=== PATIENT | female | born 1945 | race Caucasian/White ===

== ENCOUNTER 2024-10-29 04:23 | Outpatient (REF) | payer MEDICARE, MEDICAID, SELFPAY ==
--- OUTSIDE RECORDS SUMMARY | 2024-10-29 04:31 | XMS_ITS | CCD ---
Author Organization [facility] Care Team Providers Care Fine Hairer Name Role Phone SELF, REFERRED Unavailable Unavailable ILO, MAXIMINO Unavailable Unavailable NELLIE, SUMMON Unavailable Unavailable NELLIE, SUMMON Unavailable Unavailable AL Unavailable Unavailable NELLIE, SUMMON Unavailable Unavailable AL Unavailable Unavailable YERMAL, SOORAJ G Unavailable Unavailable NELLIE, SUMMON Unavailable Unavailable NELLIE, SUMMON Unavailable Unavailable NELLIE, SUMMON Unavailable Unavailable ILO, MAXIMINO Unavailable Unavailable AL Unavailable Unavailable NELLIE, SUMMON Unavailable Unavailable NELLIE, SUMMON Unavailable Unavailable NELLIE, SUMMON Unavailable Unavailable ILO, MAXIMINO Unavailable Unavailable ILO, MAXIMINO Unavailable Unavailable ILO, MAXIMINO Unavailable Unavailable VICK, JESSY AM Unavailable Unavailable VICK, JESSY AM Unavailable Unavailable NELLIE, SUMMON Unavailable Unavailable VICK, JESSY AM Unavailable Unavailable VICK, JESSY AM Unavailable Unavailable ILO, MAXIMINO Unavailable Unavailable ILO, MAXIMINO Unavailable Unavailable SELF, REFERRED Unavailable Unavailable VICK, JESSY AM Unavailable Unavailable VICK, JESSY AM Unavailable Unavailable ILO, MAXIMINO Unavailable Unavailable SELF, REFERRED Unavailable Unavailable ILO, MAXIMINO Unavailable Unavailable NELLIE, SUMMON Unavailable Unavailable NELLIE, SUMMON Unavailable Unavailable DR VON ESQUEDA Attending Unavailable DHEERAJ, DR VON Crum Admitting Unavailable DR FILI MARTINEZ Consulting Unavailable DR VON ESQUEDA Consulting Unavailable SHAIKH HA Consulting Unavailable Ilo, Maximino Primary Care Unavailable Nathalia Avalos Attending Unavailable Nathalia Avalos Admitting Unavailable Taylor Pedraza MD Primary Care Provider PARKER OLGUIN Referring UnavailTAYLOR Mas Primary Care Unavailable PARKER OLGUIN Attending UnavailTAYLOR Mas Referring Unavailable TAYLOR PEDRAZA Primary Care Unavailable Rajani Choudhury MD Unavailable RAJANI CHOUDHURY Attending Unavailable BENEDICT, RAJANI Attending Unavailable DEFRANCE, TAYLOR T Attending Unavailable DEFRANCE, TAYLOR T Referring Unavailable DEFRANCE, TAYLOR T Primary Care Unavailable DEFRANCE, TAYLOR T Attending Unavailable DEFRANCE, TAYLOR T Referring Unavailable DEFRANCE, TAYLOR T Primary Care Unavailable NADEEM PHAN Attending Unavailable DEFRANCE, TAYLOR T Referring Unavailable DEFRANCE, TAYLOR T Primary Care Unavailable MIRA STEVENS JR Attending Unavailable DEFRANCE, TAYLOR T Referring Unavailable DEFRANCE, TAYLOR T Primary Care Unavailable MIRA STEVENS JR Attending Unavailable MIRA STEVENS JR Referring Unavailable DEFRANCE, TAYLOR T Primary Care Unavailable DEFRANCE, TAYLOR T Referring Unavailable DEFRANCE, TAYLOR T Primary Care Unavailable NADEEM PHAN Referring Unavailable DEFRANCE, TAYLOR T Primary Care Unavailable BENEDICT, RAJANI Attending Unavailable BENEDICT, RAJANI Referring Unavailable DEFRANCE, TAYLOR T Primary Care Unavailable EASTON SCHUMACHER Attending Unavailable SUMMER JAMES Admitting Unavailable EASTON SCHUMACHER Attending Unavailable EASTON SCHUMACHER Referring Unavailable DEFRANCE, TAYLOR T Primary Care Unavailable DEFRANCE, TAYLOR T Referring Unavailable DEFRANCE, TAYLOR T Primary Care Unavailable DEFRANCE, TAYLOR T Primary Care Unavailable MIRA STEVENS JR Attending Unavailable MIRA STEVENS JR Referring Unavailable DEFRANCE, TAYLOR T Primary Care Unavailable Allergies Allergy Classification Reported Allergen(s) Allergy Type Date of Onset Reaction(s) Facility (8 sources) Adhesive agent; Translations: [ADHESIVE] Propensity to adverse reactions to drug (disorder) 4 [facility] (2 sources) Wound Dressing Adhesive Propensity to adverse reactions 4 [facility] Medications Current Medications Medication Drug Class(es) Dates Sig (Normalized) Sig (Original) 24 hr alfuzosin hydrochloride 10 mg extended release oral tablet (18 sources) alpha-Adrenergic Garcia Start: 04-12-2023 take 1 tablet by mouth every twenty-four hours in the morning alfuzosin (UROXATRAL) 10 mg 24 hr tablet Take 1 tablet (10 mg total) by mouth in the morning. 90 tablet 3 04/12/2023 Active take 1 tablet by madina th once daily, then take 1 tablet by mouth every twenty-four hours alfuzosin ER (Uroxatral) 10 MG 24 hr tablet Take 10 mg by mouth Daily Do not crush, chew, or split. Active amLODIPine 5 mg oral tablet (18 sources) Dihydropyridine Calcium Channel Garcia Start: 07-11-2023 amLODIPine (NORVASC) 5 mg tablet TAKE 1 TABLET IN THE MORNING FOR HIGH BLOOD PRESSURE 90 tablet 3 12/23/2023 Active apixaban 2.5 mg oral tablet (18 sources) Factor Xa Inhibitor Start: 04-15-2024 take 1 tablet by mouth in the morning, then take 1 tablet by mouth at bedtime apixaban (ELIQUIS) 2.5 mg tablet Take 1 tablet (2.5 mg total) by mouth in the morning and 1 tablet (2.5 mg total) before bedtime. 180 tablet 3 04/15/2024 Active Start: 07-11-2023 take 1 tablet by madina th in the morning, then take 1 tablet by mouth at bedtime apixaban (ELIQUIS) 5 mg tablet Take 1 tablet (5 mg total) by mouth in the morning and 1 tablet (5 mg total) before bedtime. 180 tablet 3 07/11/2023 Active cefadroxil 500 mg oral capsule (4 sources) Cephalosporin Antibacterial Start: 10-09-2024 End: 10-16-2024 take 1 capsule by mouth in the morning, then take 1 capsule by mouth at bedtime cefaDROXil (DURICEF) 500 mg capsule Take 1 capsule (500 mg total) by mouth in the morning and 1 capsule (500 mg total) before bedtime. Do all this for 7 days. 14 capsule 10/09/2024 10/16/2024 Active cranberry preparation 500 mg oral capsule (16 sources) Non-Standardized Food Allergenic Extract, Non-Standardized Plant Allergenic Extract take 1 capsule by mouth once daily cranberry 500 mg capsule Take 1 capsule by mouth daily. Active take 1 capsule by mouth once atif ly cranberry 500 mg capsule Take 1 capsule by mouth daily. 0 Active 12 hr dalfampridine 10 mg extended release oral tablet (4 sources) Potassium Channel Garcia take 1 tablet by mouth every hour dalfampridine (AMPYRA) 10 mg tablet extended release 12 hr Take 1 tablet (10 mg total) by mouth every 12 (twelve) hours. Active donepezil hydrochloride 5 mg oral tablet (11 sources) Start: 04-13-20 take 1 tablet by mouth once daily donepeziL (ARICEPT) 5 mg tablet Take 1 tablet (5 mg total) by mouth nightly. 0 04/13/2023 Active ergocalciferol 1.25 mg oral capsule (13 sources) Provitamin D2 Compound Start: 11-22-19 take 1 capsule by mouth every week ergocalciferol (VITAMIN D2) 1,250 mcg (50,000 unit) capsule Take 1 capsule (50,000 Units total) by mouth once a week. 12 capsule 3 11/22/2023 Active take 1 capsule by mouth every we ek ergocalciferol (Vitamin D-2) 1.25 MG (77505 UT) capsule Take 1.25 mg by mouth 1 (one) time per week Active hydroCHLOROthiazide 12.5 mg / lisinopril 20 mg oral tablet (19 sources) Thiazide Diuretic, Angiotensin Converting Enzyme Inhibitor Start: 07-11-2023 End: 11-16-2023 lisinopril-hydroCHLOROthiazi de (PRINZIDE,ZESTORETIC) 20-12.5 mg per tablet TAKE 1 TABLET IN THE MORNING FOR HIGH BLOOD PRESSURE 90 tablet 3 11/16/2023 Active take 1 tablet by madina th once daily lisinopril-hydroCHLOROthiazide 10-12.5 M G tablet Take 1 tablet by mouth Daily Active ibandronic acid 150 mg oral tablet (18 sources) Bisphosphonate Start: 09-19-2023 ibandronate (BONIVA) 150 mg tablet TAKE 1 TABLET EVERY 30 DAYS, TAKE IN THE MORNING WITH GLASS OF WATER PRIOR TO FOOD, DO NOT LIE DOWN FOR 60 MINUTES 3 tablet 1 09/19/2023 Active interferon beta-1b 0.3 mg injection (11 sources) Recombinant Human Interferon beta Start: 07-11-2023 inject 250 ug by subcutaneous injection every other day interferon beta-1b (BETASERON) 0.3 mg injection Inject 250 mcg under the skin every other day. 1 each 0 07/11/2023 Active 24 hr metoprolol succinate 50 mg extended release oral tablet (19 sources) beta-Adrenergic Garcia Start: 09-02-2023 End: 11-20-2023 take 1 tablet by mouth every twenty-four hours in the morning metoprolol succinate XL (TOPROL XL) 50 mg 24 hr tablet Indications: Essential hypertension, benign Take 1 tablet (50 mg total) by mouth in the morning. 90 tablet 3 11/20/2023 Active take 1 tablet by mouth once penny y metoprolol succinate XL (Toprol-XL) 50 MG 24 hr tablet Take 50 mg by mouth Daily Do not crush or chew. Active polysaccharide iron complex 150 mg oral capsule (19 sources) Start: 09-30-2023 End: 12-30-2023 POLY-IRON 150 mg iron capsule TAKE 1 CAPSULE IN THE MORNING 90 capsule 3 12/30/2023 Active microencapsulated potassium chloride 10 meq extended release oral tablet (19 sources) Start: 07-11-2023 End: 11-29-2023 potassium chloride (KLOR-CON M 10) 10 MEQ CR tablet Indications: Essential hypertension TAKE 1 TABLET IN THE MORNING 90 tablet 3 11/29/2023 Active sennosides, long-term 8.6 mg oral tablet (5 sources) take 2 tablets by mouth once daily SENNA 8.6 mg tablet Take 2 tablets every day by oral route. Active sertraline 50 mg oral tablet (20 sources) Serotonin Reuptake Inhibitor Start: 04-15-2024 take 1 tablet by mouth in the morning sertraline (ZOLOFT) 50 mg tablet Take 1 tablet (50 mg total) by mouth in the morning. 30 tablet 5 04/15/2024 Active Start: 07-11-2023 End: 11-29-2023 sertraline (ZOLOFT) 100 mg t ablet Indications: Major depressive disorder with single episode, in full remission (CMS-HCC) TAKE 1 TABLET IN THE MORNING 90 tablet 3 11/29/2023 Active simvastatin 20 mg oral tablet (18 sources) HMG-CoA Reductase Inhibitor Start: 07-12-2023 simvastatin (ZOCOR) 20 mg tablet TAKE 1 TABLET NIGHTLY 90 tablet 3 12/23/2023 Active tamsulosin hydrochloride 0.4 mg oral capsule (4 sources) alpha-Adrenergic Garcia Start: 09-11-2024 take 2 capsules by mouth once daily tamsulosin (FLOMAX) 0.4 mg capsule Take 2 capsules (0.8 mg total) by mouth nightly. 09/11/2024 Active traZODone hydrochloride 100 mg oral tablet (18 sources) Serotonin Reuptake Inhibitor Start: 11-13-2023 traZODone (DESYREL) 100 mg tablet TAKE 1 TABLET NIGHTLY 90 tablet 3 11/13/2023 Active Problems Active Problems Problem Classification Problem Date Documented Date Episodic/Chronic Bacterial infection; unspecified site (1 source) Unspecified Escherichia coli [E. coli] as the cause of diseases classified elsewhere; Translations: [UNS E COLI CAUSE DX CLASS ELSEWHERE] Onset: 04-18-2021 Episodic Cardiac dysrhythmias (16 sources) Paroxysmal atrial fibrillation; Translations: [Paroxysmal atrial fibrillation] Onset: 04-10-2023 04-10-2023 Chronic Coagulation and hemorrhagic disorders (18 sources) Hereditary deficiency of other clotting factors; Translations: [Factor V Leiden mutation] Onset: 11-28-2017 11-28-2017 Chronic Deficiency and other anemia (1 source) Anemia, unspecified; Translations: [Anemia, unspecified] Onset: 07-27-2022 Episodic Diseases of white blood cells (5 sources) Leukocytosis; Translations: [Elevated white blood cell count, unspecified] Onset: 07-13-2024 07-13-2024 Chronic Disorders of lipid metabolism (20 sources) Hyperlipidemia, unspecified; Translations: [Hyperlipidemia] Onset: 12-15-2017 03-26-2022 Chronic E Codes: Fall (1 source) Fall Onset: 07-12-2024 Essential hypertension (20 sources) Essential (primary) hypertension; Translations: [Hypertensive disorder] Onset: 12-15-2017 03-26-2022 Chronic Fluid and electrolyte disorders (1 source) Hypokalemia; Translations: [HYPOKALEMIA] Onset: 04-18-2021 Episodic Genitourinary symptoms and ill-defined conditions (18 sources) Urinary incontinence; Translations: [Unspecified urinary incontinence] Onset: 03-26-2024 08-11-2021 Chronic Genitourinary symptoms and ill-defined conditions (20 sources) Other retention of urine; Translations: [Retention of urine] Onset: 12-23-2017 11-23-2022 Episodic Heart valve disorders (5 sources) Aortic stenosis, non-rheumatic ; Translations: [Nonrheumatic aortic (valve) stenosis] Onset: 07-13-2024 07-13-2024 Chronic Hypertension with complications and secondary hypertension (20 sources) Hypertensive heart failure; Translations: [Hypertensive heart disease with heart failure] Onset: 09-21-2022 09-21-2022 Chronic Mood disorders (20 sources) Major depressive disorder, single episode, unspecified; Translations: [Single episode of major depression in full remission] Onset: 05-13-2008 Resolved: 12-25-2019 09-21-2022 Chronic Multiple sclerosis (20 sources) Multiple sclerosis; Translations: [Multiple sclerosis] Onset: 07-02-2017 07-02-2017 Chronic Nutritional deficiencies (20 sources) Vitamin D deficiency; Translations: [Vitamin D deficiency, unspecified] Onset: 08-17-2014 08-16-2020 Chronic Osteoarthritis (20 sources) Arthritis; Translations: [Unspecified osteoarthritis, unspecified site] Onset: 12-09-2017 10-04-2017 Chronic Other aftercare (4 sources) Aftercare following joint replacement surgery; Translations: [AFTERCARE FOLLOWING JOINT REPLACEMENT SURGERY] Onset: 02-11-2018 Chronic Other aftercare (5 sources) Encounter for therapeutic drug level monitoring; Translations: [assisted (current) use of anticoagulants] Onset: 12-15-2017 Episodic Other aftercare (1 source) Other long term care social worker (current) drug therapy; Translations: [OTH PRODUCTION MACHINE TENDER CURRENT DRUG THERAPY] Onset: 04-18-2021 Episodic Other and ill-defined heart disease (5 sources) Left ventricular hypertrophy; Translations: [Cardiomegaly] Onset: 07-13-2024 07-13-2024 Chronic Other connective tissue disease (2 sources) Presence of unspecified artificial knee joint; Translations: [Presence of right artificial knee joint] Onset: 01-06-2018 Chronic Other connective tissue disease (16 sources) History of revision of right total knee arthroplasty; Translations: [Presence of right artificial knee joint] Onset: 05-22-2020 08-23-2022 Chronic Other connective tissue disease (16 sources) History of left total knee replacement; Translations: [Presence of left artificial knee joint] Onset: 04-11-2023 04-11-2023 Chronic Other connective tissue disease (1 source) Presence of right artificial knee joint; Translations: [Presence of right artificial knee joint] Onset: 08-23-2022 Chronic Other connective tissue disease (1 source) Presence of left artificial knee joint; Translations: [Presence of left artificial knee joint] Onset: 04-11-2023 Chronic Other diseases of bladder and urethra (17 sources) Neurogenic bladder; Translations: [Neuromuscular dysfunction of bladder, unspecified] Onset: 08-11-2021 08-11-2021 Chronic Other diseases of bladder and urethra (2 sources) Neuromuscular dysfunction of bladder, unspecified; Translations: [Neuromuscular dysfunction of bladder, unspecified] Onset: 07-13-2024 Chronic Other hereditary and degenerative nervous system conditions (16 sources) Disorder of nervous system; Translations: [Degenerative disease of nervous system, unspecified] Onset: 04-10-2023 04-10-2023 Chronic Other nervous system disorders (2 sources) Other symptoms and signs involving cognitive functions and awareness; Translations: [Other signs and symptoms involving cognition] 09-15-2024 Episodic Other non-traumatic joint disorders (16 sources) Rotator cuff arthropathy of left shoulder; Translations: [Other specific arthropathies, not elsewhere classified, left shoulder] Onset: 08-23-2021 08-23-2021 Chronic Other nutritional; endocrine; and metabolic disorders (16 sources) Body mass index 30+ - obesity; Translations: [Obesity, unspecified] Onset: 06-29-2021 03-26-2022 Chronic Other nutritional; endocrine; and metabolic disorders (5 sources) Hypomagnesemia; Translations: [Hypomagnesemia] Onset: 07-13-2024 07-13-2024 Chronic Other screening for suspected conditions (not mental disorders or infectious disease) (1 source) Other specified abnormal findings of blood chemistry; Translations: [OTH SPEC ABNORMAL FINDINGS BLD CHEM] Onset: 04-18-2021 Episodic Pneumonia (except that caused by tuberculosis or sexually transmitted disease) (1 source) Pneumonia (except that caused by tuberculosis or sexually transmitted disease); Translations: [PNEUMONIA D/T CORONAVIRUS DIS 2019] Onset: 04-18-2021 Screening or history of mental health and substance abuse (17 sources) Personal history of nicotine dependence; Translations: [Ex-tobacco user] Onset: 12-23-2017 03-26-2022 Episodic Spondylosis; intervertebral disc disorders; other back problems (3 sources) Cervical spondylosis; Translations: [Spondylosis without myelopathy or radiculopathy, cervical region] Onset: 01-07-2024 01-09-2024 Chronic Substance-related disorders (16 sources) Other psychoactive substance dependence, uncomplicated; Translations: [Other specified drug dependence, unspecified] 06-07-2021 Chronic Unclassified (2 sources) Unknown / UNK(Unknown) Onset: 12-15-2017 Unclassified (1 source) Establish Care Onset: 04-14-2024 Unclassified (1 source) Annual Exam Onset: 04-15-2024 Unclassified (1 source) Consult Onset: 01-07-2024 Unclassified (1 source) Routine Check up Onset: 11-12-2023 Unclassified (1 source) EMS Onset: 07-12-2024 Urinary tract infections (19 sources) Urinary tract infection, site not specified; Translations: [Acute cystitis] Onset: 04-18-2021 07-28-2022 Episodic Viral infection (3 sources) COVID-19; Translations: [COVID-19] Onset: 04-07-2021 Past or Other Problems Problem Classification Problem Date Documented Da te Episodic/Chronic Acute and unspecified renal failure (5 sources) Acute renal failure syndrome; Translations: [Acute kidney failure, unspecified] Onset: 07-13-2024 07-13-2024 Episodic Cardiac and circulatory congenital anomalies (16 sources) Aortic valve stenosis; Translations: [Congenital stenosis of aortic valve] Resolved: 03-26-2022 03-26-2022 Chronic Complication of device; implant or graft (20 sources) Instability of internal right knee prosthesis, initial encounter; Translations: [Loosening of knee joint prosthesis] Onset: 12-15-2017 Resolved: 09-21-2022 09-21-2022 Episodic Deficiency and other anemia (16 sources) Anemia; Translations: [Anemia, unspecified] Onset: 08-30-2021 08-30-2021 Episodic Fracture of lower limb (1 source) Displaced oblique fracture of shaft of right fibula, subsequent encounter for closed fracture with routine healing; Translations: [DISPL OBLIQUE FX SHAFT OF R FIBULA, 7THD] Onset: 01-06-2018 Episodic Malaise and fatigue (11 sources) Weakness; Translations: [Asthenia] Onset: 10-25-2017 07-13-2024 Episodic Mood disorders (17 sources) Major depressive disorder, single episode, unspecified; Translations: [Mood disorders] Onset: 11-12-2023 Resolved: 04-15-2024 11-12-2023 Mycoses (16 sources) Onychomycosis of toenails; Translations: [Tinea unguium] Onset: 03-08-2022 03-08-2022 Episodic Nutritional deficiencies (16 sources) Iron deficiency; Translations: [Iron deficiency] Onset: 02-18-2018 02-18-2018 Episodic Other acquired deformities (16 sources) Acquired unequal limb length; Translations: [Unequal limb length (acquired), unspecified site] Onset: 04-15-2023 04-15-2023 Episodic Other aftercare (16 sources) Patient encounter status; Translations: [Encounter for other orthopedic aftercare] Onset: 03-01-2019 04-15-2023 Episodic Other aftercare (5 sources) Long-term current use of anticoagulant; Translations: [intermediate designer (current) use of anticoagulants] Onset: 11-18-2022 07-13-2024 Episodic Other fractures (16 sources) Closed fracture of fifth cervical vertebra; Translations: [Unspecified nondisplaced fracture of fifth cervical vertebra, initial encounter for closed fracture] Onset: 05-31-2021 06-07-2021 Episodic Other injuries and conditions due to external causes (5 sources) History of fall; Translations: [History of falling] Onset: 07-13-2024 07-13-2024 Episodic Other lower respiratory disease (16 sources) Hypoxia; Translations: [Hypoxemia] Onset: 12-31-2021 12-31-2021 Episodic Other nervous system disorders (1 source) Other acute postprocedural pain; Translations: [OTHER ACUTE POSTPROCEDURAL PAIN] Onset: 12-23-2017 Episodic Other nervous system disorders (2 sources) Abnormal gait; Translations: [Unspecified abnormalities of gait and mobility] Onset: 06-05-2010 03-26-2024 Episodic Other non-traumatic joint disorders (4 sources) Pain in right knee; Translations: [PAIN IN RIGHT KNEE] Onset: 01-06-2018 Episodic Other non-traumatic joint disorders (16 sources) Chronic pain following right total knee arthroplasty; Translations: [Pain in right knee] Onset: 06-15-2020 06-15-2020 Episodic Phlebitis; thrombophlebitis and thromboembolism (16 sources) H/O: Deep vein thrombosis; Translations: [Personal history of other venous thrombosis and embolism] Onset: 08-30-2021 03-26-2022 Episodic Pulmonary heart disease (20 sources) H/O: pulmonary embolus; Translations: [Personal history of pulmonary embolism] Onset: 08-30-2021 03-26-2022 Episodic Residual codes; unclassified (16 sources) Memory impairment; Translations: [Other amnesia] Onset: 11-05-2018 11-05-2018 Episodic Residual codes; unclassified (18 sources) Insomnia; Translations: [Insomnia, unspecified] Onset: 05-13-2008 12-25-2019 Episodic Residual codes; unclassified (16 sources) Poor oral hygiene; Translations: [Other specified personal risk factors, not elsewhere classified] Onset: 03-08-2022 03-08-2022 Episodic Respiratory failure; insufficiency; arrest (adult) (17 sources) Acute respiratory failure with hypoxia; Translations: [Acute respiratory failure] Onset: 04-18-2021 Resolved: 03-26-2022 03-26-2022 Episodic Spondylosis; intervertebral disc disorders; other back problems (4 sources) Spinal stenosis in cervical region; Translations: [Spinal stenosis, cervical region] Onset: 01-07-2024 12-23-2023 Episodic Unclassified (16 sources) Onset: 06-15-2020 06-15-2020 Results Test Name Value Interpretation Reference Range Facility US RETROPERITONEAL COMPLETEo n 10-20-2024 US RETROPERITONEAL COMPLETE US RETROPERITONEAL COMPLETE History: Urinary frequency. Urinary retention. Neurogenic bladder. Exam/Technique: Ultrasound of the kidneys and urinary bladder Comparison: Ultrasound of the kidneys and urinary bladder from 11/13/2023 Findings: There is no collecting system dilatation in either kidney. A small amount of right perinephric fluid paralleling the kidney with no mass exerting fluid collections. No focal renal lesions are displayed on either side. The right kidney measures 9.8 centimeters in length , and the left kidney 10.9 centimeters . The urinary bladder measures only 26 ml, but displays no gross focal abnormalities. The ureteral jets are not demonstrated. IMPRESSION: Small amount of right perinephric fluid with no other renal abnormalities displayed. Bilateral almost empty at the time of scanning. Finalized by Brian Isaacs MD on 10/20/2024 2:38 PM Normal [facility] CBC AND AUTO DIFFon 10-14-20 ABSOLUTE BASOPHIL 0.3 X10E9/L High 0.0-0.2 [facility] Comment on above: Performed By: #### C BCA, CMP, 62414-5, THYR, 12835-3 #### [facility] ([id number]) [address] [place] [address] Basophils/100 WBC (Bld) 2.0 % Normal [facility] Comment on above: Performed By: #### C BCA, CMP, 19506-7, THYR, 32025-2 #### [facility] ([id number]) [address] [place] [address] Eosinophils (Bld) [#/Vol] 0.3 10*3/uL Normal 0.0-0.4 [facility] Comment on above: Performed By: #### C BCA, CMP, 45691-9, THYR, 35502-7 #### [facility] ([id number]) [address] [place] [address] Eosinophils/100 WBC (Bld) 2.0 % Normal [facility] Comment on above: Performed By: #### C BCA, CMP, 84135-4, THYR, 68482-8 #### [facility] ([id number]) [address] [place] [address] Erythrocyte distribution width (RBC) [Ratio] 13.4 % Normal 11.5-15.0 [facility] Comment on above: Performed By: #### C BCA, CMP, 39662-2, THYR, 89246-4 #### [facility] ([id number]) [address] [place] [address] Hematocrit (Bld) [Volume fraction] 37.1 % Normal 35-47 [facility] Comment on above: Performed By: #### C BCA, CMP, 63827-9, THYR, 55638-0 #### [facility] ([id number]) [address] [place] [address] Hemoglobin (Bld) [Mass/Vol] 12.3 g/dL Normal 11.7-15.5 [facility] Comment on above: Performed By: #### C BCA, CMP, 20817-7, THYR, 31464-3 #### [facility] ([id number]) [address], [address] [place] [address] Lymphocytes (Bld) [#/Vol] 1.1 10*3/uL Normal 1.0-3.5 [facility] Comment on above: Performed By: #### C BCA, CMP, 41743-5, THYR, 61652-3 #### [facility] ([id number]) [address], [address] [place] [address] Lymphocytes/100 WBC (Bld) 9.0 % Normal [facility] Comment on above: Performed By: #### C BCA, CMP, 35759-2, THYR, 73155-5 #### [facility] ([id number]) [address], [address] [place] [address] MCH (RBC) [Entitic mass] 28.3 pg Normal 27-34 [facility] Comment on above: Performed By: #### C BCA, CMP, 14218-9, THYR, 02887-5 #### [facility] ([id number]) [address], [address] [place] [address] MCHC (RBC) [Mass/Vol] 33.1 g/dL Normal 32-36 [facility] Comment on above: Performed By: #### C BCA, CMP, 81962-0, THYR, 15293-5 #### [facility] ([id number]) [address] [place] [address] MCV (RBC) [Entitic vol] 86 fL Normal 80-100 [facility] Comment on above: Performed By: #### C BCA, CMP, 69923-9, THYR, 49317-4 #### [facility] ([id number]) [address] [place] [address] Monocytes (Bld) [#/Vol] 0.8 10*3/uL Normal 0-0.9 [facility] Comment on above: Performed By: #### C BCA, CMP, 40050-6, THYR, 12472-0 #### [facility] ([id number]) [address] [address] [place] [address] Monocytes/100 WBC (Bld) 6.0 % Normal [facility] Comment on above: Performed By: #### C BCA, CMP, 04102-1, THYR, 39213-3 #### [facility] ([id number]) [address], [facility] [[email or web address]] [address] [place] [address] Neutrophils (Bld) [#/Vol] 10.1 10*3/uL High 1.5-6.6 [facility] Comment on above: Performed By: #### C BCA, CMP, 41901-4, THYR, 24061-8 #### [facility] ([id number]) [address], [facility] [[email or web address]] [address] [place] [address] Platelet mean volume (Bld) [Entitic vol] 7.3 fL Normal 7-12 [facility] Comment on above: Performed By: #### C BCA, CMP, 17335-5, THYR, 79974-9 #### [facility] ([id number]) [address] [address] [place] [address] Platelets (Bld) [#/Vol] 321 10*3/uL Normal 150-450 [facility] Comment on above: Performed By: #### C BCA, CMP, 69990-7, THYR, 22240-7 #### [facility] ([id number]) [address] [address] [place] [address] POLYCHROMASIA 1+ Abnormal NONE [facility] Comment on above: Performed By: #### C BCA, CMP, 58479-1, THYR, 18713-9 #### [facility] ([id number]) [address], [address] [place] [address] RBC COUNT 4.34 X10E12/L Normal 3.80-5.20 [facility] Comment on above: Performed By: #### C BCA, CMP, 59752-2, THYR, 63616-4 #### [facility] ([id number]) [address], [address] [place] [address] SEG NEUTROPHIL 81.0 % Normal [facility] Comment on above: Performed By: #### C BCA, CMP, 97414-9, THYR, 08970-8 #### [facility] ([id number]) [address], [address] [place] [address] WBC (Bld) [#/Vol] 12.6 10*3/uL High 4.0-11.0 [facility] Comment on above: Performed By: #### C BCA, CMP, 23321-8, THYR, 34561-4 #### [facility] ([id number]) [address], [address] [place] [address] COMPREHENSIVE METABOLIC PANE Antonio 10-14-2024 Albumin [Mass/Vol] 3.3 g/dL Normal 3.2-5.3 [facility] Comment on above: Performed By: #### C BCA, CMP, 20122-7, THYR, 90849-7 #### [facility] ([id number]) [address], [address] [place] [address] ALP [Catalytic activity/Vol] 57 U/L Normal 39-130 [facility] Comment on above: Performed By: #### C BCA, CMP, 63826-8, THYR, 24587-7 #### [facility] ([id number]) [address], [address] [place] [address] ALT [Catalytic activity/Vol] 28 U/L Normal 0-31 [facility] Comment on above: Performed By: #### C BCA, CMP, 07425-9, THYR, 45576-2 #### [facility] ([id number]) [address], [address] [place] [address] Anion gap [Moles/Vol] 11 mmol/L Normal 5-15 [facility] Comment on above: Performed By: #### C BCA, CMP, 33498-5, THYR, 01490-4 #### [facility] ([id number]) [address], [address] [place] [address] AST [Catalytic activity/Vol] 20 U/L Normal 0-41 [facility] Comment on above: Performed By: #### C BCA, CMP, 35440-3, THYR, 75099-1 #### [facility] ([id number]) [address], [address] [place] [address] Bilirubin [Mass/Vol] 0.4 mg/dL Normal 0.3-1.2 [facility] Comment on above: Performed By: #### C BCA, CMP, 76235-4, THYR, 29190-1 #### [facility] ([id number]) [address], [address] [place] [address] Calcium [Mass/Vol] 9.2 mg/dL Normal 8.5-10.5 [facility] Comment on above: Performed By: #### C BCA, CMP, 27055-7, THYR, 04804-8 #### [facility] ([id number]) [address], [address] [place] [address] Chloride [Moles/Vol] 108 mmol/L Normal 98-109 [facility] Comment on above: Performed By: #### C BCA, CMP, 61332-6, THYR, 74831-4 #### [facility] ([id number]) [address], [address] [place] [address] CO2 [Moles/Vol] 20 mmol/L Low 22-32 [facility] Comment on above: Performed By: #### C BCA, CMP, 28020-5, THYR, 29131-2 #### [facility] ([id number]) [address], [address] [place] [address] Creatinine [Mass/Vol] 1.17 mg/dL High 0.40-1.00 [facility] Comment on above: Result Comment: METH OD TRACEABLE TO IDMS STANDARD Performed By: #### C BCA, CMP, 49151-3, THYR, 70967-6 #### [facility] ([id number]) [address], [address] [place] [address] GFR/1.73 sq M.predicted among non-blacks MDRD (S/P/Bld) [Vol rate/Area] 47 mL/min/{1.73_m2} Low >59 [facility] Comment on above: Result Comment: Reported eGFR is based on the CKD-EPI 2020 equation that does not use a race coefficient. Performed By: #### C BCA, CMP, 97528-2, THYR, 75621-6 #### [facility] ([id number]) [address], [address] [place] [address] Glucose [Mass/Vol] 115 mg/dL High 65-99 [facility] Comment on above: Performed By: #### C BCA, CMP, 27515-9, THYR, 79283-8 #### [facility] ([id number]) [address], [address] [place] [address] Potassium [Moles/Vol] 4.4 mmol/L Normal 3.5-5.0 [facility] Comment on above: Performed By: #### C BCA, CMP, 73861-6, THYR, 41950-8 #### [facility] ([id number]) [address], [address] [place] [address] Protein [Mass/Vol] 6.6 g/dL Normal 6.0-8.0 [facility] Comment on above: Performed By: #### C BCA, CMP, 27474-8, THYR, 89218-3 #### [facility] ([id number]) [address], [address] [place] [address] Sodium [Moles/Vol] 139 mmol/L Normal 134-146 [facility] Comment on above: Performed By: #### C BCA, CMP, 07473-3, THYR, 68813-6 #### [facility] ([id number]) [address], [address] [place] [address] Urea nitrogen [Mass/Vol] 38 mg/dL High - [facility] Comment on above: Performed By: #### C BCA, CMP, 60838-8, THYR, 56585-1 #### [facility] ([id number]) [address] [place] [address] URINE CULTUREon 10-14-2024 Bacteria identified Cx Nom (U) CULTURE RESULTS >100,000 ORGANISMS/mL PSEUDOMONAS AERUGINOSA <10,000 ORGANISMS/mL NORMAL URO GENITAL JOSE [ S = SUSCEPTIBLE R = RESISTANT I = INTERMEDIATE S-DO = Susceptible-dose dependent NS = Non-suscceptible NO = No Interpretation ] Organism: PSEUDOMONAS AERUGINOSA Antibiotic Interpretation RADHA Status AMIKACIN S <=2 F CEFEPIME S 2 F CIPROFLOXACIN S 0.5 F LEVOFLOXACIN S 0.5 F MEROPENEM S <=0.25 F TOBRAMYCIN S <=1 F PIPERACIL/TAZOBACTAM S 8 F Susceptible [facility] Comment on above: Performed By: #### C BCA, CMP, 88503-0, THYR, 44459-4 #### [facility] ([id number]) [address] [place] [address] URN MACROSCOPIC NURon 2023 BILIRUBIN CORINNE Negative Normal NEG [facility] Comment on above: Performed By: #### C BCA, CMP, 01058-5, THYR, 83393-5 #### [facility] ([id number]) [address], [address] [place] [address] BLOOD/HGB CORINNE MODERATE Abnormal NEG [facility] Comment on above: Performed By: #### C BCA, CMP, 07039-5, THYR, 03317-1 #### [facility] ([id number]) [address], [address] [place] [address] GLUCOSE CORINNE Negative Normal NEG [facility] Comment on above: Performed By: #### C BCA, CMP, 68647-3, THYR, 13711-9 #### [facility] ([id number]) [address], [address] [place] [address] KETONES CORINNE Negative Normal NEG [facility] Comment on above: Performed By: #### C BCA, CMP, 30580-2, THYR, 98134-5 #### [facility] ([id number]) [address], [address] [place] [address] LEUKOCYTE ESTERASE CORINNE Large Abnormal NEG [facility] Comment on above: Performed By: #### C BCA, CMP, 58972-3, THYR, 47111-3 #### [facility] ([id number]) [address], [address] [place] [address] NITRITE CORINNE Positive Abnormal NEG [facility] Comment on above: Performed By: #### C BCA, CMP, 91877-3, THYR, 73857-4 #### [facility] ([id number]) [address], [address] [place] [address] PH CORINNE 5.5 Normal 5.0-8.5 [facility] Comment on above: Performed By: #### C BCA, CMP, 43557-2, THYR, 63388-8 #### [facility] ([id number]) [address], [address] [place] [address] PROTEIN CORINNE 100 mg/dL Abnormal NEG [facility] Comment on above: Performed By: #### C BCA, CMP, 63851-0, THYR, 80430-8 #### [facility] ([id number]) [address], [address] [place] [address] SPECIFIC GRAVITY CORINNE 1.025 Normal 1.003-1.035 [facility] Comment on above: Performed By: #### C BCA, CMP, 01469-2, THYR, 85027-7 #### [facility] ([id number]) [address], [address] [place] [address] UROBILINOGEN CORINNE 0.2 eu/dL Normal <1.1 [facility] Comment on above: Performed By: #### C BCA, CMP, 09694-1, THYR, 88037-9 #### [facility] ([id number]) [address], [address] [place] [address] CBC AND AUTO DIFFon 07-15-20 ABSOLUTE BASOPHIL 0.1 X10E9/L Normal 0.0-0.2 [facility] Comment on above: Performed By: #### C BCA, CMP, 07055-9, THYR, 65260-9 #### [facility] ([id number]) [address], [facility] [[email or web address]] [address] [place] [address] ABSOLUTE NEUTROPHIL 6.6 X10E9/L Normal 1.5-6.6 [facility] Comment on above: Performed By: #### C BCA, CMP, 51297-2, THYR, 10122-8 #### [facility] ([id number]) [address] [address] [place] [address] Basophils/100 WBC (Bld) 1.1 % Normal [facility] Comment on above: Performed By: #### C BCA, CMP, 08791-1, THYR, 64680-2 #### [facility] ([id number]) [address] [place] [address] Eosinophils (Bld) [#/Vol] 0.3 10*3/uL Normal 0.0-0.4 [facility] Comment on above: Performed By: #### C BCA, CMP, 04916-1, THYR, 73664-4 #### [facility] ([id number]) [address] [address] [place] [address] Eosinophils/100 WBC (Bld) 3.1 % Normal [facility] Comment on above: Performed By: #### C BCA, CMP, 61310-5, THYR, 69759-8 #### [facility] ([id number]) [address], [facility] [[email or web address]] [address] [place] [address] Erythrocyte distribution width (RBC) [Ratio] 14.1 % Normal 11.5-15.0 [facility] Comment on above: Performed By: #### C BCA, CMP, 41775-8, THYR, 09506-9 #### [facility] ([id number]) [address] [address] [place] [address] Hematocrit (Bld) [Volume fraction] 37.2 % Normal 35-47 [facility] Comment on above: Performed By: #### C BCA, CMP, 60952-9, THYR, 93584-0 #### [facility] ([id number]) [address] [address] [place] [address] Hemoglobin (Bld) [Mass/Vol] 12.6 g/dL Normal 11.7-15.5 [facility] Comment on above: Performed By: #### C BCA, CMP, 94798-3, THYR, 00455-4 #### [facility] ([id number]) [address] [address] [place] [address] Lymphocytes (Bld) [#/Vol] 1.0 10*3/uL Normal 1.0-3.5 [facility] Comment on above: Performed By: #### C BCA, CMP, 29384-6, THYR, 06149-3 #### [facility] ([id number]) [address] [place] [address] Lymphocytes/100 WBC (Bld) 11.9 % Normal [facility] Comment on above: Performed By: #### C BCA, CMP, 62195-1, THYR, 78587-2 #### [facility] ([id number]) [address] [address] [place] [address] MCH (RBC) [Entitic mass] 29.2 pg Normal 27-34 [facility] Comment on above: Performed By: #### C BCA, CMP, 89159-6, THYR, 13346-5 #### [facility] ([id number]) [address] [place] [address] MCHC (RBC) [Mass/Vol] 34.0 g/dL Normal 32-36 [facility] Comment on above: Performed By: #### Taim BCA, CMP, 01977-5, THYR, 63995-4 #### [facility] ([id number]) [address] [address] [place] [address] MCV (RBC) [Entitic vol] 86 fL Normal 80-100 [facility] Comment on above: Performed By: #### Tami BCA, CMP, 11290-6, THYR, 92108-7 #### [facility] ([id number]) [address] [place] [address] Monocytes (Bld) [#/Vol] 0.7 10*3/uL Normal 0-0.9 [facility] Comment on above: Performed By: #### C BCA, CMP, 21795-2, THYR, 02003-7 #### [facility] ([id number]) [address] [place] [address] Monocytes/100 WBC (Bld) 7.8 % Normal [facility] Comment on above: Performed By: #### Tami BCA, CMP, 22127-4, THYR, 48771-2 #### [facility] ([id number]) [address] [place] [address] Neutrophils/100 WBC (Bld) 76.1 % Normal [facility] Comment on above: Performed By: #### C BCA, CMP, 55010-0, THYR, 62038-4 #### [facility] ([id number]) [address] [place] [address] Platelet mean volume (Bld) [Entitic vol] 8.2 fL Normal 7-12 [facility] Comment on above: Performed By: #### C BCA, CMP, 46972-8, THYR, 02816-9 #### [facility] ([id number]) [address] [place] [address] Platelets (Bld) [#/Vol] 189 10*3/uL Normal 150-450 [facility] Comment on above: Result Comment: PLAT ELETS REVIEWED Performed By: #### C BCA, CMP, 64120-1, THYR, 20504-2 #### [facility] ([id number]) [address] [place] [address] RBC COUNT 4.33 X10E12/L Normal 3.80-5.20 [facility] Comment on above: Performed By: #### C BCA, CMP, 98091-8, THYR, 61746-3 #### [facility] ([id number]) [address] [place] [address] WBC (Bld) [#/Vol] 8.7 10*3/uL Normal 4.0-11.0 [facility] Comment on above: Performed By: #### C BCA, CMP, 72356-5, THYR, 25517-8 #### [facility] ([id number]) [address] [place] [address] COMPREHENSIVE METABOLIC PANE Antonio 07-15-2024 Albumin [Mass/Vol] 3.1 g/dL Low 3.2-5.3 [facility] Comment on above: Performed By: #### C BCA, CMP, 28959-9, THYR, 75375-1 #### [facility] ([id number]) [address] [place] [address] ALP [Catalytic activity/Vol] 49 U/L Normal 39-130 [facility] Comment on above: Performed By: #### C BCA, CMP, 08408-6, THYR, 35299-1 #### [facility] ([id number]) [address] [place] [address] ALT [Catalytic activity/Vol] 18 U/L Normal 0-31 [facility] Comment on above: Performed By: #### C BCA, CMP, 71245-4, THYR, 84538-5 #### [facility] ([id number]) [address] [place] [address] Anion gap [Moles/Vol] 6 mmol/L Normal 5-15 [facility] Comment on above: Performed By: #### C BCA, CMP, 90616-3, THYR, 38804-0 #### [facility] ([id number]) [address] [place] [address] AST [Catalytic activity/Vol] 17 U/L Normal 0-41 [facility] Comment on above: Performed By: #### C BCA, CMP, 97910-0, THYR, 97093-6 #### [facility] ([id number]) [address] [place] [address] Bilirubin [Mass/Vol] 0.5 mg/dL Normal 0.3-1.2 [facility] Comment on above: Performed By: #### C BCA, CMP, 59691-1, THYR, 23400-8 #### [facility] ([id number]) [address] [place] [address] Calcium [Mass/Vol] 8.6 mg/dL Normal 8.5-10.5 [facility] Comment on above: Performed By: #### C BCA, CMP, 72317-7, THYR, 26202-2 #### [facility] ([id number]) [address] [address] [place] [address] Chloride [Moles/Vol] 107 mmol/L Normal 98-109 [facility] Comment on above: Performed By: #### C BCA, CMP, 70713-5, THYR, 93990-3 #### [facility] ([id number]) [address] [address] [place] [address] CO2 [Moles/Vol] 26 mmol/L Normal 22-32 [facility] Comment on above: Performed By: #### C BCA, CMP, 83291-7, THYR, 40331-0 #### [facility] ([id number]) [address] [address] [place] [address] Creatinine [Mass/Vol] 0.88 mg/dL Normal 0.40-1.00 [facility] Comment on above: Result Comment: METH OD TRACEABLE TO IDMS STANDARD Performed By: #### C BCA, CMP, 20417-8, THYR, 55100-0 #### [facility] ([id number]) [address] [address] [place] [address] GFR/1.73 sq M.predicted among non-blacks MDRD (S/P/Bld) [Vol rate/Area] 67 mL/min/{1.73_m2} Normal >59 [facility] Comment on above: Result Comment: Reported eGFR is based on the CKD-EPI 2020 equation that does not use a race coefficient. Performed By: #### C BCA, CMP, 99629-4, THYR, 27447-7 #### [facility] ([id number]) [address] [address] [place] [address] Glucose [Mass/Vol] 94 mg/dL Normal 65-99 [facility] Comment on above: Performed By: #### C BCA, CMP, 54187-0, THYR, 99153-4 #### [facility] ([id number]) [address] [place] [address] Potassium [Moles/Vol] 4.2 mmol/L Normal 3.5-5.0 [facility] Comment on above: Performed By: #### C BCA, CMP, 99903-4, THYR, 49214-1 #### [facility] ([id number]) [address] [place] [address] Protein [Mass/Vol] 5.6 g/dL Low 6.0-8.0 [facility] Comment on above: Performed By: #### C BCA, CMP, 84198-0, THYR, 37017-1 #### [facility] ([id number]) [address] [place] [address] Sodium [Moles/Vol] 139 mmol/L Normal 134-146 [facility] Comment on above: Performed By: #### C BCA, CMP, 67900-4, THYR, 73812-7 #### [facility] ([id number]) [address] [place] [address] Urea nitrogen [Mass/Vol] 24 mg/dL Normal 5-27 [facility] Comment on above: Performed By: #### C BCA, CMP, 11821-4, THYR, 72413-0 #### [facility] ([id number]) [address] [place] [address] MAGNESIUMon 07-15-2024 Magnesium [Mass/Vol] 2.1 mg/dL Normal 1.8-2.6 [facility] Comment on above: Performed By: #### C BCA, CMP, 19488-6, THYR, 88774-4 #### [facility] ([id number]) [address] [place] [address] Magnesium Ionized ISE (Bld) [Moles/Vol]on 07-15-2024 Magnesium [Moles/Vol] 0.63 mmol/L Normal 0.45-0.74 [facility] Comment on above: Result Comment: NEW REFERENCE RANGE Performed By: #### C BCA, CMP, 06153-4, THYR, 70505-5 #### [facility] ([id number]) [address] [place] [address] CBC AND AUTO DIFFon 07-14-20 ABSOLUTE BASOPHIL 0.1 X10E9/L Normal 0.0-0.2 [facility] Comment on above: Performed By: #### C BCA, CMP, 48001-3, THYR, 52720-8 #### [facility] ([id number]) [address] [place] [address] ABSOLUTE NEUTROPHIL 8.8 X10E9/L High 1.5-6.6 [facility] Comment on above: Performed By: #### C BCA, CMP, 20794-6, THYR, 40696-8 #### [facility] ([id number]) [address] [place] [address] Basophils/100 WBC (Bld) 0.8 % Normal [facility] Comment on above: Performed By: #### C BCA, CMP, 48837-1, THYR, 69384-0 #### [facility] ([id number]) [address] [place] [address] Eosinophils (Bld) [#/Vol] 0.2 10*3/uL Normal 0.0-0.4 [facility] Comment on above: Performed By: #### C BCA, CMP, 75934-0, THYR, 38522-6 #### [facility] ([id number]) [address] [place] [address] Eosinophils/100 WBC (Bld) 1.6 % Normal [facility] Comment on above: Performed By: #### C BCA CMP, 81578-5, THYR, 57408-9 #### [facility] ([id number]) [address], [address] [place] [address] Erythrocyte distribution width (RBC) [Ratio] 14.0 % Normal 11.5-15.0 [facility] Comment on above: Performed By: #### C BCA, CMP, 79820-5, THYR, 08373-2 #### [facility] ([id number]) [address], [address] [place] [address] Hematocrit (Bld) [Volume fraction] 38.0 % Normal 35-47 [facility] Comment on above: Performed By: #### Tami BCA, CMP, 52240-9, THYR, 75206-0 #### [facility] ([id number]) [address], [address] [place] [address] Hemoglobin (Bld) [Mass/Vol] 13.0 g/dL Normal 11.7-15.5 [facility] Comment on above: Performed By: #### C BCA, CMP, 64582-9, THYR, 79841-8 #### [facility] ([id number]) [address], [address] [place] [address] Lymphocytes (Bld) [#/Vol] 0.8 10*3/uL Low 1.0-3.5 [facility] Comment on above: Performed By: #### C BCA, CMP, 62816-7, THYR, 03954-1 #### [facility] ([id number]) [address] [place] [address] Lymphocytes/100 WBC (Bld) 7.8 % Normal [facility] Comment on above: Performed By: #### C BCA, CMP, 88164-6, THYR, 66070-3 #### [facility] ([id number]) [address], [address] [place] [address] MCH (RBC) [Entitic mass] 29.1 pg Normal 27-34 [facility] Comment on above: Performed By: #### C BCA, CMP, 21411-2, THYR, 74419-2 #### [facility] ([id number]) [address], [address] [place] [address] MCHC (RBC) [Mass/Vol] 34.2 g/dL Normal 32-36 [facility] Comment on above: Performed By: #### C BCA, CMP, 66610-4, THYR, 13896-3 #### [facility] ([id number]) [address], [address] [place] [address] MCV (RBC) [Entitic vol] 85 fL Normal 80-100 [facility] Comment on above: Performed By: #### C BCA, CMP, 90399-6, THYR, 66585-3 #### [facility] ([id number]) [address], [address] [place] [address] Monocytes (Bld) [#/Vol] 0.6 10*3/uL Normal 0-0.9 [facility] Comment on above: Performed By: #### C BCA, CMP, 36308-2, THYR, 30938-2 #### [facility] ([id number]) [address], [address] [place] [address] Monocytes/100 WBC (Bld) 6.0 % Normal [facility] Comment on above: Performed By: #### C BCA, CMP, 29332-0, THYR, 18076-9 #### [facility] ([id number]) [address], [address] [place] [address] Neutrophils/100 WBC (Bld) 83.8 % Normal [facility] Comment on above: Performed By: #### C BCA, CMP, 59451-4, THYR, 72793-0 #### [facility] ([id number]) [address] [place] [address] Platelet mean volume (Bld) [Entitic vol] 7.9 fL Normal 7-12 [facility] Comment on above: Performed By: #### C BCA, CMP, 97423-0, THYR, 97497-9 #### [facility] ([id number]) [address] [place] [address] Platelets (Bld) [#/Vol] 210 10*3/uL Normal 150-450 [place] [facility] Comment on above: Performed By: #### C BCA, CMP, 17160-2, THYR, 37558-6 #### [facility] ([id number]) [address] [address] [place] [address] RBC COUNT 4.46 X10E12/L Normal 3.80-5.20 [facility] Comment on above: Performed By: #### C BCA, CMP, 49781-5, THYR, 61380-9 #### [facility] ([id number]) [address] [address] [place] [address] WBC (Bld) [#/Vol] 10.5 10*3/uL Normal 4.0-11.0 [facility] Comment on above: Performed By: #### C BCA, CMP, 03872-4, THYR, 80969-2 #### [facility] ([id number]) [address] [place] [address] COMPREHENSIVE METABOLIC PANE Antonio 07-14-2024 Albumin [Mass/Vol] 3.2 g/dL Normal 3.2-5.3 [facility] Comment on above: Performed By: #### C BCA, CMP, 40029-1, THYR, 16628-0 #### [facility] ([id number]) [address] [place] [address] ALP [Catalytic activity/Vol] 51 U/L Normal 39-130 [facility] Comment on above: Performed By: #### C BCA, CMP, 42014-5, THYR, 04735-5 #### [facility] ([id number]) [address] [place] [address] ALT [Catalytic activity/Vol] 20 U/L Normal 0-31 [facility] Comment on above: Performed By: #### C BCA, CMP, 29503-5, THYR, 70587-7 #### [facility] ([id number]) [address], [address] [place] [address] Anion gap [Moles/Vol] 8 mmol/L Normal 5-15 [facility] Comment on above: Performed By: #### C BCA, CMP, 48483-2, THYR, 82085-8 #### [facility] ([id number]) [address], [address] [place] [address] AST [Catalytic activity/Vol] 18 U/L Normal 0-41 [facility] Comment on above: Performed By: #### C BCA, CMP, 05505-7, THYR, 62198-9 #### [facility] ([id number]) [address], [address] [place] [address] Bilirubin [Mass/Vol] 0.6 mg/dL Normal 0.3-1.2 [facility] Comment on above: Performed By: #### C BCA, CMP, 59854-2, THYR, 17016-6 #### [facility] ([id number]) [address], [address] [place] [address] Calcium [Mass/Vol] 8.7 mg/dL Normal 8.5-10.5 [facility] Comment on above: Performed By: #### C BCA, CMP, 90130-3, THYR, 27135-8 #### [facility] ([id number]) [address] [place] [address] Chloride [Moles/Vol] 104 mmol/L Normal 98-109 [facility] Comment on above: Performed By: #### C BCA, CMP, 62388-4, THYR, 98435-4 #### [facility] ([id number]) [address], [address] [place] [address] CO2 [Moles/Vol] 25 mmol/L Normal 22-32 [facility] Comment on above: Performed By: #### C BCA, CMP, 29195-1, THYR, 85420-5 #### [facility] ([id number]) [address], [address] [place] [address] Creatinine [Mass/Vol] 0.96 mg/dL Normal 0.40-1.00 [facility] Comment on above: Result Comment: METH OD TRACEABLE TO IDMS STANDARD Performed By: #### C BCA, CMP, 41191-0, THYR, 07652-6 #### [facility] ([id number]) [address], [address] [place] [address] GFR/1.73 sq M.predicted among non-blacks MDRD (S/P/Bld) [Vol rate/Area] 61 mL/min/{1.73_m2} Normal >59 [facility] Comment on above: Result Comment: Reported eGFR is based on the CKD-EPI 2020 equation that does not use a race coefficient. Performed By: #### C BCA, CMP, 23693-0, THYR, 00770-8 #### [facility] ([id number]) [address], [address] [place] [address] Glucose [Mass/Vol] 105 mg/dL High 65-99 [facility] Comment on above: Performed By: #### C BCA, CMP, 07108-7, THYR, 01757-4 #### [facility] ([id number]) [address], [address] [place] [address] Potassium [Moles/Vol] 3.6 mmol/L Normal 3.5-5.0 [facility] Comment on above: Performed By: #### C BCA, CMP, 56840-4, THYR, 26949-4 #### [facility] ([id number]) [address], [address] [place] [address] Protein [Mass/Vol] 5.7 g/dL Low 6.0-8.0 [facility] Comment on above: Performed By: #### C BCA, CMP, 58531-1, THYR, 02214-5 #### [facility] ([id number]) [address], [address] [place] [address] Sodium [Moles/Vol] 137 mmol/L Normal 134-146 [facility] Comment on above: Performed By: #### C BCA, CMP, 09184-8, THYR, 90529-5 #### [facility] ([id number]) [address], [address] [place] [address] Urea nitrogen [Mass/Vol] 14 mg/dL Normal 5-27 [facility] Comment on above: Performed By: #### C BCA, CMP, 61317-4, THYR, 68205-0 #### [facility] ([id number]) [address], [address] [place] [address] MAGNESIUMon 07-14-2024 Magnesium [Mass/Vol] 1.7 mg/dL Low 1.8-2.6 [facility] Comment on above: Performed By: #### C BCA, CMP, 02904-8, THYR, 39016-3 #### [facility] ([id number]) [address] [place] [address] CBC AND AUTO DIFFon 07-13-20 ABSOLUTE BASOPHIL 0.1 X10E9/L Normal 0.0-0.2 [facility] Comment on above: Performed By: #### C BCA, CMP, 32800-2, THYR, 30584-7 #### [facility] ([id number]) [address] [place] [address] ABSOLUTE NEUTROPHIL 8.4 X10E9/L High 1.5-6.6 [facility] Comment on above: Performed By: #### C BCA, CMP, 50273-6, THYR, 60624-9 #### [facility] ([id number]) [address], [address] [place] [address] Basophils/100 WBC (Bld) 0.8 % Normal [facility] Comment on above: Performed By: #### C BCA, CMP, 93197-6, THYR, 82537-2 #### [facility] ([id number]) [address] [place] [address] Eosinophils (Bld) [#/Vol] 0.2 10*3/uL Normal 0.0-0.4 [facility] Comment on above: Performed By: #### C BCA, CMP, 29598-8, THYR, 84064-4 #### [facility] ([id number]) [address] [place] [address] Eosinophils/100 WBC (Bld) 1.9 % Normal [facility] Comment on above: Performed By: #### C BCA, CMP, 65750-5, THYR, 42107-9 #### [facility] ([id number]) [address], [address] [place] [address] Erythrocyte distribution width (RBC) [Ratio] 14.2 % Normal 11.5-15.0 [facility] Comment on above: Performed By: #### C BCA, CMP, 24297-4, THYR, 22376-0 #### [facility] ([id number]) [address] [place] [address] Hematocrit (Bld) [Volume fraction] 41.4 % Normal 35-47 [facility] Comment on above: Performed By: #### C BCA, CMP, 93307-8, THYR, 35789-5 #### [facility] ([id number]) [address] [place] [address] Hemoglobin (Bld) [Mass/Vol] 13.8 g/dL Normal 11.7-15.5 [facility] Comment on above: Performed By: #### C BCA, CMP, 45913-6, THYR, 57539-4 #### [facility] ([id number]) [address] [place] [address] Lymphocytes (Bld) [#/Vol] 1.1 10*3/uL Normal 1.0-3.5 [facility] Comment on above: Performed By: #### C BCA, CMP, 81686-0, THYR, 87908-5 #### [facility] ([id number]) [address] [place] [address] Lymphocytes/100 WBC (Bld) 10.4 % Normal [facility] Comment on above: Performed By: #### C BCA, CMP, 95267-5, THYR, 52211-9 #### [facility] ([id number]) [address] [place] [address] MCH (RBC) [Entitic mass] 28.8 pg Normal 27-34 [facility] Comment on above: Performed By: #### C BCA, CMP, 15687-0, THYR, 73714-8 #### [facility] ([id number]) [address] [place] [address] MCHC (RBC) [Mass/Vol] 33.4 g/dL Normal 32-36 [facility] Comment on above: Performed By: #### C BCA, CMP, 18501-7, THYR, 26064-2 #### [facility] ([id number]) [address] [place] [address] MCV (RBC) [Entitic vol] 86 fL Normal 80-100 [facility] Comment on above: Performed By: #### C BCA, CMP, 23835-1, THYR, 61689-5 #### [facility] ([id number]) [address] [place] [address] Monocytes (Bld) [#/Vol] 0.7 10*3/uL Normal 0-0.9 [facility] Comment on above: Performed By: #### C BCA, CMP, 16257-5, THYR, 84811-8 #### [facility] ([id number]) [address] [place] [address] Monocytes/100 WBC (Bld) 7.0 % Normal [facility] Comment on above: Performed By: #### C BCA, CMP, 60362-3, THYR, 42808-1 #### [facility] ([id number]) [address] [place] [address] Neutrophils/100 WBC (Bld) 79.9 % Normal [facility] Comment on above: Performed By: #### C BCA, CMP, 77748-9, THYR, 68330-1 #### [facility] ([id number]) [address] [place] [address] Platelet mean volume (Bld) [Entitic vol] 7.8 fL Normal 7-12 [facility] Comment on above: Performed By: #### C BCA, CMP, 34032-4, THYR, 16925-8 #### [facility] ([id number]) [address] [place] [address] Platelets (Bld) [#/Vol] 226 10*3/uL Normal 150-450 [facility] Comment on above: Performed By: #### C BCA, CMP, 22431-4, THYR, 99999-7 #### [facility] ([id number]) [address] [place] [address] RBC COUNT 4.80 X10E12/L Normal 3.80-5.20 [facility] Comment on above: Performed By: #### C BCA, CMP, 92047-7, THYR, 25815-0 #### [facility] ([id number]) [address] [place] [address] WBC (Bld) [#/Vol] 10.5 10*3/uL Normal 4.0-11.0 [facility] Comment on above: Performed By: #### C BCA, CMP, 81310-5, THYR, 38027-2 #### [facility] ([id number]) [address] [place] [address] COMPREHENSIVE METABOLIC PANE Antonio 07-13-2024 Albumin [Mass/Vol] 3.6 g/dL Normal 3.2-5.3 [facility] Comment on above: Performed By: #### C BCA, CMP, 06070-3, THYR, 05836-7 #### [facility] ([id number]) [address] [place] [address] ALP [Catalytic activity/Vol] 53 U/L Normal 39-130 [facility] Comment on above: Performed By: #### C BCA, CMP, 43869-9, THYR, 40829-7 #### [facility] ([id number]) [address] [place] [address] ALT [Catalytic activity/Vol] 22 U/L Normal 0-31 [facility] Comment on above: Performed By: #### C BCA, CMP, 66419-1, THYR, 78559-1 #### [facility] ([id number]) [address] [place] [address] Anion gap [Moles/Vol] 8 mmol/L Normal 5-15 [facility] Comment on above: Performed By: #### C BCA, CMP, 54423-8, THYR, 63174-8 #### [facility] ([id number]) [address] [place] [address] AST [Catalytic activity/Vol] 20 U/L Normal 0-41 [facility] Comment on above: Performed By: #### C BCA, CMP, 96340-6, THYR, 63559-7 #### [facility] ([id number]) [address] [place] [address] Bilirubin [Mass/Vol] 0.7 mg/dL Normal 0.3-1.2 [facility] Comment on above: Performed By: #### C BCA, CMP, 77511-9, THYR, 16884-3 #### [facility] ([id number]) [address] [place] [address] Calcium [Mass/Vol] 8.9 mg/dL Normal 8.5-10.5 [facility] Comment on above: Performed By: #### C BCA, CMP, 43347-5, THYR, 17465-1 #### [facility] ([id number]) [address] [place] [address] Chloride [Moles/Vol] 104 mmol/L Normal 98-109 [facility] Comment on above: Performed By: #### C BCA, CMP, 72831-7, THYR, 01824-6 #### [facility] ([id number]) [address] [place] [address] CO2 [Moles/Vol] 27 mmol/L Normal 22-32 [facility] Comment on above: Performed By: #### C BCA, CMP, 00114-5, THYR, 16973-7 #### [facility] ([id number]) [address] [place] [address] Creatinine [Mass/Vol] 0.96 mg/dL Normal 0.40-1.00 [facility] Comment on above: Result Comment: METH OD TRACEABLE TO IDMS STANDARD Performed By: #### C BCA, CMP, 83031-6, THYR, 78563-3 #### [facility] ([id number]) [address] [address] [place] [address] GFR/1.73 sq M.predicted among non-blacks MDRD (S/P/Bld) [Vol rate/Area] 61 mL/min/{1.73_m2} Normal >59 [facility] Comment on above: Result Comment: Reported eGFR is based on the CKD-EPI 2020 equation that does not use a race coefficient. Performed By: #### C BCA, CMP, 38033-1, THYR, 50198-9 #### [facility] ([id number]) [address] [address] [place] [address] Glucose [Mass/Vol] 95 mg/dL Normal 65-99 [facility] Comment on above: Performed By: #### C BCA, CMP, 06966-0, THYR, 31730-1 #### [facility] ([id number]) [address] [address] [place] [address] Potassium [Moles/Vol] 3.8 mmol/L Normal 3.5-5.0 [facility] Comment on above: Performed By: #### C BCA, CMP, 23538-5, THYR, 12519-8 #### [facility] ([id number]) [address] [address] [place] [address] Protein [Mass/Vol] 6.2 g/dL Normal 6.0-8.0 [facility] Comment on above: Performed By: #### C BCA, CMP, 65780-4, THYR, 01892-0 #### [facility] ([id number]) [address] [place] [address] Sodium [Moles/Vol] 139 mmol/L Normal 134-146 [facility] Comment on above: Performed By: #### C BCA, CMP, 78832-6, THYR, 80459-5 #### [facility] ([id number]) [address] [place] [address] Urea nitrogen [Mass/Vol] 19 mg/dL Normal 5-27 [facility] Comment on above: Performed By: #### C BCA, CMP, 24960-0, THYR, 75828-7 #### [facility] ([id number]) [address] [place] [address] MAGNESIUMon 07-13-2024 Magnesium [Mass/Vol] 1.9 mg/dL Normal 1.8-2.6 [facility] Comment on above: Performed By: #### C LIZZY, ALBERTO, 78178-4, THYR, 47558-3 #### [facility] ([id number]) [address] [place] [address] Vitamin D+Metabolites [Mass/ Vol]on 07-13-2024 VITAMIN D 25 HYD TOT 47.9 ng/mL Normal 30-100 [facility] Comment on above: Result Comment: Vitamin D status 25 [place] Vitamin D Deficiency <20 ng/mL Insufficiency 20-29 ng/mL Sufficiency 30-100 ng/mL Toxicity >100 ng/mL NOTE: A pediatric reference range has not been established by the welding machine operator submerged arc of this kit. The [place] [employer] recommends a Vitamin D level of = or >20ng/mL in infants and children. Performed By: #### C BCA, CMP, 97164-7, THYR, 59414-0 #### [facility] ([id number]) [address] [address] [place] [address] CBC AND AUTO DIFFon 07-12-20 ABSOLUTE BASOPHIL 0.1 X10E9/L Normal 0.0-0.2 [facility] Comment on above: Performed By: #### C BCA, CMP, 24508-9, THYR, 08204-1 #### [facility] ([id number]) [address] [place] [address] ABSOLUTE NEUTROPHIL 9.7 X10E9/L High 1.5-6.6 [facility] Comment on above: Performed By: #### C BCA, CMP, 47196-0, THYR, 96963-3 #### [facility] ([id number]) [address] [address] [place] [address] Basophils/100 WBC (Bld) 0.7 % Normal [facility] Comment on above: Performed By: #### C BCA, CMP, 48906-4, THYR, 51327-4 #### [facility] ([id number]) [address] [facility] [[email or web address] [address] [place] [address] Eosinophils (Bld) [#/Vol] 0.1 10*3/uL Normal 0.0-0.4 [facility] Comment on above: Performed By: #### C BCA, CMP, 09820-9, THYR, 64842-2 #### [facility] ([id number]) [address] [address] [place] [address] Eosinophils/100 WBC (Bld) 0.5 % Normal [facility] Comment on above: Performed By: #### C BCA, CMP, 58162-3, THYR, 13639-8 #### [facility] ([id number]) [address] [address] [place] [address] Erythrocyte distribution width (RBC) [Ratio] 14.2 % Normal 11.5-15.0 [facility] Comment on above: Performed By: #### C BCA, CMP, 93143-8, THYR, 42878-3 #### [facility] ([id number]) [address] [place] [address] Hematocrit (Bld) [Volume fraction] 42.5 % Normal 35-47 [facility] Comment on above: Performed By: #### C BCA, CMP, 97733-2, THYR, 25935-1 #### [facility] ([id number]) [address] [place] [address] Hemoglobin (Bld) [Mass/Vol] 14.2 g/dL Normal 11.7-15.5 [facility] Comment on above: Performed By: #### Tami BCA, CMP, 29068-3, THYR, 99939-4 #### [facility] ([id number]) [address] [address] [place] [address] Lymphocytes (Bld) [#/Vol] 0.9 10*3/uL Low 1.0-3.5 [facility] Comment on above: Performed By: #### C BCA, CMP, 15018-7, THYR, 39231-8 #### [facility] ([id number]) [address] [address] [place] [address] Lymphocytes/100 WBC (Bld) 8.1 % Normal [facility] Comment on above: Performed By: #### Tami BCA, CMP, 12673-2, THYR, 34682-1 #### [facility] ([id number]) [address] [place] [address] MCH (RBC) [Entitic mass] 28.6 pg Normal 27-34 [facility] Comment on above: Performed By: #### C BCA, CMP, 49274-0, THYR, 23736-1 #### [facility] ([id number]) [address] [place] [address] MCHC (RBC) [Mass/Vol] 33.3 g/dL Normal 32-36 [facility] Comment on above: Performed By: #### C BCA, CMP, 83380-5, THYR, 03162-9 #### [facility] ([id number]) [address] [place] [address] MCV (RBC) [Entitic vol] 86 fL Normal 80-100 [facility] Comment on above: Performed By: #### C BCA, CMP, 15656-3, THYR, 56671-3 #### [facility] ([id number]) [address] [place] [address] Monocytes (Bld) [#/Vol] 0.8 10*3/uL Normal 0-0.9 [facility] Comment on above: Performed By: #### C BCA, CMP, 34069-9, THYR, 95480-7 #### [facility] ([id number]) [address] [place] [address] Monocytes/100 WBC (Bld) 7.1 % Normal [facility] Comment on above: Performed By: #### Tami BCA, CMP, 52995-5, THYR, 92671-5 #### [facility] ([id number]) [address] [place] [address] Neutrophils/100 WBC (Bld) 83.6 % Normal [facility] Comment on above: Performed By: #### C BCA, CMP, 26066-3, THYR, 58643-0 #### [facility] ([id number]) [address] [place] [address] Platelet mean volume (Bld) [Entitic vol] 7.8 fL Normal 7-12 [facility] Comment on above: Performed By: #### C BCA, CMP, 98056-7, THYR, 72924-1 #### [facility] ([id number]) [address] [place] [address] Platelets (Bld) [#/Vol] 290 10*3/uL Normal 150-450 [facility] Comment on above: Performed By: #### C BCA, CMP, 65487-1, THYR, 02227-9 #### [facility] ([id number]) [address] [place] [address] RBC COUNT 4.95 X10E12/L Normal 3.80-5.20 [facility] Comment on above: Performed By: #### C BCA, CMP, 11608-7, THYR, 49114-6 #### [facility] ([id number]) [address] [place] [address] WBC (Bld) [#/Vol] 11.6 10*3/uL High 4.0-11.0 [facility] Comment on above: Performed By: #### C BCA, CMP, 10856-9, THYR, 51372-8 #### [facility] ([id number]) [address] [place] [address] COMPREHENSIVE METABOLIC PANE Antonio 07-12-2024 Albumin [Mass/Vol] 4.0 g/dL Normal 3.2-5.3 [facility] Comment on above: Performed By: #### C BCA, CMP, 39259-9, THYR, 83559-2 #### [facility] ([id number]) [address] [place] [address] ALP [Catalytic activity/Vol] 55 U/L Normal 39-130 [facility] Comment on above: Performed By: #### C BCA, CMP, 88745-4, THYR, 87647-4 #### [facility] ([id number]) [address] [place] [address] ALT [Catalytic activity/Vol] 25 U/L Normal 0-31 [facility] Comment on above: Performed By: #### C BCA, CMP, 49628-9, THYR, 45585-9 #### [facility] ([id number]) [address] [place] [address] Anion gap [Moles/Vol] 10 mmol/L Normal 5-15 [facility] Comment on above: Performed By: #### C BCA, CMP, 77025-3, THYR, 26603-0 #### [facility] ([id number]) [address], [address] [place] [address] AST [Catalytic activity/Vol] 23 U/L Normal 0-41 [facility] Comment on above: Performed By: #### C BCA, CMP, 18609-9, THYR, 81802-7 #### [facility] ([id number]) [address], [address] [place] [address] Bilirubin [Mass/Vol] 0.4 mg/dL Normal 0.3-1.2 [facility] Comment on above: Performed By: #### C BCA, CMP, 71891-8, THYR, 23699-8 #### [facility] ([id number]) [address], [address] [place] [address] Calcium [Mass/Vol] 9.1 mg/dL Normal 8.5-10.5 [facility] Comment on above: Performed By: #### C BCA, CMP, 47145-1, THYR, 17844-3 #### [facility] ([id number]) [address], [address] [place] [address] Chloride [Moles/Vol] 107 mmol/L Normal 98-109 [facility] Comment on above: Performed By: #### C BCA, CMP, 78120-5, THYR, 01820-4 #### [facility] ([id number]) [address], [address] [place] [address] CO2 [Moles/Vol] 21 mmol/L Low 22-32 [facility] Comment on above: Performed By: #### C BCA, CMP, 29395-9, THYR, 44588-1 #### [facility] ([id number]) [address], [address] [place] [address] Creatinine [Mass/Vol] 1.17 mg/dL High 0.40-1.00 [facility] Comment on above: Result Comment: METH OD TRACEABLE TO IDMS STANDARD Performed By: #### C BCA, CMP, 17663-5, THYR, 63264-9 #### [facility] ([id number]) [address], [address] [place] [address] GFR/1.73 sq M.predicted among non-blacks MDRD (S/P/Bld) [Vol rate/Area] 48 mL/min/{1.73_m2} Low >59 [facility] Comment on above: Result Comment: Reported eGFR is based on the CKD-EPI 2020 equation that does not use a race coefficient. Performed By: #### C BCA, CMP, 83134-6, THYR, 73821-3 #### [facility] ([id number]) [address], [address] [place] [address] Glucose [Mass/Vol] 118 mg/dL High 65-99 [facility] Comment on above: Performed By: #### C BCA CMP, 93330-4, THYR, 41182-0 #### [facility] ([id number]) [address], [address] [place] [address] Potassium [Moles/Vol] 3.8 mmol/L Normal 3.5-5.0 [facility] Comment on above: Performed By: #### C BCA, CMP, 35965-0, THYR, 69639-8 #### [facility] ([id number]) [address], [address] [place] [address] Protein [Mass/Vol] 6.4 g/dL Normal 6.0-8.0 [facility] Comment on above: Performed By: #### C BCA, CMP, 34456-7, THYR, 08844-2 #### [facility] ([id number]) [address], [address] [place] [address] Sodium [Moles/Vol] 138 mmol/L Normal 134-146 [facility] Comment on above: Performed By: #### C BCA, CMP, 50108-5, THYR, 80464-3 #### [facility] ([id number]) [address], [address] [place] [address] Urea nitrogen [Mass/Vol] 23 mg/dL Normal 5-27 [facility] Comment on above: Performed By: #### C BCA, CMP, 82036-4, THYR, 35757-1 #### [facility] ([id number]) [address], [address] [place] [address] CT BRAIN WO CONTon CT BRAIN WO CONT CT BRAIN WO CONT CT BRAIN WO CONT CLINICAL HISTORY: Head trauma, minor (Age >= 65y) COMPARISON: None. TECHNIQUE: CT head was performed without contrast using the standard protocol. Automated exposure control was utilized. FINDINGS: No acute, territorial region of diminished mccurdy-white differentiation. No acute intracranial hemorrhage. No sign of ventricular outflow obstruction. Moderate global parenchymal volume loss. Moderate to severe heterogeneity through the deep, periventricular white matter, most often seen in the setting of chronic microvascular ischemia. Intracranial vascular calcifications. Unremarkable temporal bone structures, visualized suprahyoid neck, orbits, scalp soft tissues. IMPRESSION: 1. No acute intracranial abnormality, by CT. All CT scans at this facility use dose modulation, iterative reconstruction, and/or weight based dosing when appropriate to reduce radiation dose to as low as reasonably achievable. Finalized by Hay Manuel MD on 07/12/2024 8:01 PM Normal [facility] CT CERVICAL SPINE WO CONTon 07-12-2024 CT CERVICAL SPINE WO CONT CT CERVICAL SPINE WO CONT STUDY: CT CERVICAL SPINE WO CONT INDICATION: Neck trauma (Age >= 65y). TECHNIQUE: * CT of the cervical spine, was performed without intravenous contrast. Coronal & sagittal MPR images were generated and reviewed. * All CT scans at this facility use dose modulation, iterative reconstruction, and/or weight based dosing when appropriate to reduce radiation dose to as low as reasonably achievable. FINDINGS: Anterior cervical discectomy and fusion changes at C4-C5. No acute fracture or traumatic malalignment. Moderate degenerative changes, notably below the fusion construct which may reflect junctional arthropathy. At this level there is intervertebral disc space narrowing, bony neuroforaminal narrowing and mild bony spinal canal narrowing. Prevertebral, epidural and paraspinal soft tissues are broadly unremarkable by technique. IMPRESSION: * No evidence of acute fracture or traumatic malalignment. MRI is more sensitive to assess ligamentous injury if clinically warranted. Finalized by Duncan Alfred on 07/12/2024 8:00 PM Normal [facility] Lactate (P allan) [Moles/Vol]o n 07-12-2024 LACTATE W/REFLEX 1.7 mmol/L Normal 0.4-2.0 [facility] Comment on above: Result Comment: Result did not trigger repeat Lactate, re-order if needed. Performed By: #### C LIZZY CMP, 17286-0, THYR, 17170-0 #### [facility] ([id number]) [address], [address] [place] [address] MAGNESIUMon 07-12-2024 Magnesium [Mass/Vol] 1.7 mg/dL Low 1.8-2.6 [facility] Comment on above: Performed By: #### C LIZZY CMP, 78720-6, THYR, 61488-8 #### [facility] ([id number]) [address], [address] [place] [address] Natriuretic peptide B [Mass/ Vol]on 07-12-2024 Natriuretic peptide B (Bld) [Mass/Vol] 215 pg/mL High <100.0 [facility] Comment on above: Performed By: #### C BCA, CMP, 88760-9, THYR, 67146-9 #### [facility] ([id number]) [address], [address] [place] [address] THYROID PROFILEon 07-12-2024 Free T4 [Mass/Vol] 1.29 ng/dL Normal 0.61-1.60 [facility] Comment on above: Performed By: #### C BCA, CMP, 56294-8, THYR, 74433-0 #### [facility] ([id number]) [address] [address] TSH 2.78 uIU/mL Normal 0.49-4.67 [facility] Comment on above: Performed By: #### C BCA, CMP, 18698-0, THYR, 66864-8 #### [facility] ([id number]) [address] [address] Troponin I.cardiac High sens itivity method [Mass/Vol]on 07-12-2024 1 HOUR TROP I, HIGH SENSITIVITY 13 ng/L Normal <16 [facility] Comment on above: Performed By: #### C BCA, CMP, 78966-1, THYR, 30976-4 #### [facility] ([id number]) [address] [address] TROPONIN I, HIGH SENSITIVITY 13 ng/L Normal <16 [facility] Comment on above: Performed By: #### C BCA, CMP, 63202-8, THYR, 12969-4 #### [facility] ([id number]) [address] [address] URINE CULTUREon 07-12-2024 Bacteria identified Cx Nom (U) CULTURE RESULTS >100,000 ORGANISMS/mL ESCHERICHIA COLI [ S = SUSCEPTIBLE R = RESISTANT I = INTERMEDIATE S-DO = Susceptible-dose dependent NS = Non-suscceptible NO = No Interpretation ] Organism: ESCHERICHIA COLI Antibiotic Interpretation RADHA Status AMPICILLIN S 4 F AMP/SULBACTAM S <=2/1 F CEFAZOLIN S <=4 F CEFTRIAXONE S <=0.25 F CIPROFLOXACIN S <=0.25 F GENTAMICIN S <=1 F LEVOFLOXACIN S <=0.12 F NITROFURANTOIN S <=16 F PIPERACIL/TAZOBACTAM S <=4 F TOBRAMYCIN S <=1 F TRIMETH/SULFAMETHOXAZOLE S <=/ F Susceptible [facility] Comment on above: Performed By: #### C BCA, CMP, 84907-6, THYR, 22769-4 #### [facility] ([id number]) [address], [address] [place] [address] URN MACROSCOPIC NURon 2023 BILIRUBIN CORINNE Negative Normal NEG [facility] Comment on above: Performed By: #### C BCA, CMP, 95424-8, THYR, 27073-4 #### [facility] ([id number]) [address], [address] [place] [address] BLOOD/HGB CORINNE Small Abnormal NEG [facility] Comment on above: Performed By: #### C BCA, CMP, 84526-6, THYR, 15416-3 #### [facility] ([id number]) [address], [address] [place] [address] GLUCOSE CORINNE Negative Normal NEG [facility] Comment on above: Performed By: #### C BCA, CMP, 99139-1, THYR, 43682-4 #### [facility] ([id number]) [address], [address] [place] [address] KETONES CORINNE Negative Normal NEG [facility] Comment on above: Performed By: #### C BCA, CMP, 60164-4, THYR, 12890-6 #### [facility] ([id number]) [address], [address] [place] [address] LEUKOCYTE ESTERASE CORINNE Large Abnormal NEG [facility] Comment on above: Performed By: #### C BCA, CMP, 36850-7, THYR, 71123-2 #### [facility] ([id number]) [address], [address] [place] [address] NITRITE CORINNE Negative Normal NEG [facility] Comment on above: Performed By: #### C BCA, CMP, 21456-2, THYR, 41762-2 #### [facility] ([id number]) [address], [address] [place] [address] PH CORINNE 6.0 Normal 5.0-8.5 [facility] Comment on above: Performed By: #### C BCA, CMP, 45591-4, THYR, 17449-1 #### [facility] ([id number]) [address], [address] [place] [address] PROTEIN CORINNE 30 mg/dL Abnormal NEG [facility] Comment on above: Performed By: #### C BCA, CMP, 61610-8, THYR, 91452-7 #### [facility] ([id number]) [address], [address] [place] [address] SPECIFIC GRAVITY CORINNE 1.020 Normal 1.003-1.035 [facility] Comment on above: Performed By: #### C BCA, CMP, 19245-1, THYR, 72601-3 #### [facility] ([id number]) [address], [address] [place] [address] UROBILINOGEN CORINNE 0.2 eu/dL Normal <1.1 [facility] Comment on above: Performed By: #### C BCA, CMP, 64384-3, THYR, 50818-9 #### [facility] ([id number]) [address], [address] [place] [address] XR KNEE LT 3 VWSon 4 XR KNEE LT 3 VWS XR KNEE LT 3 VWS 3 views of the left knee dated 04/14/2024 at 9:48 AM INDICATION: Total left knee arthroplasty FINDINGS: Comparison is 04/11/2023. Total left knee arthroplasty in good alignment. No acute osseous or hardware abnormality seen in the left knee. IMPRESSION: 1. Total left knee arthroplasty in good alignment. Finalized by Sheryl Andrade MD on 04/15/2024 6:56 PM Normal [facility] XR KNEE RT 3 VWSon 4 XR KNEE RT 3 VWS XR KNEE RT 3 VWS XR KNEE RT 3 VWS Clinical history:History of revision of total replacement of right knee joint; History of total left knee replacement Comparison: 04/11/2023 Impression: Stable appearance of alignment of the arthroplasty device with long stem components. No acute processes identified. 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 Finalized by Artur De MD on 04/14/2024 1:52 PM Normal [facility] MR LUMBAR SPINE WO CONTon MR LUMBAR SPINE WO CONT MR LUMBAR SPINE WO CONT History: [Follow-up MS. Cervical stenosis of spinal canal.] [Procedure: Standard MR of the lumbar spine was obtained without contrast. FINDINGS: Comparison is made to 01/02/2022.] MR of lumbar spine without contrast demonstrates that the tip of the conus medullaris is unremarkable and terminates appropriately at the L1-2 level. The endplate defects at T11, T12, L1, and L2 are stable. Large CSF signal expands the lower sacral spinal canal and is probably a perineural cyst. Due to its size and expansile nature, it may result in localized symptoms There is no obvious signal abnormality within the visualized areas of the cord. Apparent increased signal on the STIR images is not confirmed on other images and is probably artifactual. The L1-2 level is grossly unremarkable for age and unchanged. At L2-3 there is no significant spinal or foraminal stenosis. At L3-4 degenerative changes of the facets result in mild impingement upon the thecal sac without significant spinal or foraminal stenosis. At L4-5 the degenerative changes of the disc are stable and unchanged since 2021. There is no high-grade spinal or foraminal stenosis at this level. The L4-5-S1 level is likewise unchanged. The degenerative changes of the facets do not result in significant spinal or foraminal stenosis. There is no obvious prevertebral or paravertebral abnormality. Impression: [There is no obvious signal abnormality of the tip of the conus medullaris to suggest demyelinating disease. Overall, MR of the lumbar spine is stable since 01/02/2022. There is no vertebral fracture, high-grade spinal stenosis, or high-grade foraminal stenosis.] Finalized by Korey Martin MD on 02/17/2024 3:48 PM Normal [facility] MR THORACIC SPINE W WO CONTo n 02-17-2024 MR THORACIC SPINE W WO CONT MR THORACIC SPINE W WO CONT History: [Multiple sclerosis.] [Procedure: Standard MR of the thoracic spine was obtained before and after intravenous administration 18 mL ProHance gadolinium contrast without reported complication.] Findings: Comparison is made to 01/02/2022. MR of the thoracic spine before and after contrast demonstrates that the thoracic vertebra have unchanged signal and height. Endplate defects are noted at T12, T11, and T10.++ The tip of the conus medullaris is unremarkable and terminates appropriately at the L1 level. There is no obvious cord signal abnormality. There is no definite evidence of pathologic contrast enhancement within the thoracic spine or cord. Impression: [MR of the thoracic spine is stable since 01/02/2022. There is no new signal abnormality or area of pathologic contrast enhancement to suggest active or progressive healing disease. The degenerative changes of the lumbar spine are seen also stable.] Finalized by Korey Martin MD on 02/17/2024 2:38 PM Normal [facility] MR BRAIN W WO CONTon 024 MR BRAIN W WO CONT MR BRAIN W WO CONT MR BRAIN W WO CONT 12/13/2023 12:08 PM INDICATION: MS (multiple sclerosis) ([facility]); Hypertensive heart disease with heart failure ([facility]); Mixed hyperlipidemia. Increasing leg weakness. COMPARISON: MR brain 01/04/2023 TECHNIQUE: Multiplanar multisequence MR images of the brain were obtained with and without intravenous contrast. FINDINGS: Examination is limited due to patient motion. BRAIN: Severe burden of pericallosal, periventricular, subcortical, juxtacortical and deep white matter FLAIR hyperintensities, similar to prior with no definite new lesion. There are also suggestion of some callosal septal FLAIR bright lesions, similar compared to prior. No definite enhancing lesions or diffusion restricting. Mild to moderate global parenchymal volume loss. Moderate corpus callosum volume loss. Involvement of the left lateral jo and left middle cerebellar peduncle is similar from previous imaging. There is associated low T1 signal with majority of these lesions. VENTRICLES: Slightly prominent ventricular system likely secondary to parenchymal volume loss. VASCULATURE: Major arterial and venous intracranial flow voids are present. ORBITS: Unremarkable. PARANASAL SINUSES: Mild paranasal sinus mucosal thickening. TEMPORAL BONE: Well-aerated middle ears and visualized mastoid air cells. SOFT TISSUES: The visualized head and neck soft tissues are unremarkable. OSSEOUS STRUCTURES: Normal bone marrow signal. IMPRESSION: Motion limited exam with similar appearing severe burden of white matter disease. No definite new or enhancing lesion. IAustin DO have personally reviewed the image(s) and agree with and/or edited the report Finalized by Austin Rosa DO on 12/13/2023 3:37 PM Normal [facility] MR CERVICAL SPINE W WO CONTo n 12-13-2023 MR CERVICAL SPINE W WO CONT MR CERVICAL SPINE W WO CONT MR CERVICAL SPINE W WO CONT 12/13/2023 12:10 PM INDICATION: MS (multiple sclerosis) ([facility]); Hypertensive heart disease with heart failure ([facility]); Mixed hyperlipidemia COMPARISON: MR cervical spine 01/04/2023 and priors dating back to CT cervical spine 05/30/2021. TECHNIQUE: Multiplanar multisequence MR images of the cervical spine with and without contrast were obtained. FINDINGS: Examination is limited due to patient motion. NUMBERING/ALIGNMENT: There are 7 cervical type vertebrae. Vertebral body alignment is appropriate. Facet alignment is appropriate. Vertebral body heights are well-maintained. BONE MARROW: T1/T2 bright lesion of the T2 vertebral body, likely hemangioma. Bone marrow signal heterogeneous. SPINAL CORD: Motion and artifact limits evaluation of the cord, suggestion of at least one focal central cord lesion at C3, likely present on prior. No definite associated enhancement, although evaluation limited HEAD: Please see dedicated MRI brain report. SOFT TISSUES: Unremarkable paraspinal soft tissues. DEGENERATIVE/POSTSURGICAL FINDINGS: Mild to moderate multilevel degenerative disc disease throughout. Anterior approach fusion hardware at C4-C5, similar compared to prior, likely partial fusion changes of the facets at this level. Craniocervical junction: Normal alignment at the craniocervical junction without narrowing at the foramen magnum and at C1-C2. Moderate degenerative changes of the dens. C2-C3: Mild disc osteophyte complex, moderate facet degeneration, moderate ligamentum flavum hypertrophy. There is mild effacement of thecal sac, most prominent posteriorly. There is mild bilateral neural foraminal stenosis. These findings are similar compared to prior. C3-C4: Mild disc osteophyte complex, facet degeneration, and with flavum hypertrophy. There is no significant spinal canal or neural foraminal stenosis. These findings are similar compared to prior. C4-C5: Mild disc osteophyte complex, moderate facet degeneration, and moderate ligamentum flavum hypertrophy. Evaluation limited although there is likely mild to moderate spinal canal stenosis and mild bilateral neural foraminal stenosis, similar to slightly progressed compared to prior. C5-C6: Moderate disc osteophyte complex, moderate facet degeneration, moderate ligamentum flavum hypertrophy. There is moderate spinal canal stenosis. There is moderate right and [id number] left neural foraminal narrowing. These findings are similar to slightly progressed compared to prior. C6-C7: Mild disc osteophyte complex, mild to moderate facet degeneration, and moderate ligamentum flavum hypertrophy. There is mild to moderate spinal canal stenosis. These findings are similar compared to prior. C7-T1: Mild disc osteophyte complex and mild effacement of thecal sac anteriorly. IMPRESSION: 1. Motion and artifact limited exam with question of similar-appearing cord lesion at C3. 2. Multilevel degenerative and postsurgical changes of the cervical spine as described, similar to prior, most prominent at C5-C6 where there is moderate spinal canal stenosis. IAustin DO have personally reviewed the image(s) and agree with and/or edited the report Finalized by Austin Rosa DO on 12/13/2023 3:58 PM Normal [facility] CBC AND AUTO DIFFon 11-13-20 23 ABSOLUTE BASOPHIL 0.1 X10E9/L Normal 0.0-0.2 [facility] Comment on above: Performed By: #### C ALBERTO BALL, 37874-2, THYR, 57399-9 #### [facility] ([id number]) [address], [address] [place] [address] ABSOLUTE NEUTROPHIL 5.7 X10E9/L Normal 1.5-6.6 [facility] Comment on above: Performed By: #### C ALBERTO BALL, 35494-4, THYR, 98619-1 #### [facility] ([id number]) [address] [place] [address] Basophils/100 WBC (Bld) 0.8 % Normal [facility] Comment on above: Performed By: #### C BCA, CMP, 08244-2, THYR, 57637-2 #### [facility] ([id number]) [address], [address] [place] [address] Eosinophils (Bld) [#/Vol] 0.2 10*3/uL Normal 0.0-0.4 [facility] Comment on above: Performed By: #### C BCA, CMP, 92645-2, THYR, 39976-1 #### [facility] ([id number]) [address] [address] [place] [address] Eosinophils/100 WBC (Bld) 2.3 % Normal [facility] Comment on above: Performed By: #### C BCA, CMP, 01251-8, THYR, 68889-0 #### [facility] ([id number]) [address] [address] [place] [address] Erythrocyte distribution width (RBC) [Ratio] 14.2 % Normal 11.5-15.0 [facility] Comment on above: Performed By: #### C BCA, CMP, 01032-4, THYR, 46357-0 #### [facility] ([id number]) [address] [place] [address] Hematocrit (Bld) [Volume fraction] 42.7 % Normal 35-47 [facility] Comment on above: Performed By: #### C BCA, CMP, 21853-6, THYR, 97470-8 #### [facility] ([id number]) [address] [address] [place] [address] Hemoglobin (Bld) [Mass/Vol] 14.1 g/dL Normal 11.7-15.5 [facility] Comment on above: Performed By: #### C BCA, CMP, 77021-5, THYR, 84387-7 #### [facility] ([id number]) [address] [address] [place] [address] Lymphocytes (Bld) [#/Vol] 1.0 10*3/uL Normal 1.0-3.5 [facility] Comment on above: Performed By: #### C BCA, CMP, 77701-9, THYR, 99691-7 #### [facility] ([id number]) [address] [address] [place] [address] Lymphocytes/100 WBC (Bld) 12.9 % Normal [facility] Comment on above: Performed By: #### C BCA, CMP, 57440-3, THYR, 07567-8 #### [facility] ([id number]) [address] [place] [address] MCH (RBC) [Entitic mass] 28.7 pg Normal 27-34 [facility] Comment on above: Performed By: #### C BCA, CMP, 78236-1, THYR, 31986-6 #### [facility] ([id number]) [address] [address] [place] [address] MCHC (RBC) [Mass/Vol] 33.1 g/dL Normal 32-36 [facility] Comment on above: Performed By: #### C BCA, CMP, 06005-1, THYR, 38193-8 #### [facility] ([id number]) [address] [address] [place] [address] MCV (RBC) [Entitic vol] 87 fL Normal 80-100 [facility] Comment on above: Performed By: #### C BCA, CMP, 35951-6, THYR, 04069-4 #### [facility] ([id number]) [address] [address] [place] [address] Monocytes (Bld) [#/Vol] 0.5 10*3/uL Normal 0-0.9 [facility] Comment on above: Performed By: #### C BCA, CMP, 46181-5, THYR, 58017-4 #### [facility] ([id number]) [address], [facility] [[email or web address] [address] [place] [address] Monocytes/100 WBC (Bld) 6.8 % Normal [facility] Comment on above: Performed By: #### C BCA, CMP, 15655-2, THYR, 68031-1 #### [facility] ([id number]) [address] [place] [address] Neutrophils/100 WBC (Bld) 77.2 % Normal [facility] Comment on above: Performed By: #### C BCA, CMP, 90241-3, THYR, 11234-6 #### [facility] ([id number]) [address] [place] [address] Platelet mean volume (Bld) [Entitic vol] 7.9 fL Normal 7-12 [facility] Comment on above: Performed By: #### C BCA, CMP, 43897-2, THYR, 22737-3 #### [facility] ([id number]) [address], [facility] [[email or web address]] [address] [place] [address] Platelets (Bld) [#/Vol] 219 10*3/uL Normal 150-450 [facility] Comment on above: Performed By: #### C BCA, CMP, 99743-9, THYR, 01373-2 #### [facility] ([id number]) [address], [facility] [[email or web address]] [address] [place] [address] RBC COUNT 4.92 X10E12/L Normal 3.80-5.20 [facility] Comment on above: Performed By: #### C BCA, CMP, 78103-3, THYR, 97885-3 #### [facility] ([id number]) [address], [address] [place] [address] WBC (Bld) [#/Vol] 7.4 10*3/uL Normal 4.0-11.0 [facility] Comment on above: Performed By: #### C BCA, CMP, 18991-1, THYR, 65114-2 #### [facility] ([id number]) [address], [address] [place] [address] COMPREHENSIVE METABOLIC PANE Antonio 11-13-2023 Albumin [Mass/Vol] 4.0 g/dL Normal 3.2-5.3 [facility] Comment on above: Performed By: #### C BCA, CMP, 02427-4, THYR, 91872-8 #### [facility] ([id number]) [address], [address] [place] [address] ALP [Catalytic activity/Vol] 76 U/L Normal 39-130 [facility] Comment on above: Performed By: #### C BCA, CMP, 66674-9, THYR, 56361-1 #### [facility] ([id number]) [address], [address] [place] [address] ALT [Catalytic activity/Vol] 14 U/L Normal 0-31 [facility] Comment on above: Performed By: #### C BCA, CMP, 20321-2, THYR, 76891-6 #### [facility] ([id number]) [address], [address] [place] [address] Anion gap [Moles/Vol] 7 mmol/L Normal 5-15 [facility] Comment on above: Performed By: #### C BCA, CMP, 52560-3, THYR, 30706-8 #### [facility] ([id number]) [address] [place] [address] AST [Catalytic activity/Vol] 16 U/L Normal 0-41 [facility] Comment on above: Performed By: #### C BCA, CMP, 83088-6, THYR, 91866-0 #### [facility] ([id number]) [address], [address] [place] [address] Bilirubin [Mass/Vol] 0.4 mg/dL Normal 0.3-1.2 [facility] Comment on above: Performed By: #### C BCA, CMP, 64817-7, THYR, 15254-1 #### [facility] ([id number]) [address], [address] [place] [address] Calcium [Mass/Vol] 9.4 mg/dL Normal 8.5-10.5 [facility] Comment on above: Performed By: #### C BCA, CMP, 40286-7, THYR, 91595-6 #### [facility] ([id number]) [address], [address] [place] [address] Chloride [Moles/Vol] 106 mmol/L Normal 98-109 [facility] Comment on above: Performed By: #### C BCA, CMP, 90653-2, THYR, 16207-7 #### [facility] ([id number]) [address], [address] [place] [address] CO2 [Moles/Vol] 28 mmol/L Normal 22-32 [facility] Comment on above: Performed By: #### C BCA, CMP, 13983-8, THYR, 44260-4 #### [facility] ([id number]) [address], [address] [place] [address] Creatinine [Mass/Vol] 0.90 mg/dL Normal 0.40-1.00 [facility] Comment on above: Result Comment: METH OD TRACEABLE TO IDMS STANDARD Performed By: #### C BCA, CMP, 81305-8, THYR, 20974-4 #### [facility] ([id number]) [address] [place] [address] GFR/1.73 sq M.predicted among non-blacks MDRD (S/P/Bld) [Vol rate/Area] 65 mL/min/{1.73_m2} Normal >59 [facility] Comment on above: Result Comment: Reported eGFR is based on the CKD-EPI 2020 equation that does not use a race coefficient. Performed By: #### C BCA, CMP, 29570-2, THYR, 55578-2 #### [facility] ([id number]) [address] [place] [address] Glucose [Mass/Vol] 87 mg/dL Normal 65-99 [facility] Comment on above: Performed By: #### C BCA, CMP, 70942-3, THYR, 41151-9 #### [facility] ([id number]) [address] [place] [address] Potassium [Moles/Vol] 3.9 mmol/L Normal 3.5-5.0 [facility] Comment on above: Performed By: #### C BCA, CMP, 92902-8, THYR, 98395-9 #### [facility] ([id number]) [address] [place] [address] Protein [Mass/Vol] 6.3 g/dL Normal 6.0-8.0 [facility] Comment on above: Performed By: #### C BCA, CMP, 64724-0, THYR, 80819-9 #### [facility] ([id number]) [address] [place] [address] Sodium [Moles/Vol] 141 mmol/L Normal 134-146 [facility] Comment on above: Performed By: #### C BCA, CMP, 86488-4, THYR, 58451-4 #### [facility] ([id number]) [address] [place] [address] Urea nitrogen [Mass/Vol] 26 mg/dL Normal 5-27 [facility] Comment on above: Performed By: #### C BCA, CMP, 31386-5, THYR, 62364-3 #### [facility] ([id number]) [address], [address] [place] [address] Lipid 1996 panelon 3 Cholesterol [Mass/Vol] 175 mg/dL Normal 150-200 [facility] Comment on above: Performed By: #### C BCA, CMP, 95808-9, THYR, 45364-4 #### [facility] ([id number]) [address], [address] [place] [address] Cholesterol in HDL [Mass/Vol] 62 mg/dL Normal >39 [facility] Comment on above: Result Comment: HDL <40 mg/dL - High Risk HDL > or = 40mg/dL- Desirable HDL >60 mg/dL - Negative Risk Performed By: #### C BCA, CMP, 69809-8, THYR, 42265-3 #### [facility] ([id number]) [address], [address] [place] [address] Cholesterol in LDL [Mass/Vol] 90 mg/dL Normal <130 [facility] Comment on above: Result Comment: LDL <100 mg/dL - Desirable LDL >160 mg/dL - High Risk Performed By: #### C BCA, CMP, 58170-4, THYR, 79237-1 #### [facility] ([id number]) [address], [address] [place] [address] Cholesterol in VLDL [Mass/Vol] 23 mg/dL Normal 0-30 [facility] Comment on above: Performed By: #### C BCA, CMP, 45349-4, THYR, 86677-0 #### [facility] ([id number]) [address], [address] [place] [address] CHOLESTEROL:HDL 2.8 Normal 1.0-5.0 [facility] Comment on above: Performed By: #### C BCA, CMP, 70327-1, THYR, 74924-4 #### [facility] ([id number]) [address], [address] [place] [address] Triglyceride [Mass/Vol] 115 mg/dL Normal 27-150 [facility] Comment on above: Performed By: #### C BCA, CMP, 68836-3, THYR, 74349-5 #### [facility] ([id number]) [address], [address] [place] [address] THYROID PROFILEon 11-13-2023 Free T4 [Mass/Vol] 0.98 ng/dL Normal 0.61-1.60 [facility] Comment on above: Performed By: #### C BCA, CMP, 37356-8, THYR, 68909-4 #### [facility] ([id number]) [address], [address] [place] [address] TSH 2.21 uIU/mL Normal 0.49-4.67 [facility] Comment on above: Performed By: #### C BCA, CMP, 89324-3, THYR, 09583-0 #### [facility] ([id number]) [address] [place] [address] US RETROPERITONEAL COMPLETEo n 11-13-2023 US RETROPERITONEAL COMPLETE US RETROPERITONEAL COMPLETE US RETROPERITONEAL COMPLETE HISTORY: Urinary retention COMPARISON: Ultrasound 09/28/2022 TECHNIQUE: Grayscale and color Doppler sonographic images of the urinary bladder and both kidneys. FINDINGS: Right kidney: * 10.1 x 5.7 x 5.1 cm * Cortex: Normal echogenicity. * No hydronephrosis, mass, or calculi demonstrated. Left kidney: * 10.8 x 5.6 x 3.9 cm * Cortex: Normal echogenicity. * No hydronephrosis, mass, or calculi demonstrated. Prevoid bladder volume of 207.5 mL. Post void bladder volume of 151.5 mL. Bilateral ureteral jets visualized. IMPRESSION: * Mildly elevated postvoid residual volume consistent with history of urinary retention. * Unremarkable ultrasound of the kidneys. Approved by Resident Dolores Patel DO on 11/13/2023 2:04 PM Rohan Perez MD have personally reviewed the image(s) and agree with and/or edited the report Finalized by Rohan Gallegos MD on 11/13/2023 3:47 PM Normal [facility] Vitamin D+Metabolites [Mass/ Vol]on 11-13-2023 VITAMIN D 25 HYD TOT 18.1 ng/mL Low 30-100 [facility] Comment on above: Result Comment: Vitamin D status 25 [place] Vitamin D Deficiency <20 ng/mL Insufficiency 20-29 ng/mL Sufficiency 30-100 ng/mL Toxicity >100 ng/mL NOTE: A pediatric reference range has not been established by the welding machine operator submerged arc of this kit. The [place] [employer] recommends a Vitamin D level of = or >20ng/mL in infants and children. Performed By: #### C BCA, CMP, 79158-2, THYR, 13729-7 #### [facility] ([id number]) [address] [place] [address] Complete Blood Count Auto Di ffon 07-27-2022 Basophils (Bld) [#/Vol] 0.1 10*3/uL Normal 0.0-0.2 [facility] Comment on above: Result Comment: PERF ORMED BY: [facility] [address] [place] [address] PATHOLOGIST GUN PERFORATOR LOADER MATEUS COSME M.D. Performed By: #### C BC #### [address] Basophils/100 WBC (Bld) 1.0 % Normal . [facility] Comment on above: Performed By: #### C BC #### [address] Eosinophils (Bld) [#/Vol] 0.1 10*3/uL Normal 0.0-0.45 [facility] Comment on above: Performed By: #### C BC #### [address] Eosinophils/100 WBC (Bld) 0.9 % Normal . [facility] Comment on above: Performed By: #### C BC #### [address] Erythrocyte distribution width (RBC) [Ratio] 17.2 % High 11.9-15.3 [facility] Comment on above: Performed By: #### C BC #### [address] Hematocrit (Bld) [Volume fraction] 30.0 % Low 34.0-46.4 [facility] Comment on above: Performed By: #### C BC #### [address] Hemoglobin (Bld) [Mass/Vol] 9.3 g/dL Low 11.8-15.4 [facility] Comment on above: Performed By: #### C BC #### [address] Lymphocytes (Bld) [#/Vol] 0.6 10*3/uL Low 1.00-4.8 [facility] Comment on above: Performed By: #### C BC #### [address] Lymphocytes/100 WBC (Bld) 5.8 % Normal . [facility] Comment on above: Performed By: #### C BC #### [address] MCH (RBC) [Entitic mass] 25.1 pg Normal 24.7-34.3 [facility] Comment on above: Performed By: #### C BC #### [facility] [address] MCV (RBC) [Entitic vol] 80.5 fL Normal 80-100 [facility] Comment on above: Performed By: #### C BC #### [facility] [address] Mean Corpuscular HGB Conc 31.1 g/dL Low 32.0-35.0 [facility] Comment on above: Performed By: #### C BC #### [facility] [address] Monocytes (Bld) [#/Vol] 0.4 10*3/uL Normal 0.0-0.8 [facility] Comment on above: Performed By: #### C BC #### [address] Monocytes/100 WBC (Bld) 4.2 % Normal . [facility] Comment on above: Performed By: #### C BC #### [address] Neutrophils (Bld) [#/Vol] 9.2 10*3/uL High 1.8-7.7 [facility] Comment on above: Performed By: #### C BC #### [address] Neutrophils/100 WBC (Bld) 88.1 % Normal . [facility] Comment on above: Performed By: #### C BC #### [facility] [address] [place] [address] [place] Nucleated RBC/100 WBC (Bld) [Ratio] 0.0 % Normal 0-0.5 [facility] Comment on above: Performed By: #### C BC #### [address] Platelet mean volume (Bld) [Entitic vol] 7.0 fL Normal 6.3-10.7 [facility] Comment on above: Performed By: #### C BC #### [facility] [address] [place] [address] [place] Platelets (Bld) [#/Vol] 487 10*3/uL High 150-450 [facility] Comment on above: Performed By: #### C BC #### [facility] [address] RBC (Bld) [#/Vol] 3.73 10*6/uL Normal 3.60-5.00 [facility] Comment on above: Performed By: #### C BC #### [facility] [address] WBC (Bld) [#/Vol] 10.4 10*3/uL Normal 4.5-11.0 [facility] Comment on above: Performed By: #### C BC #### [facility] [address] CBC AUTO DIFFon 04-10-2021 BASO # 0.0 103/ul Normal 0.0-0.1 [facility] Comment on above: Performed By: #### C BC #### [facility] [address] [address] Gokul Jennifer Basophils/100 WBC (Bld) 0.2 % Normal 0.2-2.0 [facility] Comment on above: Performed By: #### C BC #### [facility] [address] [address] Gokul Jennifer EO # 0.0 103/ul Normal 0.0-0.7 [facility] Comment on above: Performed By: #### C BC #### [facility] [address] [address] Gokul Jennifer Eosinophils/100 WBC (Bld) 0.2 % Critically low 0.9-7.0 [facility] Comment on above: Performed By: #### C BC #### [facility] [address] [address] Gokul Jennifer Erythrocyte distribution width (RBC) [Ratio] 14.4 % Normal 11.0-15.0 [facility] Comment on above: Performed By: #### C BC #### [facility] [address] [id number] Gokul Rodriguez Hematocrit (Bld) [Volume fraction] 36.0 % Normal 36.0-48.0 [facility] Comment on above: Performed By: #### C BC #### [facility] [address] [id number] Gokul Rodriguez Hemoglobin (Bld) [Mass/Vol] 11.9 g/dL Critically low 12.0-16.0 [facility] Comment on above: Performed By: #### C BC #### [facility] [address] [address] Gokul Rodriguez IG # 0.13 10e3/ul Critically high 0.00-0.03 [facility] Comment on above: Performed By: #### C BC #### [facility] [address] [address] Gokul Rodriguez IG % 2.6 % Critically high 0.0-0.5 [facility] Comment on above: Performed By: #### C BC #### [facility] [address] [id number] Gokul Rodriguez LYMPH # 0.6 103/ul Critically low 1.2-3.[address] [facility] Comment on above: Performed By: #### C BC #### [facility] [address] [place], [place] [id number] Gokul Rodriguez Lymphocytes/100 WBC (Bld) 12.5 % Critically low 20.5-60.0 [facility] Comment on above: Performed By: #### C BC #### [facility] [address] [id number] Gokul Rodriguez MANUAL DIFF REQ NO Normal [facility] Comment on above: Performed By: #### C BC #### [facility] [address] [id number] Gokul Rodriguez MCH (RBC) [Entitic mass] 27.6 pg Normal 26.7-34.0 [facility] Comment on above: Performed By: #### C BC #### [facility] [address] [place], [place] [address] Gokulcarl Rodriguez MCHC (RBC) [Mass/Vol] 33.1 g/dL Normal 29.9-35.2 [facility] Comment on above: Performed By: #### C BC #### [facility] [address] [place], [place] [address] Gokul Jennifer MCV (RBC) [Entitic vol] 83.5 fL Normal 81.0-99.0 [facility] Comment on above: Performed By: #### C BC #### [facility] [address] [id number] Gokul Jennifer MONO # 0.4 103/ul Normal 0.3-0.8 [facility] Comment on above: Performed By: #### C BC #### [facility] [address] [place], [place] [id number] Gokul Jennifer Monocytes/100 WBC (Bld) 7.4 % Normal 1.7-12.0 [facility] Comment on above: Performed By: #### C BC #### [facility] [address] [place], [place] [id number] Gokul Jennifer NEUT # 3.9 103/ul Normal 1.4-6.5 [facility] Comment on above: Performed By: #### C BC #### [facility] [address] [place], [place] [id number] Gokul Jennifer Neutrophils/100 WBC (Bld) 77.1 % Critically high 43.0-75.0 [facility] Comment on above: Performed By: #### C BC #### [facility] [address] [place], [place] [id number] Gokul Jennifer Platelet mean volume (Bld) [Entitic vol] 9.6 fL Normal 9.5-13.5 [facility] Comment on above: Performed By: #### C BC #### [facility] [address] [place], [place] [address] Gokul Jennifer PLT 203 103/ul Normal 150-450 [facility] Comment on above: Performed By: #### C BC #### [facility] [address] [place] [address] Gokulcarl Mccarthyen RBC 4.31 106/ul Normal 4.20-5.40 [facility] Comment on above: Performed By: #### C BC #### [facility] [address] [place], [place] [id number] Gokulcarl Mccarthyen WBC 5.0 103/ul Normal 4.0-11.0 [facility] Comment on above: Performed By: #### C BC #### [facility] [address] [place], [place] [phone] Gokul Jennifer PROF 14(COMP METB)on 021 Albumin [Mass/Vol] 2.5 g/dL Critically low 3.5-5.0 [facility] Comment on above: Performed By: #### C MP #### [facility] [address] [place], [place] [id number] Gokul Jennifer Albumin/Globulin [Mass ratio] 0.7 {ratio} Normal [facility] Comment on above: Performed By: #### C MP #### [facility] [address] [place], [place] [id number] Gokul Jennifer ALP [Catalytic activity/Vol] 49 U/L Normal 38-126 [facility] Comment on above: Performed By: #### C MP #### [facility] [address] [place], [place] [phone] Gokul Jennifer ALT [Catalytic activity/Vol] 49 U/L Normal 9-52 [facility] Comment on above: Performed By: #### C MP #### [facility] [address] [place], [place] [id number] Gokul Jennifer Anion gap [Moles/Vol] 12.2 mmol/L Normal [facility] Comment on above: Performed By: #### C MP #### [facility] [address] [place], [place] [id number] Gokul Jennifer AST [Catalytic activity/Vol] 34 U/L Normal 14-36 [facility] Comment on above: Performed By: #### C MP #### [facility] [address] [place], [place] [phone] Gokul Jennifer Bilirubin [Mass/Vol] 0.3 mg/dL Normal 0.2-1.3 [facility] Comment on above: Performed By: #### C MP #### [facility] [address] [address] Gokul Jennifer Calcium [Mass/Vol] 8.5 mg/dL Normal 8.4-10.2 [facility] Comment on above: Performed By: #### C MP #### [facility] [address] [address] Gokul Jennifer Chloride [Moles/Vol] 108 mmol/L Critically high 98-107 [facility] Comment on above: Performed By: #### C MP #### [facility] [address] [place] [address] Gokul Jennifer CO2 [Moles/Vol] 26.8 mmol/L Normal 22.0-30.0 [facility] Comment on above: Performed By: #### C MP #### [facility] [address] [place] [address] Gokul Jennifer Creatinine [Mass/Vol] 0.89 mg/dL Normal 0.52-1.04 [facility] Comment on above: Performed By: #### C MP #### [facility] [address] [place] [address] Gokul Jennifer EGFR-AF BHUTANESE >60 Normal >=60 [facility] Comment on above: Performed By: #### C MP #### [facility] [address] [place] [address] Gokul Jennifer EGFR-NON AF BHUTANESE >60 Normal >=60 [facility] Comment on above: Performed By: #### C MP #### [facility] [address] [place] [address] Gokul Jennifer Globulin (S) [Mass/Vol] 3.4 g/dL Normal [facility] Comment on above: Performed By: #### C MP #### [facility] [address] [place] [address] Gokul Jennifer Glucose [Mass/Vol] 111 mg/dL Critically high 74-[address] [facility] Comment on above: Performed By: #### C MP #### [facility] [address] [id number] Gokul Jennifer Potassium [Moles/Vol] 4.0 mmol/L Normal 3.4-5.0 [facility] Comment on above: Performed By: #### C MP #### [facility] [address] [id number] Gokul Jennifer Protein [Mass/Vol] 5.9 g/dL Critically low 6.1-8.2 [facility] Comment on above: Performed By: #### C MP #### [facility] [address] [id number] Gokul Jennifer Sodium [Moles/Vol] 143 mmol/L Normal 137-145 [facility] Comment on above: Performed By: #### C MP #### [facility] [address] [place], [place] [address] Gokul Jennifer Urea nitrogen [Mass/Vol] 32.0 mg/dL Critically high 7.0-17.0 [facility] Comment on above: Performed By: #### C MP #### [facility] [address] [place], [place] [address] Gokul Jennifer Urea nitrogen/Creatinine [Mass ratio] 36.0 mg/mg Normal [facility] Comment on above: Performed By: #### C MP #### [facility] [address] [place], [place] [address] Gokul Jennifer CBC AUTO DIFFon 04-09-2021 BASO # 0.0 103/ul Normal 0.0-0.1 [facility] Comment on above: Performed By: #### C BC #### [facility] [address] [place], [place] [address] Gokul Jennifer Basophils/100 WBC (Bld) 0.2 % Normal 0.2-2.0 [facility] Comment on above: Performed By: #### C BC #### [facility] [address] [place], [place] [address] Gokul Jennifer EO # 0.0 103/ul Normal 0.0-0.7 [facility] Comment on above: Performed By: #### C BC #### [facility] [address] [address] Gokul Jennifer Eosinophils/100 WBC (Bld) 0.0 % Critically low 0.9-7.0 [facility] Comment on above: Performed By: #### C BC #### [facility] [address] [place], [place] [address] Gokulcarl Rodriguez Erythrocyte distribution width (RBC) [Ratio] 14.4 % Normal 11.0-15.0 [facility] Comment on above: Performed By: #### C BC #### [facility] [address] [place] [address] Gokul Jennifer Hematocrit (Bld) [Volume fraction] 35.2 % Critically low 36.0-48.0 [facility] Comment on above: Performed By: #### C BC #### [facility] [address] [place] [address] Gokul Jennifer Hemoglobin (Bld) [Mass/Vol] 11.2 g/dL Critically low 12.0-16.0 [facility] Comment on above: Performed By: #### C BC #### [facility] [address] [place] [address] Gokul Jennifer IG # 0.07 10e3/ul Critically high 0.00-0.03 [facility] Comment on above: Performed By: #### C BC #### [facility] [address] [place] [address] Gokul Jennifer IG % 1.7 % Critically high 0.0-0.[address] [facility] Comment on above: Performed By: #### C BC #### [facility] [address] [place] [address] Gokul Jennifer LYMPH # 0.5 103/ul Critically low 1.2-3.8 [facility] Comment on above: Performed By: #### C BC #### [facility] [address] [place], [place] [phone] Gokul Jennifer Lymphocytes/100 WBC (Bld) 12.1 % Critically low 20.5-60.0 [facility] Comment on above: Performed By: #### C BC #### [facility] [address] [place] [address] Gokul Rodriguez MANUAL DIFF REQ NO Normal [facility] Comment on above: Performed By: #### C BC #### [facility] [address] [place] [address] Gokul Rodriguez MCH (RBC) [Entitic mass] 27.0 pg Normal 26.7-34.0 [facility] Comment on above: Performed By: #### C BC #### [facility] [address] [place] [address] Gokul Rodriguez MCHC (RBC) [Mass/Vol] 31.8 g/dL Normal 29.9-35.2 [facility] Comment on above: Performed By: #### C BC #### [facility] [address] [place] [address] Gokul Rodriguez MCV (RBC) [Entitic vol] 84.8 fL Normal 81.0-99.0 [facility] Comment on above: Performed By: #### C BC #### [facility] [address] [place] [address] Gokul Rodriguez MONO # 0.4 103/ul Normal 0.3-0.8 [facility] Comment on above: Performed By: #### C BC #### [facility] [address] [place] [address] Gokul Rodriguez Monocytes/100 WBC (Bld) 8.6 % Normal 1.7-12.0 [facility] Comment on above: Performed By: #### C BC #### [facility] [address] [place] [address] Gokul Rodriguez NEUT # 3.1 103/ul Normal 1.4-6.5 [facility] Comment on above: Performed By: #### C BC #### [facility] [address] [place] [address] Gokul Rodriguez Neutrophils/100 WBC (Bld) 77.4 % Critically high 43.0-75.0 [facility] Comment on above: Performed By: #### C BC #### [facility] [address] [place] [address] Gokulcarl Rodriguez Platelet mean volume (Bld) [Entitic vol] 9.5 fL Normal 9.5-13.5 [facility] Comment on above: Performed By: #### C BC #### [facility] [address] [id number] Gokul Rodriguez PLT 184 103/ul Normal 150-450 [facility] Comment on above: Performed By: #### C BC #### [facility] [address] [id number] Gokul Mccarthyen RBC 4.15 106/ul Critically low 4.20-5.40 [facility] Comment on above: Performed By: #### C BC #### [facility] [address] [id number] Gokul Rodriguez WBC 4.1 103/ul Normal 4.0-11.0 [facility] Comment on above: Performed By: #### C BC #### [facility] [address] [place] [address] Gokul Rodriguez POINT OF CARE GLUCOSEon 03-19 Glucose [Mass/Vol] 156 mg/dL Critically high 74-[address] [facility] Comment on above: Performed By: #### C BC #### [facility] [address] [place], [place] [address] Gokul Jennifer Glucose [Mass/Vol] 134 mg/dL Critically high 74-[address] [facility] Comment on above: Performed By: #### C MP #### [facility] [address] [place] [address] Gokul Jennifer Glucose [Mass/Vol] 106 mg/dL Normal 74-106 [facility] Comment on above: Performed By: #### P OCGLUC #### [facility] [address] [place] [address] Gokul Rodriguez PROF 14(COMP METB)on 021 Albumin [Mass/Vol] 2.5 g/dL Critically low 3.5-5.0 [facility] Comment on above: Performed By: #### C MP #### [facility] [address] [place], [place] [address] Gokul Rodriguez Albumin/Globulin [Mass ratio] 0.8 {ratio} Normal [facility] Comment on above: Performed By: #### C MP #### [facility] [address] [id number] Gokul Jennifer ALP [Catalytic activity/Vol] 51 U/L Normal 38-126 [facility] Comment on above: Performed By: #### C MP #### [facility] [address] [id number] Gokul Jennifer ALT [Catalytic activity/Vol] 52 U/L Normal 9-52 [facility] Comment on above: Performed By: #### C MP #### [facility] [address] [id number] Gokul Jennifer Anion gap [Moles/Vol] 11.0 mmol/L Normal [facility] Comment on above: Performed By: #### C MP #### [facility] [address] [address] Gokul Jennifer AST [Catalytic activity/Vol] 43 U/L Critically high 14-36 [facility] Comment on above: Performed By: #### C MP #### [facility] [address] [address] Gokul Jennifer Bilirubin [Mass/Vol] 0.3 mg/dL Normal 0.2-1.3 [facility] Comment on above: Performed By: #### C MP #### [facility] [address] [id number] Gokul Jennifer Calcium [Mass/Vol] 8.5 mg/dL Normal 8.4-10.2 [facility] Comment on above: Performed By: #### C MP #### [facility] [address] [id number] Gokul Jennifer Chloride [Moles/Vol] 109 mmol/L Critically high 98-107 [facility] [facility] Comment on above: Performed By: #### C MP #### [facility] [address] [id number] Gokul Jennifer CO2 [Moles/Vol] 28.0 mmol/L Normal 22.0-30.0 [facility] Comment on above: Performed By: #### C MP #### [facility] [address] [place], [place] [address] Gokul Jennifer Creatinine [Mass/Vol] 0.92 mg/dL Normal 0.52-1.04 [facility] Comment on above: Performed By: #### C MP #### [facility] [address] [place], [place] [address] Gokul Jennifer EGFR-AF BHUTANESE >60 Normal >=60 [facility] Comment on above: Performed By: #### C MP #### [facility] [address] [id number] Gokul Jennifer EGFR-NON AF BHUTANESE =60 Normal >=60 [facility] Comment on above: Performed By: #### C MP #### [facility] [address] [id number] Gokul Jennifer Globulin (S) [Mass/Vol] 3.3 g/dL Normal [facility] Comment on above: Performed By: #### C MP #### [facility] [address] [id number] Gokul Jennifer Glucose [Mass/Vol] 119 mg/dL Critically high 74-[address] [facility] Comment on above: Performed By: #### C MP #### [facility] [address] [id number] Gokul Jennifer Potassium [Moles/Vol] 4.0 mmol/L Normal 3.4-5.0 [facility] Comment on above: Performed By: #### C MP #### [facility] [address] [address] Gokul Jennifer Protein [Mass/Vol] 5.8 g/dL Critically low 6.1-8.2 [facility] Comment on above: Performed By: #### C MP #### [facility] [address] [place], [place] [id number] Gokul Jennifer Sodium [Moles/Vol] 144 mmol/L Normal 137-145 [facility] Comment on above: Performed By: #### C MP #### [facility] [address] [id number] Gokul Jennifer Urea nitrogen [Mass/Vol] 31.0 mg/dL Critically high 7.0-17.0 [facility] Comment on above: Performed By: #### C MP #### [facility] [address] [place], [place] [id number] Gokul Rodriguez Urea nitrogen/Creatinine [Mass ratio] 33.7 mg/mg Normal [facility] Comment on above: Performed By: #### C MP #### [facility] [address] [place], [place] [id number] Gokul Jennifer CBC AUTO DIFFon 04-08-2021 BASO # 0.0 103/ul Normal 0.0-0.1 [facility] Comment on above: Performed By: #### C MP #### [facility] [address] [place] [address] Gokul Jennifer Basophils/100 WBC (Bld) 0.3 % Normal 0.2-2.0 [facility] Comment on above: Performed By: #### C MP #### [facility] [address] [place] [address] Gokul Jennifer EO # 0.0 103/ul Normal 0.0-0.7 [facility] Comment on above: Performed By: #### C MP #### [facility] [address] [place] [address] Gokul Jennifer Eosinophils/100 WBC (Bld) 0.0 % Critically low 0.9-7.0 [facility] Comment on above: Performed By: #### C MP #### [facility] [address] [place] [address] Gokul Jennifer Erythrocyte distribution width (RBC) [Ratio] 14.6 % Normal 11.0-15.0 [facility] Comment on above: Performed By: #### C MP #### [facility] [address] [place], [place] [id number] Gokul Jennifer Hematocrit (Bld) [Volume fraction] 37.0 % Normal 36.0-48.0 [facility] Comment on above: Performed By: #### C MP #### [facility] [address] [place], [place] [phone] Gokul Jennifer Hemoglobin (Bld) [Mass/Vol] 11.9 g/dL Critically low 12.0-16.0 [facility] Comment on above: Performed By: #### C MP #### [facility] [address] [place] [address] Gokul Jennifer IG # 0.04 10e3/ul Critically high 0.00-0.03 [facility] Comment on above: Performed By: #### C MP #### [facility] [address] [address] Gokul Jennifer IG % 1.4 % Critically high 0.0-0.5 [facility] Comment on above: Performed By: #### C MP #### [facility] [address] [place] [address] Gokul Jennifer LYMPH # 0.3 103/ul Critically low 1.2-3.[address] [facility] Comment on above: Performed By: #### C MP #### [facility] [address] [place] [address] Gokul Rodriguez Lymphocytes/100 WBC (Bld) 11.8 % Critically low 20.5-60.0 [facility] Comment on above: Performed By: #### C MP #### [facility] [address] [place] [address] Gokul Rodriguez MANUAL DIFF REQ NO Normal [facility] Comment on above: Performed By: #### C MP #### [facility] [address] [place] [address] Gokul Rodriguez MCH (RBC) [Entitic mass] 27.7 pg Normal 26.7-34.0 [facility] Comment on above: Performed By: #### C MP #### [facility] [address] [place] [address] Gokulcarl Rodriguez MCHC (RBC) [Mass/Vol] 32.2 g/dL Normal 29.9-35.2 [facility] Comment on above: Performed By: #### C MP #### [facility] [address] [place] [address] Gokulcarl Rodriguez MCV (RBC) [Entitic vol] 86.0 fL Normal 81.0-99.0 [facility] Comment on above: Performed By: #### C MP #### [facility] [address] [id number] Gokul Jennifer MONO # 0.3 103/ul Normal 0.3-0.8 [facility] Comment on above: Performed By: #### C MP #### [facility] [address] [id number] Gokul Jennifer Monocytes/100 WBC (Bld) 11.1 % Normal 1.7-12.0 [facility] Comment on above: Performed By: #### C MP #### [facility] [address] [place] [address] Gokul Jennifer NEUT # 2.2 103/ul Normal 1.4-6.5 [facility] Comment on above: Performed By: #### C MP #### [facility] [address] [place] [address] Gokul Jennifer Neutrophils/100 WBC (Bld) 75.4 % Critically high 43.0-75.0 [facility] Comment on above: Performed By: #### C MP #### [facility] [address] [place], [place] [phone] Gokul Jennifer Platelet mean volume (Bld) [Entitic vol] 9.8 fL Normal 9.5-13.5 [facility] Comment on above: Performed By: #### C MP #### [facility] [address] [place] [address] Gokul Jennifer PLT 170 103/ul Normal 150-450 [facility] Comment on above: Performed By: #### C MP #### [facility] [address] [place] [address] Gokul Jennifer RBC 4.30 106/ul Normal 4.20-5.40 [facility] Comment on above: Performed By: #### C MP #### [facility] [address] [place] [address] Gokul Jennifer WBC 2.9 103/ul Critically low 4.0-11.0 [facility] Comment on above: Performed By: #### C MP #### [facility] [address] [place] [address] Gokul Rodriguez CULTURE URINEon 04-08-2021 CULTURE URINE Isolate 1 Escherichia coli 10,000 CFU/mL OF ORGANISM 1 Escherichia coli ANTIBIOTIC M.I.C RX STATUS Ampicillin 4 S F Ampicillin/Sulbactam <=2 S F Piperacillin/Tazobactam <=4 S F Cefazolin <=4 S F Ceftazidime <=1 S F Ceftriaxone <=1 S F Ertapenem <=0.5 S F Imipenem <=0.25 S F Amikacin <=2 S F Gentamicin <=1 S F Tobramycin <=1 S F Ciprofloxacin <=0.25 S F Levofloxacin <=0.12 S F Nitrofurantoin <=16 S F Trimethoprim/Sulfamethoxa zole <=20 S F Normal [facility] Comment on above: Performed By: #### C MP #### [facility] [address] [place] [address] Gokul Rodriguez POINT OF CARE GLUCOSEon 03-19 Glucose [Mass/Vol] 156 mg/dL Critically high 74-[address] [facility] Comment on above: Performed By: #### P OCGLUC #### [facility] [address] [place] [address] Gokul Jennifer Glucose [Mass/Vol] 188 mg/dL Critically high -[address] [facility] Comment on above: Performed By: #### C BC #### [facility] [address] [place] [address] Gokul Jennifer Glucose [Mass/Vol] 118 mg/dL Critically high 74-[address] [facility] Comment on above: Performed By: #### C BC #### [facility] [address] [address] Gokul Jennifer PROF 14(COMP METB)on 021 Albumin [Mass/Vol] 2.5 g/dL Critically low 3.5-5.0 [facility] Comment on above: Performed By: #### C MP #### [facility] [address] [place] [address] Gokul Jennifer Albumin/Globulin [Mass ratio] 0.8 {ratio} Normal [facility] Comment on above: Performed By: #### C MP #### [facility] [address] [place], [place] [address] Gokul Jennifer ALP [Catalytic activity/Vol] 42 U/L Normal 38-126 [facility] Comment on above: Performed By: #### C MP #### [facility] [address] [place], [place] [address] Gokul Jennifer ALT [Catalytic activity/Vol] 58 U/L Critically high 9-52 [facility] Comment on above: Performed By: #### C MP #### [facility] [address] [place], [place] [address] Gokul Jennifer Anion gap [Moles/Vol] 11.7 mmol/L Normal [facility] Comment on above: Performed By: #### C MP #### [facility] [address] [id number] Ogkul Jennifer AST [Catalytic activity/Vol] 72 U/L Critically high 14-36 [facility] Comment on above: Performed By: #### C MP #### [facility] [address] [place], [place] [address] Gokul Jennifer Bilirubin [Mass/Vol] 0.3 mg/dL Normal 0.2-1.3 [facility] Comment on above: Performed By: #### C MP #### [facility] [address] [place], [place] [address] Gokul Jennifer Calcium [Mass/Vol] 8.3 mg/dL Critically low 8.4-10.2 [facility] Comment on above: Performed By: #### C MP #### [facility] [address] [place], [place] [address] Gokul Jennifer Chloride [Moles/Vol] 108 mmol/L Critically high 98-107 [facility] Comment on above: Performed By: #### C MP #### [facility] [address] [place], [place] [address] Gokul Jennifer CO2 [Moles/Vol] 27.4 mmol/L Normal 22.0-30.0 [facility] Comment on above: Performed By: #### C MP #### [facility] [address] [id number] Gokul Jennifer Creatinine [Mass/Vol] 0.82 mg/dL Normal 0.52-1.04 [facility] Comment on above: Performed By: #### C MP #### [facility] [address] [id number] Gokul Jennifer EGFR-AF BHUTANESE >60 Normal >=60 [facility] Comment on above: Performed By: #### C MP #### [facility] [address] [id number] Gokul Jennifer EGFR-NON AF BHUTANESE >60 Normal >=60 [facility] Comment on above: Performed By: #### C MP #### [facility] [address] [place], [place] [phone] Gokul Jennifer Globulin (S) [Mass/Vol] 3.3 g/dL Normal [facility] Comment on above: Performed By: #### C MP #### [facility] [address] [place] [address] Gokul Jennifer Glucose [Mass/Vol] 128 mg/dL Critically high 74-[address] [facility] Comment on above: Performed By: #### C MP #### [facility] [address] [place], [place] [address] Gokul Jennifer Potassium [Moles/Vol] 4.1 mmol/L Normal 3.4-5.0 [facility] Comment on above: Performed By: #### C MP #### [facility] [address] [place], [place] [address] Gokul Jennifer Protein [Mass/Vol] 5.8 g/dL Critically low 6.1-8.2 [facility] Comment on above: Performed By: #### C MP #### [facility] [address] [place], [place] [address] Gokul Jennifer Sodium [Moles/Vol] 143 mmol/L Normal 137-145 [facility] Comment on above: Performed By: #### C MP #### [facility] [address] [place], [place] [address] Gokul Jennifer Urea nitrogen [Mass/Vol] 27.0 mg/dL Critically high 7.0-17.0 [facility] Comment on above: Performed By: #### C MP #### [facility] [address] [place], [place] [address] Gokulcarl Rodriguez Urea nitrogen/Creatinine [Mass ratio] 32.9 mg/mg Normal [facility] Comment on above: Performed By: #### C MP #### [facility] [address] [place], [place] [address] Gokul Jennifer CBC AUTO DIFFon 04-07-2021 BASO # 0.0 103/ul Normal 0.0-0.1 [facility] Comment on above: Performed By: #### C BC #### [facility] [address] [place], [place] [address] Gokul Jennifer Basophils/100 WBC (Bld) 0.0 % Critically low 0.2-2.0 [facility] Comment on above: Performed By: #### C BC #### [facility] [address] [place], [place] [address] Gokul Jennifer EO # 0.0 103/ul Normal 0.0-0.7 [facility] Comment on above: Performed By: #### C BC #### [facility] [address] [place], [place] [address] Gokul Jennifer Eosinophils/100 WBC (Bld) 0.0 % Critically low 0.9-7.0 [facility] Comment on above: Performed By: #### C BC #### [facility] [address] [place], [place] [address] Gokulcarl Mccarthyen Erythrocyte distribution width (RBC) [Ratio] 14.2 % Normal 11.0-15.0 [facility] Comment on above: Performed By: #### C BC #### [facility] [address] [place], [place] [address] Gokul Jennifer Hematocrit (Bld) [Volume fraction] 36.6 % Normal 36.0-48.0 [facility] Comment on above: Performed By: #### C BC #### [facility] [address] [place], [place] [address] Gokul Jennifer Hemoglobin (Bld) [Mass/Vol] 12.0 g/dL Normal 12.0-16.0 [facility] Comment on above: Performed By: #### C BC #### [facility] [address] [id number] Gokul Jennifer IG # 0.02 10e3/ul Normal 0.00-0.03 [facility] Comment on above: Performed By: #### C BC #### [facility] [address] [id number] Gokul Jennifer IG % 0.5 % Normal 0.0-0.5 [facility] Comment on above: Performed By: #### C BC #### [facility] [address] [address] Gokul Jennifer LYMPH # 0.5 103/ul Critically low 1.2-3.[address] [facility] Comment on above: Performed By: #### C BC #### [facility] [address] [place] [address] Gokul Jennifer Lymphocytes/100 WBC (Bld) 12.4 % Critically low 20.5-60.0 [facility] Comment on above: Performed By: #### C BC #### [facility] [address] [place], [place] [address] Gokulcarl Rodriguez MANUAL DIFF REQ NO Normal [facility] Comment on above: Performed By: #### C BC #### [facility] [address] [place], [place] [address] Gokul Jennifer MCH (RBC) [Entitic mass] 27.5 pg Normal 26.7-34.0 [facility] Comment on above: Performed By: #### C BC #### [facility] [address] [place], [place] [address] Gokul Jennifer MCHC (RBC) [Mass/Vol] 32.8 g/dL Normal 29.9-35.2 [facility] Comment on above: Performed By: #### C BC #### [facility] [address] [id number] Gokul Jennifer MCV (RBC) [Entitic vol] 83.9 fL Normal 81.0-99.0 [facility] Comment on above: Performed By: #### C BC #### [facility] [address] [place], [place] [address] Gokul Ejnnifer MONO # 0.4 103/ul Normal 0.3-0.8 [facility] Comment on above: Performed By: #### C BC #### [facility] [address] [id number] Gokul Jennifer Monocytes/100 WBC (Bld) 8.7 % Normal 1.7-12.0 [facility] Comment on above: Performed By: #### C BC #### [facility] [address] [place] [address] Gokul Jennifer NEUT # 3.4 103/ul Normal 1.4-6.5 [facility] Comment on above: Performed By: #### C BC #### [facility] [address] [place], [place] [address] Gokul Jennifer Neutrophils/100 WBC (Bld) 78.4 % Critically high 43.0-75.0 [facility] Comment on above: Performed By: #### C BC #### [facility] [address] [place], [place] [address] Gokul Jennifer Platelet mean volume (Bld) [Entitic vol] 9.7 fL Normal 9.5-13.5 [facility] Comment on above: Performed By: #### C BC #### [facility] [address] [place], [place] [address] Gokul Jennifer PLT 147 103/ul Critically low 150-450 [facility] Comment on above: Performed By: #### C BC #### [facility] [address] [place], [place] [address] Gokul Jennifer RBC 4.36 106/ul Normal 4.20-5.40 [facility] Comment on above: Performed By: #### C BC #### [facility] [address] [place], [place] [address] Gokul Jennifer WBC 4.4 103/ul Normal 4.0-11.0 [facility] Comment on above: Performed By: #### C BC #### [facility] [address] [place], [place] [address] Gokul Jennifer POINT OF CARE GLUCOSEon 03-19 Glucose [Mass/Vol] 137 mg/dL Critically high 74-[address] [facility] Comment on above: Performed By: #### C BC #### [facility] [address] [place], [place] [address] Gokul Jennifer Glucose [Mass/Vol] 129 mg/dL Critically high 74-[address] [facility] Comment on above: Performed By: #### C MP #### [facility] [address] [place], [place] [address] Gokul Jennifer Glucose [Mass/Vol] 108 mg/dL Critically high 74-[address] [facility] Comment on above: Performed By: #### C MP #### [facility] [address] [place], [place] [address] Gokul Rodriguez PROF 14(COMP METB)on 021 Albumin [Mass/Vol] 2.7 g/dL Critically low 3.5-5.0 [facility] Comment on above: Performed By: #### C MP #### [facility] [address] [place], [place] [address] Gokul Jennifer Albumin/Globulin [Mass ratio] 0.8 {ratio} Normal [facility] Comment on above: Performed By: #### C MP #### [facility] [address] [place], [place] [address] Gokul Jennifer ALP [Catalytic activity/Vol] 47 U/L Normal 38-126 [facility] Comment on above: Performed By: #### C MP #### [facility] [address] [place], [place] [address] Gokul Jennifer ALT [Catalytic activity/Vol] 61 U/L Critically high 9-52 [facility] Comment on above: Performed By: #### C MP #### [facility] [address] [place], [place] [address] Gokul Jennifer Anion gap [Moles/Vol] 11.7 mmol/L Normal [facility] Comment on above: Performed By: #### C MP #### [facility] [address] [place], [place] [address] Gokul Jennifer AST [Catalytic activity/Vol] 96 U/L Critically high 14-36 [facility] Comment on above: Performed By: #### C MP #### [facility] [address] [id number] Gokul Jennifer Bilirubin [Mass/Vol] 0.4 mg/dL Normal 0.2-1.3 [facility] Comment on above: Performed By: #### C MP #### [facility] [address] [id number] Gokul Jennifer Calcium [Mass/Vol] 8.3 mg/dL Critically low 8.4-10.2 [facility] Comment on above: Performed By: #### C MP #### [facility] [address] [address] Gokul Jennifer Chloride [Moles/Vol] 104 mmol/L Normal 98-107 [facility] Comment on above: Performed By: #### C MP #### [facility] [address] [address] Gokul Jennifer CO2 [Moles/Vol] 27.7 mmol/L Normal 22.0-30.0 [facility] Comment on above: Performed By: #### C MP #### [facility] [address] [id number] Gokul Jennifer Creatinine [Mass/Vol] 0.94 mg/dL Normal 0.52-1.04 [facility] Comment on above: Performed By: #### C MP #### [facility] [address] [address] Gokul Jennifer EGFR-AF BHUTANESE >60 Normal >=60 [facility] Comment on above: Performed By: #### C MP #### [facility] [address] [id number] Gokul Jennifer EGFR-NON AF BHUTANESE 58 mL/min/1.73m2 Critically low >=60 [facility] Comment on above: Performed By: #### C MP #### [facility] [address] [address] Gokul Jennifer Globulin (S) [Mass/Vol] 3.4 g/dL Normal [facility] Comment on above: Performed By: #### C MP #### [facility] [address] [id number] Gokul Jennifer Glucose [Mass/Vol] 99 mg/dL Normal 74-106 [facility] Comment on above: Performed By: #### C MP #### [facility] [address] [address] Gokul Jennifer Potassium [Moles/Vol] 3.4 mmol/L Normal 3.4-5.0 [facility] Comment on above: Performed By: #### C MP #### [facility] [address] [place] [address] Gokul Jennifer Protein [Mass/Vol] 6.1 g/dL Normal 6.1-8.2 [facility] Comment on above: Performed By: #### C MP #### [facility] [address] [place] [address] Gokul Jennifer Sodium [Moles/Vol] 140 mmol/L Normal 137-145 [facility] Comment on above: Performed By: #### C MP #### [facility] [address] [place] [address] Gokul Jennifer Urea nitrogen [Mass/Vol] 28.0 mg/dL Critically high 7.0-17.0 [facility] Comment on above: Performed By: #### C MP #### [facility] [address] [place], [place] [address] Gokul Jennifer Urea nitrogen/Creatinine [Mass ratio] 29.8 mg/mg Normal [facility] Comment on above: Performed By: #### C MP #### [facility] [address] [place], [place] [address] Gokul Jennifer CBC W MANUAL DIFFon 05-20-20 21 ATYPICAL LYMPH # Normal [facility] Comment on above: Performed By: #### C MP #### [facility] [address] [place], [place] [address] Gokul Jennifer ATYPICAL LYMPH % Normal [facility] Comment on above: Performed By: #### C MP #### [facility] [address] [place] [address] Gokul Jennifer BAND # 0.2 103/ul Normal 0.0-0.3 [facility] Comment on above: Performed By: #### C MP #### [facility] [address] [place] [address] Gokul Jennifer BAND % 5 % Normal 0-5 [facility] Comment on above: Performed By: #### C MP #### [facility] [address] [place] [address] Gokul Jennifer BASOM # 0.00 103/ul Normal 0.00-0.10 [facility] Comment on above: Performed By: #### C MP #### [facility] [address] [place] [address] Gokul Jennifer BASOM % 0.0 % Critically low 0.2-2.[address] [facility] Comment on above: Performed By: #### C MP #### [facility] [address] [place] [address] Gokul Jennifer BLAST # Normal [facility] Comment on above: Performed By: #### C MP #### [facility] [address] [place] [address] Gokul Jennifer BLAST % Normal [facility] Comment on above: Performed By: #### C MP #### [facility] [address] [place] [address] Gokul Jennifer CORRECTED WBC Normal 4.0-11.0 [facility] Comment on above: Performed By: #### C MP #### [facility] [address] [place] [address] Gokul Jennifer EOS # 0.00 103/ul Normal 0.00-0.70 [facility] Comment on above: Performed By: #### C MP #### [facility] [address] [place] [address] Gokul Jennifer EOS% 0.0 % Critically low 0.9-7.0 [facility] Comment on above: Performed By: #### C MP #### [facility] [address] [place] [address] Gokul Jennifer HCT 38.9 % Normal 36.0-48.0 [facility] Comment on above: Performed By: #### C MP #### [facility] [address] [id number] Gokul Jennifer HGB 12.8 g/dl Normal 12.0-16.0 [facility] Comment on above: Performed By: #### C MP #### [facility] [address] [address] Gokul Jennifer LYMPHM # 0.51 103/ul Critically low 1.20-3.[address] [facility] Comment on above: Performed By: #### C MP #### [facility] [address] [address] Gokul Jennifer LYMPHM% 15.0 % Critically low 20.5-60.[address] [facility] Comment on above: Performed By: #### C MP #### [facility] [address] [place] [address] Gokul Jennifer MCH 27.9 pg Normal 26.7-34.0 [facility] Comment on above: Performed By: #### C MP #### [facility] [address] [place] [address] Gokul Jennifer MCHC 32.9 g/dl Normal 29.9-35.2 [facility] Comment on above: Performed By: #### C MP #### [facility] [address] [place] [address] Gokul Jennifer MCV 84.7 fL Normal 81.0-99.0 [facility] Comment on above: Performed By: #### C MP #### [facility] [address] [place] [address] Gokul Jennifer METAMYELOCYTE # Normal [facility] Comment on above: Performed By: #### C MP #### [facility] [address] [place] [address] Gokul Jennifer METAMYELOCYTE % Normal [facility] Comment on above: Performed By: #### C MP #### [facility] [address] [place] [address] Gokul Jennifer MONOM# 0.24 103/ul Critically low 0.30-0.80 [facility] Comment on above: Performed By: #### C MP #### [facility] [address] [address] Gokulcarl Rodriguez MONOM% 7.0 % Normal 1.7-12.0 [facility] Comment on above: Performed By: #### C MP #### [facility] [address] [address] Gokul Jennifer MPV 9.8 fL Normal 9.5-13.5 [facility] Comment on above: Performed By: #### C MP #### [facility] [address] [place] [address] Gokul Jennifer MYELOCYTE # Normal [facility] Comment on above: Performed By: #### C MP #### [facility] [address] [place] [address] Gokul Jennifer MYELOCYTE % Normal [facility] Comment on above: Performed By: #### C MP #### [facility] [address] [place] [address] Gokul Jennifer NRBC Normal [facility] Comment on above: Performed By: #### C MP #### [facility] [address] [place] [address] Gokul Jennifer PLT 166 103/ul Normal 150-450 [facility] Comment on above: Performed By: #### C MP #### [facility] [address] [place] [address] Gokul Jennifer RBC 4.59 106/ul Normal 4.20-5.40 [facility] Comment on above: Performed By: #### C MP #### [facility] [address] [place] [address] Gokul Jennifer RDW 14.5 % Normal 11.0-15.0 [facility] Comment on above: Performed By: #### C MP #### [facility] [address] [place] [address] Gokul Jennifer SEG # 2.48 103/ul Normal 1.40-6.50 [facility] Comment on above: Performed By: #### C MP #### [facility] [address] [place] [address] Gokul Rodriguez SEG % 73.0 % Normal 43.0-75.0 [facility] Comment on above: Performed By: #### C MP #### [facility] [address] [address] Gokul Rodriguez WBC 3.4 103/ul Critically low 4.0-11.[address] [facility] Comment on above: Performed By: #### C MP #### [facility] [address] [address] Gokul Rodriguez CRPon 04-06-2021 CRP 5.4 mg/dL Critically high <=1.0 [facility] Comment on above: Performed By: #### C RP, CMP #### [facility] [address] [address] Gokul Rodriguez POINT OF CARE GLUCOSEon 03-19-2020 Glucose [Mass/Vol] 131 mg/dL Critically high 74-[address] [facility] Comment on above: Performed By: #### C MP #### [facility] [address] [address] Gokul Rodriguez Glucose [Mass/Vol] 133 mg/dL Critically high 74-[address] [facility] Comment on above: Performed By: #### P OCGLUC #### [facility] [address] [place] [address] Gokul Rodriguez Glucose [Mass/Vol] 105 mg/dL Normal 74-106 [facility] Comment on above: Performed By: #### C MP #### [facility] [address] [address] Gokul Rodriguez PROF 14(COMP METB)on 021 Albumin [Mass/Vol] 3.3 g/dL Critically low 3.5-5.0 [facility] Comment on above: Performed By: #### C RP, CMP #### [facility] [address] [id number] Gokul Rodriguez Albumin/Globulin [Mass ratio] 0.9 {ratio} Normal [facility] Comment on above: Performed By: #### C RP, CMP #### [facility] [address] [address] Gokul Jennifer ALP [Catalytic activity/Vol] 59 U/L Normal 38-126 [facility] Comment on above: Performed By: #### C RP, CMP #### [facility] [address] [place] [address] Gokul Jennifer ALT [Catalytic activity/Vol] 51 U/L Normal 9-52 [facility] Comment on above: Performed By: #### C RP, CMP #### [facility] [address] [address] Gokul Jennifer Anion gap [Moles/Vol] 15.0 mmol/L Normal [facility] Comment on above: Performed By: #### C RP, CMP #### [facility] [address] [place] [address] Gokul Jennifer AST [Catalytic activity/Vol] 101 U/L Critically high 14-36 [facility] Comment on above: Performed By: #### C RP, CMP #### [facility] [address] [place] [address] Gokul Jennifer Bilirubin [Mass/Vol] 0.4 mg/dL Normal 0.2-1.3 [facility] Comment on above: Performed By: #### C RP, CMP #### [facility] [address] [place] [address] Gokul Jennifer Calcium [Mass/Vol] 8.7 mg/dL Normal 8.4-10.2 [facility] Comment on above: Performed By: #### C RP, CMP #### [facility] [address] [place] [address] Gokul Jennifer Chloride [Moles/Vol] 98 mmol/L Normal 98-107 [facility] Comment on above: Performed By: #### C RP, CMP #### [facility] [address] [place], [place] [id number] Gokul Jennifer CO2 [Moles/Vol] 25.3 mmol/L Normal 22.0-30.0 [facility] Comment on above: Performed By: #### C RP, CMP #### [facility] [address] [place], [place] [id number] Gokul Jennifer Creatinine [Mass/Vol] 1.11 mg/dL Critically high 0.52-1.04 [facility] Comment on above: Performed By: #### C RP, CMP #### [facility] [address] [id number] Gokul Jennifer EGFR-AF BHUTANESE 58 mL/min/1.73m2 Critically low >=60 [facility] Comment on above: Performed By: #### C RP, CMP #### [facility] [address] [address] Gokul Jennifer EGFR-NON AF BHUTANESE 48 mL/min/1.73m2 Critically low >=60 [facility] Comment on above: Performed By: #### C RP, CMP #### [facility] [address] [place] [address] Gokul Jennifer Globulin (S) [Mass/Vol] 3.7 g/dL Normal [facility] Comment on above: Performed By: #### C RP, CMP #### [facility] [address] [address] Gokul Jennifer Glucose [Mass/Vol] 88 mg/dL Normal 74-106 [facility] Comment on above: Performed By: #### C RP, CMP #### [facility] [address] [address] Gokul Jennifer Potassium [Moles/Vol] 3.3 mmol/L Critically low 3.4-5.0 [facility] Comment on above: Performed By: #### C RP, CMP #### [facility] [address] [address] Gokul Jennifer Protein [Mass/Vol] 7.0 g/dL Normal 6.1-8.2 [facility] Comment on above: Performed By: #### C RP, CMP #### [facility] [address] [address] Gokul Jennifer Sodium [Moles/Vol] 135 mmol/L Critically low 137-145 [facility] Comment on above: Performed By: #### C RP, CMP #### [facility] [address] [id number] Gokul Jennifer Urea nitrogen [Mass/Vol] 27.0 mg/dL Critically high 7.0-17.0 [facility] Comment on above: Performed By: #### C RP, CMP #### [facility] [address] [place] [address] Gokul Jennifer Urea nitrogen/Creatinine [Mass ratio] 24.3 mg/mg Normal [facility] Comment on above: Performed By: #### C RP, CMP #### [facility] [address] [place] [address] Gokul Jennifer UA (CLEAN/CATCH) MEDICAL ASSISTANT INTERNAL MEDICINE/MICRO I F IND.on 04-06-2021 Bilirubin Ql (U) Negative Normal NEGATIVE [facility] Comment on above: Performed By: #### U ACSBECKIE ALBERTSICRO #### [facility] [address] [place] [address] Gokul Jennifer Clarity (U) CLEAR Normal CLEAR [facility] Comment on above: Performed By: #### U ACSBECKIE ALBERTSICRO #### [facility] [address] [place] [address] Gokul Jennifer Color (U) LT. YELLOW Normal YELLOW [facility] Comment on above: Performed By: #### U ACSBECKIE ALBERTSICRO #### [facility] [address] [place] [address] Gokul Jennifer Glucose Ql (U) Negative Normal NEGATIVE [facility] Comment on above: Performed By: #### U ACSLEXUS UMICRO #### [facility] [address] [place] [address] Gokul Jennifer Hemoglobin Ql (U) MODERATE Abnormal NEGATIVE [facility] Comment on above: Performed By: #### U ACSLEXUS UMICRO #### [facility] [address] [place] [address] Gokul Jennifer Ketones Ql (U) TRACE Abnormal NEGATIVE [facility] Comment on above: Performed By: #### U ACSLEXUS UMICRO #### [facility] [address] [place] [address] Gokul Jennifer LEUKOCYTES SMALL Abnormal NEGATIVE [facility] Comment on above: Performed By: #### U MARY JOSEPHRO #### [facility] [address] [address] Gokul Jennifer Nitrite Ql (U) Negative Normal NEGATIVE [facility] Comment on above: Performed By: #### U MARY JOSEPHRO #### [facility] [address] [address] Gokul Jennifer pH (U) 5.5 [pH] Normal 5-9 [facility] Comment on above: Performed By: #### U MARY JOSEPHRO #### [facility] [address] [place] [address] Gokul Jennifer SPEC GRAVITY 1.020 Normal 1.005-<=1.02 5 [facility] Comment on above: Performed By: #### U MARY JOSEPHRO #### [facility] [address] [place] [address] Gokul Jennifer UA PROTEIN 30 mg/dl Abnormal NEGATIVE/ TRACE [facility] Comment on above: Performed By: #### U TATYANA JOSEPH #### [facility] [address] [place] [address] Gokul Jennifer UR MICRO IND INDICATED Normal [facility] Comment on above: Performed By: #### U TATYANA JOSEPH #### [facility] [address] [place] [address] Gokul Jennifer Urobilinogen Qn (U) 0.2 {Eloy'U}/dL Normal 0.2 - 1. 0 [facility] Comment on above: Performed By: #### U MARY JOSEPHRO #### [facility] [address] [place] [address] Gokul Jennifer URINE MICROSCOPIC ONLYon BACTERIA SMALL Abnormal NONE SEEN [facility] Comment on above: Performed By: #### U TATYANA JOSEPH #### [facility] [address] [place] [address] Gokul Jennifer Bacteria identified Cx Nom (U) INDICATED Normal [facility] Comment on above: Performed By: #### U TATYANA JOSEPH #### [facility] [address] [place] [address] Gokul Jennifer CAST NONE SEEN Normal NONE SEEN [facility] Comment on above: Performed By: #### U MARY JOSEPHRO #### [facility] [address] [place] [address] Gokul Jennifer Crystals LM Nom (Urine sed) NONE SEEN Normal NONE SEEN [facility] Comment on above: Performed By: #### U OPAL UMICRO #### [facility] [address] [place] [address] Gokul Jennifer Epithelial cells LM Ql (Urine sed) FEW Abnormal NONE SEEN /RARE [facility] Comment on above: Performed By: #### U OPAL UMZOERO #### [facility] [address] [place] [address] Gokul Jennifer MUCOUS NONE SEEN Normal NONE SEEN [facility] Comment on above: Performed By: #### U MARY JOSEPHRO #### [facility] [address] [place] [address] Gokul Jennifer RBC 0-2 Normal 0-2 [facility] Comment on above: Performed By: #### U OPAL UMICRO #### [facility] [address] [place] [address] Gokul Jennifer WBC 20-50 Abnormal NONE SEEN [facility] Comment on above: Performed By: #### U MARY JOSEPHRO #### [facility] [address] [place] [address] Gokul Jennifer *URINE CULTUREon 02-11-2018 *URINE CULTURE Clinical Report: (D) Specimen: URINE Collected: 02/11/2018 10:29 Status: Final Last Updated: 02/13/2018 11:28 ISO (Final) Methicillin Resistant Staphylococcus aureus (MRSA) 10,000 - 50,000 Cfu/Ml Results called. Read back by Dr. Tonny Murphy at 1128 on 02/13/2018 ISO (Final) Diamond albicans 10,000 - 50,000 Cfu/Ml ISOLATE: Methicillin Resistant Staphylococcus aureus (MRSA) RADHA (mcg/ml) DAPTOMYCIN (DAP) <=1 Susceptible OXACILLIN (OX) >2 Resistant PENICILLIN (P) >1 Resistant TETRACYCLINE (TE) <=0.5 Susceptible TRIMETH/SULFA (SXT) <=0.5/9.5 Susceptible VANCOMYCIN (VA) 1 Susceptible Normal [facility] Comment on above: Performed By: #### 8 [id number] ####[facility].[address] URINALYSIS REFLEXon 02-12-20 18 Bilirubin (total) Negative Normal NEGATIVE [facility] Comment on above: Performed By: #### 8 [id number] ####[facility].[address] BLOOD MODERATE Abnormal NEGATIVE [facility] Comment on above: Performed By: #### 8 [id number] ####[facility].[address] BUDDING YEAST MANY Abnormal NONE SEEN [facility] Comment on above: Performed By: #### 8 [id number] ####[facility] [facility].[address] Erythrocytes (RBC) 5-10 Abnormal 0-0 [facility] Comment on above: Performed By: #### 8 [id number] ####[address] [id number] [facility] [address], [facility] Glucose mass conc Negative Normal NEGATIVE [facility] Comment on above: Performed By: #### 8 [id number] ####[facility] [place] [address], [facility] KETONE Negative Normal NEGATIVE [facility] Comment on above: Performed By: #### 8 [id number] ####[facility] [place] [address], [facility] LEUK TALYOR LARGE Abnormal NEGATIVE [facility] Comment on above: Performed By: #### 8 [id number] ####[facility] [facility].[address] MUCUS THREADS FEW Abnormal NONE SEEN [facility] Comment on above: Performed By: #### 8 [id number] ####[facility].[address] pH of blood 5.0 [pH] Normal 5.0-8.0 [facility] Comment on above: Performed By: #### 8 [id number] ####[facility] [facility].[address] Protein 30 mg/dL Abnormal NEGATIVE [facility] Comment on above: Performed By: #### 8 [id number] ####[facility] [facility].[address] SPEC GRAV 1.019 Normal 1.015-1.020 [facility] Comment on above: Performed By: #### 8 [id number] ####[facility] [facility] [facility].[address] Urine, appearance CLOUDY Abnormal CLEAR [facility] Comment on above: Performed By: #### 8 [id number] ####[facility] [facility].[address] Urine, color YELLOW Normal YELLOW [facility] Comment on above: Performed By: #### 8 [id number] ####[facility] [facility].[address] Urine, nitrite presence Negative Normal NEGATIVE [facility] Comment on above: Performed By: #### 8 [id number] ####[facility] [facility].[address] WBC UA >100 WITH CLUMPS Abnormal 0-0 [facility] Comment on above: Performed By: #### 8 [id number] ####[facility] [facility].[address] KNEE RIGHT 1 OR 2 VWSon 12-19 KNEE RIGHT 1 OR 2 VWS [facility] [address] [place] [address] P atient Name: JENNIFER AVENDANO : 1945Sex: FAge: Race: WhiteMRN: [id number]. Location: 84Patient Status: Date: 01/06/2018 8:25:00 AMCompleted Date: 01/06/2018 08:42 AMRequesting Provider: MALGORZATA OLSEN Attending Provider: Report Copy To: Signs & Symptoms: M25.561 Pain in right knee [id number]: AthenaComments: , , Views (X-RAY, KNEE): AP, Lateral, , Weight Bearing?: Y, With Magnification Marker?: N , , , Ordering Provider - MALGORZATA OLSEN MD , Exam: KNEE RIGHT 1 OR 2 VWSAccession #: [id number] ======KNEE RIGHT 1 OR 2 S 01/06/2018 8:45 AM EST SIGNS AND SYMPTOMS: M25.561 Pain in right knee I10 TECHNOLOGIST COMMENTS: ortho f/u right knee. pt states unable to stand for x-rays QUESTION FOR THE RADIOLOGIST: , , Views (X-RAY, KNEE): AP, Lateral, , Weight Bearing?: Y, With Magnification Marker?: N , , , Ordering Provider - MALGORZATA OLSEN MD , PROTOCOL: AP(PA) and Lateral views were obtained. COMPARISON: None FINDINGS: Soft tissues:Normal but soft tissues are obscured by brace Bones:No acute fracture Joints:Status post revision of right total knee arthroplasty with antibiotic impregnated cement spacers. Alignment unchanged. Oblique fracture through the proximal fibular metaphysis. Alignment unchanged. Persistent fracture lucency indicates incomplete healing IMPRESSION: 1. Stable revision of right total knee arthroplasty with cement spacer. No change2. Proximal fibular fracture alignment unchanged incomplete healing Electronically signed by:Jose Davis. Transcribed by: [id number], User Resident: Electronically Signed by: JOSE DAVIS @ 01/06/2018 10:26 AM Normal [facility] Comment on above: Order Comment: , , V iews (X-RAY, KNEE): AP, Lateral, , Weight Bearing?: Y, With Magnification Marker?: N , , , Ordering Provider - MALGORZATA OLSEN MD , Discharge Summaryon 01-03-20 Discharge Summary [id number] Admitted: 12/23/2017 Discharged: 12/31/2017 Date of : 1945 Physician: Malgorzata Olsen MD DISCHARGE SUMMARYADMITTING DIAGNOSIS: Grossly unstable right total knee arthroplasty withacute reoperation.PROCEDURE PERFORMED: Right total knee arthroplasty explant and placementof antibiotic spacer.HOSPITAL COURSE: Operative course was unremarkable. Patient was taken tothe recovery room and then the floor. Perioperative antibiotics wereadministered. Deep venous thrombosis prophylaxis was instituted. Thepatient remained neurovascularly intact distally throughout their hospitalcourse. Dressing was changed and incision was clean, dry, and intact.Patient was discharged in stable condition after being cleared byphysical/occupational therapy and was afebrile at the time.DISCHARGE INSTRUCTIONS: Per Dr. Olsen's attached protocol. Call 's office with any questions.Electronically Signed by:Malgorzata Olsen MD 01/13/2018 11:08 A Malgorzata Olsen MD I have reviewed this discharge summary and confirmed the resident'sdocumentation. Please note that there may be additional documentation fromme. Date Dict: 01/03/2018/08:56 Radames/Pamela Espinoza Trans: 01/03/2018 10:14 Radames/Kandice_JN:[id number] cc: Maximino Spann M.D. [facility] [facility] [address] Malgorzata Olsen MD [address] [facility] [address] Normal [facility] PROTHROMBIN TIMEon 8 INR Coag RelTime (PPP) 1.80 {INR} High 0.91-1.16 [facility] Comment on above: Order Comment: Victor Manuel denis Result Comment: ACCC P RECOMMENDED INR FOR WARFARIN THERAPY CONDITION INRPROPHYLAXIS OF VENOUS THROMBOSIS 2-3(HIGH-RISK SURGERY)TREATMENT OF VENOUS THROMBOSIS 2-3TREATMENT OF PULMONARY EMBOLISM 2-3PREVENTION OF SYSTEMIC EMBOLISM: 2-3 ACUTE MYOCARDIAL INFARCTION TISSUE HEART VALVES VALVULAR HEART DISEASE ATRIAL FIBRILLATION RECURRENT SYSTEMIC EMBOLISMMECHANICAL HEART VALVE 2.5-3.5 FROM: ORAL ANTICOAGULANTS. MECHANISM OF ACTION, CLINICALEFFECTIVENESS, AND OPTIMAL THERAPEUTIC RANGE. [id number]. Performed By: #### 6 [id number] ####[facility] Prothrombin time (PT) Coag time (PPP) 21.2 s High 12.3-14.8 [facility] Comment on above: Order Comment: Victor Manuel denis Result Comment: ALL RESULTS MUST BE INTERPRETED WITH RESPECT TO BLOOD DRAWING ARTIFACTOR DILUTION ERROR OF ANTICOAGULANT AT THE TIME OF SAMPLING. Performed By: #### 6 [id number] ####[facility] Operative Reporton 8 Operative Report MR#: [id number] Room #: 6AB [id number] Discharge Date: Birthdate: 1945 OPERATIVE REPORTDATE OF SURGERY: 12/24/2017SURGEON: Malgorzata Olsen, MDPREOPERATIVE DIAGNOSIS: Grossly unstable right total knee arthroplastywith acute reoperation.POSTOPERATIVE DIAGNOSIS: Grossly unstable right total knee arthroplastywith acute reoperation.PROCEDURE: Right total knee arthroplasty explant and placement ofantibiotic spacer with incisional wound VAC placement.METAL MILLING MACHINE OPERATOR: Dr. Nish Sena.COMPLICATIONS: None.SPECIMENS: Tissue for culture and pathology.DRAINS: One Hemovac drain with 2 limbs.OPERATIVE INDICATIONS: This is a 72-year-old woman status post right totalknee arthroplasty and acute reoperation with recurrent right total kneearthroplasty dislocations and elevated CRP. After being explained therisks, benefits, and alternatives, the patient elected to proceed withright total knee arthroplasty explant and placement of antibiotic spacer.The risks as explained to and accepted by the patient include, but are notlimited to, bleeding, infection, injury to nerves, vessels, or bone aroundthe knee, stiffness, and further surgery.OPERATIVE PROCEDURE: Prior to the patient being brought to the operatingroom, the operative site was marked. The patient was then brought to theoperating room. General endotracheal anesthesia was instituted.Preoperative antibiotics were held in order to facilitate operating roomcultures. The patient was then positioned on the operating table.Tourniquet was applied to the right lower extremity. Right lower extremitywas prepped and draped in the usual sterile fashion. Time-out wasperformed. The knee was flexed. Tourniquet was elevated to 100-150 mmHggreater than systolic blood pressure. Skin incision was made down throughthe skin using a skin knife, utilizing the old incision. Deep knife wasused to dissect down to the level of the retinaculum. Medial and lateralflaps were elevated. Medial parapatellar arthrotomy was made with a Bovieelectrocautery. Extensor mechanism was elevated off the lateral tibialplateau. Lateral patellofemoral reflections were released. Some of thefat pad was excised. The synovium of the quadriceps tendon was excised.The anterior femoral synovium was excised, and the medial synovium wasexcised to complete a total synovectomy of the knee. Multiple tissuespecimens were sent for pathology and culture. Antibiotics wereadministered. Medial release was performed along the medial tibialplateau. Patella was subluxed. The knee was flexed. Curved osteotome andmallet were used to remove the polyethylene component. Curved quarter-inchosteotome and mallet were used to disrupt the implant-cement interface ofthe femur and the femoral component was removed without issue. A rongeurwas used to debride the distal femur. A narrow saw, single-sidedreciprocating saw, and curved quarter-inch osteotome and mallet were usedto disrupt the implant-cement interface of the tibia. Leslie tibialextractor and osteotome with mallet were used to remove the tibialcomponent without issue. Curved inch osteotome, mallet, and cementremoval instruments were used to remove the cement from the proximal tibia.Femoral and tibial canals were suctioned and irrigated. Ball-tip guidewireand flexible reamer were used to gently debride the femoral and tibialcanals. Wide saw was used to remove the patellar component. Drill and burwere used to remove the polyethylene pegs and residual cement from thepatella. All necrotic, purulent, or devitalized tissues were debrided.Irrigation was performed with an excess of 12 L of saline. Tourniquet waslet down, and excellent hemostasis was achieved. With collateral ligamentsunder tension, a static antibiotic spacer was placed with 3 g of vancomycinand 3.6 g tobramycin per bag of cement. One Hemovac drain with 2 limbs wasthen placed. #1 PDS in interrupted fashion was used to close thearthrotomy. Irrigation was performed between layers. #1 PDS in runningfashion was used to close the adipose layer, 2-0 PDS in interrupted fashionwas used to close the subdermal layer, and 2-0 nylon in an interruptedhorizontal mattress fashion was used to close the skin. An incisionalwound VAC was then placed to facilitate wound healing given the multiply,acutely operated knee. A hinged knee brace locked in extension wasapplied. The patient was extubated without issue in the operating room,and taken to the recovery room in stable condition. Deep venous thrombosisprophylaxis will be instituted postoperatively.I, as the responsible surgeon, attest that I was present during allcritical portions of the above procedure.Electronically Signed by:Malgorzata Olsen MD 01/25/2018 06:03 P Malgorzata Olsen MDDate Dict: 12/30/2017/08:56 A/KANDI Boate Trans: 12/30/2017 10:24 A/Kandice_JN:[id number] cc: Maximino Spann M.D. [facility] [address] Malgorzata Olsen MD [address] [place] [id number] Normal [facility] PROTHROMBIN TIMEon 8 INR Coag RelTime (PPP) 1.63 {INR} High 0.91-1.16 [facility] Comment on above: Order Comment: Unkno wn Result Comment: [facility] P RECOMMENDED INR FOR WARFARIN THERAPY CONDITION INRPROPHYLAXIS OF VENOUS THROMBOSIS 2-3(HIGH-RISK SURGERY)TREATMENT OF VENOUS THROMBOSIS 2-3TREATMENT OF PULMONARY EMBOLISM 2-3PREVENTION OF SYSTEMIC EMBOLISM: 2-3 ACUTE MYOCARDIAL INFARCTION TISSUE HEART VALVES VALVULAR HEART DISEASE ATRIAL FIBRILLATION RECURRENT SYSTEMIC EMBOLISMMECHANICAL HEART VALVE 2.5-3.5 FROM: ORAL ANTICOAGULANTS. MECHANISM OF ACTION, CLINICALEFFECTIVENESS, AND OPTIMAL THERAPEUTIC RANGE. [id number];108:231S-246S. Performed By: #### 1 0008 ####[facility] [place] [address], [facility] Prothrombin time (PT) Coag time (PPP) 19.6 s High 12.3-14.8 [facility] Comment on above: Order Comment: Unkno wn Result Comment: ALL RESULTS MUST BE INTERPRETED WITH RESPECT TO BLOOD DRAWING ARTIFACTOR DILUTION ERROR OF ANTICOAGULANT AT THE TIME OF SAMPLING. Performed By: #### 1 0008 ####[facility] [facility] [place] [address], [facility] URINALYSIS REFLEXon 12-30-19 18 Bilirubin (total) Negative Normal NEGATIVE [facility] Comment on above: Order Comment: No: D o not add to previous draw Performed By: #### 6 2586 ####[facility] [place] [address], [place] BLOOD SMALL Abnormal NEGATIVE [facility] Comment on above: Order Comment: No: D o not add to previous draw Performed By: #### 6 2586 ####[facility] [facility] [place] [address], [facility] EPIS FEW Normal FEW [facility] Comment on above: Order Comment: No: D o not add to previous draw Performed By: #### 6 2586 ####[facility] [place] [address], [place] Erythrocytes (RBC) 11-20 Abnormal 0-0 [facility] Comment on above: Order Comment: No: D o not add to previous draw Performed By: #### 6 2586 ####[facility] [place] [address], [place] Glucose mass conc Negative Normal NEGATIVE [facility] Comment on above: Order Comment: No: D o not add to previous draw Performed By: #### 6 2586 ####[facility] [place] [address], [facility] KETONE Negative Normal NEGATIVE [facility] Comment on above: Order Comment: No: D o not add to previous draw Performed By: #### 6 2586 ####[facility] [place] [address], [facility] LEUK TAYLOR Negative Normal NEGATIVE [facility] Comment on above: Order Comment: No: D o not add to previous draw Performed By: #### 6 2586 ####[facility] [place] [address], [facility] MUCUS THREADS FEW Abnormal NONE SEEN [facility] Comment on above: Order Comment: No: D o not add to previous draw Performed By: #### 6 2586 ####[facility] [place] [address], [facility] pH of blood 5.0 [pH] Normal 5.0-8.0 [facility] Comment on above: Order Comment: No: D o not add to previous draw Performed By: #### 6 2586 ####[facility] [place] [address], [facility] Protein Negative Normal NEGATIVE [facility] Comment on above: Order Comment: No: D o not add to previous draw Performed By: #### 6 2586 ####[facility] [place] [address], [facility] SPEC GRAV 1.019 Normal 1.015-1.020 [facility] Comment on above: Order Comment: No: D o not add to previous draw Performed By: #### 6 2586 ####[facility] [place] [address], [facility] Urine, appearance SL CLOUDY Abnormal CLEAR [facility] Comment on above: Order Comment: No: D o not add to previous draw Performed By: #### 6 2586 ####[facility] [facility].[address] Urine, color YELLOW Normal YELLOW [facility] Comment on above: Order Comment: No: D o not add to previous draw Performed By: #### 6 2586 ####[facility] [facility].[address] Urine, nitrite presence Negative Normal NEGATIVE [facility] Comment on above: Order Comment: No: D o not add to previous draw Performed By: #### 6 2586 ####[facility] [place] [address], [facility] WBC UA 0-2 Abnormal 0-0 [facility] Comment on above: Order Comment: No: D o not add to previous draw Performed By: #### 6 2586 ####[facility] [facility].[address] Consultationon 12-29-2017 Consultation MR[id number] Date of Service: 12/29/2017 Room #: 6AB [id number] Birthdate: 1945 Referring Physician: NISHA FOR CONSULTATION: Postoperative urinary retention.HISTORY OF PRESENT ILLNESS: Ms. Avendano is a 72-year-old female, who isnow postoperative day 5, status post right total knee arthroplasty stage Irevision. The patient has had persistent urinary retention postoperativelysince Estrella catheter removal. She denies any baseline urologic history orany past issues with urinary retention. Denies any issues with urinaryincontinence. She does not have any known history of diabetes mellitus.She is now preparing for discharge and is passing flatus, but has not had abowel movement since surgery. She is only able to void on bedpan due tolimited mobility because of her surgery and has not yet been up to thecommode. Nursing reports, they have been cathing for volume of 600-800 mLor as high as 1000 mL intermittently. The patient continues to be onnarcotic pain regimen including oxycodone 10 mg q.4 hours, which she istaking regularly per the medical record. She denies any current fevers,chills, chest pain, shortness of breath, nausea, or vomiting. She deniesany history of UTIs or gross hematuria.PAST MEDICAL HISTORY: Hypertension, hyperlipidemia, reported by EMS andhistory of right knee arthroplasty with multiple dislocations.PAST SURGICAL HISTORY: Right total knee arthroplasty, closed reduction,right total knee arthroplasty stage I revision.CURRENT HOSPITAL MEDICATIONS: Include Tylenol, Norvasc, Colace, Lovenox,gabapentin, hydrochlorothiazide, Dilaudid p.r.n., oxybutynin, oxycodone,potassium chloride, trazodone, simvastatin, warfarin.ALLERGIES: No known drug allergies.SOCIAL HISTORY: The patient denies any current tobacco, alcohol, orillicit drug use.FAMILY HISTORY: No relevant family history.REVIEW OF SYSTEMS: A 12-point review of systems was performed and negativeexcept as per HPI.PHYSICAL EXAMINATION: GENERAL: The patient is resting comfortably in bed.No acute distress.VITAL SIGNS: Temperature 98.3 degrees Fahrenheit, pulse 58, varzztfgosff65 per minute, blood pressure 136/76, oxygen saturation 94% on room air.HEENT: Normocephalic, atraumatic. Nasal septum midline. Oral mucosamoist.NECK: Supple.LUNGS: Nonlabored breathing. Symmetric chest wall rise.CARDIOVASCULAR: Regular rate and rhythm.ABDOMEN: Soft, nontender, nondistended.GENITOURINAR Y: Normal female external genitalia.RECTAL: Exam deferred.EXTREMITIES: Warm. Right knee in immobilizer brace.SKIN: No overt rashes or lesions.PSYCHIATRIC: Normal mood, normal affect.NEUROLOGIC: No overt focal cranial nerve deficits.LABORATORY STUDIES: Urinalysis on admission demonstrated no evidence ofinfection with negative nitrite, negative leukocyte esterase, and noblood.IMAGING: No relevant imaging.IMPRESSION: A 72-year-old female, postop day 5 status post right TKA stageI revision with postoperative urinary retention.PLAN:1. Continue clean intermittent catheterization every 4-6 hours. Please titrate to cath volume less than 400 mL.2. Avoid anticholinergic medications. We will discontinue Ditropan.3. Continue bowel regimen. Avoid constipation.4. Mobilize as permissible per Orthopedics.5. Narcotic pain medications as tolerated.6. Will insert Estrella catheter at the time of discharge if rehab or detention facility unable to perform clean intermittent catheterization regularly. We will arrange outpatient followup with Urology in 1-2 weeks.Thank you very much for the consultation for allowing us to participate inthe care of this patient.Electronically Signed by:Reinier Gomez MD 01/16/2018 02:38 P ___Reinier Gomez MD I personally saw this patient on the day of the encounter, performed thekey portion(s) of the service and participated in the management andconfirm the resident's documentation. Please note there may be anadditional personal documentation from me. Date Dict: 12/29/2017/08:39 A/Pamela Little Trans: 12/29/2017 07:32 P/mmoDN_JN:[id number] cc: Maximino Spann M.D. [facility] [address] [facility] [address] Malgorzata Olsen MD [address] [facility] [address] Normal [facility] PROTHROMBIN TIMEon 8 INR Coag RelTime (PPP) 1.51 {INR} High 0.91-1.16 [facility] Comment on above: Order Comment: Unkno wn Result Comment: [facility] P RECOMMENDED INR FOR WARFARIN THERAPY CONDITION INRPROPHYLAXIS OF VENOUS THROMBOSIS 2-3(HIGH-RISK SURGERY)TREATMENT OF VENOUS THROMBOSIS 2-3TREATMENT OF PULMONARY EMBOLISM 2-3PREVENTION OF SYSTEMIC EMBOLISM: 2-3 ACUTE MYOCARDIAL INFARCTION TISSUE HEART VALVES VALVULAR HEART DISEASE ATRIAL FIBRILLATION RECURRENT SYSTEMIC EMBOLISMMECHANICAL HEART VALVE 2.5-3.5 FROM: ORAL ANTICOAGULANTS. MECHANISM OF ACTION, CLINICALEFFECTIVENESS, AND OPTIMAL THERAPEUTIC RANGE. [id number];108:231S-246S. Performed By: #### 1 0008 ####[facility] Prothrombin time (PT) Coag time (PPP) 18.4 s High 12.3-14.8 [facility] Comment on above: Order Comment: Unkno wn Result Comment: ALL RESULTS MUST BE INTERPRETED WITH RESPECT TO BLOOD DRAWING ARTIFACTOR DILUTION ERROR OF ANTICOAGULANT AT THE TIME OF SAMPLING. Performed By: #### 1 0008 ####[facility] PROTHROMBIN TIMEon 8 INR Coag RelTime (PPP) 1.33 {INR} High 0.91-1.16 [facility] Comment on above: Order Comment: Rubyo wn Result Comment: [facility] P RECOMMENDED INR FOR WARFARIN THERAPY CONDITION INRPROPHYLAXIS OF VENOUS THROMBOSIS 2-3(HIGH-RISK SURGERY)TREATMENT OF VENOUS THROMBOSIS 2-3TREATMENT OF PULMONARY EMBOLISM 2-3PREVENTION OF SYSTEMIC EMBOLISM: 2-3 ACUTE MYOCARDIAL INFARCTION TISSUE HEART VALVES VALVULAR HEART DISEASE ATRIAL FIBRILLATION RECURRENT SYSTEMIC EMBOLISMMECHANICAL HEART VALVE 2.5-3.5 FROM: ORAL ANTICOAGULANTS. MECHANISM OF ACTION, CLINICALEFFECTIVENESS, AND OPTIMAL THERAPEUTIC RANGE. [id number];108:231S-246S. Performed By: #### 1 0008 ####[facility] Prothrombin time (PT) Coag time (PPP) 16.6 s High 12.3-14.8 [facility] Comment on above: Order Comment: Unkno wn Result Comment: ALL RESULTS MUST BE INTERPRETED WITH RESPECT TO BLOOD DRAWING ARTIFACTOR DILUTION ERROR OF ANTICOAGULANT AT THE TIME OF SAMPLING. Performed By: #### 1 0008 ####[facility] [facility].[address] BASIC METABOLIC PANELon 02-0 Calcium 8.5 mg/dL Low 8.6-10.3 [facility] Comment on above: Order Comment: Yes: Add to Previous draw if able Performed By: #### 1 0008 ####[place] [address] [facility].[address] Chloride 108 mmol/L High 98-107 [facility] Comment on above: Order Comment: Yes: Add to Previous draw if able Performed By: #### 1 0008 ####[facility] [facility].[address] CO2 25 mmol/L Normal 21-31 [facility] Comment on above: Order Comment: Yes: Add to Previous draw if able Performed By: #### 1 0008 ####[facility] [facility].[address] Creatinine 0.63 mg/dL Normal 0.60-1.20 [facility] Comment on above: Order Comment: Yes: Add to Previous draw if able Performed By: #### 1 0008 ####[facility] [facility].[address] eGFR (black) mL/min/{1.73_m2} Normal >60 [facility] Comment on above: Order Comment: Yes: Add to Previous draw if able Result Comment: Calc ulation may not be valid for patients over 70 years Performed By: #### 1 0008 ####[facility] [place] [address], [facility] eGFR (non-black) mL/min/{1.73_m2} Normal >60 Th e [facility] Comment on above: Order Comment: Yes: Add to Previous draw if able Result Comment: Calc ulation may not be valid for patients over 70 years Performed By: #### 1 0008 ####[facility] [place] [address], [facility] Glucose mass conc 93 mg/dL Normal 70-100 [facility] Comment on above: Order Comment: Yes: Add to Previous draw if able Performed By: #### 1 0008 ####[facility] [facility] [place] [address], [facility] Potassium molar conc 4.1 mmol/L Normal 3.5-5.1 [facility] Comment on above: Order Comment: Yes: Add to Previous draw if able Performed By: #### 1 0008 ####[facility] [place] [address], [facility] Sodium 136 mmol/L Normal 136-145 [facility] Comment on above: Order Comment: Yes: Add to Previous draw if able Performed By: #### 1 0008 ####[facility] [facility] [place] [address], [facility] Urea nitrogen 10 mg/dL Normal 7-25 [facility] Comment on above: Order Comment: Yes: Add to Previous draw if able Performed By: #### 1 0008 ####[facility] [facility] [place] [address], [facility] PROTHROMBIN TIMEon 8 INR Coag RelTime (PPP) 1.27 {INR} High 0.91-1.16 [facility] Comment on above: Order Comment: Unkno wnDO AM INR PER RN Result Comment: [facility] P RECOMMENDED INR FOR WARFARIN THERAPY CONDITION INRPROPHYLAXIS OF VENOUS THROMBOSIS 2-3(HIGH-RISK SURGERY)TREATMENT OF VENOUS THROMBOSIS 2-3TREATMENT OF PULMONARY EMBOLISM 2-3PREVENTION OF SYSTEMIC EMBOLISM: 2-3 ACUTE MYOCARDIAL INFARCTION TISSUE HEART VALVES VALVULAR HEART DISEASE ATRIAL FIBRILLATION RECURRENT SYSTEMIC EMBOLISMMECHANICAL HEART VALVE 2.5-3.5 FROM: ORAL ANTICOAGULANTS. MECHANISM OF ACTION, CLINICALEFFECTIVENESS, AND OPTIMAL THERAPEUTIC RANGE. [id number];108:231S-246S. Performed By: #### 1 0008 ####[place] [address] [facility].[address] Prothrombin time (PT) Coag time (PPP) 16.0 s High 12.3-14.8 [facility] Comment on above: Order Comment: Unkno wnDO AM INR PER RN Result Comment: ALL RESULTS MUST BE INTERPRETED WITH RESPECT TO BLOOD DRAWING ARTIFACTOR DILUTION ERROR OF ANTICOAGULANT AT THE TIME OF SAMPLING. Performed By: #### 1 0008 ####[facility] [facility].[address] VANCOMYCIN TROUGHon 12-27-19 18 VANCOMYCIN TROU 8.2 mcg/mL Normal 5.0-20.0 [facility] Comment on above: Performed By: #### 1 0008 ####[facility] [facility].[address] VANCOMYCIN TROU 14.1 mcg/mL Normal 5.0-20.0 [facility] Comment on above: Order Comment: This order is a replacement of the rejected order with accession [id number]. Performed By: #### 1 0008 ####[facility] PROTHROMBIN TIMEon 8 INR Coag RelTime (PPP) 1.24 {INR} High 0.91-1.16 [facility] Comment on above: Order Comment: Rubyo wn Result Comment: [facility] P RECOMMENDED INR FOR WARFARIN THERAPY CONDITION INRPROPHYLAXIS OF VENOUS THROMBOSIS 2-3(HIGH-RISK SURGERY)TREATMENT OF VENOUS THROMBOSIS 2-3TREATMENT OF PULMONARY EMBOLISM 2-3PREVENTION OF SYSTEMIC EMBOLISM: 2-3 ACUTE MYOCARDIAL INFARCTION TISSUE HEART VALVES VALVULAR HEART DISEASE ATRIAL FIBRILLATION RECURRENT SYSTEMIC EMBOLISMMECHANICAL HEART VALVE 2.5-3.5 FROM: ORAL ANTICOAGULANTS. MECHANISM OF ACTION, CLINICALEFFECTIVENESS, AND OPTIMAL THERAPEUTIC RANGE. [id number];108:231S-246S. Performed By: #### 1 0008 ####[place] [address] [address] Prothrombin time (PT) Coag time (PPP) 15.7 s High 12.3-14.8 [facility] Comment on above: Order Comment: Unkno wn Result Comment: ALL RESULTS MUST BE INTERPRETED WITH RESPECT TO BLOOD DRAWING ARTIFACTOR DILUTION ERROR OF ANTICOAGULANT AT THE TIME OF SAMPLING. Performed By: #### 1 0008 ####[place] [address] [address] BASIC METABOLIC PANELon 02-0 Calcium 8.0 mg/dL Low 8.6-10.3 [facility] Comment on above: Order Comment: No: D o not add to previous draw Performed By: #### 5 7307, [address] ####[facility] [place] [address], [facility] Chloride 110 mmol/L High 98-107 [facility] Comment on above: Order Comment: No: D o not add to previous draw Performed By: #### 5 7307, [address] ####[facility] [place] [address], [facility] CO2 22 mmol/L Normal 21-31 [facility] Comment on above: Order Comment: No: D o not add to previous draw Performed By: #### 5 7307, 110[address] ####[facility] [place] [address], [facility] Creatinine 0.61 mg/dL Normal 0.60-1.20 [facility] Comment on above: Order Comment: No: D o not add to previous draw Performed By: #### 5 7307, [address] ####[facility] [address], [facility] eGFR (black) mL/min/{1.73_m2} Normal >60 [facility] Comment on above: Order Comment: No: D o not add to previous draw Result Comment: Calc ulation may not be valid for patients over 70 years Performed By: #### 5 [id number], 31727 ####[facility] [facility] [place] [place] [address], [facility] eGFR (non-black) mL/min/{1.73_m2} Normal >60 Th e [facility] Comment on above: Order Comment: No: D o not add to previous draw Result Comment: Calc ulation may not be valid for patients over 70 years Performed By: #### 5 7307, 13044 ####[facility] [place] [address], [facility] Glucose mass conc 144 mg/dL High 70-100 [facility] Comment on above: Order Comment: No: D o not add to previous draw Performed By: #### 5 [id number], 89205 ####[facility]3000 [facility].[address] Potassium molar conc 4.4 mmol/L Normal 3.5-5.1 [facility] Comment on above: Order Comment: No: D o not add to previous draw Performed By: #### 5 73, 70406 ####[facility]3000 [facility].[address] Sodium 137 mmol/L Normal 136-145 [facility] Comment on above: Order Comment: No: D o not add to previous draw Performed By: #### 5 7306, 89375 ####[place] [id number] [facility].[address] Urea nitrogen 14 mg/dL Normal 7-25 [facility] Comment on above: Order Comment: No: D o not add to previous draw Performed By: #### 5 73, 37788 ####[facility] [place] [address].[address] CBC W/DIFFon 12-25-2017 ABS BASOPHILS 0.0 10*3/uL Normal 0.0-0.2 [facility] Comment on above: Order Comment: No: D o not add to previous draw Performed By: #### 5 73, 38431 ####[facility]3000 [facility].[address] ABS IMM GRANS 0.1 10*3/uL Normal 0.0-0.2 [facility] Comment on above: Order Comment: No: D o not add to previous draw Performed By: #### 5 7307, 41766 ####[facility]3000 [facility].[address] Basophils Auto #/vol (Bld) 0.1 % Normal 0.0-1.0 [facility] Comment on above: Order Comment: No: D o not add to previous draw Performed By: #### 5 7306, 26718 ####[facility]3000 [place] [address], [facility] Eosinophils 0.0 10*3/uL Normal 0.0-0.5 [facility] Comment on above: Order Comment: No: D o not add to previous draw Performed By: #### 5 7306, 24293 ####[facility]3000 [place] [address], [facility] Eosinophils/100 leukocytes 0.0 % Normal 0.0-6.0 [facility] Comment on above: Order Comment: No: D o not add to previous draw Performed By: #### 5 7306, 04488 ####[facility] Erythrocyte distribution width Auto Ratio (RBC) 15.8 % High 11.5-15.0 [facility] Comment on above: Order Comment: No: D o not add to previous draw Performed By: #### 5 7306, 45443 ####[facility] Erythrocytes (RBC) 3.09 10*6/uL Low 3.80-5.00 [facility] Comment on above: Order Comment: No: D o not add to previous draw Performed By: #### 5 7306, 44722 ####[facility]3000 [facility].[address] Erythrocytes (RBC) 0 % Normal 0-0 [facility] Comment on above: Order Comment: No: D o not add to previous draw Performed By: #### 5 7307, 52324 ####[facility]3000 [facility].[address] Hematocrit (HCT) 26.5 % Low 36.0-45.0 [facility] Comment on above: Order Comment: No: D o not add to previous draw Performed By: #### 5 7306, 20725 ####[facility] Hemoglobin mass conc (Bld) 8.4 g/dL Low 12.0-15.0 [facility] Comment on above: Order Comment: No: D o not add to previous draw Performed By: #### 5 7307, 67189 ####[facility] [facility] [place] [address], [facility] IMMATURE GRANS 1.0 % Normal 0.0-1.0 [facility] Comment on above: Order Comment: No: D o not add to previous draw Performed By: #### 5 73, 23982 ####[facility]3000 [facility].[address] Lymphocytes 0.5 10*3/uL Low 1.2-4.0 [facility] Comment on above: Order Comment: No: D o not add to previous draw Performed By: #### 5 73, 20193 ####[facility]3000 [facility].[address] Lymphocytes/100 leukocytes 6.9 % Low 20.0-45.0 [facility] Comment on above: Order Comment: No: D o not add to previous draw Performed By: #### 5 7307, 63515 ####[facility]3000 [facility].[address] MCH 27.2 pg Normal 27.0-33.0 [facility] Comment on above: Order Comment: No: D o not add to previous draw Performed By: #### 5 7307, 82061 ####[facility]3000 [facility].[address] MCHC mass conc (RBC) 31.7 g/dL Low 32.0-35.0 [facility] Comment on above: Order Comment: No: D o not add to previous draw Performed By: #### 5 7307, 62008 ####[facility] [place] [address].[place] [address], [facility] MCV 85.8 fL Normal 82.0-98.0 [facility] Comment on above: Order Comment: No: D o not add to previous draw Performed By: #### 5 7307, 86008 ####[facility] [facility] [place] [address], [facility] Monocytes 0.3 10*3/uL Normal 0.1-1.0 [facility] Comment on above: Order Comment: No: D o not add to previous draw Performed By: #### 5 7307, 59327 ####[facility]3000 [facility].[address] MONOS 4.7 % Low 5.0-12.0 [facility] Comment on above: Order Comment: No: D o not add to previous draw Performed By: #### 5 7307, 75688 ####[facility]3000 [facility].[address] Neutrophils 6.1 10*3/uL Normal 1.6-7.6 [facility] Comment on above: Order Comment: No: D o not add to previous draw Performed By: #### 5 7307, 29558 ####[facility]3000 [place] [address], [facility] Neutrophils/100 leukocytes 87.3 % High 40.0-72.0 [facility] Comment on above: Order Comment: No: D o not add to previous draw Performed By: #### 5 7307, 45503 ####[facility]3000 [place] [address], [facility] PLAT CNT 329 10*3/uL Normal 150-400 [facility] Comment on above: Order Comment: No: D o not add to previous draw Performed By: #### 5 7307, 66367 ####[facility] [place] [address], [facility] WBC (Leukocytes) 7.0 10*3/uL Normal 4.0-10.6 [facility] Comment on above: Order Comment: No: D o not add to previous draw Performed By: #### 5 7307, 46307 ####[facility]3000 [facility].[address] PROTHROMBIN TIMEon 8 INR Coag RelTime (PPP) 1.26 {INR} High 0.91-1.16 [facility] Comment on above: Order Comment: No: D o not add to previous draw Result Comment: ACCC P RECOMMENDED INR FOR WARFARIN THERAPY CONDITION INRPROPHYLAXIS OF VENOUS THROMBOSIS 2-3(HIGH-RISK SURGERY)TREATMENT OF VENOUS THROMBOSIS 2-3TREATMENT OF PULMONARY EMBOLISM 2-3PREVENTION OF SYSTEMIC EMBOLISM: 2-3 ACUTE MYOCARDIAL INFARCTION TISSUE HEART VALVES VALVULAR HEART DISEASE ATRIAL FIBRILLATION RECURRENT SYSTEMIC EMBOLISMMECHANICAL HEART VALVE 2.5-3.5 FROM: ORAL ANTICOAGULANTS. MECHANISM OF ACTION, CLINICALEFFECTIVENESS, AND OPTIMAL THERAPEUTIC RANGE. [id number]-246S. Performed By: #### 5 7307, 13371 ####[facility]3000 [facility].[address] Prothrombin time (PT) Coag time (PPP) 15.9 s High 12.3-14.8 [facility] Comment on above: Order Comment: No: D o not add to previous draw Result Comment: ALL RESULTS MUST BE INTERPRETED WITH RESPECT TO BLOOD DRAWING ARTIFACTOR DILUTION ERROR OF ANTICOAGULANT AT THE TIME OF SAMPLING. Performed By: #### 5 7307, 45435 ####[facility] *ANAEROBIC CULTUREon 018 *ANAEROBIC CULTURE Clinical Report: (D) Specimen/Source: TISSUE/INTRAOP SPEC Collected: 12/24/2017 15:48 Status: Final Last Updated: 12/29/2017 09:13 (1) 4. Right knee anterior femoral synovium, tissue. CULT RES (Final) No Anaerobes Isolated 5 Days Normal [facility] Comment on above: Order Comment: 4. Ri ght knee anterior femoral synovium, tissue. Performed By: #### 5 7307, 74789 ####[facility] *ANAEROBIC CULTURE Clinical Report: (D) Specimen/Source: TISSUE/INTRAOP SPEC Collected: 12/24/2017 15:48 Status: Final Last Updated: 12/29/2017 09:13 (1) 6. Right knee medial synovium, tissue. CULT RES (Final) No Anaerobes Isolated 5 Days Normal [facility] Comment on above: Order Comment: 6. Ri ght knee medial synovium, tissue. Performed By: #### 1 0008 ####[facility] *ANAEROBIC CULTURE Clinical Report: (D) Specimen/Source: TISSUE/INTRAOP SPEC Collected: 12/24/2017 15:48 Status: Final Last Updated: 12/29/2017 09:13 (1) 3. Right knee quad synovium, tissue. CULT RES (Final) No Anaerobes Isolated 5 Days Normal [facility] Comment on above: Order Comment: 3. Ri ght knee quad synovium, tissue. Performed By: #### 5 7307, 31948 ####[facility] *ANAEROBIC CULTURE Clinical Report: (D) Specimen/Source: TISSUE/INTRAOP SPEC Collected: 12/24/2017 15:47 Status: Final Last Updated: 12/29/2017 09:13 (1) 1. Right deep tissue. 1. Right knee deep tissue. CULT RES (Final) No Anaerobes Isolated 5 Days Normal [facility] Comment on above: Order Comment: 1. Ri ght deep tissue.1. Right knee deep tissue. Performed By: #### 1 0008 ####[facility] *ANAEROBIC CULTURE Clinical Report: (D) Specimen/Source: TISSUE/INTRAOP SPEC Collected: 12/24/2017 15:47 Status: Final Last Updated: 12/29/2017 09:13 (1) 2. Right knee fat pad, tissue. CULT RES (Final) No Anaerobes Isolated 5 Days Normal [facility] Comment on above: Order Comment: 2. Ri ght knee fat pad, tissue. Performed By: #### 5 [id number], 66272 ####[facility] *TISSUE CULTUREon 12-24-2017 *TISSUE CULTURE Clinical Report: (D) Specimen/Source: TISSUE/INTRAOP SPEC Collected: 12/24/2017 15:48 Status: Final Last Updated: 12/29/2017 06:54 (1) 3. Right knee quad synovium, tissue. GRAM (Final) No Polys Seen No Bacteria Seen CULT RES (Final) No Growth Day 5 Normal [facility] Comment on above: Order Comment: 3. Ri ght knee quad synovium, tissue. Performed By: #### 5 7307, 81319 ####[facility] *TISSUE CULTURE Clinical Report: (D) Specimen/Source: TISSUE/INTRAOP SPEC Collected: 12/24/2017 15:48 Status: Final Last Updated: 12/29/2017 06:53 (1) 4. Right knee anterior femoral synovium, tissue. GRAM (Final) No Polys Seen No Bacteria Seen CULT RES (Final) No Growth Day 5 Normal [facility] Comment on above: Order Comment: 4. Ri ght knee anterior femoral synovium, tissue. Performed By: #### 5 7307, 53955 ####[facility] [place] [address], [place] *TISSUE CULTURE Clinical Report: (D) Specimen/Source: TISSUE/INTRAOP SPEC Collected: 12/24/2017 15:48 Status: Final Last Updated: 12/29/2017 06:53 (1) 6. Right knee medial synovium, tissue. GRAM (Final) No Polys Seen No Bacteria Seen CULT RES (Final) No Growth Day 5 Normal [facility] Comment on above: Order Comment: 6. Ri ght knee medial synovium, tissue. Performed By: #### 5 7307, 98332 ####[facility] *TISSUE CULTURE Clinical Report: (D) Specimen/Source: TISSUE/INTRAOP SPEC Collected: 12/24/2017 15:47 Status: Final Last Updated: 12/29/2017 06:52 (1) 1. Right deep tissue. 1. Right knee deep tissue. GRAM (Final) No Polys Seen No Bacteria Seen CULT RES (Final) No Growth Day 5 Normal [facility] Comment on above: Order Comment: 1. Ri ght deep tissue.1. Right knee deep tissue. Performed By: #### 5 7307, 14893 ####[facility] *TISSUE CULTURE Clinical Report: (D) Specimen/Source: TISSUE/INTRAOP SPEC Collected: 12/24/2017 15:47 Status: Final Last Updated: 12/29/2017 06:52 (1) 2. Right knee fat pad, tissue. GRAM (Final) No Polys Seen No Bacteria Seen CULT RES (Final) No Growth Day 5 Normal [facility] Comment on above: Order Comment: 2. Ri ght knee fat pad, tissue. Performed By: #### 5 7307, 04737 ####[facility] CBC W/DIFFon 12-24-2017 ABS BASOPHILS 0.0 10*3/uL Normal 0.0-0.2 [facility] Comment on above: Order Comment: No: D o not add to previous draw Performed By: #### 5 7345, 69981 ####[facility]3000 [place] [address], [facility] ABS IMM GRANS 0.1 10*3/uL Normal 0.0-0.2 [facility] Comment on above: Order Comment: No: D o not add to previous draw Performed By: #### 5 7306, 09950 ####[facility]3000 [place] [address], [facility] Basophils Auto #/vol (Bld) 0.6 % Normal 0.0-1.0 [facility] Comment on above: Order Comment: No: D o not add to previous draw Performed By: #### 5 7306, 44631 ####[facility] [place] [address], [facility] Eosinophils 0.2 10*3/uL Normal 0.0-0.5 [facility] Comment on above: Order Comment: No: D o not add to previous draw Performed By: #### 5 7306, 63615 ####[facility]3000 [facility].[address] Eosinophils/100 leukocytes 4.2 % Normal 0.0-6.0 [facility] Comment on above: Order Comment: No: D o not add to previous draw Performed By: #### 5 7307, 02530 ####[facility]3000 [facility].[address] Erythrocyte distribution width Auto Ratio (RBC) 15.9 % High 11.5-15.0 [facility] Comment on above: Order Comment: No: D o not add to previous draw Performed By: #### 5 7307, 26872 ####[facility] Erythrocytes (RBC) 3.62 10*6/uL Low 3.80-5.00 [facility] Comment on above: Order Comment: No: D o not add to previous draw Performed By: #### 5 73, 50525 ####[facility]3000 [facility].[address] Erythrocytes (RBC) 0 % Normal 0-0 [facility] Comment on above: Order Comment: No: D o not add to previous draw Performed By: #### 5 7306, 55534 ####[facility]3000 [facility].[address] Hematocrit (HCT) 30.6 % Low 36.0-45.0 [facility] Comment on above: Order Comment: No: D o not add to previous draw Performed By: #### 5 7306, 64395 ####[facility]3000 [facility].[address] Hemoglobin mass conc (Bld) 9.7 g/dL Low 12.0-15.0 [facility] Comment on above: Order Comment: No: D o not add to previous draw Performed By: #### 5 7306, 25251 ####[facility]3000 [facility].[address] IMMATURE GRANS 1.4 % High 0.0-1.0 [facility] Comment on above: Order Comment: No: D o not add to previous draw Performed By: #### 5 7306, 60465 ####[facility]3000 [facility].[address] Lymphocytes 1.1 10*3/uL Low 1.2-4.0 [facility] Comment on above: Order Comment: No: D o not add to previous draw Performed By: #### 5 7307, 81754 ####[facility]3000 [place] [address], [facility] Lymphocytes/100 leukocytes 21.7 % Normal 20.0-45.0 [facility] Comment on above: Order Comment: No: D o not add to previous draw Performed By: #### 5 7306, 49490 ####[facility] MCH 26.8 pg Low 27.0-33.0 [facility] Comment on above: Order Comment: No: D o not add to previous draw Performed By: #### 5 7307, 36306 ####[facility] MCHC mass conc (RBC) 31.7 g/dL Low 32.0-35.0 [facility] Comment on above: Order Comment: No: D o not add to previous draw Performed By: #### 5 7307, 06058 ####[facility] MCV 84.5 fL Normal 82.0-98.0 [facility] Comment on above: Order Comment: No: D o not add to previous draw Performed By: #### 5 73, 58665 ####[facility] Monocytes 0.4 10*3/uL Normal 0.1-1.0 [facility] Comment on above: Order Comment: No: D o not add to previous draw Performed By: #### 5 7307, 10433 ####[facility] MONOS 8.0 % Normal 5.0-12.0 [facility] Comment on above: Order Comment: No: D o not add to previous draw Performed By: #### 5 7307, 66009 ####[facility] Neutrophils 3.2 10*3/uL Normal 1.6-7.6 [facility] Comment on above: Order Comment: No: D o not add to previous draw Performed By: #### 5 7307, 56935 ####[facility] Neutrophils/100 leukocytes 64.1 % Normal 40.0-72.0 [facility] Comment on above: Order Comment: No: D o not add to previous draw Performed By: #### 5 7307, 40354 ####[facility] [place] [address], [facility] PLAT CNT 362 10*3/uL Normal 150-400 [facility] Comment on above: Order Comment: No: D o not add to previous draw Performed By: #### 5 7307, 15005 ####[facility]3000 [facility].[address] WBC (Leukocytes) 5.0 10*3/uL Normal 4.0-10.6 [facility] Comment on above: Order Comment: No: D o not add to previous draw Performed By: #### 5 7307, 41263 ####[facility]3000 [facility].[address] Consultationon 12-24-2017 Cholesterol MR[id number] Avendano Date of Service: 12/23/2017 Room #: 6AB [id number] Birthdate: 1945 Referring Physician: CONSULTATIONADDENDUM: Addendum to consult note dictated on Jennifer Avendano by me. Theconsult note dictated was on 12/23/2017. Add at the end of the note, thepatient's medical problems at this time are stable. She does have anemia,but hemoglobin is stable at this time. We cleared her for surgery. Nofurther recommendations at this time. Please call us with any questions.Electronically Signed by:Rosenda Chavarria MD 01/29/2018 10:09 A ___KANDI Jamesate Dict: 12/24/2017/07:31 A/KANDI Jamesate Trans: 12/24/2017 04:27 [id number] cc: Maximino Spann M.D. [facility] [address] [facility] [address] Malgorzata Olsen MD [address] [facility] [address] Normal [facility] Consultation MR#: [id number] Name: Jennifer Avendano Date of Service: 12/23/2017 Room #: 6AB [id number] Birthdate: 1945 Referring Physician: CONSULTATIONCONSULTING SERVICE DOCTOR: Orthopedics, Dr. Olsen.ATTENDING: Dr. Cole COMPLAINT: Right knee pain.HISTORY OF PRESENT ILLNESS: Ms. Avendano is a 72-year-old female with pastmedical history significant for multiple sclerosis, hypertension,hyperlipidem ia, and depression, presenting with dislocation of right totalknee joint, with prosthetic joint placed 2 weeks ago. The patient haddislocation of her joint approximately 1 week ago with close reduction. Thepatient has had recurrent dislocations with attempted closed reductiontoday, but the joint was unstable and did not remain in place. The patientstates that she has had increasing right knee pain today at a level of10/10. She states that pain medications improve the pain to an 8/10. Shestates the pain is sharp and non-radiating. The patient previously was ontramadol and Tylenol with codeine #3 at the end of 2017. No other narcoticsare listed on her OARRs report.PAST MEDICAL HISTORY: Hypertension, hyperlipidemia, remote history ofsmoking, depression, and multiple sclerosis.PAST SURGICAL HISTORY: Previous right total knee and previous closereduction of right knee joint.PAST FAMILY HISTORY: Noncontributory.ALLERGIES : No known drug allergies.MEDICATIONS: Acetaminophen, amlodipine, bisacodyl, diphenhydramine,Docusate, enoxaparin, ferrous sulfate, gabapentin, hydrochlorothiazide,hydro morphone, lisinopril, milk of magnesia, ondansetron, oxybutynin,Coreg, oxycodone, polycarbophil calcium, potassium chloride, Sertraline,simvastatin, trazodone.REVIEW OF SYSTEMS:Negative 10 point ROS aside from positive tenderness to the right kneejoint with decreased range of motion secondary to pain limitations.PHYSICAL EXAMINATION: VITAL SIGNS: Blood pressure 140/78, heart rate is65, respirations 16, 100% SpO2, 97.9 Fahrenheit.GENERAL APPEARANCE: The patient appears uncomfortable lying in bed withminimal movement to the right leg.HEENT: Head is normocephalic, atraumatic. YIFAN. Extraocular movementintact.NECK: Supple is supple with palpable masses.RESPIRATORY: No wheezes, rales, or rhonchi. The patient is on nasalcannula.CARDIOVASCUL AR: S1 and S2 present. No murmurs, rubs or gallops. Regularrate and rhythm.GI: Nondistended, nontender with soft abdomen. Bowel sounds present.MUSCULOSKELETAL: Extremities are warm and dry to the touch. Skin intact. Norashes. Decreased range of motion and strength to the right knee.SKIN: Intact. No rashes or lesions.NEUROLOGIC: No focal deficits. Cranial nerves II through XII are grosslyintact.PSYCHIATRIC : Alert and oriented x3. The patient appears to be a poorhistorian.LABORATORY DATA: INR 1.78, sodium 135, potassium 3.8, chloride 103,carbon-dioxide 25, BUN 17, creatinine 0.80, glucose 98. Hemoglobin 11.2,hematocrit 34, WBC 7.5, platelet count 747.ASSESSMENT: Acute right knee pain secondary to dislocation of right totalknee joint.PLAN:1. Oxycodone 5 mg q.4 hours p.r.n. for moderate pain or oxycodone 10 mg q.4 p.r.n. for sever pain.2. Dilaudid 0.5 mg q.6 hours p.r.n. for breakthrough pain.3. We will continue to monitor patient and increase pain medications as needed postoperatively.4. Discussed and staffed with Dr. Gallegos pain fellow.Thank you for the consult.Reviewed By:Monisha Ross MD 01/02/2018 01:10 PElectronically Signed by:Ventura Bonilla M.D. 01/20/2018 04:55 P ___Ventura Bonilla M.D. I was not present but assume all responsibility for the exam. NOTBILLABLEDate Dict: 12/23/2017/03:50 P/Monisha Ross, Pamela Trans: 12/24/2017 01:32 A/mmoDN_JN:[id number] cc: Maximino Spann M.D. [facility] [address] [facility] [address] Malgorzata Olsen MD 3000 [facility] [address] Normal [facility] POC GLUCOSE LABon 12-24-2017 Glucose mass conc 86 mg/dL Normal 70-100 [facility] Comment on above: Performed By: #### 5 7307, [address]5578 ####[address] [address] PORTABLE KNEE RIGHT 2 VWSon 12-24-2017 PORTABLE KNEE RIGHT 2 S [facility] Jqdkdqgic[address] [place] [address] P atient Name: JENNIFER AVENDANO : 1945Sex: FAge: Race: WhiteMRN: [id number]. Location: [id number] Status: IVisit #: [id number] Date: 12/24/2017 7:20:00 PMCompleted Date: 12/24/2017 08:38 PMRequesting Provider: NISH SENA Attending Provider: MALGORZATA OLSEN Report Copy To: Signs & Symptoms: Post OPHistory: Patient history not availableComments: R/O Dislocation, postop from stage I TKA revisionExam: PORTABLE KNEE RIGHT 2 VWSAccession #: [id number] ======PORTABLE KNEE RIGHT 2 VWS 12/24/2017 8:38 PM EST SIGNS AND SYMPTOMS: Post OP TECHNOLOGIST COMMENTS: postop from stage I TKA revision QUESTION FOR THE RADIOLOGIST: R/O Dislocation, postop from stage I TKA revision PROTOCOL: AP(PA) and Lateral views were obtained. 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 Transcribed by: [email or web address], User Resident: Electronically Signed by: MARIAN MIR @ 12/25/2017 07:29 AM Normal [facility] Comment on above: Order Comment: R/O D islocation, postop from stage I TKA revision PROTHROMBIN TIMEon 8 INR Coag RelTime (PPP) 1.55 {INR} High 0.91-1.16 [facility] Comment on above: Order Comment: No: D o not add to previous draw Result Comment: ACCC P RECOMMENDED INR FOR WARFARIN THERAPY CONDITION INRPROPHYLAXIS OF VENOUS THROMBOSIS 2-3(HIGH-RISK SURGERY)TREATMENT OF VENOUS THROMBOSIS 2-3TREATMENT OF PULMONARY EMBOLISM 2-3PREVENTION OF SYSTEMIC EMBOLISM: 2-3 ACUTE MYOCARDIAL INFARCTION TISSUE HEART VALVES VALVULAR HEART DISEASE ATRIAL FIBRILLATION RECURRENT SYSTEMIC EMBOLISMMECHANICAL HEART VALVE 2.5-3.5 FROM: ORAL ANTICOAGULANTS. MECHANISM OF ACTION, CLINICALEFFECTIVENESS, AND OPTIMAL THERAPEUTIC RANGE. [id number];108:231S-246S. Performed By: #### 5 7307, [id number] ####[facility] Prothrombin time (PT) Coag time (PPP) 18.8 s High 12.3-14.8 [facility] Comment on above: Order Comment: No: D o not add to previous draw Result Comment: ALL RESULTS MUST BE INTERPRETED WITH RESPECT TO BLOOD DRAWING ARTIFACTOR DILUTION ERROR OF ANTICOAGULANT AT THE TIME OF SAMPLING. Performed By: #### 5 7307, 41753 ####[facility]3000 [facility] URINALYSIS REFLEXon 12-24-19 18 Bilirubin (total) Negative Normal NEGATIVE [facility] Comment on above: Order Comment: No: D o not add to previous drawNo collection time noted on specimen or requisition. The collection timerecorded is the time of receipt in the lab. Performed By: #### 5 73, 32343 ####[facility]3000 [facility], [place] [address] [place] [address] BLOOD Negative Normal NEGATIVE [facility] Comment on above: Order Comment: No: D o not add to previous drawNo collection time noted on specimen or requisition. The collection timerecorded is the time of receipt in the lab. Performed By: #### 5 7307, 17688 ####[facility]3000 [facility] [address], [facility] Glucose mass conc Negative Normal NEGATIVE [facility] Comment on above: Order Comment: No: D o not add to previous drawNo collection time noted on specimen or requisition. The collection timerecorded is the time of receipt in the lab. Performed By: #### 5 7307, 13969 ####[facility] [place] [address], [facility] KETONE Negative Normal NEGATIVE [facility] Comment on above: Order Comment: No: D o not add to previous drawNo collection time noted on specimen or requisition. The collection timerecorded is the time of receipt in the lab. Performed By: #### 5 7307, 50249 ####[facility]3000 [facility] [address], [facility] LEUK TAYLOR Negative Normal NEGATIVE [facility] Comment on above: Order Comment: No: D o not add to previous drawNo collection time noted on specimen or requisition. The collection timerecorded is the time of receipt in the lab. Performed By: #### 5 73, 15887 ####[facility]3000 [facility].[address] MICRO NOT DONE negative chemical reactions unless requested in original order Normal [facility] Comment on above: Order Comment: No: D o not add to previous drawNo collection time noted on specimen or requisition. The collection timerecorded is the time of receipt in the lab. Performed By: #### 5 7307, [address] ####[place] [address] [facility].[address] pH of blood 6.0 [pH] Normal 5.0-8.0 [facility] Comment on above: Order Comment: No: D o not add to previous drawNo collection time noted on specimen or requisition. The collection timerecorded is the time of receipt in the lab. Performed By: #### 5 7307, 80902 ####[place] [address] [facility].[address] Protein Negative Normal NEGATIVE [facility] Comment on above: Order Comment: No: D o not add to previous drawNo collection time noted on specimen or requisition. The collection timerecorded is the time of receipt in the lab. Performed By: #### 5 7307, 58485 ####[place] [address] [facility].[address] SPEC GRAV 1.012 Low 1.015-1.020 [facility] Comment on above: Order Comment: No: D o not add to previous drawNo collection time noted on specimen or requisition. The collection timerecorded is the time of receipt in the lab. Performed By: #### 5 7307, 53561 ####[facility]3000 [place] [address], [facility] Urine, appearance CLEAR Normal CLEAR [facility] Comment on above: Order Comment: No: D o not add to previous drawNo collection time noted on specimen or requisition. The collection timerecorded is the time of receipt in the lab. Performed By: #### 5 7307, 12906 ####[facility] [place] [address], [facility] Urine, color YELLOW Normal YELLOW [facility] Comment on above: Order Comment: No: D o not add to previous drawNo collection time noted on specimen or requisition. The collection timerecorded is the time of receipt in the lab. Performed By: #### 5 7307, 42730 ####[place] [address] Urine, nitrite presence Negative Normal NEGATIVE [facility] Comment on above: Order Comment: No: D o not add to previous drawNo collection time noted on specimen or requisition. The collection timerecorded is the time of receipt in the lab. Performed By: #### 5 7307, 41352 ####[facility] *ANAEROBIC CULTUREon 018 *ANAEROBIC CULTURE Clinical Report: (D) Specimen: SWAB Collected: 12/23/2017 13:42 Status: Final Last Updated: 12/28/2017 08:32 CULT RES (Final) No Anaerobes Isolated 5 Days Normal [facility] Comment on above: Performed By: #### 5 7307, 09949 ####[facility]3000 [facility].[address] *BODY FLUID CULTUREon 2017 *BODY FLUID CULTURE Clinical Report: (D) Specimen: FLUID Collected: 12/23/2017 13:42 Status: Final Last Updated: 12/28/2017 06:57 GRAM (Final) Polys Present No Bacteria Seen CYTOSPUN (Final) This Gram Stain was done on a cytocentrifuged specimen CULT RES (Final) No Growth Day 5 Normal [facility] Comment on above: Performed By: #### 0 0071 ####[facility] [place] [address], [facility] APTTon 12-23-2017 aPTT 41.1 s High 25.0-35.0 [facility] Comment on above: Order Comment: No: D o not add to previous draw Result Comment: ALL RESULTS MUST BE INTERPRETED WITH RESPECT TO BLOOD DRAWING ARTIFACTOR DILUTION ERROR OF ANTICOAGULANT AT THE TIME OF SAMPLING.THE APTT SHOULD NOT BE USED TO MONITOR UNFRACTIONATED HEPARIN THERAPY, THIS LABORATORY NO LONGER HAS AN ESTABLISHED THERAPEUTIC RANGE BASEDON THE APTT. IT IS RECOMMENDED THAT THE [facility] - HEPARIN ASSAY (ANTI-XAACTIVITY) BE USED FOR THIS PURPOSE. Performed By: #### 0 0071 ####[facility]3000 [facility].[address] BASIC METABOLIC PANELon Calcium 8.8 mg/dL Normal 8.6-10.3 [facility] Comment on above: Order Comment: No: D o not add to previous draw Performed By: #### 0 0071 ####[facility] [place] [address], [facility] Chloride 103 mmol/L Normal 98-107 [facility] Comment on above: Order Comment: No: D o not add to previous draw Performed By: #### 0 0071 ####[facility] [place] [address], [facility] CO2 25 mmol/L Normal 21-31 [facility] Comment on above: Order Comment: No: D o not add to previous draw Performed By: #### 0 0071 ####[facility]3000 [place] [address], [facility] Creatinine 0.80 mg/dL Normal 0.60-1.20 [facility] Comment on above: Order Comment: No: D o not add to previous draw Performed By: #### 0 0071 ####[facility] [place] [address], [facility] eGFR (black) mL/min/{1.73_m2} Normal >60 [facility] Comment on above: Order Comment: No: D o not add to previous draw Result Comment: Calc ulation may not be valid for patients over 70 years Performed By: #### 0 0071 ####[facility] [place] [address], [facility] eGFR (non-black) mL/min/{1.73_m2} Normal >60 Th e [facility] Comment on above: Order Comment: No: D o not add to previous draw Result Comment: Calc ulation may not be valid for patients over 70 years Performed By: #### 0 0071 ####[facility] [place] [address], [facility] Glucose mass conc 98 mg/dL Normal 70-100 [facility] Comment on above: Order Comment: No: D o not add to previous draw Performed By: #### 0 0071 ####[facility] [place] [address], [facility] Potassium molar conc 3.8 mmol/L Normal 3.5-5.1 [facility] Comment on above: Order Comment: No: D o not add to previous draw Performed By: #### 0 0071 ####[facility] [place] [address], [place] Sodium 135 mmol/L Low 136-145 [facility] Comment on above: Order Comment: No: D o not add to previous draw Performed By: #### 0 0071 ####[facility] [place] [address], [place] Urea nitrogen 17 mg/dL Normal 7-25 [facility] Comment on above: Order Comment: No: D o not add to previous draw Performed By: #### 0 0071 ####[facility] C REACTIVE PROTEINon 018 C reactive protein (CRP) 70.9 mg/L High 0.0-7.0 [facility] Comment on above: Order Comment: No: D o not add to previous draw Performed By: #### 5 7307, 07858 ####[facility] CBC COMPLETE BLOOD COUNTon 0 12-23-2017 Erythrocyte distribution width Auto Ratio (RBC) 16.2 % High 11.5-15.0 [facility] Comment on above: Order Comment: No: D o not add to previous draw Performed By: #### 5 73, 96222 ####[facility]3000 [facility].[address] Erythrocytes (RBC) 4.03 10*6/uL Normal 3.80-5.00 [facility] Comment on above: Order Comment: No: D o not add to previous draw Performed By: #### 5 7307, 21893 ####[facility]3000 [facility].[address] Erythrocytes (RBC) 0 % Normal 0-0 [facility] Comment on above: Order Comment: No: D o not add to previous draw Performed By: #### 5 7307, 18919 ####[facility] Hematocrit (HCT) 34.9 % Low 36.0-45.0 [facility] Comment on above: Order Comment: No: D o not add to previous draw Performed By: #### 5 7307, 85736 ####[facility] Hemoglobin mass conc (Bld) 10.8 g/dL Low 12.0-15.0 [facility] Comment on above: Order Comment: No: D o not add to previous draw Performed By: #### 5 7307, 51277 ####[facility] MCH 26.8 pg Low 27.0-33.0 [facility] Comment on above: Order Comment: No: D o not add to previous draw Performed By: #### 5 7307, 75962 ####[facility] MCHC mass conc (RBC) 30.9 g/dL Low 32.0-35.0 [facility] Comment on above: Order Comment: No: D o not add to previous draw Performed By: #### 5 7307, 71851 ####[facility]3000 [facility].[address] MCV 86.6 fL Normal 82.0-98.0 [facility] Comment on above: Order Comment: No: D o not add to previous draw Performed By: #### 5 7307, 07630 ####[facility]3000 [facility].[address] PLAT CNT 461 10*3/uL High 150-400 [facility] Comment on above: Order Comment: No: D o not add to previous draw Performed By: #### 5 7307, 27838 ####[facility] WBC (Leukocytes) 7.7 10*3/uL Normal 4.0-10.6 [facility] Comment on above: Order Comment: No: D o not add to previous draw Performed By: #### 5 7307, 29422 ####[facility]3000 [facility].[address] Consultationon 12-23-2017 Consultation [id number] Date of Service: 12/23/2017 Room #: 6AB [id number] Birthdate: 1945 Referring Physician: NISHA FOR CONSULT: Preop evaluation.HISTORY OF PRESENT ILLNESS: The patient is a 72-year-old female with ahistory of depression, hypertension, hyperlipidemia, reported multiplesclerosis also. She is not on medications for that. The patient wasadmitted today to the Orthopedic Service for revision of right total kneearthroplasty. The patient has recent total knee arthroplasty and had 3dislocations that required reduction. Last reduction was on the in the OR. The patient reported she was seen by her orthopedic doctortoday in the clinic and the decision was made to admit her for explantationof the artificial knee and revision. The patient was not in any pain whenI saw her. She was seen by the Pain Management consult today. She doesnot offer any complaints. When I saw her, she has no fevers, no chills,no nausea, no vomiting, no chest pain, no shortness of breath, no abdominalpain, no diarrhea. The patient denies any history of NC or any heartdisease. Denies any history of COPD, asthma, or any other lung disease.She said that when she is able to walk, usually she can go up 1-2 flightsof stairs without having to stop. The patient denies any chest pain withactivities and denies any dyspnea also with activities. She is afebrileand hemodynamically stable on the floor after admission. She had BMP todaythat was unremarkable except for sodium 138. She had an INR 1.78 today.She is on Xarelto 10 mg daily as prophylaxis after her knee surgery.PAST MEDICAL HISTORY:1. Hypertension.2. Hyperlipidemia.3. History of reported MS.4. History of right knee arthroplasty and multiple dislocations filling that.SOCIAL HISTORY: She does not smoke, drink, or use any alcohol.FAMILY HISTORY: She did not report any significant family history.REVIEW OF SYSTEMS: A 10-point review of system were done and pertinentpositives and negatives mentioned in the HPI.PHYSICAL EXAMINATION: VITAL SIGNS: Temperature, the patient is afebrile,pulse 65, respirations 16, blood pressure 140/70, saturating upper 90s onroom air.GENERAL: Pleasant, no acute distress.LUNGS: Clear to auscultation bilaterally.CV: Regular rate and rhythm with no murmurs, clicks, or gallops.ABDOMEN: Soft, nontender, nondistended. Normal bowel sounds. No reboundor guarding.EXTREMITIES: No edema.NEURO: She is alert and oriented x3. Face is symmetric. Speech isfluent. No cerebellar signs.LABORATORY DATA: Labs mentioned in HPI.PROBLEMS: Multiple right knee dislocations after knee arthroplasty.PLAN:1. Plan to go to the OR tomorrow for? revision. The patient has a low risk profile for perioperative cardiopulmonary complications. I will get a CBC to get a baseline hemoglobin for the surgery. She can proceed to surgery with no further cardiopulmonary testing at this time except for an EKG.2. Hypertension. The patient can be resumed on her lisinopril and hydrochlorothiazide as well as amlodipine.3. Hyperlipidemia. Resume simvastatin after surgery.4. Depression. Continue on her sertraline and trazodone after surgery tomorrow.5. DVT prophylaxis per primary team. She is on Xarelto.6. Full code.Electronically Signed by:Rosenda Chavarria MD 01/29/2018 10:09 A ___Rosenda Chavarria MDDate Dict: 12/23/2017/07:41 P/Rosenda Chavarria MDDate Trans: 12/23/2017 09:12 P/mmoDN_JN:[id number] cc: Maximino Spann M.D. [facility] [address] [facility] [address] Malgorzata Olsen MD [address] [facility] [address] Normal [facility] FLUID CELL COUNTon 8 Eosinophils/100 leukocytes 1 % Normal [facility] Comment on above: Performed By: #### 0 0071 ####[facility]3000 [facility].[address] Erythrocytes (RBC) 971929 mm3 High 0-0 [facility] Comment on above: Performed By: #### 0 0071 ####[facility] [place] [address], [facility] Lymphocytes/100 leukocytes 8 % Normal [facility] Comment on above: Performed By: #### 0 0071 ####[facility] [place] [address], [place] MACROPHAGE 31 % Normal [facility] Comment on above: Performed By: #### 0 0071 ####[facility] [place] [address], [facility] OTHER F1 COUNT NOT ACCURATE, SPECIMEN CONTAINS CLUMPS OF CELLS Normal [facility] Comment on above: Performed By: #### 0 0071 ####[facility] [place] [address], [facility] OTHER F2 DIFF DONE BY CYTOSPIN Normal [facility] Comment on above: Performed By: #### 0 0071 ####[facility] [place] [address], [facility] OTHER F3 CHECKED BY ALLEY PATRICK M.D. Normal [facility] Comment on above: Result Comment: Resu lt changed by CHRISTIAN on 12/24/2017 11:17. The previous value wasPRELIMINARY REPORT; VERIFIED REPORT TO FOLLOW. Performed By: #### 0 0071 ####[facility] [place] [address], [facility] SEGS 60 % Normal [facility] Comment on above: Performed By: #### 0 0071 ####[facility] [place] [address], [facility] SOURCE SYNOVIAL FLUID Normal [facility] Comment on above: Performed By: #### 0 0071 ####[facility] [place] [address], [facility] TOTAL VOLUME 20mL Normal [facility] Comment on above: Performed By: #### 0 0071 ####[facility] [place] [address], [facility] WBC (Leukocytes) 2838 mm3 High 0-0 [facility] Comment on above: Performed By: #### 0 0071 ####[facility] [place] [address], [facility] FLUID CRYSTALSon 12-23-2017 Urine, crystals in sediment NO CRYSTALS SEEN Normal NO CRYSTALS SEEN [facility] Comment on above: Order Comment: RT KN EE Performed By: #### 0 0071 ####[facility] [place] [address], [facility] KNEE RIGHT 1 OR 2 VWSon KNEE RIGHT 1 OR 2 VWS [facility] Bevdkivlg[address] [place] [id number] P atient Name: JENNIFER AVENDANO : 1945Sex: FAge: Race: WhiteMRN: [id number]. Location: [id number] Status: IVisit #: [id number] Date: 12/23/2017 2:30:00 PMCompleted Date: 12/23/2017 02:49 PMRequesting Provider: NISH SENA Attending Provider: MALGORZATA OLSEN Report Copy To: Signs & Symptoms: Post ReductionHistory: Patient history not availableComments: Hardware EvaluationExam: KNEE RIGHT 1 OR 2 VWSAccession #: [id number] ======KNEE RIGHT 1 OR 2 VWS 12/23/2017 2:49 PM EST SIGNS AND SYMPTOMS: Post Reduction TECHNOLOGIST COMMENTS: Post reduction of prosthetic right knee QUESTION FOR THE RADIOLOGIST: Hardware Evaluation PROTOCOL: AP(PA) and Lateral views were obtained. COMPARISON: None FINDINGS: Soft tissues:Suprapatellar and infrapatellar soft tissue swelling Bones:No fracture Joints:Right total knee arthroplasty. There is still severe anterior displacement of the femoral prosthesis component relative to the tibia. IMPRESSION: 1. Minimal partial reduction of complete right knee tibial femoral dislocation. There is still very severe anterior displacement of the femoral prosthesis component relative to the tibial prosthesis component. 2. No fracture 3. Soft tissue swelling unchanged Electronically signed by:Jose Davis. Transcribed by: [email or web address], User Resident: Electronically Signed by: JOSE DAVIS @ 12/23/2017 03:21 PM Normal [facility] Comment on above: Order Comment: Hardw are Evaluation KNEE RIGHT 1 OR 2 [facility] Nwmarfiq[address] [place] [address] P atient Name: JENNIFER AVENDANO : 1945Sex: FAge: Race: WhiteMRN: [id number]. Location: 84Patient Status: IVisit #: [id number] Date: 12/23/2017 10:35:00 AMCompleted Date: 12/23/2017 10:46 AMRequesting Provider: MALGORZATA OLSEN Attending Provider: Report Copy To: Signs & Symptoms: M25.561 Pain in right knee [id number]: AthenaComments: , , Views (X-RAY, KNEE): AP, Lateral , With or Without Brace/Cast/Collar: With , , , Ordering Provider - MALGORZATA OLSEN MD , Exam: KNEE RIGHT 1 OR 2 VWSAccession #: [id number] ======KNEE RIGHT 1 OR 2 VWS 12/23/2017 10:46 AM EST SIGNS AND SYMPTOMS: M25.561 Pain in right knee I10 TECHNOLOGIST COMMENTS: rt knee pain patient done in brace QUESTION FOR THE RADIOLOGIST: , , Views (X-RAY, KNEE): AP, Lateral , With or Without Brace/Cast/Collar: With , , , Ordering Provider - MALGORZATA OLSEN MD , PROTOCOL: AP(PA) and Lateral views were obtained. COMPARISON: December 16, 2017 FINDINGS: Soft tissues:Severe suprapatellar and infrapatellar soft tissue swelling with moderate-sized suprapatellar effusion Bones:No definite fracture is seen. Joints:Complete anterior dislocation of the femoral component right total knee prosthesis relative to the tibial component. IMPRESSION: 1. Complete anterior dislocation of the femoral component right total knee prosthesis relative to the tibial component.2. Severe suprapatellar and infrapatellar soft tissue swelling with moderate-sized suprapatellar effusion Electronically signed by:Jose Davis. Transcribed by: [email or web address], User Resident: Electronically Signed by: JOSE DAVIS @ 12/23/2017 02:41 PM Normal [facility] Comment on above: Order Comment: , , V iews (X-RAY, KNEE): AP, Lateral , With or Without Brace/Cast/Collar: With , , , Ordering Provider - MALGORZATA OLSEN MD , PORTABLE CHEST 1 VIEWon PORTABLE CHEST 1 VIEW [facility]Department [facility] Ngusddlum[address] [place] [address] P atient Name: JENNIFER AVENDANO : 1945Sex: FAge: Race: WhiteMRN: [id number]. Location: [id number] Status: IVisit #: [id number] Date: 12/23/2017 2:15:00 PMCompleted Date: 12/23/2017 02:49 PMRequesting Provider: NISH SENA Attending Provider: MALGORZATA OLSEN Report Copy To: Signs & Symptoms: OtherHistory: Patient history not availableComments: R/O InfiltratesExam: PORTABLE CHEST 1 VIEWAccession #: [id number] ======PORTABLE CHEST 1 VIEW 12/23/2017 2:49 PM EST SIGNS AND SYMPTOMS: Other TECHNOLOGIST COMMENTS: dyspnea check progress QUESTION FOR THE RADIOLOGIST: R/O Infiltrates PROTOCOL: AP(PA) view was obtained. COMPARISON: None FINDINGS: The heart is not enlarged. Mediastinum shows mild prominence of ascending aorta which can be seen with hypertension. No infiltrate or effusion is seen. There is right diaphragmatic elevation. No thoracic deformity. IMPRESSION: No evidence of infiltrate or pneumonia. No acute abnormality. Electronically signed by:Darinel Hartman. Transcribed by: [email or web address], User Resident: Electronically Signed by: DARINEL HARTMAN @ 12/23/2017 02:53 PM Normal [facility] Comment on above: Order Comment: R/O I nfiltrates PROTHROMBIN TIMEon 8 INR Coag RelTime (PPP) 1.78 {INR} High 0.91-1.16 [facility] Comment on above: Order Comment: No: D o not add to previous draw Result Comment: ACCC P RECOMMENDED INR FOR WARFARIN THERAPY CONDITION INRPROPHYLAXIS OF VENOUS THROMBOSIS 2-3(HIGH-RISK SURGERY)TREATMENT OF VENOUS THROMBOSIS 2-3TREATMENT OF PULMONARY EMBOLISM 2-3PREVENTION OF SYSTEMIC EMBOLISM: 2-3 ACUTE MYOCARDIAL INFARCTION TISSUE HEART VALVES VALVULAR HEART DISEASE ATRIAL FIBRILLATION RECURRENT SYSTEMIC EMBOLISMMECHANICAL HEART VALVE 2.5-3.5 FROM: ORAL ANTICOAGULANTS. MECHANISM OF ACTION, CLINICALEFFECTIVENESS, AND OPTIMAL THERAPEUTIC RANGE. [id number];108:231S-246S. Performed By: #### 0 0071 ####[facility].[address] Prothrombin time (PT) Coag time (PPP) 21.0 s High 12.3-14.8 [facility] Comment on above: Order Comment: No: D o not add to previous draw Result Comment: ALL RESULTS MUST BE INTERPRETED WITH RESPECT TO BLOOD DRAWING ARTIFACTOR DILUTION ERROR OF ANTICOAGULANT AT THE TIME OF SAMPLING. Performed By: #### 0 0071 ####[facility].[address] RBC'S 4 UNITSon 12-23-2017 CROSSMATCH INTERP 1 COMP Normal [facility] Comment on above: Performed By: #### 0 0071 ####[facility] [facility].[address] CROSSMATCH INTERP 2 COMP Normal [facility] Comment on above: Performed By: #### 0 0071 ####[facility] [facility].[place] [id number], [facility] CROSSMATCH INTERP 3 COMP Normal [facility] Comment on above: Performed By: #### 0 0071 ####[facility] [place] [address], [facility] CROSSMATCH INTERP 4 COMP Normal [facility] Comment on above: Performed By: #### 0 0071 ####[facility] [place] [address], [facility] PRODUCT CODE 1 E0336 Normal [facility] Comment on above: Performed By: #### 0 0071 ####[facility] [place] [address], [facility] PRODUCT CODE 2 E0336 Normal [facility] Comment on above: Performed By: #### 0 0071 ####[facility] [place] [address], [facility] PRODUCT CODE 3 E0336 Normal [facility] Comment on above: Performed By: #### 0 0071 ####[facility] [place] [address], [facility] PRODUCT CODE 4 E0336 Normal [facility] Comment on above: Performed By: #### 0 0071 ####[facility] [place] [address], [facility] PRODUCT STATUS 1 RE Normal [facility] Comment on above: Result Comment: Resu lt changed by IF on 12/24/2017 09:12. The previous value was XM.Result changed by IF on 12/24/2017 10:12. The previous value was XX. Performed By: #### 0 0071 ####[facility] [place] [address], [facility] PRODUCT STATUS 2 RE Normal [facility] Comment on above: Result Comment: Resu lt changed by IF on 12/27/2017 06:58. The previous value was XM. Performed By: #### 0 0071 ####[facility] [place] [address], [place] PRODUCT STATUS 3 RE Normal [facility] Comment on above: Result Comment: Resu lt changed by IF on 12/27/2017 06:58. The previous value was XM. Performed By: #### 0 0071 ####[facility] [place] [address], [place] PRODUCT STATUS 4 RE Normal [facility] Comment on above: Result Comment: Resu lt changed by IF on 12/24/2017 07:32. The previous value was XM.Result changed by IF on 12/24/2017 08:15. The previous value was XX. Performed By: #### 0 0071 ####[facility] [place] [address], [place] UNIT ABO 1 A Normal [facility] Comment on above: Performed By: #### 0 0071 ####[facility] [place] [address], [place] UNIT ABO 2 AB Normal [facility] Comment on above: Performed By: #### 0 0071 ####[facility] [place] [address], [place] UNIT ABO 3 A Normal [facility] Comment on above: Performed By: #### 0 0071 ####[facility] [place] [address], [place] UNIT ABO 4 A Normal [facility] Comment on above: Performed By: #### 0 0071 ####[facility] [place] [address], [place] UNIT ID 1 [id number] Normal [facility] Comment on above: Performed By: #### 0 0071 ####[facility] [place] [address], [place] UNIT ID 2 [id number] Normal [facility] Comment on above: Performed By: #### 0 0071 ####[facility] UNIT ID 3 [id number] Normal [facility] Comment on above: Performed By: #### 0 0071 ####[facility] UNIT ID 4 [id number] Normal [facility] Comment on above: Performed By: #### 0 0071 ####[facility] UNIT RH 1 Positive Normal [facility] Comment on above: Performed By: #### 0 0071 ####[facility] UNIT RH 2 Positive Normal [facility] Comment on above: Performed By: #### 0 0071 ####[facility] UNIT RH 3 Positive Normal [facility] Comment on above: Performed By: #### 0 0071 ####[facility] UNIT RH 4 Positive Normal [facility] Comment on above: Performed By: #### 0 0071 ####[facility] SEDIMENTATION RATEon 018 SED RATE 86 mm/hr High 0-20 [facility] Comment on above: Order Comment: No: D o not add to previous draw Performed By: #### 5 7307, [id number] ####[facility] TYPE AND SCREENon 12-23-2017 ABO INTERPRETATION AB Normal [facility] Comment on above: Performed By: #### 0 0071 ####[facility]3000 [facility].[address] ANTIBODY SCREEN Negative Normal [facility] Comment on above: Performed By: #### 0 0071 ####[facility] [facility].[address] RH INTERPRETATION Positive Normal [facility] Comment on above: Performed By: #### 0 0071 ####[facility]3000 [facility].[address] Operative Reporton 8 Operative Report MR#: [id number] [facility] Room #: [id number] Discharge 12/16/2017 Date: Birthdate: 1945 OPERATIVE REPORTDATE OF SURGERY: 12/16/2017SURGEON: MAGALIE BoREOPERATIVE DIAGNOSIS: Right total knee arthroplasty dislocation.POSTOPERATIVE DIAGNOSIS: Right total knee arthroplasty dislocation.PROCEDURE: Closed reduction of right total knee arthroplasty withincisional wound VAC application.PRIMARY SURGEON: Malgorzata Olsen M.D.METAL MILLING MACHINE OPERATOR: Daisha Fields M.D.COMPLICATIONS: None.SPECIMENS: None.DRAINS: None.OPERATIVE INDICATION: This is a 72-year-old woman who sustained a righttotal knee arthroplasty dislocation. After being explained the risks,benefits, and alternatives, the patient elected to proceed with closedversus possible open reduction of right total knee arthroplasty. The risksas explained to and accepted by the patient include, but are not limitedto, bleeding, infection, injury to the nerves, vessels, or bone around theknee, stiffness, or further surgery.OPERATIVE PROCEDURE: Prior to the patient being brought to the operatingroom, the operative site was marked. The patient was then brought to theoperating room. General anesthesia was instituted. The patient's righthip was flexed to 90 degrees, and knee flexed beyond 90 degrees. Withsuperior traction on the femur, as well as inferior traction and anteriortranslation of the tibia, a palpable clunk was appreciated. Both AP andlateral fluoroscopic views confirmed reduction of the knee. A hinged kneebrace locked in extension was applied. An incisional wound VAC was appliedto the inferior aspect of the incision where wound drainage was visualized,present for the past 24 hours per patient report. The patient emerged fromanesthesia without issue and was taken to the recovery room in stablecondition. Deep venous thrombosis prophylaxis will be instituted.I, as the responsible surgeon, attest that I was present during allcritical portions of the above procedure.Electronically Signed by:Malgorzata Olsen MD 01/20/2018 01:52 P KANDI Boate Dict: 12/20/2017/10:39 P/Malgorzata Olsen MDDate Trans: 12/21/2017 07:15 A/[id number]_[id number] cc: Maximino Spann M.D. [facility] [address] [place] [address] Normal [facility] APTTon 12-16-2017 aPTT 27.4 s Normal 25.0-35.0 [facility] Comment on above: Result Comment: ALL RESULTS MUST BE INTERPRETED WITH RESPECT TO BLOOD DRAWING ARTIFACTOR DILUTION ERROR OF ANTICOAGULANT AT THE TIME OF SAMPLING.THE APTT SHOULD NOT BE USED TO MONITOR UNFRACTIONATED HEPARIN THERAPY, THIS LABORATORY NO LONGER HAS AN ESTABLISHED THERAPEUTIC RANGE BASEDON THE APTT. IT IS RECOMMENDED THAT THE UFH - HEPARIN ASSAY (ANTI-XAACTIVITY) BE USED FOR THIS PURPOSE. Performed By: #### 5 7307, 30551 ####[facility]3000 [facility].[address] BASIC METABOLIC PANELon 11-19 Calcium 8.6 mg/dL Normal 8.6-10.3 [facility] Comment on above: Performed By: #### 0 0071 ####[facility] [place] [address], [facility] Chloride 102 mmol/L Normal 98-107 [facility] Comment on above: Performed By: #### 0 0071 ####[facility] [place] [address], [facility] CO2 23 mmol/L Normal 21-31 [facility] Comment on above: Performed By: #### 0 0071 ####[facility] [place] [address], [facility] Creatinine 0.80 mg/dL Normal 0.60-1.20 [facility] Comment on above: Performed By: #### 0 0071 ####[facility] [place] [address], [facility] eGFR (black) mL/min/{1.73_m2} Normal >60 [facility] Comment on above: Result Comment: Calc ulation may not be valid for patients over 70 years Performed By: #### 0 0071 ####[facility] [facility] [place] [address], [facility] eGFR (non-black) mL/min/{1.73_m2} Normal >60 Th e [facility] Comment on above: Result Comment: Calc ulation may not be valid for patients over 70 years Performed By: #### 0 0071 ####[facility] [facility] [place] [address], [facility] Glucose mass conc 96 mg/dL Normal 70-100 [facility] Comment on above: Performed By: #### 0 0071 ####[facility] [place] [address], [facility] Potassium molar conc 3.6 mmol/L Normal 3.5-5.1 [facility] Comment on above: Performed By: #### 0 0071 ####[facility] [place] [address], [facility] Sodium 133 mmol/L Low 136-145 [facility] Comment on above: Performed By: #### 0 0071 ####[facility] Urea nitrogen 16 mg/dL Normal 7-25 [facility] Comment on above: Performed By: #### 0 1 ####[facility] [facility].[address] CBC COMPLETE BLOOD COUNTon 0 12-16-2017 Erythrocyte distribution width Auto Ratio (RBC) 17.1 % High 11.5-16.9 [facility] Comment on above: Performed By: #### 5 08 ####[address] Erythrocytes (RBC) 4.21 mill/mm3 Normal 3.50-5.50 [facility] Comment on above: Performed By: #### 5 08 ####[address] Hematocrit (HCT) 34.0 % Low 36.0-48.0 [facility] Comment on above: Performed By: #### 5 0608 ####[address] Hemoglobin mass conc (Bld) 11.2 g/dL Low 12.0-15.0 [facility] Comment on above: Performed By: #### 5 0608 ####[address] MCH 26.6 pg Normal 24.0-32.0 [facility] Comment on above: Performed By: #### 5 0608 ####[address] MCHC mass conc (RBC) 32.9 g/dL Normal 32.0-36.0 [facility] Comment on above: Performed By: #### 5 0608 ####[address] [address], [place] MCV 80.9 fL Normal 80.0-100.0 [facility] Comment on above: Performed By: #### 5 0608 ####[address] PLAT CNT 477 Thou/mm3 High 100-400 [facility] Comment on above: Performed By: #### 5 0608 ####[place] [id number] [address] WBC (Leukocytes) 7.5 Thou/mm3 Normal 4.0-10.0 [facility] Comment on above: Performed By: #### 5 0608 ####[address] KNEE RIGHT 1 OR 2 VWSon 11-19 KNEE RIGHT 1 OR 2 VWS [facility] Bvtdoogca[address] [place], [place] [address] P atient Name: JENNIFER AVENDANO : 1945Sex: FAge: Race: WhiteMRN: [id number]. Location: EMERPatient Status: OVisit #: [id number] Date: 12/15/2017 11:45:00 PMCompleted Date: 12/16/2017 01:05 AMRequesting Provider: MALGORZATA OLSEN Attending Provider: MALGORZATA OLSEN Report Copy To: Signs & Symptoms: Right knee dislocationHistory: Comments: Right knee dislocationExam: KNEE RIGHT 1 OR 2 VWSAccession #: [id number] ======KNEE RIGHT 1 OR 2 VWS 12/16/2017 1:05 AM EST SIGNS AND SYMPTOMS: Right knee dislocation TECHNOLOGIST COMMENTS: Intra op. Closed reduction right knee. Dr Olsen used 5 seconds of fluoro. QUESTION FOR THE RADIOLOGIST: Right knee dislocation PROTOCOL: AP(PA) and Lateral views were obtained. COMPARISON: December 15 FINDINGS: 5 images were obtained during reduction. Alignment appears satisfactory. IMPRESSION:For documentation purposes only. Electronically signed by:Darinel Hartman. Transcribed by: [email or web address], User Resident: Electronically Signed by: DARINEL HARTMAN @ 12/16/2017 07:16 AM Normal [facility] Comment on above: Order Comment: Right knee dislocation POC GLUCOSE LABon 12-16-2017 Glucose mass conc 102 mg/dL High 70-100 [facility] Comment on above: Performed By: #### 8 5499 ####[address] PORTABLE KNEE RIGHT 2 VWSon 12-16-2017 PORTABLE KNEE RIGHT 2 VWS [facility] Irlxqhwx[address] [place], [place] [address] P atient Name: JENNIFER AVENDANO : 1945Sex: FAge: Race: WhiteMRN: [id number]. Location: EMERPatient Status: OVisit #: [id number] Date: 12/15/2017 10:55:00 PMCompleted Date: 12/15/2017 11:22 PMRequesting Provider: TAYLOR IRELAND Attending Provider: TAYLOR IRELAND Report Copy To: Signs & Symptoms: Pain ( specify Location)History: Patient history not availableComments: R/O DislocationExam: PORTABLE KNEE RIGHT 2 VWSAccession #: [id number] ======PORTABLE KNEE RIGHT 2 VWS 12/15/2017 11:22 PM EST SIGNS AND SYMPTOMS: Pain ( specify Location) TECHNOLOGIST COMMENTS: Post reduction image obtained ;patient has a dislocated right knee; lateral 1 view obtained per ortho Dr. Fields, QUESTION FOR THE RADIOLOGIST: R/O Dislocation PROTOCOL: AP(PA) and Lateral views were obtained. COMPARISON: None FINDINGS: Soft tissues:Overlying braceSwelling and presumed air from recent surgery or manipulation Bones:Mild osteoporosis Joints:Right total knee arthroplasty with the tibia dislocated posterior to the femur IMPRESSION: Posterior dislocation of tibia on femur at the right total hip replacement Electronically signed by:Marian Mir. Transcribed by: [email or web address], User Resident: Electronically Signed by: MARIAN MIR @ 12/16/2017 08:27 AM Normal [facility] Comment on above: Order Comment: R/O D islocation PROTHROMBIN TIMEon 8 INR Coag RelTime (PPP) 1.12 {INR} Normal 0.91-1.16 [facility] Comment on above: Result Comment: ACCC P RECOMMENDED INR FOR WARFARIN THERAPY CONDITION INRPROPHYLAXIS OF VENOUS THROMBOSIS 2-3(HIGH-RISK SURGERY)TREATMENT OF VENOUS THROMBOSIS 2-3TREATMENT OF PULMONARY EMBOLISM 2-3PREVENTION OF SYSTEMIC EMBOLISM: 2-3 ACUTE MYOCARDIAL INFARCTION TISSUE HEART VALVES VALVULAR HEART DISEASE ATRIAL FIBRILLATION RECURRENT SYSTEMIC EMBOLISMMECHANICAL HEART VALVE 2.5-3.5 FROM: ORAL ANTICOAGULANTS. MECHANISM OF ACTION, CLINICALEFFECTIVENESS, AND OPTIMAL THERAPEUTIC RANGE. [id number];108:231S-246S. Performed By: #### 5 7307, 58528 ####[facility] [place] [address], [facility] Prothrombin time (PT) Coag time (PPP) 14.5 s Normal 12.3-14.8 [facility] Comment on above: Result Comment: ALL RESULTS MUST BE INTERPRETED WITH RESPECT TO BLOOD DRAWING ARTIFACTOR DILUTION ERROR OF ANTICOAGULANT AT THE TIME OF SAMPLING. Performed By: #### 5 7307, 58286 ####[facility] [place] [address], [facility] TYPE AND SCREENon 12-16-2017 ABO INTERPRETATION AB Normal [facility] Comment on above: Performed By: #### 6 2586 ####[facility] [place] [address], [place] ANTIBODY SCREEN Negative Normal [facility] Comment on above: Performed By: #### 6 2586 ####[facility] [place] [address], [place] RH INTERPRETATION Positive Normal [facility] Comment on above: Performed By: #### 6 2586 ####[facility] [place] [address], [place] URINALYSISon 12-16-2017 Bilirubin (total) Negative Normal NEGATIVE [facility] Comment on above: Performed By: #### 1 0008 ####[facility] [place] [address], [place] BLOOD Negative Normal NEGATIVE [facility] Comment on above: Performed By: #### 1 0008 ####[facility] [place] [address], [place] Glucose mass conc Negative Normal NEGATIVE [facility] Comment on above: Performed By: #### 1 0008 ####[facility] [place] [address], [facility] KETONE Negative Normal NEGATIVE [facility] Comment on above: Performed By: #### 1 0008 ####[facility] [place] [address], [facility] LEUK TAYLOR Negative Normal NEGATIVE [facility] Comment on above: Performed By: #### 1 0008 ####[facility] [place] [address], [facility] MICRO NOT DONE negative chemical reactions unless requested in original order Normal [facility] Comment on above: Performed By: #### 1 0008 ####[facility] [facility] [place] [address], [facility] pH of blood 5.0 [pH] Normal 5.0-8.0 [facility] Comment on above: Performed By: #### 1 0008 ####[facility] [place] [address], [facility] Protein Negative Normal NEGATIVE [facility] Comment on above: Performed By: #### 1 0008 ####[facility] [place] [address], [facility] SPEC GRAV 1.014 Low 1.015-1.020 [facility] Comment on above: Performed By: #### 1 0008 ####[facility] [place] [address], [facility] Urine, appearance SL CLOUDY Abnormal CLEAR [facility] Comment on above: Performed By: #### 1 0008 ####[facility] [place] [address], [facility] Urine, color YELLOW Normal YELLOW [facility] Comment on above: Performed By: #### 1 0008 ####[facility] [place] [address], [facility] Urine, nitrite presence Negative Normal NEGATIVE [facility] Comment on above: Performed By: #### 1 0008 ####[facility] Vital Signs Date Time Vital Sign Value Performing Clinician Faci lity 10-09-2024 09:35-0500 Body height 172.7 cm Mira Stevens Jr., MD Work Phone: [facility] 10-09-2024 09:35-0500 Body mass index (BMI) [Ratio] 35.73 kg/m2 Mira Stevens Jr., MD Work Phone: [facility] 10-09-2024 09:35-0500 Body weight 106.59 kg Mira Stevens Jr., MD Work Phone: [facility] 10-09-2024 09:35-0500 Diastolic blood pressure 66 mm[Hg] Mira Stevens Jr., MD Work Phone: [facility] 10-09-2024 09:35-0500 Heart rate 60 /min Mira Stevens Jr., MD Work Phone: [facility] 10-09-2024 09:35-0500 Systolic blood pressure 109 mm[Hg] Mira Stevens Jr., MD Work Phone: [facility] 09-15-2024 12:49-0400 Body height 172.7 cm Rajani Choudhury MD Work Phone: [facility] 09-15-2024 12:49-0400 Body mass index (BMI) [Ratio] 35.73 kg/m2 Rajani Choudhury MD Work Phone: [facility] 09-15-2024 12:49-0400 Body weight 106.59 kg Rajani Choudhury MD Work Phone: [facility] 09-15-2024 12:49-0400 Diastolic blood pressure 70 mm[Hg] Rajani Choudhury MD Work Phone: [facility] 09-15-2024 12:49-0400 Systolic blood pressure 110 mm[Hg] Rajani Choudhury MD Work Phone: [facility] 01-07-2024 09:46-0500 Body height 172.7 cm Nadeem Phan MD Work Phone: [facility] 01-07-2024 09:46-0500 Body mass index (BMI) [Ratio] 30.41 kg/m2 Nadeem Phan MD Work Phone: [facility] 01-07-2024 09:46-0500 Body weight 90.72 kg Nadeem Phan MD Work Phone: [facility] 01-07-2024 09:46-0500 Diastolic blood pressure 70 mm[Hg] Nadeem Phan MD Work Phone: [facility] 01-07-2024 09:46-0500 Heart rate 53 /min Nadeem Phan MD Work Phone: [facility] 01-07-2024 09:46-0500 Systolic blood pressure 140 mm[Hg] Nadeem Phan MD Work Phone: [facility] Encounters Encounter Date Encounter Type Care Provider Facility Start: 10-20-2024 End: 10-20-2024 ambulatory MIRA STEVENS JR [facility] Start: 10-14-2024 End: 10-14-2024 Emergency department patient visit TAYLOR PEDRAZA [facility] Start: 10-13-2024 End: 10-13-2024 Telephone encounter Gertrudis Vang LPN [facility] Start: 10-09-2024 End: 10-09-2024 Office outpatient visit 25 minutes Mira Stevens MD Work Phone: [facility] Comment on above: Urologic disorders ( Primary Dx); Urinary retention; Neurogenic bladder Start: 10-09-2024 End: 10-09-2024 ambulatory MIRA STEVENS JR [facility] Start: 09-15-2024 End: 09-15-2024 ambulatory RAJANI CHOUDHURY Not Available Start: 09-15-2024 End: 09-15-2024 Office outpatient visit 25 minutes Rajani Choudhury MD Work Phone: [facility] Comment on above: Multiple sclerosis ( CMS/HCC); Weakness; Cognitive changes Start: 09-01-2024 End: 09-01-2024 Telephone encounter Tali Tomas RN Work Phone: [facility] Comment on above: Transition Of Care Start: 07-12-2024 End: 07-16-2024 Emergency department patient visit EASTON SCHUMACHER [facility] Start: 07-12-2024 End: 07-15-2024 ambulatory [facility] Start: 04-15-2024 End: 04-15-2024 ambulatory [facility] Start: 04-15-2024 Encounter for dl l adult medical examination without abnormal findings [facility] Start: 04-14-2024 End: 04-15-2024 [facility] Start: 03-26-2024 End: 03-26-2024 ambulatory RAJANI CHOUDHURY Not Available Start: 02-17-2024 End: 02-17-2024 ambulatory [facility] Start: 01-07-2024 End: 01-07-2024 Office outpatient new 45 minutes Nadeem Phan MD Work Phone: [facility] Comment on above: Cervical stenosis of spinal canal (Primary Dx); Cervical spondylosis Start: 01-07-2024 End: 01-07-2024 ambulatory [facility] Start: 12-31-2023 Telephone encounter Jeannie Lorenzana Neurology Comment on above: NEW PATIENT REFERRAL Start: 12-30-2023 Refill Taylor cifuentes MD [facility] Phone[facility] Start: 12-23-2023 Orders Only Taylor cifuentes MD Work Phone: [facility] Comment on above: Cervical stenosis of spinal canal (Primary Dx); MS (multiple sclerosis) ([facility]) Start: 12-20-2023 Telephone encounter Alina Crum [facility] Start: 12-13-2023 End: 12-13-2023 ambulatory [facility] Start: 11-29-2023 Refill Taylor cifuentes MD Work Phone: [facility] Comment on above: Essential hypertensi on; Major depressive disorder with single episode, in full remission ([facility]) Start: 11-21-2023 Telephone encounter Tali renee RN Work Phone: [facility] Comment on above: Care Navigation Start: 11-20-2023 Refill Rand [facility] Comment on above: Essential hypertensi on, benign Start: 11-16-2023 Refill Taylor cifuentes MD Work Phone: [facility] Start: 11-14-2023 Orders Only Taylor cifuentes MD Work Phone: [facility] Start: 11-13-2023 Telephone encounter Tali renee RN Work Phone: [facility] Start: 11-13-2023 End: 11-13-2023 ambulatory [facility] Start: 11-12-2023 End: 11-12-2023 ambulatory [facility] Start: 07-27-2022 End: 07-27-2022 ambulatory Maximino Ilo Facility:[facility] Start: 04-07-2021 End: 04-10-2021 Evaluation and management of inpatient DR VON ESQUEDA Facility: Start: 09-23-2020 End: 06-29-2021 Patient encounter status Taylor Pedraza MD Work Phone: [facility] Work Phone: Start: 06-15-2020 Preoperative state Taylor mulligan MD Work Phone: [facility] Work Phone: Start: 09-24-2018 End: 12-25-2019 Patient encounter status Taylor Pedraza MD Work Phone: [facility] Start: 03-18-2018 End: 03-19-2018 Ambulatory REFERRED SELF Facility:[facility] Start: 03-03-2018 End: 03-04-2018 Ambulatory REFERRED SELF Facility:[facility] Start: 02-25-2018 End: 02-26-2018 Ambulatory JESSY VICK Facility:[facility] Start: 02-11-2018 End: 02-12-2018 Ambulatory MAXIMINO ILO Facility:[facility] Start: 01-06-2018 End: 01-07-2018 Ambulatory SUMMON NELLIE Facility:[facility] Start: 12-23-2017 End: 01-01-2018 Evaluation and management of inpatient SUMMON NELLIE Facility:[facility] Start: 12-15-2017 End: 12-17-2017 Ambulatory REFERRED SELF Facility:[facility] Procedures Date Procedure Procedure Detail Performing Clinician Start: 10-09-2024 Follow-up visit Follow-up MIRA STEVENS JR Start: 04-15-2024 Adult depression scr eening assessment Tali Tomas RN Work Phone: Start: 04-14-2024 Follow-up visit Follow-up PARKER OLGUIN Start: 11-12-2023 Adult depression scr eening assessment Taylor Pedraza MD Work Phone: Start: 12-24-2017 INSERTION OF SPACER INTO RIGHT KNEE JOINT, OPEN APPROACH SUMON NELLIE Start: 12-24-2017 REMOVAL OF SYNTH SUB FROM R KNEE JT, OPEN APPROACH [facility] NE[facility] Start: 12-16-2017 ANESTH KNEE JOINT PROCEDURE SOORAJhon G YERMAL Start: 12-16-2017 TREAT KNEE DISLOCATION SUMON NELLIE Start: 03-14-2017 Colonoscopy Taylor hernandez MD Work Phone: Plan of Treatment Date Care Activity Detail Author Start: 10-09-2025 Tobacco Screening Tobacco Screening [facility] Start: 07-13-2025 Tobacco Screening Tobacco Screening [facility] Start: 07-12-2025 Adult BMI Screening Adult BMI Screening [facility] Start: 04-15-2025 Depression Screening Depression Screening [facility] Start: 04-15-2025 Fall Risk Screening Fall Risk Screening [facility] Start: 04-15-2025 Medicare Annual Wellness Visit Medicare Annual Wellness Visit [facility] Start: 01-09-2025 Tobacco Screening Tobacco Screening [facility] Start: 01-07-2025 Adult BMI Screening Adult BMI Screening [facility] Start: 12-11-2024 Adult BMI Screening Adult BMI Screening [facility] Start: 11-13-2024 End: 11-13-2024 Patient encounter procedure 11/13/2024 2:30 PM EST Office Visit [facility] [address] [place] [address] Taylor Pedraza MD [address] [place], [place] [id number] [facility] Start: 11-12-2024 Depression Screening Depression Screening [facility] Start: 11-12-2024 Fall Risk Screening Fall Risk Screening [facility] Start: 11-12-2024 Tobacco Screening Tobacco Screening [facility] Start: 11-03-2024 End: 11-03-2024 Patient encounter procedure 11/03/2024 7:45 AM EST Appointment [facility] [address] [place] [phone] Rajani Choudhury MD [address] [place] [address] [place] [address] [facility] Start: 10-30-2024 End: 10-30-2024 Patient encounter procedure 10/30/2024 12:00 PM EST Office [facility] [address] [email or web address] [place] [address] Mira Stevens Jr., MD [address] [place] [address] [facility] Start: 10-27-2024 End: 10-09-2025 US Retroperitoneum Ultrasound retroperitoneal complete Imaging Routine Urinary retention Neurogenic bladder Expected: 10/27/2024, Expires: 10/09/2025 [facility] Comment on above: Expected: 10/27/2024, Expires: Start: 10-26-2024 End: 10-09-2025 Creatinine includes GFR, serum Creatinine includes GFR, serum Lab Routine Urinary retention Neurogenic bladder Expected: 10/26/2024, Expires: 10/09/2025 [facility] Work Phone: Comment on above: Expected: 10/26/2024, Expires: Start: 10-20-2024 End: 10-20-2024 Patient encounter procedure 10/20/2024 8:30 AM EST Appointment [facility] [address] [place] [phone] Mira Stevens Jr., MD [address] [place] [address] [facility] Start: 10-13-2024 End: 10-13-2024 ambulatory 10/13/2024 1:30 PM EST Support Visit [facility] [address] [place] [phone] [facility] Start: 10-09-2024 End: 10-09-2024 Patient encounter procedure 10/09/2024 10:45 AM EST Office Visit [facility] [address] [place] [address] [email or web address] [address] Mira Stevens Jr., MD [address] [place] [address] [facility] Start: 09-15-2024 End: 09-15-2025 MR Brain WO and W contrast IV MR brain w and wo contrast routine Imaging Routine Multiple sclerosis (CMS/HCC) Expected: 09/15/2024 (Approximate), Expires: 09/15/2025 [facility] Work Phone: Comment on above: Expected: 09/15/2024 (Approximate), Expi res: 09/15/2025 Start: 07-19-2024 Influenza vaccination Influenza Vaccine [facility] Start: 04-15-2024 End: 04-15-2024 Patient encounter procedure 04/15/2024 2:15 PM EDT Office Visit [facility] [address] [place] [address] Taylor Pedraza MD [address] [place] [address] [facility] Start: 04-14-2024 End: 04-14-2024 Patient encounter procedure 04/14/2024 10:00 AM EDT Office Visit [facility] [address] [place] [address] [address] [place] [address] Parker Olguin MD [address] [facility] [place] [address] [facility] Start: 04-11-2024 Adult BMI Screening Adult BMI Screening [facility] Start: 04-10-2024 Medicare Annual Wellness Visit Medicare Annual Wellness Visit [facility] Start: 01-08-2024 End: 01-07-2025 RF Guidance for injection of Lumbar Spine Facet Joint IR injection lumbar/sacral for diagnosis/cisternogram Imaging Routine Cervical stenosis of spinal canal Cervical spondylosis Expected: 01/08/2024, Expires: 01/07/2025 [facility] Comment on above: Expected: 01/08/2024, Expires: Start: 01-07-2024 End: 01-07-2025 CT Cervical spine WO contrast CT cervical spine without contrast Imaging Routine Cervical stenosis of spinal canal Cervical spondylosis Expected: 01/07/2024, Expires: 01/07/2025 [facility] Work Phone: Comment on above: Expected: 01/07/2024, Expires: Start: 01-07-2024 End: 01-07-2025 MR Lumbar spine WO contrast MR lumbar spine without contrast Imaging Routine Cervical stenosis of spinal canal Cervical spondylosis Expected: 01/07/2024, Expires: 01/07/2025 [facility] Comment on above: Expected: 01/07/2024, Expires: Start: 01-07-2024 End: 01-07-2025 MR Thoracic spine WO contrast MR thoracic spine without contrast Imaging Routine Cervical stenosis of spinal canal Cervical spondylosis Expected: 01/07/2024, Expires: 01/07/2025 [facility] Comment on above: Expected: 01/07/2024, Expires: Start: 01-07-2024 End: 01-07-2024 Patient encounter procedure 01/07/2024 10:15 AM EST Office Visit [facility] [address] [place], [place] [id number] Nadeem Phan MD [address] [place] [address] [address] [place] [phone] [facility] Start: 12-13-2023 End: 12-13-2023 Patient encounter procedure [facility] Start: 07-19-2023 Influenza vaccination Influenza Vaccine [facility] Start: 03-14-2022 Screening for malignant neoplasm of colon Colonoscopy [facility] Start: 1963 Adult BMI Follow Up Plan Adult BMI Follow Up Plan [facility] Immunizations Immunization Date Immunization Notes Care Provider Fa cility 09-25-2022 influenza, injectabl e, quadrivalent, preservative free Taylor Pedraza MD Work Phone: [facility] 09-25-2022 influenza virus vacc ine, unspecified formulation Taylor Pedraza MD Work Phone: [facility] 09-28-2020 influenza, high dose seasonal, preservative-free Taylor Pedraza MD Work Phone: [facility] 09-16-2020 pneumococcal conjuga te vaccine, 13 kevin Tomas RN Work Phone: [facility] 09-29-2018 influenza, injectabl e, quadrivalent, preservative free Taylor Pedraza MD Work Phone: [facility] 2017 influenza, injectabl e, quadrivalent, preservative free Taylor Pedraza MD Work Phone: [facility] 07-02-2017 pneumococcal conjuga te vaccine, 13 valfrancis Pedraza MD Work Phone: [facility] 07-02-2015 pneumococcal polysaccharide vaccine, 23 valfrancis Pedraza MD Work Phone: [facility] 09-20-2014 pneumococcal polysaccharide vaccine, 23 valfrancis Pedraza MD Work Phone: [facility] 03-13-2011 pneumococcal polysaccharide vaccine, 23 valent Taylor Pedraza MD Work Phone: [facility] Payers Date Payer Category Payer Medicaid [id number] 2023 Medicaid [employer] MEDICARE A DVANTAGE [id number] 2022 Self-pay 2015 Medicare [employer] MEDICARE A ETNA MEDICARE PLAN (PPO) [id number] 2015-Present [phone] [address] [place] [address] [id number] 2015 Medicare HMO [employer] MEDICARE [id number] 2015 Private Health Insurance [id number] 1959 Private Health Insurance [facility] [id number] 1945 Unknown [id number] 2.16.840.1.323021.3.579.2. 593 1945 Unknown [id number] 2.16.840.1.061951.3.579.2. 1286 1945 Unknown [id number] 2.16.840.1.565168.3.579.2. 128 1945 Unknown [id number] 2.16.840.1.986277.3.579.2. 1259 1945 Unknown [id number] 2.16.840.1.167142.3.579.2. 1259 1945 Unknown [id number] 2.16.840.1.435372.3.579.2. 1286 1945 Unknown [id number] 2.16.840.1.013924.3.579.2. 128 1945 Unknown [id number] 2.16.840.1.764389.3.579.2. 1286 1945 Unknown [id number] 2.16.840.1.566398.3.579.2. 128 1945 Unknown [id number] 2.16.840.1.853182.3.579.2. 1285 1945 Unknown [id number] 2.16.840.1.832883.3.579.2. 6 1945 Unknown [id number] 2.16.840.1.283251.3.579.2. 1285 1945 Unknown [id number] 2.16.840.1.687535.3.579.2. 128 1945 Unknown [id number] 2.16.840.1.736898.3.579.2. 128 1945 Unknown [id number] 2.16.840.1.205178.3.579.2. 1286 1945 Unknown [id number] 2.16.840.1.455764.3.579.2. 1285 1945 Unknown [id number] 2.16.840.1.864971.3.579.2. 128 1945 Unknown [id number] 2.16.840.1.205394.3.579.2. 1285 1945 Unknown [id number] 2.16.840.1.248954.3.579.2. 1286 Unknown [id number] 2.16.840.1.911037.3.579.2. 531 Social History Date Type Detail Facility Start: 03-26-2022 End: 04-15-2024 Tobacco smoking status NHIS Ex-smoker [facility] Start: 11-18-1968 End: 11-18-1978 History of tobacco use Current smoker [facility] Start: 11-18-1968 End: 11-18-1978 History of tobacco use Cigarette Smoker [facility] Start: 03-26-2022 End: 04-15-2024 Tobacco use and exposure Smokeless tobacco non-user [facility] Start: 11-12-2023 End: 10-09-2024 Alcohol intake Ex-drinker (finding) [facility] Start: 07-28-2022 End: 10-09-2024 History of Social function [facility] Work Phone: Start: 07-28-2022 End: 10-09-2024 Social connection and isolation panel [facility] Work Phone: Do you belong to any clubs or organizations such as jain groups, unions, fraternal or athletic groups, or school groups? No [facility] Are you now , , , , never or living with a partner? [facility] How often to you hav e a drink containing alcohol? Never [facility] How many standard dr inks containing alcohol do you have on a typical day? Patient does not drink [facility] Do you feel stress - tense, restless, nervous, or anxious, or unable to sleep at night because your mind is troubled all the time - these days [OSQ] Only a little [facility] Start: 06-16-2019 Education 12 [facility] Start: 1945 Sex Assigned At Not on file P [facility] Start: 03-26-2024 Alcoholic beverage intake Life time non-drinker (finding) [facility] Start: 06-23-2015 Sex Female (finding) [facility] Medical Equipment Procedure Code Equipment Code Equipment Origin al Text Equipment Identifier Dates Bearing Hum 36mm Cmprh +3mm Shldr Prlng Rvrs Rtn - [id number] Start: 09-18-2021 Bearing Tib 14mm Std Kn Oss Uhmwpe Strl - [id number] Start: 06-13-2022 Cement Bn Palaco s Radpq 40g Rpl [id number] - [id number] - [id number] Start: 12-09-2017 Plug Bn Cmnt 18-21mm Xl Im Cnl Strl - [id number] Start: 06-13-2022 Mesh [id number] Macroporous Parietene Srg Rpl [id number] 7+Cmt - [id number] Start: 06-13-2022 Xtn Stm 100mm 14 5mm 13mm Kn Rpl [id number] - [id number] - [id number] Start: 12-09-2017 Comment on above: Description: 13 mm d ia, x 100 length cpmbined length 145 mm stem extension Ins Artc 3-4 C-D 20mm Kn Fx - [id number] - [id number] Start: 12-10-2017 Comment on above: Description: removed implant articulating surface from 12-09-2017 IMPLANTED C,D 20 MM HEIGHT, USE WITH PLATE 3,4 lps ARTICULATING SURFACE POLY [place] Spnl 11mm Coalition Mis - [id number] Start: 06-05-2021 Tray Hum Cmprh S td Shldr Rvrs - [id number] Start: 09-18-2021 Axle Fem Kn Rdc - [id number] Start: 06-13-2022 Plt Tib [id number] m Nxgn Kn Cmnt Rpl [id number] + [id number] - [id number] - [id number] Start: 12-09-[address] g 63mm Kn Nmod Oss Strl - [id number] Start: 06-13-2022 Screw Bn 15mm 4.75mm Lck Fx Ang Hx Hd Ti Cmprh 3.5mm Strl - [id number] Start: 09-18-2021 Coalition Mis Titanium Spacer [id number] Start: 06-05-2021 Bowed M Stem Wit h Screw [id number] Start: 06-13-2022 Cement Bn Bio 40 gm Rpl [id number] 9 - [id number] Start: 06-13-2022 Cement Bn Bio 40 gm Rpl [id number] 9 - [id number] Start: 06-13-2022 Plug Bn Cmnt 14-17mm Lg Im Cnl Strl - [id number] Start: 06-13-2022 Cmpt Ptlr Std 9m m 35mm Nxgn Rpl [id number] - [id number] - [id number] Start: 12-09-2017 Cmpt Fem D Kn Rt Lpsflx Gndr Rpl [id number] - [id number] - [id number] Start: 12-09-2017 Blck Aug Nxgn 4 Hlf 10mm Kn Rpl [id number] - [id number] - [id number] Start: 12-09-2017 Ins Artc 3-4 C-D 10mm Kn Fx - [id number] - [id number] Start: 12-09-2017 Stem Hum 83mm 11 mm Cmprh Por Mn Shldr Rvrs Sys - [id number] Start: 09-18-2021 Baseplate Inocencio Cmprh 25mm Mn Shldr Tpr Adpr Rvrs Sys - [id number] Start: 09-18-2021 Component Inocencio 3 6mm Std Glenosphere Clr Cd Cmprh Versa-Dial - [id number] Start: 09-18-2021 Yoke Tib Oss Kn Reinf - [id number] Start: 06-13-2022 Pin Fx Oss Pe Kn Lck Cmpr Mld Strl - [id number] Start: 06-13-2022 Bushing Tib Oss Kn Pe Lfric Intfc - [id number] Start: 06-13-2022 Bushing Fem Hip Pe Rdc - [id number] Start: 06-13-2022 Screw Bn 30mm 6. 5mm Cntr Hx Hd Ti Cmprh 3.5mm Strl Rvrs - [id number] Start: 09-18-2021 Screw Bn 25mm 4.75mm Va Hx Hd Ti Cmprh 3.5mm Strl Rvrs Shldr - [id number] Start: 09-18-2021 Elliptical Segmental Femoral [id number] Start: 06-13-2022 Goals Date Patient Goal Desired Activity /State Personal health goal Comment on above: Formatting of this n ote might be different from the original. Evaluation of progress towards goal: Safe dc return to SNF for rehab. Personal health goal Comment on above: Formatting of this n ote might be different from the original. Evaluation of progress towards goal: needs SNF, nell require insurance appoval Clinical Notes 11-13-2023 to 10-13-2024 Telephone Encounter - Gertrudis Vang LPN - 10/13/2024 4:46 PM ESTTelephone Encounter - Gertrudis Vang LPN - 10/13/2024 4:46 PM Maddie Stevens Jr., MD - 10/09/2024 9:30 AM EST Note Date & Type Note Facility 10-13-2024 Miscellaneous Notes New order faxed to Samara dick at [facility] at [phone] regarding replacing Estrella if PVR this evening is greater than [address] Stevens's protocol. See all notes over the past couple days for clarification if questions. Yodit Schmid is aware and you can check with her for any further instructions or questions. documented in this encounter [facility] 10-13-2024 Telephone encounter Note New order faxed to Samara dick at [facility] at [phone] regarding replacing Estrella if PVR this evening is greater than [address] Stevens's protocol. See all notes over the past couple days for clarification if questions. Yodit Schmid is aware and you can check with her for any further instructions or questions. [facility] 10-13-2024 Miscellaneous Notes [facility] at 3:30 pm. She states that patient's catheter was removed at 3:00 pm and they will monitor and check Post Void Residual per order in 4-5 hours or if patient becomes uncomfortable. Nurse will call our office iWed am with results. Please check with Yodit Schmid for any further orders or instructions. Phone # for [facility] [phone]. Fax is [phone]. documented in this encounter [facility] 10-13-2024 Telephone encounter Note Spoke with Samara-nurse at [facility] in [place] 10/13/24 at 3:30 pm. She states that patient's catheter was removed at 3:00 pm and they will monitor and check Post Void Residual per order in 4-5 hours or if patient becomes uncomfortable. Nurse will call our office iWed am with results. Please check with Yodit Schmid for any further orders or instructions. Phone # for [facility] [phone]. Fax is [phone]. [facility] 10-13-2024 Miscellaneous Notes Patient was scheduled for Fill and pull voiding trial in [place] office on 10/13/[address] Stevens's order. Review of chart and complete review of Dr. Stevens's decision to have this done in [place] was noted. Patient was scheduled at a time and room that would not be feasible for this patient due to staffing and room availability. Dr. Stevens out of office. Spoke with RAI Becerra and decision was made to have this done at patient facility [facility] in [place] [phone] with strict orders and follow up of procedure being completed and PVR results called to our office in timely manner or we would contact them. I spoke with nurse Bjorn on 10/12/24 at 5 pm that this is something they can do. He assured me that it was and order was faxed to nursing and also to Jana (coordinator) with detailed instructions.fax number [phone] 2nd floor and to [phone]. I also spoke with son and explained. He did voice his concerns but I assured him that I would take responsibility that this is done correctly and as ordered. If there is an issue or continued question of patient status we can always bring her in next week at a time when the Urodynamics bed would be available to try to perform testing. Patient apparently is incontinent to [facility] and is not transferred to [facility] on regular basis for voiding so it should provide comparable information here or at [place]. Transportation to bring patient to [place] today was cancelled and confirmed with Jana this am. Kristi Vang LPN documented in this encounter [facility] 10-13-2024 Telephone encounter Note Patient was scheduled for Fill and pull voiding trial in [place] office on 10/13/[address] Stevens's order. Review of chart and complete review of Dr. Stevens's decision to have this done in [place] was noted. Patient was scheduled at a time and room that would not be feasible for this patient due to staffing and room availability. Dr. Stevens out of office. Spoke with RAI Becerra and decision was made to have this done at patient facility [facility] [phone] with strict orders and follow up of procedure being completed and PVR results called to our office in timely manner or we would contact them. I spoke with nurse Bjorn on 10/12/24 at 5 pm that this is something they can do. He assured me that it was and order was faxed to nursing and also to Jana (coordinator) with detailed instructions.fax number [phone] 2nd floor and to [phone]. I also spoke with son and explained. He did voice his concerns but I assured him that I would take responsibility that this is done correctly and as ordered. If there is an issue or continued question of patient status we can always bring her in next week at a time when the Urodynamics bed would be available to try to perform testing. Patient apparently is incontinent to [facility] and is not transferred to [facility] on regular basis for voiding so it should provide comparable information here or at [place]. Transportation to bring patient to [place] today was cancelled and confirmed with Jana this am. Kristi Vang LPN [facility] 10-09-2024 History of Presen t illness Narrative Images from the original note were not included. [phone] [place] [address] [address] [facility] [id number] Patient: Jennifer Avendano Date of : 1945 Encounter Date: 10/09/2024 History of Present Illness: Chief Complaint: Neurogenic bladder with recurrent urinary retention. See below Urinalysis today: No results for input(s): EXTPOCURCO , EXTPOCURCH , EXTPOCAPP , EXTPOCURBS , EXTPOCURBIL , EXTPOCUKET , EXTPOCUSPG , EXTPOCUHGB , EXTPOCUPRO , EXTPOCUURO , EXTPOCULEU , EXTPOCUNIT , EXTPOCUWBC , EXTPOCUBLD , EXTPOCURBC , EXTPOCUCRY , EXTPOCUBAC , EXTPOCUTREP , EXTPOCUPH , EXTPOCULEE in the last 72 hours. Last BUN and creatinine: Lab Results Component Value Date BUN 24 07/15/2024 Lab Results Component Value Date CREATININE 0.88 07/15/2024 Last PSA: No results found for: PSA No results found for: PROSTATICSP Past Medical, Family, and Social History Update: The following portions of the patient's history were reviewed and updated as appropriate: allergies, current medications, past family history, past medical history, past social history, past surgical history and problem list. 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[facility]) ADHD (attention deficit hyperactivity disorder) Amnesia Anemia Anxiety Aortic stenosis due to bicuspid aortic valve [id number] mild degree Arthritis left shoulder here for workup for pending reverse left shoulder replacement Arthropathy of left shoulder Back pain due to my inactivity Chronic constipation Chronic pain Clotting disorder ([facility]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 Colon polyps Colonoscopy 2014/polyp benign COVID 02/2021 Deep vein thrombosis ([facility]) lower right leg -05/2021 Dental disease partial on upper and lower Depression WOLF (dyspnea on exertion) DVT (deep venous thrombosis) ([facility]) Eczema Factor V Leiden mutation ([facility]) ONE ALLELE POSITIVE/ HETEROZYGOUS Failure to thrive (child) Former tobacco use Stopped 1978 Heart murmur Heart murmur Hyperlipidemia Hypertension Hypoxemia Insomnia Mechanical loosening of other internal prosthetic joint, initial encounter ([facility]) 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 shoulder Osteoporosis T-1.8 to -2.0 dexi scan Pain in right knee Pulmonary embolism ([facility]) 05/2021 left lung- due to inactivity Rash easily bruises Retention of urine Risk for falls Fall risk due to MS/has cane and walker Tinea unguium Urinary tract infection last one 05/2021- I get them often Urine incontinence Episodically has to wear pads Varicella Visual impairment glasses Vitamin D deficiency Wears glasses Wheelchair dependent for about 2 years now Past Surgical History: Procedure Laterality Date ADENOIDECTOMY ANTERIOR FUSION INTERBODY CERVICAL C4-5 N/A 06/05/2021 Performed by Nadeem Phan MD at [facility] APPENDECTOMY APPLICATION WOUND VAC LOWER EXTREMITY Right 06/13/2022 Performed by Parker Olguin MD at [facility] ARM SURGERY left shoulder replacement ARTHROPLASTY STEM AUGMENT TOTAL KNEE Right 12/09/2017 Performed by Tye Schwartz DO at [facility] SECTION x3 COLONOSCOPY 02/2017,08/2010 CYSTOSCOPY N/A 11/23/2022 Performed by Mira Stevens Jr., MD at [facility] CYSTOSCOPY INSERTION CATHETER ESTRELLA N/A 11/23/2022 Performed by Mira Stevens Jr., MD at [facility] JOINT REPLACEMENT bilateral knees KNEE SURGERY Right 12/24/[address] [facility] non union patella Right 06/13/2022 Performed by Parker Olguin MD at [facility] SUR[facility]ERY REVERSE ARTHROPLASTY TOTAL SHOULDER Left 09/18/2021 Performed by Alvaro Orozco MD at [facility] REVISION TOTAL JOINT KNEE Right 06/13/2022 Performed by Parker Olguin MD at [facility] SUR[facility]ERY REVISION TOTAL JOINT KNEE Right 12/10/2017 Performed by Tye Schwartz DO at [facility] SPINE SURGERY fused c4&5 TONSILLECTOMY TOOTH EXTRACTION 10/22/2017 TWO TEETH WERE EXTRACTED TUBAL LIGATION Family History Problem Relation Age of Onset Heart attack Mother Cancer Mother Lung cancer Mother Heart attack Father Cancer Father Lung cancer Father Cancer Sister Lung cancer Sister Anesthesia problems Neg Hx Current Outpatient Medications Medication Sig Dispense Refill amLODIPine (NORVASC) 5 mg tablet TAKE 1 TABLET IN THE MORNING FOR HIGH BLOOD PRESSURE 90 tablet 3 apixaban (ELIQUIS) 2.5 mg tablet Take 1 tablet (2.5 mg total) by mouth in the morning and 1 tablet (2.5 mg total) before bedtime. 180 tablet 3 cranberry 500 mg capsule Take 1 capsule by mouth daily. dalfampridine (AMPYRA) 10 mg tablet extended release 12 hr Take 1 tablet (10 mg total) by mouth every 12 (twelve) hours. ergocalciferol (VITAMIN D2) 1,250 mcg (50,000 unit) capsule Take 1 capsule (50,000 Units total) by mouth once a week. 12 capsule 3 ibandronate (BONIVA) 150 mg tablet TAKE 1 TABLET EVERY 30 DAYS, TAKE IN THE MORNING WITH GLASS OF WATER PRIOR TO FOOD, DO NOT LIE DOWN FOR 60 MINUTES 3 tablet 1 lisinopril-hydroCHLOROthiazide (PRINZIDE,ZESTORETIC) 20-12.5 mg per tablet TAKE 1 TABLET IN THE MORNING FOR HIGH BLOOD PRESSURE 90 tablet 3 metoprolol succinate XL (TOPROL XL) 50 mg 24 hr tablet Take 1 tablet (50 mg total) by mouth in the morning. 90 tablet 3 POLY-IRON 150 mg iron capsule TAKE 1 CAPSULE IN THE MORNING 90 capsule 3 potassium chloride (KLOR-CON M 10) 10 MEQ CR tablet TAKE 1 TABLET IN THE MORNING 90 tablet 3 SENNA 8.6 mg tablet Take 2 tablets every day by oral route. sertraline (ZOLOFT) 100 mg tablet TAKE 1 TABLET IN THE MORNING 90 tablet 3 sertraline (ZOLOFT) 50 mg tablet Take 1 tablet (50 mg total) by mouth in the morning. 30 tablet 5 simvastatin (ZOCOR) 20 mg tablet TAKE 1 TABLET NIGHTLY 90 tablet 3 tamsulosin (FLOMAX) 0.4 mg capsule Take 2 capsules (0.8 mg total) by mouth nightly. traZODone (DESYREL) 100 mg tablet TAKE 1 TABLET NIGHTLY 90 tablet 3 alfuzosin (UROXATRAL) 10 mg 24 hr tablet Take 1 tablet (10 mg total) by mouth in the morning. (Patient not taking: Reported on 10/09/2024) 90 tablet 3 cefaDROXil (DURICEF) 500 mg capsule Take 1 capsule (500 mg total) by mouth in the morning and 1 capsule (500 mg total) before bedtime. Do all this for 7 days. 14 capsule 0 No current facility-administered medications for this visit. (All medications reviewed and updated by provider since last office visit or hospitalization) Allergies: Adhesive Tobacco History: Social History Tobacco Use Smoking Status Former Current packs/day: 0.00 Types: Cigarettes Start date: 11/18/1968 Quit date: 11/18/1978 Years since quittin.9 Smokeless Tobacco Never (If patient a smoker, smoking cessation counseling offered) Social History: Social History Substance and Sexual Activity Alcohol Use Not Currently Review of Systems: General: Negative for chills and fever. Cardiovascular: Negative for chest pain and shortness of breath. Gastrointestinal: Negative for constipation, diarrhea, nausea, and vomitting. -per HPI Physical Exam: BP 109/66 Pulse 60 Ht 172.7 cm (5' 8 ) Wt 106.6 kg (235 lb) BMI 35.73 kg/m Alert, pleasant, without signs of acute illness, and in no distress. Respirations unlabored . Skin dry on examination now. Sitting in a wheelchair Assessment and Plan: Jennifer was seen today for follow-up. Diagnoses and all orders for this visit: Urologic disorders Urinary retention - Creatinine includes GFR, serum; Future - Ultrasound retroperitoneal complete; Future Neurogenic bladder - Creatinine includes GFR, serum; Future - Ultrasound retroperitoneal complete; Future Other orders - cefaDROXil (DURICEF) 500 mg capsule; Take 1 capsule (500 mg total) by mouth in the morning and 1 capsule (500 mg total) before bedtime. Do all this for 7 days. Problem List Unprioritized Urologic disorders - Primary Overview 1. Aortic stenosis and multiple sclerosis with Recurrent postoperative urinary retention most recently May 2021 status post 05/31/2021 fall and cervical diskectomy C 4-5 fusion with nondisplaced C5 fracture [facility] 06/02/2021 350 mL with successful voiding trial at [facility] approximately 2 weeks after 06/07/2021 discharge; baseline creatinine 0.76 on 05/18/2021; prior retention following knee surgery 2018; 07/28/2022 E coli and Providencia polymicrobial UTI with gross hematuria with Eliquis use with greater than 2 L urinary retention following 06/13/2022 right total knee arthroplasty, then PVR 823 mL 09/14/2022 after patient's son removed her Estrella catheter 09/13/2022; son Galileo 2. Longstanding urge urinary incontinence treated by [facility] with oxybutynin XL 10 mg daily, complicated by multiple sclerosis, obesity, , Caesarean section x3, history of colonoscopy, history of appendectomy, wheelchair status secondary MS and to severe arthritis both knees status post multiple surgeries with self transfer to toilet capability 3. neurogenic bladder secondary to multiple sclerosis presently minimally incontinent spotting 1 pad daily 4. Chronic constipation 5. Recurrent UTIs 6. Multiple bladder diverticuli CT 05/31/2021; multiple right-sided bladder diverticuli cystoscopy 11/23/2022 7. The need for bladder diverticulum surveillance described 08/11/2021 8. Urinary urgency with difficulty voiding. 9. Absent from requested 4 months follow-up from 09/08/2021 until 09/14/2022 10. Right total knee arthroplasty 06/13/2022 11. Urodynamics 10/08/2022 low capacity bladder 221 mL without hyperreflexia and with poor detrusor contraction with voiding attempt unable to void; residual 500 mL 11/23/2022 and true postvoid residual on 12/14/2022 was 220 mL. 12. Chronic urinary retention secondary to multiple sclerosis requiring at least weekly catheterizations with 14 Swedish catheter Urinary retention Relevant Orders Creatinine includes GFR, serum Ultrasound retroperitoneal complete Neurogenic bladder Relevant Orders Creatinine includes GFR, serum Ultrasound retroperitoneal complete Follow-up: 1. Fill and pull voiding trial at [facility] in 3 or 4 days 2. Follow-up appointment with me 10/30/2024 The visit included use of Patient's son to provide history. Patient returns, after very extended absence since requested 6 months follow-up from 04/12/2023, again today with her son in follow-up of neurogenic bladder and urinary retention. Notes she has been out of her urologic medications for some time specifically the Uroxatral but was actually started by others on Flomax subsequently. They actually discontinued intermittent self catheterization because a residuals were running 50-150 mL. She fell a couple months later was taken to the ER and diagnosed and hospitalized with severe dehydration and mild UTI and was discharged with an indwelling Estrella catheter, which nursing facility has declined to remove. They note there was discussion with the facilities providers about needing her on a antibiotic that had to be completed for 5 days prior to a voiding trial, and apparently she was on antibiotic at 1 point but they were not sure what antibiotic. She was at [facility] and is now at [facility]. She has had 85 days of physical therapy but is not making much progress and requires a lift. Flomax has been increased to 0.8 mg nightly. There understandably concerned about her catheter would like to try to get it out. I would agree completely. I provided independent interpretation of films and reports of Retroperitoneal ultrasound of October 2023 showing residual 151.5 mL but normal kidneys and otherwise normal bladder. Serum creatinine 0.88 on 07/15/2024. Those are obviously both fairly remote tests.. We discussed management. Facility forms completed. Continue Flomax 0.8 mg nightly and remain off the Uroxatral. That is fine. Return next Saturday or Saturday to our [place] office with appropriate lift equipment for fill and pull voiding trial there. Return to see me 10/30/2024 with follow-up retroperitoneal ultrasound and serum creatinine and contact us in the meantime for fever or obvious difficulty voiding. Thank you very much. I appreciate being asked to help with this patient's care. Urology service is the sole provider for the patient's ongoing management of Neurogenic bladder, which is a chronic condition requiring ongoing follow-up. MIRA STEVENS JR, MD This note was created with the assistance of a speech recognition program. While intending to generate a timely document that accurately reflects the content of the visit, no guarantee can be provided that every grammatical or spelling mistake has been or will be identified or corrected. Thank you for your understanding. documented in this encounter [employer] 09-15-2024 History of Presen t illness Narrative Subjective Jennifer Avendano is a 78 y.o. year old female Chief Complaint Patient presents with Multiple Sclerosis Past Medical History: Diagnosis Date Depression ([facility]) 05/13/2008 Gait abnormality 06/05/2010 Insomnia, unspecified 05/13/2008 Multiple sclerosis ([facility]) 10/25/2017 Vitamin D deficiency 08/17/2014 Weakness 10/25/2017 Past Surgical History: Procedure Laterality Date SECTION, LOW TRANSVERSE x3 CT ANGIOGRAM HEART CORONARY 12/30/2021 CT ANGIOGRAM TAVR 12/30/2021 CT ANGIOGRAM HEART CORONARY 04/06/2021 CT ANGIOGRAM TAVR 04/06/2021 KNEE SURGERY Right 2021 TONSILLECTOMY TOTAL KNEE ARTHROPLASTY Bilateral 11/26/2019 TUBAL LIGATION x2 TYMPANOSTOMY TUBE PLACEMENT Family History Problem Relation Name Age of Onset Hypertension Mother Heart disease Mother Hypertension Father Heart disease Father Social History Tobacco Use Smoking status: Former Types: Cigarettes Smokeless tobacco: Never Substance Use Topics Alcohol use: Never HPI Multiple Sclerosis Associated symptoms include weakness. Pertinent negatives include no chest pain, fatigue, headaches or numbness. MS -she had a fall on 07/12 -Fell transferring off the toilet -Went to the ER and was diagnosed with a UTI and dehydration -has CT scan of the head and cervical spine while in hospital -she is currently in a long term doing PT -not improving -Taking Ampyra and has noticed some benefit but not a big benefit ROS Review of Systems Constitutional: Negative for activity change, fatigue and unexpected weight change. Cardiovascular: Negative for chest pain, palpitations and leg swelling. Musculoskeletal: Positive for back pain and gait problem. Skin: Negative for color change and pallor. Neurological: Positive for weakness. Negative for dizziness, speech difficulty, light-headedness, numbness and headaches. Psychiatric/Behavioral: Positive for confusion. Negative for sleep disturbance. The patient is nervous/anxious. Objective Visit Vitals BP 110/70 (BP Location: Left arm, Patient Position: Sitting) Ht 5' 8 Wt 235 lb BMI 35.73 kg/m Smoking Status Former BSA 2.27 m Neurological Exam Mental Status Awake, alert and oriented to person, place and time. Speech is normal. Language is fluent with no aphasia. Attention and concentration are normal. Cranial Nerves CN II: Visual acuity is normal. Visual baltazar full to confrontation. CN III, IV, : Extraocular movements intact bilaterally. Normal lids and orbits bilaterally. Pupils equal round and reactive to light bilaterally. CN V: Facial sensation is normal. CN VII: Full and symmetric facial movement. CN VIII: Hearing is normal. CN IX, X: Palate elevates symmetrically. Normal gag reflex. CN XI: Shoulder shrug strength is normal. CN XII: Tongue midline without atrophy or fasciculations. Coordination Right: [id number] normal. Rapid alternating movement normal. Gait Wheelchair bound. Motor Examination RUE Strength deltoid, biceps, triceps, wrist extensors, wrist extensors, wrist flexor, varnish supervisor strength 5/5. LUE Strength deltoid, biceps, triceps, wrist extensors, wrist extensors, wrist flexor, varnish supervisor strength 5/5. RLE Strength illopsoas, quadriceps, tibialis anterior, and gastrocnemius strength 5/5. LLE Strength illopsoas, quadriceps, tibialis anterior, and gastrocnemius strength 4/5. Tone Normal tone x4 extremities. Reflexes: RUE biceps reflex 2, brachioradialis reflex 2 LUE biceps reflex 2, brachioradialis reflex 2 RLE knee reflex 2, LLE knee reflex 1, Assessment and Plan Multiple Sclerosis MS with weakness but has had 2 recent knee replacements. She continues to be wheelchair bound. Betaseron discontinued due to stable MRIs and age. Last known possible exacerbation was 2017. MRI brain 11/2019 revealed stable changes as compared to 2018 with no new or active lesions. She has deconditioning which is confounded by her orthopedic issues. Updated brain MRI from [facility] [place] (08/2021) reviewed with patient through patients portal, revealed possible new lesions. There was no note of active lesions. She has been in and out of long term due to falls/surgeries and may have had lapse in medications. Patient was seen at [facility] 01/04/2022 for MS flare and had imaging updated at that time. Brain MRI 12/2021 with and without contrast revealed sever confluent white matter changes consistent with advanced multiple sclerosis. There were no enhancing lesions and slight apparent interval increase, potentially related to technical changes vs disease progression. Cervical spine MRI 12/2021 revealed no cord signal abnormalities or enhancing lesions. Thoracic spine MRI 12/2021 revealed no cord signal abnormality or enhancement. There was note of chronic compression deformities T11 and T12 and L1. She is having some urinary retention and following with urology. Brain MRI and Cervical spine MRI 12/2022 were stable. She was recently in at [facility] [place] 07/12/2024 after a fall while trying to transfer and was diagnosed with a UTI and dehydration. She went into a long term after for rehab which has not improved balance so far. She had a CT scan of the brain and cervical spine while admitted that did not reveal anything acute. She was started on Ampyra with some benefit in ambulation. Most Recent Imaging MRI of the brain 12/13/23: Motion limited exam with similar appearing severe burden of white matter disease. No definite new or enhancing lesion. Cervical spine 12/13/23: Motion and artifact limited exam with question of similar-appearing cord lesion at C3. Multilevel degenerative and postsurgical changes of the cervical spine as described, similar to prior, most prominent at C5-C6 where there is moderate spinal canal stenosis. MRI of the thoracic spine 02/17/24: stable without new lesions. Weakness Chronic weakness and debility related to history of MS. She has been experiencing worsening left leg weakness and difficulty with ambulation over the past two years. Worsening in March 2023. She no showed the EMG of the BLE. She completed PT that was not helpful in improving symptoms. The patient had an MRI of the lumbar spine 02/17/24 that was stable from previous MRI in 2021, no vertebral fracture, high-grade spinal stenosis, or high-grade foraminal stenosis. Cognitive changes Patient has been experiencing cognitive changes for years likely multifactorial related to underlying depression and history of MS. She is on zoloft per another prescriber. PLAN I counseled the patient on fall precautions at length. I discussed the high risk of trauma and debility associated with falls. The patient states understanding. The patient is at high risk for morbidity and mortality due to frequent falls. Continue PT at the long term for balance Continue Ampyra for gait I will update an MRI of the brain due to worsening symptoms Can consider EMG of the BLE pending course of symptoms. documented in this encounter [facility] 09-01-2024 Miscellaneous Notes A user error has taken place: encounter opened in error, closed for administrative reasons. documented in this encounter [facility] 09-01-2024 Telephone encounter Note A user error has taken place: encounter opened in error, closed for administrative reasons. [facility] History of Presen t illness Narrative Images from the original note were not included. [facility] [address] [place] [address], [address] [place] [address] * CHART NOTE ? 01/09/2024 Patient: Jennifer Avendano [id number] Nurse Practitioner: Adelaida Grajeda HATCHERY ATTENDANT Physician: Nadeem Phan MD, FAANS CHIEF COMPLAINT Frequent falls HISTORY OF PRESENT ILLNESS 78 year old female presents to the office as a new patient for a cervical spine and NPH consultation. Patient is accompanied today by her who reports that since April of 2023 she has fallen around 3 times. These occurred during transfers when she would fall off her bed. Her reports that her gait is unsteady when she tries to ambulate with a walker. Patient advised on obtaining further imaging and returning. Denies loss of varnish supervisor strength, saddle anesthesia, urinary or bowel dysfunction, weakness, numbness or tingling, radicular symptoms. Patient presents in a wheelchair. Patient is not diabetic and former smoker. Hx of anterior interbody fusion C4-5 on 06-05-2021. Advises of a hx of MS but is not taking any medication for it. ALLERGIES No Known Allergies MEDICATIONS Current Outpatient Medications: alfuzosin (UROXATRAL) 10 mg 24 hr tablet, Take 1 tablet (10 mg total) by mouth in the morning., Disp: 90 tablet, Rfl: 3 amLODIPine (NORVASC) 5 mg tablet, TAKE 1 TABLET IN THE MORNING FOR HIGH BLOOD PRESSURE, Disp: 90 tablet, Rfl: 3 apixaban (ELIQUIS) 5 mg tablet, Take 1 tablet (5 mg total) by mouth in the morning and 1 tablet (5 mg total) before bedtime., Disp: 180 tablet, Rfl: 3 cranberry 500 mg capsule, Take 1 capsule by mouth daily., Disp: , Rfl: ergocalciferol (VITAMIN D2) 1,250 mcg (50,000 unit) capsule, Take 1 capsule (50,000 Units total) by mouth once a week., Disp: 12 capsule, Rfl: 3 ibandronate (BONIVA) 150 mg tablet, TAKE 1 TABLET EVERY 30 DAYS, TAKE IN THE MORNING WITH GLASS OF WATER PRIOR TO FOOD, DO NOT LIE DOWN FOR 60 MINUTES, Disp: 3 tablet, Rfl: 1 lisinopril-hydroCHLOROthiazide (PRINZIDE,ZESTORETIC) 20-12.5 mg per tablet, TAKE 1 TABLET IN THE MORNING FOR HIGH BLOOD PRESSURE, Disp: 90 tablet, Rfl: 3 metoprolol succinate XL (TOPROL XL) 50 mg 24 hr tablet, Take 1 tablet (50 mg total) by mouth in the morning., Disp: 90 tablet, Rfl: 3 POLY-IRON 150 mg iron capsule, TAKE 1 CAPSULE IN THE MORNING, Disp: 90 capsule, Rfl: 3 potassium chloride (KLOR-CON M 10) 10 MEQ CR tablet, TAKE 1 TABLET IN THE MORNING, Disp: 90 tablet, Rfl: 3 sertraline (ZOLOFT) 100 mg tablet, TAKE 1 TABLET IN THE MORNING, Disp: 90 tablet, Rfl: 3 simvastatin (ZOCOR) 20 mg tablet, TAKE 1 TABLET NIGHTLY, Disp: 90 tablet, Rfl: 3 traZODone (DESYREL) 100 mg tablet, TAKE 1 TABLET NIGHTLY, Disp: 90 tablet, Rfl: 3 donepeziL (ARICEPT) 5 mg tablet, Take 1 tablet (5 mg total) by mouth nightly. (Patient not taking: Reported on 01/07/2024), Disp: , Rfl: interferon beta-1b (BETASERON) 0.3 mg injection, Inject 250 mcg under the skin every other day. (Patient not taking: Reported on 01/07/2024), Disp: 1 each, Rfl: VITAL SIGNS BP 140/70 (BP Site: Left Arm, BP Postition: Sitting, BP CUFF SIZE: M (9-13 inches)) Pulse 53 Ht 172.7 cm (5' 8 ) Wt 90.7 kg (200 lb) BMI 30.41 kg/m PAST MEDICAL HISTORY 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[facility]) ADHD (attention deficit hyperactivity disorder) Amnesia Anemia Anxiety Aortic stenosis due to bicuspid aortic valve [id number] mild degree Arthritis left shoulder here for workup for pending reverse left shoulder replacement Arthropathy of left shoulder Back pain due to my inactivity Chronic constipation Chronic pain Clotting disorder ([facility]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 Colon polyps Colonoscopy 2014/polyp benign COVID 02/2021 Deep vein thrombosis ([facility]) lower right leg -05/2021 Dental disease partial on upper and lower Depression WOLF (dyspnea on exertion) DVT (deep venous thrombosis) ([facility]) Eczema Factor V Leiden mutation ([facility]) ONE ALLELE POSITIVE/ HETEROZYGOUS Failure to thrive (child) Former tobacco use Stopped 1978 Heart murmur Heart murmur Hyperlipidemia Hypertension Hypoxemia Insomnia Mechanical loosening of other internal prosthetic joint, initial encounter ([facility]) 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 shoulder Osteoporosis T-1.8 to -2.0 dexi scan Pain in right knee Pulmonary embolism ([facility]) 05/2021 left lung- due to inactivity Rash easily bruises Retention of urine Risk for falls Fall risk due to MS/has cane and walker Tinea unguium Urinary tract infection last one 05/2021- I get them often Urine incontinence Episodically has to wear pads Varicella Visual impairment glasses Vitamin D deficiency Wears glasses Wheelchair dependent for about 2 years now PAST SURGICAL HISTORY Past Surgical History: Procedure Laterality Date ADENOIDECTOMY ANTERIOR FUSION INTERBODY CERVICAL C4-5 N/A 06/05/2021 Performed by Nadeem Phan MD at [facility] APPENDECTOMY APPLICATION WOUND VAC LOWER EXTREMITY Right 06/13/2022 Performed by Parker Olguin MD at [facility] ARM SURGERY left shoulder replacement ARTHROPLASTY STEM AUGMENT TOTAL KNEE Right 12/09/2017 Performed by Tye Schwartz DO at [facility] SECTION x3 COLONOSCOPY 02/2017,08/2010 CYSTOSCOPY N/A 11/23/2022 Performed by Mira Stevens Jr., MD at [facility] CYSTOSCOPY INSERTION CATHETER ESTRELLA N/A 11/23/2022 Performed by Mira Stevens Jr., MD at [facility] JOINT REPLACEMENT bilateral knees KNEE SURGERY Right 12/24/[address] [facility] non union patella Right 06/13/2022 Performed by Parker Olguin MD at [facility] REVERSE ARTHROPLASTY TOTAL SHOULDER Left 09/18/2021 Performed by Alvaro Orozco MD at [facility] REVISION TOTAL JOINT KNEE Right 06/13/2022 Performed by Parker Olguin MD at [facility] REVISION TOTAL JOINT KNEE Right 12/10/2017 Performed by Tye Schwartz DO at [facility] SPINE SURGERY fused c4&5 TONSILLECTOMY TOOTH EXTRACTION 10/22/2017 TWO TEETH WERE EXTRACTED TUBAL LIGATION FAMILY HISTORY Family History Problem Relation Age of Onset Heart attack Mother Cancer Mother Lung cancer Mother Heart attack Father Cancer Father Lung cancer Father Cancer Sister Lung cancer Sister Anesthesia problems Neg Hx SOCIAL HISTORY Social History Socioeconomic History Marital status: Spouse name: Not on file Number of children: 3 Years of education: 12 Highest education level: 12th grade Occupational History Occupation: Retired from school service Tobacco Use Smoking status: Former Years: 10 Types: Cigarettes Quit date: 11/18/1978 Years since quittin.1 Smokeless tobacco: Never Vaping Use Vaping Use: Never used Substance and Sexual Activity Alcohol use: Not Currently Drug use: Never Sexual activity: Defer Other Topics Concern Caffeine Use Yes Social History Narrative Household: Lives by herself but family near by to assist Social Determinants of Health Financial Resource Strain: Low Risk (07/28/2022) Overall Financial Resource Strain (CARDIA) Difficulty of Paying Living Expenses: Not hard at all Food Insecurity: No Food Insecurity (11/12/2023) Hunger Screening Food Insecurity - Worry: Never True Food Insecurity - Inability: Never True Transportation Needs: No Transportation Needs (07/28/2022) PRAPARE - Transportation Lack of Transportation (Medical): No Lack of Transportation (Non-Medical): No Physical Activity: Insufficiently Active (07/28/2022) Exercise Vital Sign Days of Exercise per Week: 5 days Minutes of Exercise per Session: 10 min Stress: No Stress Concern Present (07/28/2022) [employer] [place] [employer] - Occupational Stress Questionnaire Feeling of Stress : Only a little Social Connections: Moderately Isolated (07/28/2022) Social Connection and Isolation Panel [NHANES] Frequency of Communication with Friends and Family: More than three times a week Frequency of Social Gatherings with Friends and Family: More than three times a week Attends [employer] Services: More than 4 times per year Active Member of Clubs or Organizations: No Attends Club or Organization Meetings: Never Marital Status: Interpersonal Safety: Not At Risk (07/28/2022) Humiliation, Afraid, Rape, and Kick questionnaire Fear of Current or Ex-Partner: No Emotionally Abused: No Physically Abused: No Sexually Abused: No Housing Instability: Not on file REVIEW OF SYSTEMS ROS Positive Findings: Negative otherwise noted in the HPI PHYSICAL EXAMINATION Physical Exam: Mental Status: Orientation: Oriented to person. Level of consciousness: alert. Speech: Patient exhibits paucity of speech. Debilitated, in a wheelchair . Cranial Nerves: Cranial Nerve comments: Intact . Motor: Muscle Tone: Normal. Fasciculations: No Has generalized weakness due to poor effort 4+/5 in all the muscle groups of arms and legs No atrophy or fasciculations . Sensory: Light touch normal in upper and lower extremities. Gait/Coord/DTR: Abnormal gait: Unsteady gait. Reflexes: Right brachioradialis 2+ Left brachioradialis 2+ Right biceps 2+ Left biceps 2+ Right triceps 2+ Left triceps 2+ Right patellar 2+ Left patellar 2+ Right achilles 2+ Left achilles 2+ Right varnish supervisor 2+ Left varnish supervisor 2+ Right Casillas reflex absent and left Casillas reflex absent Right ankle clonus absent and left ankle clonus absent. Cannot test gait No Casillas's or clonus . MRI / IMAGES MR cervical spine w and wo contrast 12-13-2023 IMPRESSION: 1. Motion and artifact limited exam with question of similar-appearing cord lesion at C3. 2. Multilevel degenerative and postsurgical changes of the cervical spine as described, similar to prior, most prominent at C5-C6 where there is moderate spinal canal stenosis. I reviewed the imaging studies independently. There are stable postop changes at C4-5. At C5-6 there is a disc herniation and moderate central canal stenosis without myelomalacia. MRI brain demonstrated significant atrophy and questionable ex vacuo dilatation of the ventricles. DIAGNOSIS / PLAN 78 year old female presents to the office as a new patient for a cervical spine and NPH consultation. Patient is accompanied today by her who reports that since April of 2023 she has fallen around 3 times. These occurred during transfers when she would fall off her bed. Her reports that her gait is unsteady when she tries to ambulate with a walker. Patient advised on obtaining further imaging and returning. PLAN: 1. Cisternogram for NPH. 2. CT cervical spine without contrast. 3. MRI thoracic spine without contrast. 4. MRI lumbar spine without contrast. Follow-up after testing is completed. Electronically Signed By: Nadeem Phan MD This note was created with the assistance of a speech recognition program with the goal of generating a timely record of the patient encounter. Inadvertent computerized back end architect errors related to syntax, spelling, homophones, and/or inaudibility may be present. Scribe Statement: Scribed for and in the presence of Nadeem Phan MD by Ananth Hernandez. Provider Statement: I, Nadeem Phan MD personally performed the services described in the documentation, as scribed by OS in my presence, and it is both accurate and complete. [facility] Instructions [facility] - 01/07/2024 10:15 AM EST Patient was seen by Dr. Phan. Patient was given an order for CT Cervical spine without contrast. MRI Thoracic Spine without contrast MRI Lumbar spine without contrast. Cisternogram for NPH. Patient will follow up when CT and MRIs have been scheduled. JA documented in this [facility] 12-31-2023 Miscellaneous Notes First Attempt Made from [employer]- Left Voicemail New patient referral received. Dx:/MS (multiple sclerosis) ([facility]) [G35]/ Referred by:Taylor Pedraza MD Referred to: Providers patient can see in clinic: Kristina Avalos Please contact patient to schedule from referral, Thanks! PLEASE REVIEW PLAN OVER THE PHONE AND ADVISE PATIENT TO BRING UPDATED INSURANCE INFORMATION TO THEIR NEW PATIENT APPOINTMENT 2nd attempt: Called and left patient a voicemail once more letting them know we have received their referral, are ready to schedule, and to call us back at their earliest convenience to do so. Medical Field Representative provided callback number for scheduling or to address any questions or concerns they may have. documented in this encounter [facility] 12-31-2023 Telephone encounter Note First Attempt Made from [employer]- Left Voicemail New patient referral received. Dx:/MS (multiple sclerosis) ([facility]) [G35]/ Referred by:Taylor Pedraza MD Referred to: Providers patient can see in clinic: Kristina Avalos Please contact patient to schedule from referral, Thanks! PLEASE REVIEW PLAN OVER THE PHONE AND ADVISE PATIENT TO BRING UPDATED INSURANCE INFORMATION TO THEIR NEW PATIENT APPOINTMENT [facility] 12-31-2023 Telephone encounter Note 2nd attempt: Called and left patient a voicemail once more letting them know we have received their referral, are ready to schedule, and to call us back at their earliest convenience to do so. Medical Field Representative provided callback number for scheduling or to address any questions or concerns they may have. [facility] 12-30-2023 Miscellaneous Notes [facility] requesting refill of Poly-Iron documented in this encounter [facility] 12-30-2023 Telephone encounter Note [facility] requesting refill of Poly-Iron [facility] 12-20-2023 Miscellaneous Notes Lm/m for patient to return call in regards to Creatinine, and follow up appt (over due results) documented in this encounter [facility] 12-20-2023 Telephone encounter Note Lm/m for patient to return call in regards to Creatinine, and follow up appt (over due results) [facility] 11-29-2023 Miscellaneous Notes [facility] requesting refill of Potassium and Sertraline documented in this encounter [facility] 11-29-2023 Telephone encounter Note [facility] requesting refill of Potassium and Sertraline [facility] 11-21-2023 Miscellaneous Notes Left message to see if they had heard from [facility] regarding the referral for a kristine lift. Will call DME. Called [employer] has been approved and they have called and left messages for [employer] at [phone] to ask for method of payment as they do have a co-pay of 20%. Once that is obtained, they will deliver. documented in this encounter [facility] 11-21-2023 Telephone encounter Note Left message to see if they had heard from [facility] regarding the referral for a kristine lift. Will call DME. Called [employer] and kristine has been approved and they have called and left messages for [employer] at [phone] to ask for method of payment as they do have a co-pay of 20%. Once that is obtained, they will deliver. [employer] Work Phone: 11-20-2023 Miscellaneous Notes Fax received from [employer] requesting refill of Metoprolol documented in this encounter [employer] 11-20-2023 Telephone encounter Note Fax received from [employer] requesting refill of Metoprolol [employer] 11-13-2023 Miscellaneous Notes Contact Type: Direct contact - Face to face visit Met with patient at yesterday's PCP visit per his request. Patient lives with her son Galileo and he is her primary caregiver. Patient is wheelchair bound due to difficulty standing. Ortho says it is because of her MS but neuro says it is because of her weak right leg. Patient is able to lift right leg out, but with difficulty due to weakness. She is able to lift her left leg easier and higher but not do very many reps. Galileo states they try to do exercises at home but it is with difficulty. PCP did order home PT through [facility] and they are interested in a kristine lift to assist with safety of transferring patient. She has had 2 recent falls while attempting to transfer with a walker to wheelchair. Medical Field Representative to reach out to [employer] companies in search of a kristine lift and doc requirements. Contact Type: General Care Coordination Activity Patient meets qualifying criteria as she requires full assist to transfer from bed to wheelchair and she would be confined to bed without a lift. Patient's caregiver was here expressing the increasing difficulty transferring patient in and out of bed to wheelchair and has had 2 recent falls. Patient would be confined to bed without the use of a lift. Will request a kristine lift to aid in transfer safety. documented in this encounter [employer] 11-13-2023 Telephone encounter Note Contact Type: Direct contact - Face to face visit Met with patient at yesterday's PCP visit per his request. Patient lives with her son Galileo and he is her primary caregiver. Patient is wheelchair bound due to difficulty standing. Ortho says it is because of her MS but neuro says it is because of her weak right leg. Patient is able to lift right leg out, but with difficulty due to weakness. She is able to lift her left leg easier and higher but not do very many reps. Galileo states they try to do exercises at home but it is with difficulty. PCP did order home PT through [facility] and they are interested in a kristine lift to assist with safety of transferring patient. She has had 2 recent falls while attempting to transfer with a walker to wheelchair. Medical Field Representative to reach out to [employer] in search of a kristine lift and doc requirements. [employer] Work Phone: 11-13-2023 Telephone encounter Note Contact Type: General Care Coordination Activity Patient meets qualifying criteria as she requires full assist to transfer from bed to wheelchair and she would be confined to bed without a lift. Patient's caregiver was here expressing the increasing difficulty transferring patient in and out of bed to wheelchair and has had 2 recent falls. Patient would be confined to bed without the use of a lift. Will request a kristine lift to aid in transfer safety. [employer] Evaluation note Diagnosis Essential hypertension, benign documented in this encounter [employer]* Diagnosis Essential hypertension Unspecified essential hypertension Major depressive disorder with single episode, in full remission ([facility]) [facility] Diagnosis Cervical stenosis of spinal canal- Primary Spinal stenosis in cervical region MS (multiple sclerosis) ([facility]) Multiple sclerosis [facility] Diagnosis Cervical stenosis of spinal canal- Primary Spinal stenosis in cervical region Cervical spondylosis Cervical spondylosis without myelopathy [facility] Diagnosis Multiple sclerosis ([facility]) Multiple sclerosis Weakness Other malaise and fatigue Cognitive changes [facility] Diagnosis Urinary urgency- Primary Urgency of urination Urinary retention Unspecified retention of urine Urologic disorders- Primary Unspecified disorder of urethra and urinary tract Urinary retention Unspecified retention of urine Neurogenic bladder Neurogenic bladder, NOS documented [facility] filed[facility]ed in this [facility] filedocumented in this encounter [facility] filedocumented in this encounter [facility] filedocumented in this encounter [facility] filedocumented in this encounter [facility] filedocumented in this encounter [facility] on filedocumented in this encounter [facility] filedocumented in this encounter [facility] on filedocumented in this encounter [facility] on filedocumented in this encounter [facility] (narrative)* Consultation (Routine) - Pending Review Specialty Diagnoses / Procedures Referred By Pako shafer Referred To Contact Neurology Diagnoses MS (multiple sclerosis) ([facility]) Taylor Pedraza MD [address] [place] [address] Sp Nuñez MD [address] [place] [address] Referral ID Status Reason Start Date Expiration Date Visits Requested Visits Authorized [id number] Pending Review Specialty Services Required 12/23/2023 12/22/2024 1 1 * Consultation (Routine) - Pending Review Specialty Diagnoses / Procedures Referred By Pako shafer Referred To Contact Neurosurgery Diagnoses Cervical stenosis of spinal canal Taylor Pedraaz MD [address] [place] [address] [place] [id number] [facility] [address] [place] [address] Referral ID Status Reason Start Date Expiration Date Visits Requested Visits Authorized [id number] Pending Review Specialty Services Required 12/23/2023 12/22/2024 1 1 [facility] Summary Purpose Family History No Family History Records FoundNo Family History Records FoundNo Family History Records FoundNo Family History Records FoundNo Family History Records FoundNo Family History Records FoundNo Family History Records Found Advance Directives No Advanced Directives Records FoundDocuments on File Type Date Recorded Patient Marketing Research Intern Expl anation Durable Power of Legislative Correspondent 11/12/2023 2:37 PM ADDENED DURABLE POA 12/16/2014 Living Will 06/22/2022 4:08 PM Durable Power of Legislative Correspondent 06/22/2022 4:08 PM DNR Physician Order 01/11/2022 6:07 AM Latest Code Status on File Code Status Date Activated Date Inactivated Comments Full Code 07/28/2022 5:02 PM 08/02/2022 10:15 PM Code Status History Code Status Date Activated Date Inactivated Comments Full Code 06/14/2022 7:04 AM 06/19/2022 2:18 PM DNR Comfort Care Arrest (DNR-CCA) [place] 12/31/2021 5:43 AM 01/04/2022 8:42 PM Full Code 12/31/2021 2:06 AM 12/31/2021 5:43 AM Full Code 05/31/2021 1:23 AM 06/08/2021 1:44 AM Healthcare Agents on File Name Relationship Healthcare Agent Relationship Communication [facility] Health Care Agent [id number] (Mobile) Larry Lord First Alternate Health Care Agent Healthcare Agents on File Name Relationship Healthcare Agent Relationship Communication Galileo Lord Health Care Agent [id number] (Mobile) Larry Lord First Alternate Health Care Agent Healthcare Agents on File Name Relationship Healthcare Agent Relationship Communication Galileo Lord Health Care Agent [id number] (Mobile) Larry Lord First Alternate Health Care Agent Healthcare Agents on File Name Relationship Healthcare Agent Relationship Communication Galileo Lord Health Care Agent [id number] (Mobile) Larry Lord First Alternate Health Care Agent Healthcare Agents on File Name Relationship Healthcare Agent Relationship Communication Galileo Lord Health Care Agent [id number] (Mobile) Larry Solis Alternate Health Care Agent Documents on File Type Date Recorded Patient Marketing Research Intern Expl anation Durable Power of Legislative Correspondent 11/12/2023 2:37 PM ADDENED DURABLE POA 12/16/2014 Living Will 06/22/2022 4:08 PM Durable Power of Legislative Correspondent 06/22/2022 4:08 PM DNR Physician Order 01/11/2022 6:07 AM Latest Code Status on File Code Status Date Activated Date Inactivated Comments Full Code 07/28/2022 5:02 PM 08/02/2022 10:15 PM Code Status History Code Status Date Activated Date Inactivated Comments Full Code 06/14/2022 7:04 AM 06/19/2022 2:18 PM DNR Comfort Care Arrest (DNR-CCA) [place] 12/31/2021 5:43 AM 01/04/2022 8:42 PM Full Code 12/31/2021 2:06 AM 12/31/2021 5:43 AM Full Code 05/31/2021 1:23 AM 06/08/2021 1:44 AM Healthcare Agents on File Name Relationship Healthcare Agent Relationship Communication Galileo Lord Health Care Agent [email or web address] Larry Lord First Alternate Health Care Agent Healthcare Agents on File Name Relationship Healthcare Agent Relationship Communication Galileo Lord Health Care Agent Larry Lord First Alternate Health Care Agent Healthcare Agents on File Name Relationship Healthcare Agent Relationship Communication Galileo Lord Health Care Agent Larry Solis Alternate Health Care Agent Date Activated Date Inactivated Comments 07/12/2024 9:39 PM 07/15/2024 1:23 PM Date Activated Date Inactivated Comments 07/28/2022 5:02 PM 08/02/2022 10:15 PM Date Activated Date Inactivated Comments 06/14/2022 7:04 AM 06/19/2022 2:18 PM Date Activated Date Inactivated Comments 12/31/2021 5:43 AM 01/04/2022 8:42 PM Date Activated Date Inactivated Comments 12/31/2021 2:06 AM 12/31/2021 5:43 AM Healthcare Agents on File Name Relationship Healthcare Agent Relationship Communication Galileo Lord Health Care Agent Larry oLrd First Alternate Health Care Agent Documents on File Type Date Recorded Patient Marketing Research Intern Expl anation Advance Directives and Livin g Will 07/07/2019 2019-07-06 dnc Advance Directives and Livin g Will 05/26/2018 2018-05-26 [facility] Healthcare Agents on File Name Relationship Healthcare Agent Relationship Communication Galileo Lord Health Care Agent [email or web address] Larry Solis Alternate Health Care Agent Healthcare Agents on File Name Relationship Healthcare Agent Relationship Communication Galileo Lord Health Care Agent [email or web address] Larry Solis Alternate Health Care Agent Reason for Referral Specialty Diagnoses / Procedures Referred By Contac t Referred To Contact Radiology Diagnoses Cervical stenosis of spinal canal Cervical spondylosis Procedures IR injection lumbar/sacral for diagnosis/cisternogram IR injection lumbar/sacral for diagnosis/cisternogram IR injection lumbar/sacral for diagnosis/cisternogram Nadeem Phan MD [address] [place] [phone] Referral ID Status Reason Start Date Expiration Date V isits Requested Visits Authorized [id number] Pending Review 01/07/2024 01/06/2025 1 1 Specialty Diagnoses / Procedures Referred By Contac t Referred To Contact Radiology Diagnoses Cervical stenosis of spinal canal Cervical spondylosis Procedures MR lumbar spine without contrast Nadeem Phan MD [address] [place] [address] [address] [place] [phone] Referral ID Status Reason Start Date Expiration Date V isits Requested Visits Authorized [id number] Pending Review 01/07/2024 01/06/2025 1 1 Specialty Diagnoses / Procedures Referred By Contac t Referred To Contact Radiology Diagnoses Cervical stenosis of spinal canal Cervical spondylosis Procedures MR thoracic spine without contrast Nadeem Phan MD [address] [place] [address] [address] [place] [phone] Referral ID Status Reason Start Date Expiration Date V isits Requested Visits Authorized [id number] Pending Review 01/07/2024 01/06/2025 1 1 Specialty Diagnoses / Procedures Referred By Contkenn t Referred To Contact Radiology Diagnoses Cervical stenosis of spinal canal Cervical spondylosis Procedures CT cervical spine without contrast Nadeem Phan MD [address] [place] [address] [address] [place] [phone] Referral ID Status Reason Start Date Expiration Date V isits Requested Visits Authorized [id number] Pending Review 01/07/2024 01/06/2025 1 1 Additional Source Comments INFORMATION SOURCE (unrecogn ized section and content) DATE CREATED AUTHOR 05/08/2018 [facility] DATE CREATED AUTHOR AUTHOR'S ORGANIZ ATION 04/20/2021 [facility] DATE CREATED AUTHOR AUTHOR'S ORGANIZ ATION 08/20/2022 [facility] DATE CREATED AUTHOR AUTHOR'S ORGANIZ ATION 04/15/2024 [facility] DATE CREATED AUTHOR AUTHOR'S ORGANIZ ATION 09/16/2024 [facility] Specialists [facility] DATE CREATED AUTHOR AUTHOR'S ORGANIZ ATION 10/12/2024 [facility] DATE CREATED AUTHOR AUTHOR'S ORGANIZ ATION 10/21/[address] [facility] Care Teams (unrecognized sec tion and content) Fine Hairer Relationship Specialty Start Date End Date Taylor Pedraza MD [address] [place] [address] PCP - General Family Medicine 08/11/21 Fine Hairer Relationship Specialty Start Date End Date Taylor Pedraza MD [address] [place] [address] PCP - General Family Medicine 08/11/21 Fine Hairer Relationship Specialty Start Date End Date Taylor Pedraza MD [address] [place] [address] PCP - [facility] 08/11/21 Fine Hairer Relationship Specialty Start Date End Date Taylor Pedraza MD [address] [place] [address] PCP - [facility] 08/11/21 Fine Hairer Relationship Specialty Start Date End Date Taylor Pedraza MD [address] [place] [address] PCP - [facility] 08/11/21 Fine Hairer Relationship Specialty Start Date End Date Taylor Pedraza MD [address] [place] [address] PCP - [facility] 08/11/21 Fine Hairer Relationship Specialty Start Date End Date Taylor Pedraza MD [address] [place] [address] PCP - [facility] 08/11/21 Fine Hairer Relationship Specialty Start Date End Date Taylor Pedraza MD [address] [place] [address] PCP - [facility] 08/11/21 Fine Hairer Relationship Specialty Start Date End Date Taylor Pedraza MD [address] [place] [address] PCP - [facility] 08/11/21 Fine Hairer Relationship Specialty Start Date End Date Rajani Choudhury MD [address] [place] [address] Referring Physician Neurology 3/14/24 Fine Hairer Relationship Specialty Start Date End Date Taylor Pedraza MD [address] [place], [place] [id number] PCP - General [facility] Medicine 08/11/21 Fine Hairer Relationship Specialty Start Date End Date Taylor Pedraza MD [address] [place], [place] [id number] PCP - General [facility] Medicine 08/11/21 Reason for Visit (unrecogniz ed section and content) Reason Comments Med Refill Reason Onset Date Comments Med Refill 11/20/2023 Reason Onset Date Comments Care Navigation 11/21/2023 Reason Onset Date Comments NEW PATIENT REFERRAL 12/31/2023 Reason Comments Consult EP/REPAIRER RESISTANCE WELDING MACHINESCervical Specialty Diagnoses / Procedures Referred By Pako shafer Referred To Contact Neurosurgery Diagnoses Cervical stenosis of spinal canal Taylor Pedraza MD [address] [place] [address] [place] [address] [phone] Referral ID Status Reason Start Date Expiration Date V isits Requested Visits Authorized [id number] Closed Specialty Services Required 12/23/2023 12/22/2024 1 1 Reason Onset Date Comments Transition Of Care 09/01/2024 Reason Comments Multiple Sclerosis Reason Comments Follow-up FOR RECORDS PERTAINING TO PATIENTS WHO ARE OR HAVE BEEN ENROLLED IN A CHEMICAL DEPENDENCY/SUBSTANCEABUSE PROGRAM, SOME INFORMATION MAY BE OMITTED. This clinical summary was aggregated from multiple sources. Caution should be exercised in using it in the provision of clinical care. This summary normalizes information from multiple sources, and as a consequence, information in this document may materially change the coding, format and clinical context of patient data. In addition, data may be omitted in some cases. CLINICAL DECISIONS SHOULD BE BASED ON THE PRIMARY CLINICAL RECORDS. [employer] [facility]. provides no warranty or guarantee of the accuracy or completeness of information in this document.
[2024-10-29 04:37] LABS: Basophils Absolute Auto 0.1 10^3/uL (0.0-0.1); Basophils Percent Auto 0.6 % (0.2-2.0); Bilirubin Urine NEGATIVE (NEGATIVE); Blood Urine SMALL (NEGATIVE); Clarity Urine CLEAR (CLEAR); Color Urine LT. YELLOW (YELLOW); Eosinophils Absolute Auto 0.2 10^3/uL (0.0-0.7); Eosinophils Percent Auto 2.4 % (0.9-7.0); Glucose Urine UA NEGATIVE (NEGATIVE); Hematocrit 34.7 % (36.0-48.0); Immature Granulocytes Abs Auto 0.03 10^3/uL (0.00-0.03); Immature Granulocytes Pct Auto 0.3 % (0.0-0.5); Ketones Urine NEGATIVE (NEGATIVE); Leukocyte Esterase Urine MODERATE (NEGATIVE); Lymphocytes Absolute Auto 1.2 10^3/uL (1.2-3.8); Lymphocytes Percent Auto 12.1 % (20.5-60.0); Mean Corpuscular HGB Conc 31.7 g/dL (29.9-35.2); Mean Corpuscular Hemoglobin 28.6 pg (26.7-34.0); Mean Corpuscular Volume 90.4 fL (81.0-99.0); Mean Platelet Volume 9.5 fL (9.5-13.5); Monocytes Absolute Auto 0.8 10^3/uL (0.3-0.8); Monocytes Percent Auto 8.5 % (1.7-12.0); Neutrophils Absolute Auto 7.5 10^3/uL (1.4-6.5); Neutrophils Percent Auto 76.1 % (43.0-75.0); Nitrite Urine NEGATIVE (NEGATIVE); Platelet Count 217 10^3/uL (150-450); Protein Urine TRACE mg/dL (NEG/TRACE); Red Blood Count 3.84 10^6/uL (4.20-5.40); Red Cell Distribution Width 13.2 % (11.0-15.0); Specific Gravity Urine >=1.030 (1.005-1.025); Urobilinogen Urine 0.2 EU/dL (0.2-1.0); White Blood Count 9.9 10^3/uL (4.0-11.0)
[2024-10-29 04:50] LABS: Urine Microscopic Indicated YES
[2024-10-29 04:53] LABS: Bacteria Urine MODERATE #/HPF (NONE SEEN); Mucus Urine NONE SEEN (NONE SEEN); Squamous Epithelial Cell Urine RARE #/LPF (NONE/RARE); WBC Urine 20-50 #/HPF (NONE SEEN)
[2024-10-29 04:54] LABS: Cast Seen? SEEN #/LPF (NONE SEEN); Crystals Seen? None Seen #/HPF (None Seen); Hyaline Casts Urine FEW; Urine Culture Indicated YES
[2024-10-29 05:02] LABS: Alanine Aminotransferase 18 U/L (14-59); Albumin Globulin Ratio 1.1; Albumin Level 2.7 g/dL (3.4-5.0); Alkaline Phosphatase 57 U/L (46-116); Anion Gap 13.1; Aspartate Amino Transferase 12 U/L (15-37); BUN Creatinine Ratio 28.9; Bilirubin Total 0.3 mg/dL (0.2-1.0); Calcium 8.6 mg/dL (8.5-10.1); Carbon Dioxide 25.4 mmol/L (21.0-32.0); Chloride 108 mmol/L (98-107); Estimated GFR (African America 40 (>=60 mL/min/1.73m^2); Estimated GFR (Non-African Ame 33 (>=60 mL/min/1.73m^2); Globulin 2.4 g/dL; Glucose 105 mg/dL (74-106); Potassium 4.5 mmol/L (3.5-5.1); Sodium 142 mmol/L (136-145); Total Protein 5.1 g/dL (6.4-8.2)
== END 2024-10-29 04:24 | disposition home or self-care (01) ==
LOC: LAB 04:23
PROVIDERS: PCP Family Medicine; Visit Provider Student in an Organized Health Care Education/Training Program
DX: N39.0 Urinary tract infection, site not specified (principal); R41.82 Altered mental status, unspecified
CPT/HCPCS: 36415; 80053; 81001; 85025; 87086; 87186

== ENCOUNTER 2025-01-06 16:50 | Outpatient (REF) | payer MEDICARE, MEDICAID, SELFPAY ==
--- OUTSIDE RECORDS SUMMARY | 2025-01-06 17:02 | XMS_ITS | CCD ---
Author Organization [facility] Care Team Providers Care Manager Food Name Role Phone SELF, REFERRED Unavailable Unavailable ILO, MAXIMINO Unavailable Unavailable PRETTY, SUMMON Unavailable Unavailable PRETTY, SUMMON Unavailable Unavailable VT Unavailable Unavailable PRETTY, SUMMON Unavailable Unavailable VT Unavailable Unavailable YERMAL, SOORAJ G Unavailable Unavailable PRETTY, SUMMON Unavailable Unavailable PRETTY, SUMMON Unavailable Unavailable PRETTY, SUMMON Unavailable Unavailable ILO, MAXIMINO Unavailable Unavailable VT Unavailable Unavailable PRETTY, SUMMON Unavailable Unavailable PRETTY, SUMMON Unavailable Unavailable PRETTY, SUMMON Unavailable Unavailable ILO, MAXIMINO Unavailable Unavailable ILO, MAXIMINO Unavailable Unavailable ILO, MAXIMINO Unavailable Unavailable VICK, JESSY AM Unavailable Unavailable VICK, JESSY AM Unavailable Unavailable PRETTY, SUMMON Unavailable Unavailable VICK, JESSY AM Unavailable Unavailable VICK, JESSY AM Unavailable Unavailable ILO, MAXIMINO Unavailable Unavailable ILO, MAXIMINO Unavailable Unavailable SELF, REFERRED Unavailable Unavailable VICK, JESSY AM Unavailable Unavailable VICK, JESSY AM Unavailable Unavailable ILO, MAXIMINO Unavailable Unavailable SELF, REFERRED Unavailable Unavailable ILO, MAXIMINO Unavailable Unavailable PRETTY, SUMMON Unavailable Unavailable PRETTY, SUMMON Unavailable Unavailable DR VON ESQUEDA Attending Unavailable DHEERAJ, DR VON Crum Admitting Unavailable DR FILI MARTINEZ Consulting Unavailable DR VON ESQUEDA Consulting Unavailable SHAIKH HA Consulting Unavailable Ilo, Maximino Primary Care Unavailable Nathalia Avalos Attending Unavailable Nathalia Avalos Admitting Unavailable Rajani Choudhury MD Unavailable [phone] Taylor Pedraza MD Primary Care Provider PARKER OLGUIN Referring UnavailTAYLOR Mas Primary Care Unavailable PARKER OLGUIN Attending UnavailTAYLOR Mas Referring Unavailable TAYLOR PEDRAZA Primary Care Unavailable NAMRATA PANG Referring Unavailable DEFRANCE, TAYLOR T Primary Care Unavailable EDIS WADSWORTH Referring Unavailable DEFRANCE, TAYLOR T Primary Care Unavailable DEFRANCE, TAYLOR T Referring Unavailable DEFRANCE, TAYLOR T Primary Care Unavailable NADEEM PHAN Referring Unavailable DEFRANCE, TAYLOR T Primary Care Unavailable BENEDICT, RAJANI Attending Unavailable BENEDICT, RAJANI Referring Unavailable DEFRANCE, TAYLOR T Primary Care Unavailable EASTON SCHUMACHER Attending Unavailable SUMMER JAMES Admitting Unavailable SCHUMACHER, EASTON Toure Attending Unavailable SCHUMACHEREASTON Referring Unavailable DEFRANCE, TAYLOR T Primary Care Unavailable DEFRANCE, TAYLOR T Primary Care Unavailable HILDA JRMIRA Attending Unavailable HILDA JRMIRA Referring Unavailable DEFRANCE, TAYLOR T Primary Care Unavailable DEFRANCE, TAYLOR T Referring Unavailable DEFRANCE, TAYLOR T Primary Care Unavailable BENEDICT, RAJANI Attending Unavailable BENEDICT, RAJANI Referring Unavailable DEFRANCE, TAYLOR T Primary Care Unavailable HILDA MIRA MARTIN Referring Unavailable DEFRANCE, TAYLOR T. Primary Care Unavailable HILDA MIRA MARTIN Attending Unavailable HILDA JRMIRA Referring Unavailable DEFRANCE, TAYLOR T. Primary Care Unavailable DEFRANCE, TAYLOR T Attending Unavailable DEFRANCE, TAYLOR T Referring Unavailable DEFRANCE, TAYLOR T Primary Care Unavailable HILDA JRMIRA Attending Unavailable DEFRANCE, TAYLOR T Referring Unavailable DEFRANCE, TAYLOR T Primary Care Unavailable REINNADEEM SILVER Attending Unavailable DEFRANCE, TAYLOR T Referring Unavailable DEFRANCE, TAYLOR T Primary Care Unavailable HILDA JRMIRA Attending Unavailable DEFRANCE, TAYLOR T Referring Unavailable DEFRANCE, TAYLOR T Primary Care Unavailable HILDA JRMIRA Attending Unavailable DEFRANCE, TAYLOR T Referring Unavailable DEFRANCE, TAYLOR T Primary Care Unavailable NADEEM PHAN Attending Unavailable DEFRANCE, TAYLOR T Referring Unavailable DEFRANCE, TAYLOR T Primary Care Unavailable BENEDICT, RAJANI Attending Unavailable BENEDICT, RAJANI Attending Unavailable BENEDICT, RAJANI Attending Unavailable Allergies Allergy Classification Reported Allergen(s) Allergy Type Date of Onset Reaction(s) Facility (3 sources) Wound Dressing Adhesive Propensity to adverse reactions 4 [facility] (19 sources) Adhesive agent; Translations: [ADHESIVE] Propensity to adverse reactions to drug 4 [facility] Medications Current Medications Medication Drug Class(es) Dates Sig (Normalized) Sig (Original) [id number] 200 actuat albuterol 0.09 mg/actuat metered dose inhaler (5 sources) beta2-Adrenergic Agonist take 2 puff(s) by inhalation every six hours as needed for wheezing albuterol (PROVENTIL HFA;VENTOLIN HFA) 90 mcg/actuation inhaler Inhale 2 puffs every 6 (six) hours as needed for wheezing. Active amLODIPine 5 mg oral tablet (19 sources) Dihydropyridine Calcium Channel Garcia Start: 12-23-2023 amLODIPine (NORVASC) 5 mg tablet TAKE 1 TABLET IN THE MORNING FOR HIGH BLOOD PRESSURE 90 tablet 3 12/23/2023 Active apixaban 2.5 mg oral tablet (19 sources) Factor Xa Inhibitor Start: 04-15-2024 take 1 tablet by mouth in the morning, then take 1 tablet by mouth at bedtime apixaban (ELIQUIS) 2.5 mg tablet Take 1 tablet (2.5 mg total) by mouth in the morning and 1 tablet (2.5 mg total) before bedtime. 180 tablet 3 04/15/2024 Active take 1 tablet by mouth in the mo rning apixaban (Eliquis) 5 MG tablet Take 5 mg by mouth in the morning and 5 mg before bedtime. Active cefadroxil 500 mg oral capsule (4 [...] 7 days. 14 capsule 10/09/2024 10/16/2024 Active ciprofloxacin 250 mg oral tablet (5 sources) Quinolone Antimicrobial Start: 11-23-2024 End: 11-26-2024 take 1 tablet by mouth in the morning, then take 1 tablet by mouth at bedtime ciprofloxacin HCl (CIPRO) 250 mg tablet Take 1 tablet (250 mg total) by mouth in the morning and 1 tablet (250 mg total) before bedtime. Do all this for 3 days. 6 tablet 11/23/2024 11/26/2024 Active cranberry preparation 500 mg oral capsule (16 sources) Non-Standardized Food Allergenic Extract, Non-Standardized Plant Allergenic Extract take 1 capsule by mouth once daily cranberry 500 mg capsule Take 1 capsule by mouth daily. Active 12 hr dalfampridine 10 mg extended release oral tablet (17 sources) Potassium Channel Garcia Dalfampridine ER 10 MG tablet sustained-release 12 hour Take by mouth Active take 1 tablet by mouth every silviano r dalfampridine (AMPYRA) 10 mg tablet extended release 12 hr Take 1 tablet (10 mg total) by mouth every 12 (twelve) hours. Active ergocalciferol 1.25 mg oral capsule (19 sources) Provitamin D2 Compound Start: 11-22-2023 take 1 capsule by mouth every week ergocalciferol (VITAMIN D2) 1,250 mcg (50,000 unit) capsule Take 1 capsule (50,000 Units total) by mouth once a week. 12 capsule 3 11/22/2023 Active take 1 capsule by mouth every we ek ergocalciferol (Vitamin D-2) 1.25 MG (50605 UT) capsule Take 1.25 mg by mouth 1 (one) time per week Active hydroCHLOROthiazide 12.5 mg / lisinopril 20 mg oral tablet (19 sources) Thiazide Diuretic, Angiotensin Converting Enzyme Inhibitor Start: 11-16-2023 lisinopril-hydroCHLOROthiazi de (PRINZIDE,ZESTORETIC) 20-12.5 mg per tablet TAKE 1 TABLET IN THE MORNING FOR HIGH BLOOD PRESSURE 90 tablet 3 11/16/2023 Active take 1 tablet by madina th once daily lisinopril-hydroCHLOROthiazide 10-12.5 M G tablet Take 1 tablet by mouth Daily Active ibandronic acid 150 mg oral tablet (19 sources) Bisphosphonate Start: 09-19-2023 ibandronate (BONIVA) 150 mg tablet TAKE 1 TABLET EVERY 30 DAYS, TAKE IN THE MORNING WITH GLASS OF WATER PRIOR TO FOOD, DO NOT LIE DOWN FOR 60 MINUTES 3 tablet 1 09/19/2023 Active 24 hr metoprolol succinate 50 mg extended release oral tablet (19 sources) beta-Adrenergic Garcia Start: 11-20-2023 take 1 tablet by mouth every [...] 150 mg oral capsule (19 sources) Start: 12-30-2023 POLY-IRON 150 mg iron capsule TAKE 1 CAPSULE IN THE MORNING 90 capsule 3 12/30/2023 Active microencapsulated potassium chloride 10 meq extended release oral tablet (19 sources) Start: 11-29-2023 potassium chloride (KLOR-CON M 10) 10 MEQ CR tablet Indications: Essential hypertension TAKE 1 TABLET IN THE MORNING 90 tablet 3 11/29/2023 Active sennosides, longterm 8.6 mg oral tablet (16 sources) take 2 tablets by mouth once daily SENNA 8.6 mg tablet Take 2 tablets every day by oral route. Active sertraline 50 mg oral tablet (20 sources) Serotonin Reuptake Inhibitor Start: 04-15-2024 take 1 tablet by mouth in the morning sertraline (ZOLOFT) 50 mg tablet Take 1 tablet (50 mg total) by mouth in the morning. 30 tablet 5 04/15/2024 Active Start: 11-29-2023 sertraline (ZO LOFT) 100 mg tablet Indications: Major depressive disorder with single episode, in full remission (CMS-HCC) TAKE 1 TABLET IN THE MORNING 90 tablet 3 11/29/2023 Active simvastatin 20 mg oral tablet (19 sources) HMG-CoA Reductase Inhibitor Start: 12-23-2023 simvastatin (ZOCOR) 20 mg tablet TAKE 1 TABLET NIGHTLY 90 tablet 3 12/23/2023 Active traZODone hydrochloride 100 mg oral tablet (19 sources) Serotonin Reuptake Inhibitor Start: 11-13-2023 traZODone (DESYREL) 100 mg tablet TAKE 1 TABLET NIGHTLY 90 tablet 3 11/13/2023 Active Completed/Discontinued Medications Medication Drug Class(es) Dates Sig (Normalized) Sig (Original) 24 hr alfuzosin hydrochloride 10 mg extended release oral tablet (13 sources) alpha-Adrenergic Garcia Start: 04-12-2023 End: 11-27-2024 take 1 tablet by mouth every twenty-four hours in the morning alfuzosin (UROXATRAL) 10 mg 24 hr tablet Take 1 tablet (10 mg total) by mouth in the morning. 90 tablet 3 04/12/2023 11/27/2024 Discontinued (Alternate therapy) take 1 tablet by madina th once daily, then take 1 tablet by mouth every twenty-four hours alfuzosin ER (Uroxatral) 10 MG 24 hr tablet Take 10 mg by mouth Daily Do not crush, chew, or split. Active tamsulosin hydrochloride 0.4 mg oral capsule (10 sources) alpha-Adrenergic Garcia Start: 09-11-2024 End: 11-27-2024 take 2 capsules by mouth once daily tamsulosin (FLOMAX) 0.4 mg capsule Take 2 capsules (0.8 mg total) by mouth nightly. 09/11/2024 11/27/2024 Discontinued (Alternate therapy) Problems Active Problems Problem Classification Problem Date Documented Date Episodic/Chronic Bacterial infection; unspecified site (1 source) Unspecified Escherichia coli [E. coli] as the cause of diseases classified elsewhere; Translations: [UNS E COLI CAUSE DX CLASS ELSEWHERE] Onset: 04-18-2021 Episodic Cardiac dysrhythmias (16 sources) Paroxysmal atrial fibrillation; Translations: [Paroxysmal atrial fibrillation] Onset: 04-10-2023 07-13-2024 Chronic Coagulation and hemorrhagic disorders (18 sources) Hereditary deficiency of other clotting factors; Translations: [Factor V Leiden mutation] Onset: 11-28-2017 07-13-2024 Chronic Deficiency and other anemia (1 source) Anemia, unspecified; Translations: [Anemia, unspecified] Onset: 07-27-2022 Episodic Diseases of white blood cells (16 sources) Leukocytosis; Translations: [Elevated white blood cell count, unspecified] Onset: 07-13-2024 07-13-2024 Chronic Disorders of lipid metabolism (20 sources) Hyperlipidemia, unspecified; Translations: [Hyperlipidemia] Onset: 12-15-2017 03-26-2024 Chronic E Codes: Fall (1 source) Fall Onset: 07-12-2024 Essential hypertension (19 sources) Essential (primary) hypertension; Translations: [Hypertensive disorder] Onset: 12-15-2017 07-13-2024 Chronic Fluid and electrolyte disorders (1 source) Hypokalemia; Translations: [HYPOKALEMIA] Onset: 04-18-2021 Episodic Genitourinary symptoms and ill-defined conditions (20 sources) Urinary incontinence; Translations: [Unspecified urinary incontinence] Onset: 08-11-2021 03-26-2024 Chronic Genitourinary symptoms and ill-defined conditions (20 sources) Other retention of urine; Translations: [Disorder of the urinary system] Onset: 12-23-2017 10-09-2024 Episodic Heart valve disorders (16 sources) Aortic stenosis, non-rheumatic ; Translations: [Nonrheumatic aortic (valve) stenosis] Onset: 07-13-2024 07-13-2024 Chronic Hypertension with complications and secondary hypertension (20 sources) Hypertensive heart failure; Translations: [Hypertensive heart disease with heart failure] Onset: 09-21-2022 03-26-2024 Chronic Mood disorders (20 sources) Major depressive disorder, single episode, unspecified; Translations: [Depressive disorder] Onset: 05-13-2008 Resolved: 12-25-2019 03-26-2024 Chronic Multiple sclerosis (20 sources) Multiple sclerosis; Translations: [Multiple sclerosis] Onset: 07-02-2017 09-15-2024 Chronic Nutritional deficiencies (19 sources) Vitamin D deficiency; Translations: [Vitamin D deficiency, unspecified] Onset: 08-17-2014 03-26-2024 Chronic Osteoarthritis (20 sources) Arthritis; Translations: [Unspecified osteoarthritis, unspecified site] Onset: 12-09-2017 10-04-2017 Chronic Other aftercare (4 sources) Aftercare following joint replacement surgery; Translations: [AFTERCARE FOLLOWING JOINT REPLACEMENT SURGERY] Onset: 02-11-2018 Chronic Other aftercare (5 sources) Encounter for therapeutic drug level monitoring; Translations: [supervisor intermediates (current) use of anticoagulants] Onset: 12-15-2017 Episodic Other aftercare (1 source) Other long term care administrator (current) drug therapy; Translations: [OTH CORRECTION CURRENT DRUG THERAPY] Onset: 04-18-2021 Episodic Other and ill-defined heart disease (16 sources) Left ventricular hypertrophy; Translations: [Cardiomegaly] Onset: [...] Chronic Other diseases of bladder and urethra (18 sources) Neurogenic bladder; Translations: [Neuromuscular dysfunction of bladder, unspecified] Onset: 08-11-2021 10-09-2024 Chronic Other diseases of bladder and urethra (2 sources) Neuromuscular dysfunction of bladder, unspecified; Translations: [Neuromuscular dysfunction of bladder, unspecified] Onset: 07-13-2024 Chronic Other hereditary and degenerative nervous system conditions (16 sources) Disorder of nervous system; Translations: [Degenerative disease of nervous system, unspecified] Onset: 04-10-2023 07-13-2024 Chronic Other nervous system disorders (2 sources) [...] nutritional; endocrine; and metabolic disorders (16 sources) Hypomagnesemia; Translations: [Hypomagnesemia] Onset: 07-13-2024 07-13-2024 [...] disc disorders; other back problems (3 sources) Spondylosis without myelopathy or radiculopathy, cervical region; Translations: [Cervical spondylosis] Onset: 01-07-2024 12-01-2024 Chronic Spondylosis; intervertebral disc disorders; other back problems (3 sources) Spinal stenosis, cervical region; Translations: [Spinal stenosis in cervical region] Onset: 01-07-2024 12-01-2024 Episodic Substance-related disorders (16 sources) Other psychoactive substance dependence, uncomplicated; Translations: [Other specified drug dependence, unspecified] 06-07-2021 Chronic Unclassified (2 sources) Unknown / UNK(Unknown) Onset: 12-15-2017 Unclassified (1 source) Establish Care Onset: 04-14-2024 Unclassified (1 source) EMS Onset: 07-12-2024 Unclassified (1 source) Annual Exam Onset: 04-15-2024 Unclassified (1 source) Consult Onset: 01-07-2024 Viral infection (3 sources) COVID-19; Translations: [COVID-19] Onset: 04-07-2021 Past or Other Problems Problem Classification Problem Date Documented Da te Episodic/Chronic Acute and unspecified renal failure (16 sources) Acute renal failure syndrome; Translations: [Acute [...] 7THD] Onset: 01-06-2018 Episodic Malaise and fatigue (20 sources) Weakness; Translations: [Asthenia] Onset: 10-25-2017 09-15-2024 Episodic Mood disorders (17 sources) Major depressive disorder, single episode, unspecified; Translations: [Mood disorders] Onset: 12-23-2017 04-15-2024 Mycoses (16 sources) Onychomycosis of toenails; Translations: [...] aftercare] Onset: 03-01-2019 04-15-2023 Episodic Other aftercare (16 sources) Long-term current use of anticoagulant; Translations: [nursing home (current) use of anticoagulants] Onset: 11-18-2022 07-13-2024 Episodic Other fractures (16 sources) Closed fracture of fifth cervical vertebra; Translations: [Unspecified nondisplaced fracture of fifth cervical vertebra, initial encounter for closed fracture] Onset: 05-31-2021 06-07-2021 Episodic Other injuries and conditions due to external causes (16 sources) History of fall; Translations: [History of falling] Onset: 07-13-2024 07-13-2024 Episodic Other lower respiratory disease (16 sources) Hypoxia; Translations: [Hypoxemia] Onset: 12-31-2021 12-31-2021 Episodic Other nervous system disorders (1 source) Other acute postprocedural pain; Translations: [OTHER ACUTE POSTPROCEDURAL PAIN] Onset: 12-23-2017 Episodic Other nervous system disorders (3 sources) Abnormal gait; Translations: [Unspecified abnormalities of [...] [Personal history of pulmonary embolism] Onset: 08-30-2021 07-13-2024 Episodic Residual codes; unclassified (19 sources) Insomnia; Translations: [Insomnia, unspecified] Onset: 05-13-2008 03-26-2024 Episodic Residual codes; unclassified (16 sources) Memory impairment; Translations: [Other amnesia] Onset: 11-05-2018 11-05-2018 Episodic Residual codes; unclassified (16 sources) Poor oral hygiene; Translations: [Other specified personal risk factors, not elsewhere classified] Onset: 03-08-2022 03-08-2022 Episodic Respiratory failure; insufficiency; arrest (adult) (17 sources) Acute respiratory failure with hypoxia; Translations: [Acute respiratory failure] Onset: 04-18-2021 Resolved: 03-26-2022 03-26-2022 Episodic Unclassified (16 sources) Onset: 06-15-2020 06-15-2020 Urinary tract infections (19 sources) Urinary tract infection, site not specified; Translations: [Acute cystitis] Onset: 04-18-2021 07-12-2024 Episodic Results Test Name Value Interpretation Reference Range Facility CREATININEon 11-26-2024 Creatinine [Mass/Vol] 1.09 mg/dL High 0.40-1.00 [facility] Comment on above: Result Comment: METH OD TRACEABLE TO IDMS STANDARD Performed By: #### C RT ####[facility] ([id number])[address] [facility], [address] [place] [address] GFR/1.73 sq M.predicted among non-blacks MDRD (S/P/Bld) [Vol rate/Area] 52 mL/min/{1.73_m2} Low >59 [facility] Comment on above: Result Comment: Reported eGFR is based on the CKD-EPI 2020 equation that does not use a race coefficient. Performed By: #### C RT ####[facility] ([id number])[address], [address] [place] [address] US RETROPERITONEAL COMPLETEo n 11-26-2024 US RETROPERITONEAL COMPLETE US RETROPERITONEAL COMPLETE US RETROPERITONEAL COMPLETE Clinical history:Urinary retention Comparison: 10/20/2024 Findings: Real-time sonographic evaluation of the kidneys and bladder performed. Right kidney measures 10.1 x 5.2 x 6.4 cm. Left kidney measures 11.2 x 4.7 x 6.0 cm. No renal collecting system dilatation, abnormal calcification or renal parenchymal distorting mass. A small volume nonspecific right perinephric hepatorenal fossa fluid. The urinary bladder is decompressed and not well-visualized with Estrella catheter in place. Impression: No renal collecting system dilatation. Small volume nonspecific right perinephric hepatorenal fluid. Decompressed urinary bladder compromising assessment. Finalized by Artur De MD on 11/26/2024 9:46 AM Normal [facility] MR BRAIN W WO CONTon 12-18-2 024 MR BRAIN W WO CONT MR BRAIN W WO CONT EXAM:MR BRAIN W WO CONT INDICATION: Multiple sclerosis (CMS-HCC) COMPARISON: 12/13/2023 TECHNIQUE: Multiplanar multisequence pre and post contrast MR sequences through the head/brain. CONTRAST: 20mL ProHance IV. BRAIN FINDINGS: Similar severe and confluent burden of periventricular, subcortical, and juxtacortical T2/flair hyperintensities. Similar burden infratentorial burden most notably along the left lateral margin of the jo closely approximating the root entry zone of the left trigeminal nerve and along the left pontomedullary junction. Curvilinear enhancement within the right brachium pontis, no corresponding FLAIR or diffusion signal is identified. Similar burden along the callosal septal interface. Diffuse thinning of the corpus callosum, unchanged compared to prior. Generalized parenchymal atrophy. No acute hemorrhage, cerebral edema, or acute infarction. No mass, mass effect, or midline shift. Ventricles and Sulci: Mildly prominent ventricles and sulci secondary to parenchymal atrophy. . Extra-Axial Spaces: No extra-axial fluid collection. Intracranial Flow-Voids: Arterial and venous sinus flow voids appear normal. Orbits: Normal Paranasal Sinuses: Normal Mastoid Air Cells: Normal Cranium: Normal Extracranial Soft Tissues: Normal IMPRESSION: Overall similar severe burden of white matter disease. No new or actively demyelinating lesions are identified. Curvilinear enhancement within the right middle cerebellar peduncle has no correlate on additional sequences, this finding is favored to be artifactual (possibly pulsation). Attention on subsequent follow-ups is recommended Finalized by Artur Morrison on 11/04/2024 1:32 PM Normal [facility] US RETROPERITONEAL COMPLETEo n 10-20-2024 US RETROPERITONEAL [...] Isaacs MD on 10/20/2024 2:38 PM Normal [facility] CBC AND AUTO DIFFon 10-14-20 24 ABSOLUTE BASOPHIL 0.3 X10E9/L High 0.0-0.2 [facility] Comment on above: Performed By: #### C JACQUELINE CBCA ####[facility] ([id number])[address] [place] [id number] Basophils/100 WBC (Bld) 2.0 % Normal [facility] Comment on above: Performed By: #### C JACQUELINE, CBCA ####[facility] ([id number])[address] [place] [address] Eosinophils (Bld) [#/Vol] 0.3 10*3/uL Normal 0.0-0.4 [facility] Comment on above: Performed By: #### C MP, CBCA ####[facility] ([id number])[address] [place] [address]10 Eosinophils/100 WBC (Bld) 2.0 % Normal [facility] Comment on above: Performed By: #### C MP, CBCA ####[facility] ([id number])[address] [place] [address] Erythrocyte distribution width (RBC) [Ratio] 13.4 % Normal 11.5-15.0 [facility] Comment on above: Performed By: #### C MP, CBCA ####[facility] ([id number])[address] [place] [address]481 Hematocrit (Bld) [Volume fraction] 37.1 % Normal 35-47 [facility] Comment on above: Performed By: #### C MP, CBCA ####[facility] ([id number])[address] [place] [address]57[address] Hemoglobin (Bld) [Mass/Vol] 12.3 g/dL Normal 11.7-15.5 [facility] Comment on above: Performed By: #### C MP, CBCA ####[facility] ([id number])[address] [place] [address]152 Lymphocytes (Bld) [#/Vol] 1.1 10*3/uL Normal 1.0-3.5 [facility] Comment on above: Performed By: #### C MP, CBCA ####[facility] ([id number])[address] [place] [address] 48494 Lymphocytes/100 WBC (Bld) 9.0 % Normal [facility] Comment on above: Performed By: #### C MP, CBCA ####[facility] ([id number])[address] [place] [address] 72421 MCH (RBC) [Entitic mass] 28.3 pg Normal 27-34 [facility] Comment on above: Performed By: #### C MP, CBCA ####[facility] ([id number])[address] [place] [address] 54329 MCHC (RBC) [Mass/Vol] 33.1 g/dL Normal 32-36 [facility] Comment on above: Performed By: #### C MP, CBCA ####[facility] ([id number])[address] [place] [address] 20115 MCV (RBC) [Entitic vol] 86 fL Normal 80-100 [facility] Comment on above: Performed By: #### C MP, CBCA ####[facility] ([id number])[address] [place] [address] 72456 Monocytes (Bld) [#/Vol] 0.8 10*3/uL Normal 0-0.9 [facility] Comment on above: Performed By: #### C MP, CBCA ####[facility] ([id number])[address] [place] [address] 53090 Monocytes/100 WBC (Bld) 6.0 % Normal [facility] Comment on above: Performed By: #### C MP, CBCA ####[facility] ([id number])[address] [place] [address] 40918 Neutrophils (Bld) [#/Vol] 10.1 10*3/uL High 1.5-6.6 [facility] Comment on above: Performed By: #### C MP, CBCA ####[facility] ([id number])[address] [place] [address] 25707 Platelet mean volume (Bld) [Entitic vol] 7.3 fL Normal 7-12 [facility] Comment on above: Performed By: #### C MP, CBCA ####[facility] ([id number])[address] [place] [address] 72109 Platelets (Bld) [#/Vol] 321 10*3/uL Normal 150-450 [facility] Comment on above: Performed By: #### C MP, CBCA ####[facility] ([id number])[address] [place] [address] 24333 POLYCHROMASIA 1+ Abnormal NONE [facility] Comment on above: Performed By: #### C MP, CBCA ####[facility] ([id number])[address] [place] [address] 51429 RBC COUNT 4.34 X10E12/L Normal 3.80-5.20 [facility] Comment on above: Performed By: #### C MP, CBCA ####[facility] ([id number])[address] [place] [address] 24999 SEG NEUTROPHIL 81.0 % Normal [facility] Comment on above: Performed By: #### C MP, CBCA ####[facility] ([id number])[address] [place] [address] 21257 WBC (Bld) [#/Vol] 12.6 10*3/uL High 4.0-11.0 [facility] Comment on above: Performed By: #### C MP, CBCA ####[facility] ([id number])[address] [place] [address] 83120 COMPREHENSIVE METABOLIC PANE Antonio 10-14-2024 Albumin [Mass/Vol] 3.3 g/dL Normal 3.2-5.3 [facility] Comment on above: Performed By: #### C MP, CBCA ####[facility] ([id number])[address] [place] [address] 08712 ALP [Catalytic activity/Vol] 57 U/L Normal 39-130 [facility] Comment on above: Performed By: #### C MP, CBCA ####[facility] ([id number])[address] [place] [address], [place] [address] ALT [Catalytic activity/Vol] 28 U/L Normal 0-31 [facility] Comment on above: Performed By: #### C MP, CBCA ####[facility] ([id number])[address] [place] [address], [place] [address] Anion gap [Moles/Vol] 11 mmol/L Normal 5-15 [facility] Comment on above: Performed By: #### C JACQUELINE, CBCA ####[facility] ([id number])[address] [place] [address], [place] [address] AST [Catalytic activity/Vol] 20 U/L Normal 0-41 [facility] Comment on above: Performed By: #### C JACQUELINE, CBCA ####[facility] ([id number])[address] [place] [address], [place] [address] Bilirubin [Mass/Vol] 0.4 mg/dL Normal 0.3-1.2 [facility] Comment on above: Performed By: #### C JACQUELINE, CBCA ####[facility] ([id number])[address] [place] [address], [place] [address] Calcium [Mass/Vol] 9.2 mg/dL Normal 8.5-10.5 [facility] Comment on above: Performed By: #### C JACQUELINE, CBCA ####[facility] ([id number])[address] [place] [address], [place] [address] Chloride [Moles/Vol] 108 mmol/L Normal 98-109 [facility] Comment on above: Performed By: #### C JACQUELINE, CBCA ####[facility] ([id number])[address] [place] [address], [place] [address] CO2 [Moles/Vol] 20 mmol/L Low 22-32 [facility] Comment on above: Performed By: #### C JACQUELINE CBCA ####[facility] ([id number])[address] [place] [address], [place] [address] Creatinine [Mass/Vol] 1.17 mg/dL High 0.40-1.00 [facility] Comment on above: Result Comment: METH OD TRACEABLE TO IDMS STANDARD Performed By: #### C JACQUELINE CBCA ####[facility] ([id number])[address] [place] [address] 09894 GFR/1.73 sq M.predicted among non-blacks MDRD (S/P/Bld) [Vol rate/Area] 47 mL/min/{1.73_m2} Low >59 [facility] Comment on above: Result Comment: Reported eGFR is based on the CKD-EPI 2020 equation that does not use a race coefficient. Performed By: #### C JACQUELINE CBCA ####[facility] ([id number])[address] [place] [address] 55739 Glucose [Mass/Vol] 115 mg/dL High 65-99 [facility] Comment on above: Performed By: #### C JACQUELINE CBCA ####[facility] ([id number])[address] [place] [address] 88042 Potassium [Moles/Vol] 4.4 mmol/L Normal 3.5-5.0 [facility] Comment on above: Performed By: #### C JACQUELINE CBCA ####[facility] ([id number])[address] [place] [address] [place] [address] Protein [Mass/Vol] 6.6 g/dL Normal 6.0-8.0 [facility] Comment on above: Performed By: #### C JACQUELINE, CBCA ####[facility] ([id number])[address] [place] [address] 09898 Sodium [Moles/Vol] 139 mmol/L Normal 134-146 [facility] Comment on above: Performed By: #### C COURTNEY PHILLIPS ####[facility] ([id number])[address] [place] [address] 31080 Urea nitrogen [Mass/Vol] 38 mg/dL High - [facility] Comment on above: Performed By: #### C COURTNEY PHILLIPS ####[facility] ([id number])[address] [place] [address] 46833 URINE CULTUREon 10-14-2024 Bacteria identified Cx Nom [...] <=1 F PIPERACIL/TAZOBACTAM S 8 F Susceptible [facility] Comment on above: Performed By: #### 6 30-4 ####[facility] ([id number])[address] [place] [address], [address], [place] [address] URN MACROSCOPIC NURon 2023 BILIRUBIN CORINNE Negative Normal NEG [facility] Comment on above: Performed By: #### N UM ####[facility] ([id number])[address] [place] [address] [place] [address] BLOOD/HGB CORINNE MODERATE Abnormal NEG [facility] Comment on above: Performed By: #### N UM ####[facility] ([id number])[address] [place] [address] 72090 GLUCOSE CORINNE Negative Normal NEG [facility] Comment on above: Performed By: #### N UM ####[facility] ([id number])[address] [place] [address] 71915 KETONES CORINNE Negative Normal NEG [facility] Comment on above: Performed By: #### N UM ####[facility] ([id number])[address] [place] [address] 48643 LEUKOCYTE ESTERASE CORINNE Large Abnormal NEG [facility] Comment on above: Performed By: #### N UM ####[facility] ([id number])[address] [place] [address] 56583 NITRITE CORINNE Positive Abnormal NEG [facility] Comment on above: Performed By: #### N UM ####[facility] ([id number])[address] [place] [address] 62831 PH CORINNE 5.5 Normal 5.0-8.5 [facility] Comment on above: Performed By: #### N UM ####[facility] ([id number])[address] [place] [address] 97658 PROTEIN CORINNE 100 mg/dL Abnormal NEG [facility] Comment on above: Performed By: #### N UM ####[facility] ([id number])[address] [place] [address] 53636 SPECIFIC GRAVITY CORINNE 1.025 Normal 1.003-1.035 [facility] Comment on above: Performed By: #### N UM ####[facility] ([id number])[address] [place] [address] 61541 UROBILINOGEN CORINNE 0.2 eu/dL Normal <1.1 [facility] Comment on above: Performed By: #### N UM ####[facility] ([id number])[address] [place] [address] 40934 CBC AND AUTO DIFFon 07-15-20 24 ABSOLUTE BASOPHIL 0.1 X10E9/L Normal 0.0-0.2 [facility] Comment on above: Performed By: #### C JACQUELINE, , CBCA ####[facility] ([id number])[address] [place] [address] 80100 ABSOLUTE NEUTROPHIL 6.6 X10E9/L Normal 1.5-6.6 [facility] Comment on above: Performed By: #### C JACQUELINE, , CBCA ####[facility] ([id number])[address] [place] [address] 31255 Basophils/100 WBC (Bld) 1.1 % Normal [facility] Comment on above: Performed By: #### C JACQUELINE, , CBCA ####[facility] ([id number])[address] [place] [address] 99917 Eosinophils (Bld) [#/Vol] 0.3 10*3/uL Normal 0.0-0.4 [facility] Comment on above: Performed By: #### C JACQUELINE, , CBCA ####[facility] ([id number])[address] [place] [address] 82812 Eosinophils/100 WBC (Bld) 3.1 % Normal [facility] Comment on above: Performed By: #### C JACQUELINE, , CBCA ####[facility] ([id number])[address] [place] [address] 81440 Erythrocyte distribution width (RBC) [Ratio] 14.1 % Normal 11.5-15.0 [facility] Comment on above: Performed By: #### C JACQUELINE, , CBCA ####[facility] ([id number])[address] [place] [address] 87827 Hematocrit (Bld) [Volume fraction] 37.2 % Normal 35-47 [facility] Comment on above: Performed By: #### C JACQUELINE, , CBCA ####[facility] ([id number])[address] [place] [address] 95967 Hemoglobin (Bld) [Mass/Vol] 12.6 g/dL Normal 11.7-15.5 [facility] Comment on above: Performed By: #### C JACQUELINE, , CBCA ####[facility] ([id number])[address] [place] [address] 57854 Lymphocytes (Bld) [#/Vol] 1.0 10*3/uL Normal 1.0-3.5 [facility] Comment on above: Performed By: #### C JACQUELINE, , CBCA ####[facility] ([id number])[address] [place] [address] 48577 Lymphocytes/100 WBC (Bld) 11.9 % Normal [facility] Comment on above: Performed By: #### C JACQUELINE, , CBCA ####[facility] ([id number])[address] [place] [address] 65584 MCH (RBC) [Entitic mass] 29.2 pg Normal 27-34 [facility] Comment on above: Performed By: #### C JACQUELINE, , CBCA ####[facility] ([id number])[address] [place] [address] 47004 MCHC (RBC) [Mass/Vol] 34.0 g/dL Normal 32-36 [facility] Comment on above: Performed By: #### C JACQUELINE, , CBCA ####[facility] ([id number])[address] [place] [address] 24568 MCV (RBC) [Entitic vol] 86 fL Normal 80-100 [facility] Comment on above: Performed By: #### C JACQUELINE, , CBCA ####[facility] ([id number])[address] [place] [address] 86738 Monocytes (Bld) [#/Vol] 0.7 10*3/uL Normal 0-0.9 [facility] Comment on above: Performed By: #### C JACQUELINE, , CBCA ####[facility] ([id number])[address] [place] [address] 10103 Monocytes/100 WBC (Bld) 7.8 % Normal [facility] Comment on above: Performed By: #### C JACQUELINE, , CBCA ####[facility] ([id number])[address] [place] [address] 02187 Neutrophils/100 WBC (Bld) 76.1 % Normal [facility] Comment on above: Performed By: #### C JACQUELINE, , CBCA ####[facility] ([id number])[address] [place] [address] [place] [address] Platelet mean volume (Bld) [Entitic vol] 8.2 fL Normal 7-12 [facility] Comment on above: Performed By: #### C JACQUELINE, , CBCA ####[facility] ([id number])[address] [place] [address] 82222 Platelets (Bld) [#/Vol] 189 10*3/uL Normal 150-450 [facility] Comment on above: Result Comment: PLAT ELETS REVIEWED Performed By: #### C JACQUELINE, , CBCA ####[facility] ([id number])[address] [place] [address] [place] [address] RBC COUNT 4.33 X10E12/L Normal 3.80-5.20 [facility] Comment on above: Performed By: #### C JACQUELINE, , CBCA ####[facility] ([id number])[address] [place] [address] 42452 WBC (Bld) [#/Vol] 8.7 10*3/uL Normal 4.0-11.0 [facility] Comment on above: Performed By: #### C JACQUELINE, , CBCA ####[facility] ([id number])[address] [place] [address] [place] [address] COMPREHENSIVE METABOLIC PANE Antonio 07-15-2024 Albumin [Mass/Vol] 3.1 g/dL Low 3.2-5.3 [facility] Comment on above: Performed By: #### C JACQUELINE, , CBCA ####[facility] ([id number])[address] [place] [address] 14335 ALP [Catalytic activity/Vol] 49 U/L Normal 39-130 [facility] Comment on above: Performed By: #### C JACQUELINE, , CBCA ####[facility] ([id number])[address] [place] [address] 42835 ALT [Catalytic activity/Vol] 18 U/L Normal 0-31 [facility] Comment on above: Performed By: #### Tami PHILLIPS, , CBCA ####[facility] ([id number])[address] [place] [address] 98619 Anion gap [Moles/Vol] 6 mmol/L Normal 5-15 [facility] Comment on above: Performed By: #### Tami PHILLIPS, , CBCA ####[facility] ([id number])[address] [place] [address] 44679 AST [Catalytic activity/Vol] 17 U/L Normal 0-41 [facility] Comment on above: Performed By: #### Tami PHILLIPS, , CBCA ####[facility] ([id number])[address] [place] [address] 01574 Bilirubin [Mass/Vol] 0.5 mg/dL Normal 0.3-1.2 [facility] Comment on above: Performed By: #### Tami PHILLIPS, , CBCA ####[facility] ([id number])[address] [place] [address] 60804 Calcium [Mass/Vol] 8.6 mg/dL Normal 8.5-10.5 [facility] Comment on above: Performed By: #### C JACQUELINE, , CBCA ####[facility] ([id number])[address] [place] [address] 16610 Chloride [Moles/Vol] 107 mmol/L Normal 98-109 [facility] Comment on above: Performed By: #### C JACQUELINE, , CBCA ####[facility] ([id number])[address] [place] [address] 72157 CO2 [Moles/Vol] 26 mmol/L Normal 22-32 [facility] Comment on above: Performed By: #### C JACQUELINE, , CBCA ####[facility] ([id number])[address] [place] [address] 32206 Creatinine [Mass/Vol] 0.88 mg/dL Normal 0.40-1.00 [facility] Comment on above: Result Comment: METH OD TRACEABLE TO IDMS STANDARD Performed By: #### C JACQUELINE, , CBCA ####[facility] ([id number])[address] [place] [address] 66610 GFR/1.73 sq M.predicted among non-blacks MDRD (S/P/Bld) [Vol rate/Area] 67 mL/min/{1.73_m2} Normal >59 [facility] Comment on above: Result Comment: Reported eGFR is based on the CKD-EPI 2020 equation that does not use a race coefficient. Performed By: #### C JACQUELINE, , CBCA ####[facility] ([id number])[address] [place] [address] 64665 Glucose [Mass/Vol] 94 mg/dL Normal 65-99 [facility] Comment on above: Performed By: #### C JACQUELINE, , CBCA ####[facility] ([id number])[address] [place] [address] 68515 Potassium [Moles/Vol] 4.2 mmol/L Normal 3.5-5.0 [facility] Comment on above: Performed By: #### C JACQUELINE, , CBCA ####[facility] ([id number])[address] [place] [address] 78638 Protein [Mass/Vol] 5.6 g/dL Low 6.0-8.0 [facility] Comment on above: Performed By: #### C JACQUELINE, , CBCA ####[facility] ([id number])[address] [place] [address] 36749 Sodium [Moles/Vol] 139 mmol/L Normal 134-146 [facility] Comment on above: Performed By: #### Tami PHILLIPS, , CBCA ####[facility] ([id number])[address] [place] [address] 79976 Urea nitrogen [Mass/Vol] 24 mg/dL Normal 5-27 [facility] Comment on above: Performed By: #### Tami PHILLIPS, , CBCA ####[facility] ([id number])[address] [place] [address] 98366 MAGNESIUMon 07-15-2024 Magnesium [Mass/Vol] 2.1 mg/dL Normal 1.8-2.6 [facility] Comment on above: Performed By: #### Tami PHILLIPS, , CBCA ####[facility] ([id number])[address] [place] [address] 98843 Magnesium Ionized ISE (Bld) [Moles/Vol]on 07-15-2024 Magnesium [Moles/Vol] 0.63 mmol/L Normal 0.45-0.74 [facility] Comment on above: Result Comment: NEW REFERENCE RANGE Performed By: #### 7 3572-0 ####[facility] ([id number])[address] [facility], [address] [place] [address] CBC AND AUTO DIFFon 07-14-20 ABSOLUTE BASOPHIL 0.1 X10E9/L Normal 0.0-0.2 [facility] Comment on above: Performed By: #### C JACQUELINE, , CBCA ####[facility] ([id number])[address] [place] [address] 17704 ABSOLUTE NEUTROPHIL 8.8 X10E9/L High 1.5-6.6 [facility] Comment on above: Performed By: #### Tami PHILLIPS, , CBCA ####[facility] ([id number])[address] [place] [address] 81979 Basophils/100 WBC (Bld) 0.8 % Normal [facility] Comment on above: Performed By: #### Tami PHILLIPS, , CBCA ####[facility] ([id number])[address] [place] [address] 10643 Eosinophils (Bld) [#/Vol] 0.2 10*3/uL Normal 0.0-0.4 [facility] Comment on above: Performed By: #### C JACQUELINE, , CBCA ####[facility] ([id number])[address] [place] [address] 23704 Eosinophils/100 WBC (Bld) 1.6 % Normal [facility] Comment on above: Performed By: #### Tami PHILLIPS, , CBCA ####[facility] ([id number])[address] [place] [address] 23289 Erythrocyte distribution width (RBC) [Ratio] 14.0 % Normal 11.5-15.0 [facility] Comment on above: Performed By: #### C JACQUELINE, , CBCA ####[facility] ([id number])[address] [place] [address] 53614 Hematocrit (Bld) [Volume fraction] 38.0 % Normal 35-47 [facility] Comment on above: Performed By: #### C JACQUELINE, , CBCA ####[facility] ([id number])[address] [place] [address] 69741 Hemoglobin (Bld) [Mass/Vol] 13.0 g/dL Normal 11.7-15.5 [facility] Comment on above: Performed By: #### C JACQUELINE, , CBCA ####[facility] ([id number])[address] [place] [address] 74147 Lymphocytes (Bld) [#/Vol] 0.8 10*3/uL Low 1.0-3.5 [facility] Comment on above: Performed By: #### Tami PHILLIPS, , CBCA ####[facility] ([id number])[address] [place] [address] 90641 Lymphocytes/100 WBC (Bld) 7.8 % Normal [facility] Comment on above: Performed By: #### Tami PHILLIPS, , CBCA ####[facility] ([id number])[address] [place] [address] 43256 MCH (RBC) [Entitic mass] 29.1 pg Normal 27-34 [facility] Comment on above: Performed By: #### C JACQUELINE, , CBCA ####[facility] ([id number])[address] [place] [address] 29087 MCHC (RBC) [Mass/Vol] 34.2 g/dL Normal 32-36 [facility] Comment on above: Performed By: #### C JACQUELINE, , CBCA ####[facility] ([id number])[address] [place] [address] 22040 MCV (RBC) [Entitic vol] 85 fL Normal 80-100 [facility] Comment on above: Performed By: #### C JACQUELINE, , CBCA ####[facility] ([id number])[address] [place] [address] 24463 Monocytes (Bld) [#/Vol] 0.6 10*3/uL Normal 0-0.9 [facility] Comment on above: Performed By: #### C JACQUELINE, , CBCA ####[facility] ([id number])[address] [place] [address] 33479 Monocytes/100 WBC (Bld) 6.0 % Normal [facility] Comment on above: Performed By: #### C JACQUELINE, , CBCA ####[facility] ([id number])[address] [place] [address] 67288 Neutrophils/100 WBC (Bld) 83.8 % Normal [facility] Comment on above: Performed By: #### C JACQUELINE, , CBCA ####[facility] ([id number])[address] [place] [address] 11711 Platelet mean volume (Bld) [Entitic vol] 7.9 fL Normal 7-12 [facility] Comment on above: Performed By: #### C JACQUELINE, , CBCA ####[facility] ([id number])[address] [place] [address] 44863 Platelets (Bld) [#/Vol] 210 10*3/uL Normal 150-450 [facility] Comment on above: Performed By: #### C JACQUELINE, , CBCA ####[facility] ([id number])[address] [place] [address] 36487 RBC COUNT 4.46 X10E12/L Normal 3.80-5.20 [facility] Comment on above: Performed By: #### C JACQUELINE, , CBCA ####[facility] ([id number])[address] [place] [address] 58588 WBC (Bld) [#/Vol] 10.5 10*3/uL Normal 4.0-11.0 [facility] Comment on above: Performed By: #### C JACQUELINE, , CBCA ####[facility] ([id number])[address] [place] [address] 45169 COMPREHENSIVE METABOLIC PANE [facility] 07-14-2024 Albumin [Mass/Vol] 3.2 g/dL Normal 3.2-5.3 [facility] Comment on above: Performed By: #### C JACQUELINE, , CBCA ####[facility] ([id number])[address] [place] [address] 75615 ALP [Catalytic activity/Vol] 51 U/L Normal 39-130 [facility] Comment on above: Performed By: #### C JACQUELINE, , CBCA ####[facility] ([id number])[address] [place] [address] 80222 ALT [Catalytic activity/Vol] 20 U/L Normal 0-31 [facility] Comment on above: Performed By: #### C JACQUELINE, , CBCA ####[facility] ([id number])[address] [place] [address] 71665 Anion gap [Moles/Vol] 8 mmol/L Normal 5-15 [facility] Comment on above: Performed By: #### C JACQUELINE, , CBCA ####[facility] ([id number])[address] [place] [address] [place] [address] AST [Catalytic activity/Vol] 18 U/L Normal 0-41 [facility] Comment on above: Performed By: #### C JACQUELINE, , CBCA ####[facility] ([id number])[address] [place] [address] 39974 Bilirubin [Mass/Vol] 0.6 mg/dL Normal 0.3-1.2 [facility] Comment on above: Performed By: #### C JACQUELINE, , CBCA ####[facility] ([id number])[address] [place] [address] 84457 Calcium [Mass/Vol] 8.7 mg/dL Normal 8.5-10.5 [facility] Comment on above: Performed By: #### Tami PHILLIPS, , CBCA ####[facility] ([id number])[address] [place] [address] 02178 Chloride [Moles/Vol] 104 mmol/L Normal 98-109 [facility] Comment on above: Performed By: #### Tami PHILLIPS, , CBCA ####[facility] ([id number])[address] [place] [address] 23899 CO2 [Moles/Vol] 25 mmol/L Normal 22-32 [facility] Comment on above: Performed By: #### Tami PHILLIPS, , CBCA ####[facility] ([id number])[address] [place] [address]208 Creatinine [Mass/Vol] 0.96 mg/dL Normal 0.40-1.00 [facility] Comment on above: Result Comment: METH OD TRACEABLE TO IDMS STANDARD Performed By: #### C JACQUELINE, , CBCA ####[facility] ([id number])[address] [place] [address]04 GFR/1.73 sq M.predicted among non-blacks MDRD (S/P/Bld) [Vol rate/Area] 61 mL/min/{1.73_m2} Normal >59 [facility] Comment on above: Result Comment: Reported eGFR is based on the CKD-EPI 2020 equation that does not use a race coefficient. Performed By: #### C JACQUELINE, , CBCA ####[facility] ([id number])[address] [place] [address], [place] [address] Glucose [Mass/Vol] 105 mg/dL High 65-99 [facility] Comment on above: Performed By: #### Tami PHILLIPS, , CBCA ####[facility] ([id number])[address] [place] [address] Potassium [Moles/Vol] 3.6 mmol/L Normal 3.5-5.0 [facility] Comment on above: Performed By: #### Tami PHILLIPS, , CBCA ####[facility] ([id number])[address] [place] [address], [place] [address] Protein [Mass/Vol] 5.7 g/dL Low 6.0-8.0 [facility] Comment on above: Performed By: #### Tami PHILLIPS, , CBCA ####[facility] ([id number])[address] [place] [address] [place] [address] Sodium [Moles/Vol] 137 mmol/L Normal 134-146 [facility] Comment on above: Performed By: #### Tami PHILLIPS, , CBCA ####[facility] ([id number])[address] [place] [address] [place] [address] Urea nitrogen [Mass/Vol] 14 mg/dL Normal 5-27 [facility] Comment on above: Performed By: #### Tami PHILLIPS, , CBCA ####[facility] ([id number])[address] [place] [address] MAGNESIUMon 07-14-2024 Magnesium [Mass/Vol] 1.7 mg/dL Low 1.8-2.6 [facility] Comment on above: Performed By: #### C MP, , CBCA ####[facility] ([id number])[address] [place] [address] CBC AND AUTO DIFFon 07-13-20 ABSOLUTE BASOPHIL 0.1 X10E9/L Normal 0.0-0.2 [facility] Comment on above: Performed By: #### C LIZZY, CMP, ####[facility] ([id number])[address] [place] [address]#### [id number] ####[facility] ([id number])[address] [facility] [address] [place] [address] ABSOLUTE NEUTROPHIL 8.4 X10E9/L High 1.5-6.6 [facility] Comment on above: Performed By: #### C BCA, CMP, ####[facility] ([id number])[address] [place] [address] 89026#### 97029-8 ####[facility] ([id number])[address] [facility], [address] [place] [address] 64254 Basophils/100 WBC (Bld) 0.8 % Normal [facility] Comment on above: Performed By: #### C BCA, CMP, ####[facility] ([id number])[address] [place] [address] 16227#### 43020-3 ####[facility] ([id number])[address], [address] [place] [address] 79877 Eosinophils (Bld) [#/Vol] 0.2 10*3/uL Normal 0.0-0.4 [facility] Comment on above: Performed By: #### C BCA, CMP, 44017-3 ####[facility] ([id number])[address] [place] [address] 50035#### 66952-5 ####[facility] ([id number])[address], [address], [place] [address] Eosinophils/100 WBC (Bld) 1.9 % Normal [facility] Comment on above: Performed By: #### C BCA, CMP, ####[facility] ([id number])[address] [place] [address] 71623#### 56687-9 ####[facility] ([id number])[address], [address] [place] [address] 38675 Erythrocyte distribution width (RBC) [Ratio] 14.2 % Normal 11.5-15.0 [facility] Comment on above: Performed By: #### C BCA, CMP, ####[facility] ([id number])[address] [place] [address] 73806#### 69007-4 ####[facility] ([id number])[address], [address] [place] [address] 13111 Hematocrit (Bld) [Volume fraction] 41.4 % Normal 35-47 [facility] Comment on above: Performed By: #### C BCA, CMP, ####[facility] ([id number])[address] [place] [address] 22413#### 61696-3 ####[facility] ([id number])[address], [address], [place] [address] Hemoglobin (Bld) [Mass/Vol] 13.8 g/dL Normal 11.7-15.5 [facility] Comment on above: Performed By: #### C BCA, CMP, ####[facility] ([id number])[address] [place] [address] 33414#### 22773-3 ####[facility] ([id number])[address], [address], [place] [address] Lymphocytes (Bld) [#/Vol] 1.1 10*3/uL Normal 1.0-3.5 [facility] Comment on above: Performed By: #### Tami BCA, CMP, 64353-2 ####[facility] ([id number])[address] [place] [address] 95787#### 06339-3 ####[facility] ([id number])[address], [address], [place] [address] Lymphocytes/100 WBC (Bld) 10.4 % Normal [facility] Comment on above: Performed By: #### Tami BCA, CMP, 60472-5 ####[facility] ([id number])[address] [place] [address] 32357#### 93622-5 ####[facility] ([id number])[address], [address], [place] [address] MCH (RBC) [Entitic mass] 28.8 pg Normal 27-34 [facility] Comment on above: Performed By: #### Tami BCA, CMP, ####[facility] ([id number])[address] [place] [address] 16964#### 83852-3 ####[facility] ([id number])[address], [address], [place] [address] MCHC (RBC) [Mass/Vol] 33.4 g/dL Normal 32-36 [facility] Comment on above: Performed By: #### C BCA, CMP, ####[facility] ([id number])[address] [place] [address] 93421#### 55861-5 ####[facility] ([id number])[address], [address] [place] [address] 82802 MCV (RBC) [Entitic vol] 86 fL Normal 80-100 [facility] Comment on above: Performed By: #### C LIZZY, CMP, ####[facility] ([id number])[address] [place] [address] 70003#### 21737-1 ####[facility] ([id number])[address], [address] [place] [address] 85006 Monocytes (Bld) [#/Vol] 0.7 10*3/uL Normal 0-0.9 [facility] Comment on above: Performed By: #### Tami BCA, CMP, ####[facility] ([id number])[address] [place] [address] 51175#### 10622-6 ####[facility] ([id number])[address] [address] [place] [address] 23483 Monocytes/100 WBC (Bld) 7.0 % Normal [facility] Comment on above: Performed By: #### Tami BCA, CMP, ####[facility] ([id number])[address] [place] [address] 03255#### 83148-4 ####[facility] ([id number])[address] [address] [place] [address] 92049 Neutrophils/100 WBC (Bld) 79.9 % Normal [facility] Comment on above: Performed By: #### C BCA, CMP, ####[facility] ([id number])[address] [place] [address] 05549#### 62683-1 ####[facility] ([id number])[address], [address] [place] [address] Platelet mean volume (Bld) [Entitic vol] 7.8 fL Normal 7-12 [facility] Comment on above: Performed By: #### C LIZZY, CMP, 36531-7 ####[facility] ([id number])[address] [place] [address] 72663#### 18718-2 ####[facility] ([id number])[address], [address], [place] [address] Platelets (Bld) [#/Vol] 226 10*3/uL Normal 150-450 [facility] Comment on above: Performed By: #### Tami BALL, CMP, 56236-5 ####[facility] ([id number])[address] [place] [address] 20171#### 48144-4 ####[facility] ([id number])[address], [address], [place] [address] RBC COUNT 4.80 X10E12/L Normal 3.80-5.20 [facility] Comment on above: Performed By: #### Tami BALL, CMP, 29173-6 ####[facility] ([id number])[address] [place] [address] 51437#### 12570-0 ####[facility] ([id number])[address], [address] [place] [address] WBC (Bld) [#/Vol] 10.5 10*3/uL Normal 4.0-11.0 [facility] Comment on above: Performed By: #### Tami BCA, CMP, 54649-7 ####[facility] ([id number])[address] [place] [address] 13176#### 29248-2 ####[facility] ([id number])[address], [address], [place] [address] COMPREHENSIVE METABOLIC PANE Antonio 07-13-2024 Albumin [Mass/Vol] 3.6 g/dL Normal 3.2-5.3 [facility] Comment on above: Performed By: #### C BCA, CMP, 80214-4 ####[facility] ([id number])[address] [place] [address] 23855#### 56219-2 ####[facility] ([id number])[address], [address] [place] [address] 91796 ALP [Catalytic activity/Vol] 53 U/L Normal 39-130 [facility] Comment on above: Performed By: #### C BCA, CMP, 07708-7 ####[facility] ([id number])[address] [place] [address] 14001#### 10375-2 ####[facility] ([id number])[address], [address], [place] [address] ALT [Catalytic activity/Vol] 22 U/L Normal 0-31 [facility] Comment on above: Performed By: #### C BCA, CMP, 10852-7 ####[facility] ([id number])[address] [place] [address] 86774#### 16105-4 ####[facility] ([id number])[address], [address], [place] [address] Anion gap [Moles/Vol] 8 mmol/L Normal 5-15 [facility] Comment on above: Performed By: #### C BCA, CMP, 19196-1 ####[facility] ([id number])[address] [place] [address] 76789#### 79199-7 ####[facility] ([id number])[address], [address] [place] [address] AST [Catalytic activity/Vol] 20 U/L Normal 0-41 [facility] Comment on above: Performed By: #### C BCA, CMP, 52616-5 ####[facility] ([id number])[address] [place] [address] 05916#### 63082-0 ####[facility] ([id number])[address], [address], [place] [address] Bilirubin [Mass/Vol] 0.7 mg/dL Normal 0.3-1.2 [facility] Comment on above: Performed By: #### C BCA, [facility], ####[facility] ([id number])[address] [place] [address] 69023#### 06533-4 ####[facility] ([id number])[address], [address], [place] [address] Calcium [Mass/Vol] 8.9 mg/dL Normal 8.5-10.5 [facility] Comment on above: Performed By: #### C BCA, CMP, ####[facility] ([id number])[address] [place] [address] 19005#### 71681-2 ####[facility] ([id number])[address], [address], [place] [address] Chloride [Moles/Vol] 104 mmol/L Normal 98-109 [facility] Comment on above: Performed By: #### C BCA, CMP, ####[facility] ([id number])[address] [place] [address] 68107#### 83544-2 ####[facility] ([id number])[address], [address], [place] [address] CO2 [Moles/Vol] 27 mmol/L Normal 22-32 [facility] Comment on above: Performed By: #### C ALBERTO BALL, 34196-3 ####[facility] ([id number])[address] [place] [address] 95276#### 92521-3 ####[facility] ([id number])[address], [address] [place] [address] 35577 Creatinine [Mass/Vol] 0.96 mg/dL Normal 0.40-1.00 [facility] Comment on above: Result Comment: METH OD TRACEABLE TO IDMS STANDARD Performed By: #### C ALBERTO BALL, 08353-1 ####[facility] ([id number])[address] [place] [address] 49303#### 89549-7 ####[facility] ([id number])[address], [address] [place] [address] 86874 GFR/1.73 sq M.predicted among non-blacks MDRD (S/P/Bld) [Vol rate/Area] 61 mL/min/{1.73_m2} Normal >59 [facility] Comment on above: Result Comment: Reported eGFR is based on the CKD-EPI 1 equation that does not use a race coefficient. Performed By: #### C ALBERTO BALL, 52607-1 ####[facility] ([id number])[address] [place] [address] 22823#### 98499-8 ####[facility] ([id number])[address], [address] [place] [address] 71783 Glucose [Mass/Vol] 95 mg/dL Normal 65-99 [facility] Comment on above: Performed By: #### C LIZZY, CMP, 19119-1 ####[facility] ([id number])[address] [place] [address] 22902#### 09683-4 ####[facility] ([id number])[address], [address], [place] [address] Potassium [Moles/Vol] 3.8 mmol/L Normal 3.5-5.0 [facility] Comment on above: Performed By: #### C BCA, CMP, 04636-2 ####[facility] ([id number])[address] [place] [address] 53678#### 41139-2 ####[facility] ([id number])[address], [address], [place] [address] Protein [Mass/Vol] 6.2 g/dL Normal 6.0-8.0 [facility] Comment on above: Performed By: #### C BCA, CMP, 19522-3 ####[facility] ([id number])[address] [place] [address] 56740#### 73990-5 ####[facility] ([id number])[address], [address] [place] [address] Sodium [Moles/Vol] 139 mmol/L Normal 134-146 [facility] Comment on above: Performed By: #### C BCA, CMP, 03031-3 ####[facility] ([id number])[address] [place] [address] 63780#### 00957-1 ####[facility] ([id number])[address], [address] [place] [address] Urea nitrogen [Mass/Vol] 19 mg/dL Normal 5-27 [facility] Comment on above: Performed By: #### C BCA, CMP, 23002-9 ####[facility] ([id number])[address] [place] [address] 90946#### 93301-3 ####[facility] ([id number])[address], [address], [place] [address] MAGNESIUMon 07-13-2024 Magnesium [Mass/Vol] 1.9 mg/dL Normal 1.8-2.6 [facility] Comment on above: Performed By: #### C ALBERTO BALL, ####[facility] ([id number])[address] [place] [address] 98242#### 29181-6 ####[facility] ([id number])[address] [place] [address] 57801 Vitamin D+Metabolites [Mass/ Vol]on 07-13-2024 VITAMIN D 25 HYD TOT 47.9 ng/mL Normal 30-100 [facility] Comment on above: Result Comment: Vitamin D status 25 [place] Vitamin D Deficiency <20 ng/mL Insufficiency 20-29 ng/mL Sufficiency 30-100 ng/mL Toxicity >100 ng/mL NOTE: A pediatric reference range has not been established by the trapeze performer of this kit. The [employer] [employer] recommends a Vitamin D level of = or >20ng/mL in infants and children. Performed By: #### C ALBERTO BALL, ####[facility] ([id number])[address] [place] [address] 15158#### 63443-3 ####[facility] ([id number])[address] [place] [address] 08891 CBC AND AUTO DIFFon 07-12-20 24 ABSOLUTE BASOPHIL 0.1 X10E9/L Normal 0.0-0.2 [facility] Comment on above: Performed By: #### C ALBERTO BALL, , 50097-7, 20083-3, THYR #### [facility] ([id number]) [address] [place] [address] 69583 ABSOLUTE NEUTROPHIL 9.7 X10E9/L High 1.5-6.6 [facility] Comment on above: Performed By: #### C BCA, CMP, 11734-4, 40179-1, 70278-5, THYR #### [facility] ([id number]) [address] [place] [address] 86672 Basophils/100 WBC (Bld) 0.7 % Normal [facility] Comment on above: Performed By: #### C BCA, CMP, 05618-1, 80263-9, 35363-4, THYR #### [facility] ([id number]) [address] [place] [address] 77967 Eosinophils (Bld) [#/Vol] 0.1 10*3/uL Normal 0.0-0.4 [facility] Comment on above: Performed By: #### C BCA, CMP, 80017-5, 84587-0, 79017-0, THYR #### [facility] ([id number]) [address] [place] [address] 33474 Eosinophils/100 WBC (Bld) 0.5 % Normal [facility] Comment on above: Performed By: #### C BCA, CMP, 49904-2, 88487-2, 73110-7, THYR #### [facility] ([id number]) [address] [place] [address] 66890 Erythrocyte distribution width (RBC) [Ratio] 14.2 % Normal 11.5-15.0 [facility] Comment on above: Performed By: #### C BCA, CMP, 95512-0, 62291-5, 56919-2, THYR #### [facility] ([id number]) [address] [place] [address] 13522 Hematocrit (Bld) [Volume fraction] 42.5 % Normal 35-47 [facility] Comment on above: Performed By: #### C BCA, CMP, 12037-6, 35489-7, 32875-3, THYR #### [facility] ([id number]) [address] [place] [address] 67807 Hemoglobin (Bld) [Mass/Vol] 14.2 g/dL Normal 11.7-15.5 [facility] Comment on above: Performed By: #### C BCA, CMP, 42745-8, 70171-0, 50285-1, THYR #### [facility] ([id number]) [address] [place] [address] 56774 Lymphocytes (Bld) [#/Vol] 0.9 10*3/uL Low 1.0-3.5 [facility] Comment on above: Performed By: #### C BCA, CMP, 25281-3, 80256-1, 64456-9, THYR #### [facility] ([id number]) [address] [place] [address] 10307 Lymphocytes/100 WBC (Bld) 8.1 % Normal [facility] Comment on above: Performed By: #### C BCA, CMP, 58494-6, 99261-6, 99439-0, THYR #### [facility] ([id number]) [address] [place] [address] 96558 MCH (RBC) [Entitic mass] 28.6 pg Normal 27-34 [facility] Comment on above: Performed By: #### C BCA, CMP, 36840-9, 04053-5, 44540-7, THYR #### [facility] ([id number]) [address] [place] [address] 80819 MCHC (RBC) [Mass/Vol] 33.3 g/dL Normal 32-36 [facility] Comment on above: Performed By: #### C BCA, CMP, 88988-0, 12876-3, 10784-5, THYR #### [facility] ([id number]) [address] [place] [address] 49244 MCV (RBC) [Entitic vol] 86 fL Normal 80-100 [facility] Comment on above: Performed By: #### C BCA, CMP, 72715-9, 91641-6, 13406-3, THYR #### [facility] ([id number]) [address] [place] [address] 57373 Monocytes (Bld) [#/Vol] 0.8 10*3/uL Normal 0-0.9 [facility] Comment on above: Performed By: #### C BCA, CMP, 74825-8, 01782-7, 86433-7, THYR #### [facility] ([id number]) [address] [place] [address] 21080 Monocytes/100 WBC (Bld) 7.1 % Normal [facility] Comment on above: Performed By: #### C BCA, CMP, 54003-0, 38962-7, 45008-3, THYR #### [facility] ([id number]) [address] [place] [address] 43320 Neutrophils/100 WBC (Bld) 83.6 % Normal [facility] Comment on above: Performed By: #### Tami BCA, CMP, 61421-6, 51214-4, 85878-3, THYR #### [facility] ([id number]) [address] [place] [address] 87482 Platelet mean volume (Bld) [Entitic vol] 7.8 fL Normal 7-12 [facility] Comment on above: Performed By: #### C BCA, CMP, 52280-4, 53295-8, 65180-2, THYR #### [facility] ([id number]) [address] [place] [address] 42145 Platelets (Bld) [#/Vol] 290 10*3/uL Normal 150-450 [facility] Comment on above: Performed By: #### C BCA, CMP, 55240-5, 94449-4, 56610-1, THYR #### [facility] ([id number]) [address] [place] [address] 77383 RBC COUNT 4.95 X10E12/L Normal 3.80-5.20 [facility] Comment on above: Performed By: #### C BCA, CMP, 56733-5, 24112-6, 34134-8, THYR #### [facility] ([id number]) [address] [place] [address] 99795 WBC (Bld) [#/Vol] 11.6 10*3/uL High 4.0-11.0 [facility] Comment on above: Performed By: #### C BCA, CMP, 22173-5, 28680-5, 48278-3, THYR #### [facility] ([id number]) [address] [place] [address] 10425 COMPREHENSIVE METABOLIC PANE Antonio 07-12-2024 Albumin [Mass/Vol] 4.0 g/dL Normal 3.2-5.3 [facility] Comment on above: Performed By: #### C BCA, CMP, 70089-6, 89531-3, 32694-3, THYR #### [facility] ([id number]) [address] [place] [address] 08976 ALP [Catalytic activity/Vol] 55 U/L Normal 39-130 [facility] Comment on above: Performed By: #### C BCA, CMP, 89732-2, 27592-9, 89597-7, THYR #### [facility] ([id number]) [address] [place] [address] 50352 ALT [Catalytic activity/Vol] 25 U/L Normal 0-31 [facility] Comment on above: Performed By: #### C BCA, CMP, 61903-3, 81805-5, 41630-7, THYR #### [facility] ([id number]) [address] [place] [address] 57890 Anion gap [Moles/Vol] 10 mmol/L Normal 5-15 [facility] Comment on above: Performed By: #### C BCA, CMP, 32471-1, 65003-6, 81140-7, THYR #### [facility] ([id number]) [address] [place] [address] 40607 AST [Catalytic activity/Vol] 23 U/L Normal 0-41 [facility] Comment on above: Performed By: #### C BCA, CMP, 58914-7, 26033-0, 30132-7, THYR #### [facility] ([id number]) [address] [place] [address] 18451 Bilirubin [Mass/Vol] 0.4 mg/dL Normal 0.3-1.2 [facility] Comment on above: Performed By: #### C BCA, CMP, 03121-5, 63028-6, 05122-9, THYR #### [facility] ([id number]) [address] [place] [address] 04041 Calcium [Mass/Vol] 9.1 mg/dL Normal 8.5-10.5 [facility] Comment on above: Performed By: #### C BCA, CMP, 38212-3, 16635-2, 71887-9, THYR #### [facility] ([id number]) [address] [place] [address] 67116 Chloride [Moles/Vol] 107 mmol/L Normal 98-109 [facility] Comment on above: Performed By: #### C BCA, CMP, 70742-6, 01081-3, 90028-2, THYR #### [facility] ([id number]) [address] [place] [address] 47270 CO2 [Moles/Vol] 21 mmol/L Low 22-32 [facility] Comment on above: Performed By: #### C BCA, CMP, 56521-4, 66918-2, 56879-5, THYR #### [facility] ([id number]) [address] [place] [address] 68135 Creatinine [Mass/Vol] 1.17 mg/dL High 0.40-1.00 [facility] Comment on above: Result Comment: METH OD TRACEABLE TO IDMS STANDARD Performed By: #### C BCA, CMP, 07473-4, 06810-7, 97495-8, THYR #### [facility] ([id number]) [address] [place] [address] 87460 GFR/1.73 sq M.predicted among non-blacks MDRD (S/P/Bld) [Vol rate/Area] 48 mL/min/{1.73_m2} Low >59 [facility] Comment on above: Result Comment: Reported eGFR is based on the CKD-EPI 2020 equation that does not use a race coefficient. Performed By: #### C BCA, CMP, 36889-9, 12133-1, 97552-3, THYR #### [facility] ([id number]) [address] [place] [address] 61736 Glucose [Mass/Vol] 118 mg/dL High 65-99 [facility] Comment on above: Performed By: #### C BCA, CMP, 92796-1, 42366-3, 10522-7, THYR #### [facility] ([id number]) [address] [place] [address] 13795 Potassium [Moles/Vol] 3.8 mmol/L Normal 3.5-5.0 [facility] Comment on above: Performed By: #### C BCA, CMP, 96697-1, 16094-9, 58187-4, THYR #### [facility] ([id number]) [address] [place] [address] 33358 Protein [Mass/Vol] 6.4 g/dL Normal 6.0-8.0 [facility] Comment on above: Performed By: #### C BCA, CMP, 59519-5, 63697-2, 29398-8, THYR #### [facility] ([id number]) [address] [place] [address] 73670 Sodium [Moles/Vol] 138 mmol/L Normal 134-146 [facility] Comment on above: Performed By: #### C BCA, CMP, 15304-8, 70524-6, 28889-3, THYR #### [facility] ([id number]) [address] [place] [address] 82417 Urea nitrogen [Mass/Vol] 23 mg/dL Normal 5-27 [facility] Comment on above: Performed By: #### C BCA, CMP, 50499-8, 11832-1, 17638-1, THYR #### [facility] ([id number]) [address] [place] [address] BRAIN WO CONTon 4 CT BRAIN WO CONT CT BRAIN WO [...] Manuel MD on 07/12/2024 8:01 PM Normal [facility] CT CERVICAL SPINE WO CONTon 07-12-2024 CT [...] Duncan Alfred on 07/12/2024 8:00 PM Normal [facility] Lactate (P allan) [Moles/Vol]o n 07-12-2024 LACTATE W/REFLEX 1.7 mmol/L Normal 0.4-2.0 [facility] Comment on above: Result Comment: Result did not trigger repeat Lactate, re-order if needed. Performed By: #### 3 2133-1 ####[facility] ([id number])[address] [place] [address]122 MAGNESIUMon 07-12-2024 Magnesium [Mass/Vol] 1.7 mg/dL Low 1.8-2.6 [facility] Comment on above: Performed By: #### C BCA, CMP, 89876-5, 72717-9, 42256-6, THYR #### [facility] ([id number]) [address] [place] [address] 53705 Natriuretic peptide B [Mass/ Vol]on 07-12-2024 Natriuretic peptide B (Bld) [Mass/Vol] 215 pg/mL High <100.0 [facility] Comment on above: Performed By: #### C BCA, CMP, 42450-4, 86481-6, 99095-8, THYR #### [facility] ([id number]) [address] [place] [address] 95522 THYROID PROFILEon 07-12-2024 Free T4 [Mass/Vol] 1.29 ng/dL Normal 0.61-1.60 [facility] Comment on above: Performed By: #### C BCA, CMP, 69822-5, 96117-7, 57336-7, THYR #### [facility] ([id number]) [address] [place] [address] 08939 TSH 2.78 uIU/mL Normal 0.49-4.67 [facility] Comment on above: Performed By: #### C BCA, CMP, 11606-8, 94252-7, 23658-3, THYR #### [facility] ([id number]) [address] [place] [address] 39766 Troponin I.cardiac High sens itivity method [Mass/Vol]on 07-12-2024 1 HOUR TROP I, HIGH SENSITIVITY 13 ng/L Normal <16 [facility] Comment on above: Performed By: #### 8 9579-7 ####[facility] ([id number])[address] [place] [address] 27047 TROPONIN I, HIGH SENSITIVITY 13 ng/L Normal <16 [facility] Comment on above: Performed By: #### C BCA, CMP, 48694-8, 04794-2, 74002-7, THYR #### [facility] ([id number]) [address] [place] [address] 50926 URINE CULTUREon 07-12-2024 Bacteria identified Cx Nom [...] F TOBRAMYCIN S <=1 F TRIMETH/SULFAMETHOXAZOLE S <=/19 F Susceptible [facility] Comment on above: Performed By: #### 6 30-4 ####[facility] ([id number])[address] [place] [address], [address] [address] URN MACROSCOPIC NURon 2023 BILIRUBIN CORINNE Negative Normal [facility] Comment on above: Performed By: #### N UM ####[facility] ([id number])[address] [place] [address]324 BLOOD/HGB CORINNE Small Abnormal NEG [facility] Comment on above: Performed By: #### N UM ####[facility] ([id number])[address] [place] [address] 24007 GLUCOSE CORINNE Negative Normal [facility] [facility] Comment on above: Performed By: #### N UM ####[facility] ([id number])[address] [place] [address], [place] [address] KETONES CORINNE Negative Normal NEG [facility] Comment on above: Performed By: #### N UM ####[facility] ([id number])[address] [place] [address] LEUKOCYTE ESTERASE CORINNE Large Abnormal NEG [facility] Comment on above: Performed By: #### N UM ####[facility] ([id number])[address] [place] [address] [place] [address] NITRITE CORINNE Negative Normal NEG [facility] Comment on above: Performed By: #### N UM ####[facility] ([id number])[address] [place] [address] 44273 PH CORINNE 6.0 Normal 5.0-8.5 [facility] Comment on above: Performed By: #### N UM ####[facility] ([id number])[address] [place] [address] 08149 PROTEIN CORINNE 30 mg/dL Abnormal NEG [facility] Comment on above: Performed By: #### N UM ####[facility] ([id number])[address] [place] [address] 22965 SPECIFIC GRAVITY CORINNE 1.020 Normal 1.003-1.035 [facility] Comment on above: Performed By: #### N UM ####[facility] ([id number])[address] [place] [address] 79344 UROBILINOGEN CORINNE 0.2 eu/dL Normal <1.1 [facility] Comment on above: Performed By: #### N UM ####[facility] ([id number])[address] [place] [address]057 XR KNEE LT 3 VWSon 4 XR [...] Andrade MD on 04/15/2024 6:56 PM Normal [facility] XR KNEE RT 3 VWSon 4 XR [...] De MD on 04/14/2024 1:52 PM Normal [facility] MR LUMBAR SPINE WO CONTon MR LUMBAR [...] Martin MD on 02/17/2024 3:48 PM Normal [facility] MR THORACIC SPINE W WO CONTo n [...] Martin MD on 02/17/2024 2:38 PM Normal [facility] MR BRAIN W WO CONTon 024 MR BRAIN W WO CONT MR BRAIN W WO CONT MR BRAIN W WO CONT 12/13/2023 12:08 PM INDICATION: MS (multiple sclerosis) ([facility]); Hypertensive heart disease with heart failure ([facility]); Mixed hyperlipidemia. Increasing leg weakness. COMPARISON: MR [...] Rosa DO on 12/13/2023 3:37 PM Normal [facility] MR CERVICAL SPINE W WO CONTo n 12-13-2023 MR CERVICAL SPINE W WO CONT MR CERVICAL SPINE W WO CONT MR CERVICAL SPINE W WO CONT 12/13/2023 12:10 PM INDICATION: MS (multiple sclerosis) (CMS-HCC); Hypertensive heart disease with heart failure (CMS-HCC); Mixed hyperlipidemia COMPARISON: MR cervical spine 01/04/2023 [...] canal stenosis. There is moderate right and [id number]-sybcuhab left neural foraminal narrowing. These findings are [...] where there is moderate spinal canal stenosis. I, Austin Rosa DO have personally reviewed the image(s) and agree with and/or edited the report Finalized by Austin Rosa DO on 12/13/2023 3:58 PM Normal [facility] Complete Blood Count Auto Di ffon 07-27-2022 Basophils (Bld) [#/Vol] 0.1 10*3/uL Normal 0.0-0.2 [facility] Comment on above: Result Comment: PERF ORMED BY: [place] [address] PATHOLOGIST BINDING CEMENTER FRENCH CORD MATEUS COSME M.D. Performed By: #### C BC #### [place] [address] [place] Basophils/100 WBC (Bld) 1.0 % Normal . [facility] Comment on above: Performed By: #### C BC #### [place] [address] [place] Eosinophils (Bld) [#/Vol] 0.1 10*3/uL Normal 0.0-0.45 [facility] Comment on above: Performed By: #### C BC #### [place] [address] [place] Eosinophils/100 WBC (Bld) 0.9 % Normal . [facility] Comment on above: Performed By: #### C BC #### [address] Erythrocyte distribution width (RBC) [Ratio] 17.2 % High 11.9-15.3 [facility] Comment on above: Performed By: #### C BC #### [address] Hematocrit (Bld) [Volume fraction] 30.0 % Low 34.0-46.4 [facility] Comment on above: Performed By: #### C BC #### [address] Hemoglobin (Bld) [Mass/Vol] 9.3 g/dL Low 11.8-15.4 [facility] Comment on above: Performed By: #### C BC #### [address] Lymphocytes (Bld) [#/Vol] 0.6 10*3/uL Low 1.00-4.8 [facility] Comment on above: Performed By: #### C BC #### [address] Lymphocytes/100 WBC (Bld) 5.8 % Normal . [facility] Comment on above: Performed By: #### C BC #### [address] MCH (RBC) [Entitic mass] 25.1 pg Normal 24.7-34.3 [facility] Comment on above: Performed By: #### C BC #### [address] MCV (RBC) [Entitic vol] 80.5 fL Normal 80-100 [facility] Comment on above: Performed By: #### C BC #### [address] Mean Corpuscular HGB Conc 31.1 g/dL Low 32.0-35.0 [facility] Comment on above: Performed By: #### C BC #### [facility] [address] [id number] [place] Monocytes (Bld) [#/Vol] 0.4 10*3/uL Normal 0.0-0.8 [facility] Comment on above: Performed By: #### C BC #### [facility] [address] [id number] [place] Monocytes/100 WBC (Bld) 4.2 % Normal . [facility] Comment on above: Performed By: #### C BC #### [facility] [address] [place] [address] [place] Neutrophils (Bld) [#/Vol] 9.2 10*3/uL High 1.8-7.7 [facility] Comment on above: Performed By: #### C BC #### [facility] [address] Neutrophils/100 WBC (Bld) 88.1 % Normal . [facility] Comment on above: Performed By: #### C BC #### [facility] [address] [place] [address] [place] Nucleated RBC/100 WBC (Bld) [Ratio] 0.0 % Normal 0-0.5 [facility] Comment on above: Performed By: #### C BC #### [facility] [address] [place] [address] [place] Platelet mean volume (Bld) [Entitic vol] 7.0 fL Normal 6.3-10.7 [facility] Comment on above: Performed By: #### C BC #### [facility] [address] [id number] [place] Platelets (Bld) [#/Vol] 487 10*3/uL High 150-450 [facility] Comment on above: Performed By: #### C BC #### [facility] [address] [id number] [place] RBC (Bld) [#/Vol] 3.73 10*6/uL Normal 3.60-5.00 [facility] Comment on above: Performed By: #### C BC #### [facility] [address] WBC (Bld) [#/Vol] 10.4 10*3/uL Normal 4.5-11.0 [facility] Comment on above: Performed By: #### C BC #### [facility] [address] CBC AUTO DIFFon 04-10-2021 BASO # 0.0 103/ul Normal 0.0-0.1 [facility] Comment on above: Performed By: #### C BC #### [facility] [address] [place] [address] Gokul Jennifer Basophils/100 WBC (Bld) 0.2 % Normal 0.2-2.0 [facility] Comment on above: Performed By: #### C BC #### [facility] [address] [place] [address] Gokul Jennifer EO # 0.0 103/ul Normal 0.0-0.7 [facility] Comment on above: Performed By: #### C BC #### [facility] [address] [address] Gokul Jennifer Eosinophils/100 WBC (Bld) 0.2 % Critically low 0.9-7.0 [facility] Comment on above: Performed By: #### C BC #### [facility] [address] [place] [address] Gokul Jennifer Erythrocyte distribution width (RBC) [Ratio] 14.4 % Normal 11.0-15.0 [facility] Comment on above: Performed By: #### C BC #### [facility] [address] [place] [address] Gokul Jennifer Hematocrit (Bld) [Volume fraction] 36.0 % Normal 36.0-48.0 [facility] Comment on above: Performed By: #### C BC #### [facility] [address] [place] [address] Gokul Jennifer Hemoglobin (Bld) [Mass/Vol] 11.9 g/dL Critically low 12.0-16.0 [facility] Comment on above: Performed By: #### C BC #### [facility] [address] [address] Gokul Jennifer IG # 0.13 10e3/ul Critically high 0.00-0.03 [facility] Comment on above: Performed By: #### C BC #### [facility] [address] [id number] Gokul Jennifer IG % 2.6 % Critically high 0.0-0.5 [facility] Comment on above: Performed By: #### C BC #### [facility] [address] [address] Gokul Jennifer LYMPH # 0.6 103/ul Critically low 1.2-3.8 [facility] Comment on above: Performed By: #### C BC #### [facility] [address] [place] [address] Gokul Jennifer Lymphocytes/100 WBC (Bld) 12.5 % Critically low 20.5-60.0 [facility] Comment on above: Performed By: #### C BC #### [facility] [address] [place] [address] Gokul Jennifer MANUAL DIFF REQ NO Normal [facility] Comment on above: Performed By: #### C BC #### [facility] [address] [place] [address] Gokulcarl Mccarthyen MCH (RBC) [Entitic mass] 27.6 pg Normal 26.7-34.0 [facility] Comment on above: Performed By: #### C BC #### [facility] [address] [place] [address] Gokul Jennifer MCHC (RBC) [Mass/Vol] 33.1 g/dL Normal 29.9-35.2 [facility] Comment on above: Performed By: #### C BC #### [facility] [address] [place], [place] [phone] Gokul Jennifer MCV (RBC) [Entitic vol] 83.5 fL Normal 81.0-99.0 [facility] Comment on above: Performed By: #### C BC #### [facility] [address] [place] [address] Gokul Rodriguez MONO # 0.4 103/ul Normal 0.3-0.8 [facility] Comment on above: Performed By: #### C BC #### [facility] [address] [place], [place] [address] Gokul Rodriguez Monocytes/100 WBC (Bld) 7.4 % Normal 1.7-12.0 [facility] Comment on above: Performed By: #### C BC #### [facility] [address] [place] [address] Gokul Jennifer NEUT # 3.9 103/ul Normal 1.4-6.5 [facility] Comment on above: Performed By: #### C BC #### [facility] [address] [place] [address] Gokul Rodriguez Neutrophils/100 WBC (Bld) 77.1 % Critically high 43.0-75.0 [facility] Comment on above: Performed By: #### C BC #### [facility] [address] [place] [address] Gokul Rodriguez Platelet mean volume (Bld) [Entitic vol] 9.6 fL Normal 9.5-13.5 [facility] Comment on above: Performed By: #### C BC #### [facility] [address] [place] [address] Gokulcarl Mccarthyen PLT 203 103/ul Normal 150-450 [facility] Comment on above: Performed By: #### C BC #### [facility] [address] [place] [address] Gokul Jennifer RBC 4.31 106/ul Normal 4.20-5.40 [facility] Comment on above: Performed By: #### C BC #### [facility] [address] [place], [place] [phone] Gokul Jennifer WBC 5.0 103/ul Normal 4.0-11.0 [facility] Comment on above: Performed By: #### C BC #### [facility] [address] [place] [address] Gokul Rodriguez PROF 14(COMP METB)on 05-24-2 021 Albumin [Mass/Vol] 2.5 g/dL Critically low 3.5-5.0 Th e [facility] Comment on above: Performed By: #### C MP #### [facility] [address] [place] [address] Gokul Jennifer Albumin/Globulin [Mass ratio] 0.7 {ratio} Normal [facility] Comment on above: Performed By: #### C MP #### [facility] [address] [phone] Gokul Jennifer ALP [Catalytic activity/Vol] 49 U/L Normal 38-126 [facility] Comment on above: Performed By: #### C MP #### [facility] [address] [place], [place] [phone] Gokul Jennifer ALT [Catalytic activity/Vol] 49 U/L Normal 9-52 [facility] Comment on above: Performed By: #### C MP #### [facility] [address] [place], [place] [address] Gokul Jennifer Anion gap [Moles/Vol] 12.2 mmol/L Normal [facility] Comment on above: Performed By: #### C MP #### [facility] [address] [place], [place] [address] Gokul Jennifer AST [Catalytic activity/Vol] 34 U/L Normal 14-36 [facility] Comment on above: Performed By: #### C MP #### [facility] [address] [place], [place] [address] Gokul Jennifer Bilirubin [Mass/Vol] 0.3 mg/dL Normal 0.2-1.3 [facility] Comment on above: Performed By: #### C MP #### [facility] [address] [place], [place] [address] Gokul Jennifer Calcium [Mass/Vol] 8.5 mg/dL Normal 8.4-10.2 [facility] Comment on above: Performed By: #### C MP #### [facility] [address] [place], [place] [address] Gokul Jennifer Chloride [Moles/Vol] 108 mmol/L Critically high 98-107 [facility] Comment on above: Performed By: #### C MP #### [facility] [address] [phone] Gokul Jennifer CO2 [Moles/Vol] 26.8 mmol/L Normal 22.0-30.0 [facility] Comment on above: Performed By: #### C MP #### [facility] [address] [address] Gokul Jennifer Creatinine [Mass/Vol] 0.89 mg/dL Normal 0.52-1.04 [facility] Comment on above: Performed By: #### C MP #### [facility] [address] [phone] Gokul Jennifer EGFR-AF EGYPTIAN >60 Normal >=60 [facility] Comment on above: Performed By: #### C MP #### [facility] [address] [address] Gokul Jennifer EGFR-NON AF EGYPTIAN >60 Normal >=60 [facility] Comment on above: Performed By: #### C MP #### [facility] [address] [phone] Gokul Jennifer Globulin (S) [Mass/Vol] 3.4 g/dL Normal [facility] Comment on above: Performed By: #### C MP #### [facility] [address] [place] [address] Gokul Jennifer Glucose [Mass/Vol] 111 mg/dL Critically high 74-106 [facility] Comment on above: Performed By: #### C MP #### [facility] [address] [address] Gokul Jennifer Potassium [Moles/Vol] 4.0 mmol/L Normal 3.4-5.0 [facility] Comment on above: Performed By: #### C MP #### [facility] [address] [phone] Gokul Jennifer Protein [Mass/Vol] 5.9 g/dL Critically low 6.1-8.2 [facility] Comment on above: Performed By: #### C MP #### [facility] [address] [address] Gokul Jennifer Sodium [Moles/Vol] 143 mmol/L Normal 137-145 [facility] Comment on above: Performed By: #### C MP #### [facility] [address] [place] [address] Gokul Jennifer Urea nitrogen [Mass/Vol] 32.0 mg/dL Critically high 7.0-17.0 [facility] Comment on above: Performed By: #### C MP #### [facility] [address] [place] [address] Gokul Jennifer Urea nitrogen/Creatinine [Mass ratio] 36.0 mg/mg Normal [facility] Comment on above: Performed By: #### C MP #### [facility] [address] [place] [address] Gokul Jennifer CBC AUTO DIFFon 04-09-2021 BASO # 0.0 103/ul Normal 0.0-0.1 [facility] Comment on above: Performed By: #### C BC #### [facility] [address] [place] [address] Gokul Jennifer Basophils/100 WBC (Bld) 0.2 % Normal 0.2-2.0 [facility] Comment on above: Performed By: #### C BC #### [facility] [address] [place] [address] Gokul Jennifer EO # 0.0 103/ul Normal 0.0-0.7 [facility] Comment on above: Performed By: #### C BC #### [facility] [address] [place] [address] Gokul Jennifer Eosinophils/100 WBC (Bld) 0.0 % Critically low 0.9-7.0 [facility] Comment on above: Performed By: #### C BC #### [facility] [address] [place] [address] Gokul Jennifer Erythrocyte distribution width (RBC) [Ratio] 14.4 % Normal 11.0-15.0 [facility] Comment on above: Performed By: #### C BC #### [facility] [address] [place] [address] Gokul Jennifer Hematocrit (Bld) [Volume fraction] 35.2 % Critically low 36.0-48.0 [facility] Comment on above: Performed By: #### C BC #### [facility] [address] [place], [place] [address] Gokul Rodriguez Hemoglobin (Bld) [Mass/Vol] 11.2 g/dL Critically low 12.0-16.0 [facility] Comment on above: Performed By: #### C BC #### [facility] [address] [place] [address] Gokul Rodriguez IG # 0.07 10e3/ul Critically high 0.00-0.03 [facility] Comment on above: Performed By: #### C BC #### [facility] [address] [place] [address] Gokul Rodriguez IG % 1.7 % Critically high 0.0-0.5 [facility] Comment on above: Performed By: #### C BC #### [facility] [address] [place] [address] Gokul Rodriguez LYMPH # 0.5 103/ul Critically low 1.2-3.8 [facility] Comment on above: Performed By: #### C BC #### [facility] [address] [place], [place] [phone] Gokul Rodriguez Lymphocytes/100 WBC (Bld) 12.1 % Critically low 20.5-60.0 [facility] Comment on above: Performed By: #### C BC #### [facility] [address] [place], [place] [phone] Gokul Rodriguez MANUAL DIFF REQ NO Normal [facility] Comment on above: Performed By: #### C BC #### [facility] [address] [place], [place] [address] Gokul Rodrigeuz MCH (RBC) [Entitic mass] 27.0 pg Normal 26.7-34.0 [facility] Comment on above: Performed By: #### C BC #### [facility] [address] [place], [place] [address] Gokul Rodriguez MCHC (RBC) [Mass/Vol] 31.8 g/dL Normal 29.9-35.2 [facility] Comment on above: Performed By: #### C BC #### [facility] [address] [phone] Gokul Rodriguez MCV (RBC) [Entitic vol] 84.8 fL Normal 81.0-99.0 [facility] Comment on above: Performed By: #### C BC #### [facility] [address] [phone] Gokul Rodriguez MONO # 0.4 103/ul Normal 0.3-0.8 [facility] Comment on above: Performed By: #### C BC #### [facility] [address] [phone] Gokul Rodriguez Monocytes/100 WBC (Bld) 8.6 % Normal 1.7-12.0 [facility] Comment on above: Performed By: #### C BC #### [facility] [address] [address] Gokul Mccarthyen NEUT # 3.1 103/ul Normal 1.4-6.5 [facility] Comment on above: Performed By: #### C BC #### [facility] [address] [phone] Gokul Rodriguez Neutrophils/100 WBC (Bld) 77.4 % Critically high 43.0-75.0 [facility] Comment on above: Performed By: #### C BC #### [facility] [address] [phone] Gokul Rodriguez Platelet mean volume (Bld) [Entitic vol] 9.5 fL Normal 9.5-13.5 [facility] Comment on above: Performed By: #### C BC #### [facility] [address] [phone] Gokul Jennifer PLT 184 103/ul Normal 150-450 [facility] Comment on above: Performed By: #### C BC #### [facility] [address] [phone] Gokul Jennifer RBC 4.15 106/ul Critically low 4.20-5.40 [facility] Comment on above: Performed By: #### C BC #### [facility] [address] [place], [place] [address] Gokul Jennifer WBC 4.1 103/ul Normal 4.0-11.0 [facility] Comment on above: Performed By: #### C BC #### [facility] [address] [place], [place] [address] Gokul Jennifer POINT OF CARE GLUCOSEon 03-19 Glucose [Mass/Vol] 156 mg/dL Critically high 74-106 [facility] Comment on above: Performed By: #### C BC #### [facility] [address] [place], [place] [address] Gokul Jennifer Glucose [Mass/Vol] 134 mg/dL Critically high 74-106 [facility] Comment on above: Performed By: #### C MP #### [facility] [address] [place] [address] Gokul Jennifer Glucose [Mass/Vol] 106 mg/dL Normal 74-106 [facility] Comment on above: Performed By: #### P OCGLUC #### [facility] [address] [place], [place] [address] Gokul Jennifer PROF 14(COMP METB)on 021 Albumin [Mass/Vol] 2.5 g/dL Critically low 3.5-5.0 [facility] Comment on above: Performed By: #### C MP #### [facility] [address] [place] [address] Gokul Jennifer Albumin/Globulin [Mass ratio] 0.8 {ratio} Normal [facility] Comment on above: Performed By: #### C MP #### [facility] [address] [place], [place] [address] Gokul Jennifer ALP [Catalytic activity/Vol] 51 U/L Normal 38-126 [facility] Comment on above: Performed By: #### C MP #### [facility] [address] [place] [address] Gokul Jennifer ALT [Catalytic activity/Vol] 52 U/L Normal 9-52 [facility] Comment on above: Performed By: #### C MP #### [facility] [address] [phone] Gokul Jennifer Anion gap [Moles/Vol] 11.0 mmol/L Normal [facility] Comment on above: Performed By: #### C MP #### [facility] [address] [address] Gokul Jennifer AST [Catalytic activity/Vol] 43 U/L Critically high 14-36 [facility] Comment on above: Performed By: #### C MP #### [facility] [address] [address] Gokul Jennifer Bilirubin [Mass/Vol] 0.3 mg/dL Normal 0.2-1.3 [facility] Comment on above: Performed By: #### C MP #### [facility] [address] [address] Gokul Jennifer Calcium [Mass/Vol] 8.5 mg/dL Normal 8.4-10.2 [facility] Comment on above: Performed By: #### C MP #### [facility] [address] [place] [address] Gokul Jennifer Chloride [Moles/Vol] 109 mmol/L Critically high 98-107 [facility] Comment on above: Performed By: #### C MP #### [facility] [address] [address] Gokul Jennifer CO2 [Moles/Vol] 28.0 mmol/L Normal 22.0-30.0 [facility] Comment on above: Performed By: #### C MP #### [facility] [address] [address] Gokul Jennifer Creatinine [Mass/Vol] 0.92 mg/dL Normal 0.52-1.04 [facility] Comment on above: Performed By: #### C MP #### [facility] [address] [phone] Gokul Jennifer EGFR-AF EGYPTIAN >60 Normal >=60 [facility] Comment on above: Performed By: #### C MP #### [facility] [address] [phone] Gokul Jennifer EGFR-NON AF EGYPTIAN =60 Normal >=60 [facility] Comment on above: Performed By: #### C MP #### [facility] [address] [place], [place] [address] Gokul Jennifer Globulin (S) [Mass/Vol] 3.3 g/dL Normal [facility] Comment on above: Performed By: #### C MP #### [facility] [address] [place], [place] [address] Gokul Jennifer Glucose [Mass/Vol] 119 mg/dL Critically high 74-106 [facility] Comment on above: Performed By: #### C MP #### [facility] [address] [place], [place] [address] Gokul Jennifer Potassium [Moles/Vol] 4.0 mmol/L Normal 3.4-5.0 [facility] Comment on above: Performed By: #### C MP #### [facility] [address] [place], [place] [address] Gokul Jennifer Protein [Mass/Vol] 5.8 g/dL Critically low 6.1-8.2 Th e [facility] Comment on above: Performed By: #### C MP #### [facility] [address] [place], [place] [address] Gokul Jennifer Sodium [Moles/Vol] 144 mmol/L Normal 137-145 [facility] Comment on above: Performed By: #### C MP #### [facility] [address] [place], [place] [address] Gokul Jennifer Urea nitrogen [Mass/Vol] 31.0 mg/dL Critically high 7.0-17.0 [facility] Comment on above: Performed By: #### C MP #### [facility] [address] [place], [place] [address] Gokul Jennifer Urea nitrogen/Creatinine [Mass ratio] 33.7 mg/mg Normal [facility] Comment on above: Performed By: #### C MP #### [facility] [address] [place], [place] [address] Gokul Jennifer CBC AUTO DIFFon 04-08-2021 BASO # 0.0 103/ul Normal 0.0-0.1 [facility] Comment on above: Performed By: #### C MP #### [facility] [address], [place] [address] Gokul Jennifer Basophils/100 WBC (Bld) 0.3 % Normal 0.2-2.0 [facility] Comment on above: Performed By: #### C MP #### [facility] [address] [place] [id number] Gokul Jennifer EO # 0.0 103/ul Normal 0.0-0.7 [facility] Comment on above: Performed By: #### C MP #### [facility] [address] [id number] Gokul Jennifer Eosinophils/100 WBC (Bld) 0.0 % Critically low 0.9-7.0 [facility] Comment on above: Performed By: #### C MP #### [facility] [address] [address] Gokul Jennifer Erythrocyte distribution width (RBC) [Ratio] 14.6 % Normal 11.0-15.0 [facility] Comment on above: Performed By: #### C MP #### [facility] [address] [id number] Gokul Jennifer Hematocrit (Bld) [Volume fraction] 37.0 % Normal 36.0-48.0 [facility] Comment on above: Performed By: #### C MP #### [facility] [address] [id number] Gokul Jennifer Hemoglobin (Bld) [Mass/Vol] 11.9 g/dL Critically low 12.0-16.0 [facility] Comment on above: Performed By: #### C MP #### [facility] [address] [id number] Gokul Jennifer IG # 0.04 10e3/ul Critically high 0.00-0.03 [facility] Comment on above: Performed By: #### C MP #### [facility] [address] [id number] Gokul Jennifer IG % 1.4 % Critically high 0.0-0.5 [facility] Comment on above: Performed By: #### C MP #### [facility] [address] [id number] Gokul Jennifer LYMPH # 0.3 103/ul Critically low 1.2-3.8 [facility] Comment on above: Performed By: #### C MP #### [facility] [address] [place], [place] [address] Gokul Jennifer Lymphocytes/100 WBC (Bld) 11.8 % Critically low 20.5-60.0 [facility] Comment on above: Performed By: #### C MP #### [facility] [address] [id number] Gokul Jennifer MANUAL DIFF REQ NO Normal [facility] Comment on above: Performed By: #### C MP #### [facility] [address] [place], [place] [phone] Gokul Jennifer MCH (RBC) [Entitic mass] 27.7 pg Normal 26.7-34.0 [facility] Comment on above: Performed By: #### C MP #### [facility] [address] [place], [place] [phone] Gokul Jennifer MCHC (RBC) [Mass/Vol] 32.2 g/dL Normal 29.9-35.2 [facility] Comment on above: Performed By: #### C MP #### [facility] [address] [place], [place] [phone] Gokul Jennifer MCV (RBC) [Entitic vol] 86.0 fL Normal 81.0-99.0 [facility] Comment on above: Performed By: #### C MP #### [facility] [address] [place], [place] [phone] Gokul Jennifer MONO # 0.3 103/ul Normal 0.3-0.8 [facility] Comment on above: Performed By: #### C MP #### [facility] [address] [place], [place] [phone] Gokul Jennifer Monocytes/100 WBC (Bld) 11.1 % Normal 1.7-12.0 [facility] Comment on above: Performed By: #### C MP #### [facility] [address] [address] Gokul Rodriguez NEUT # 2.2 103/ul Normal 1.4-6.5 [facility] Comment on above: Performed By: #### C MP #### [facility] [address] [phone] Gokul Rodriguez Neutrophils/100 WBC (Bld) 75.4 % Critically high 43.0-75.0 [facility] Comment on above: Performed By: #### C MP #### [facility] [address] [phone] Gokul Rodriguez Platelet mean volume (Bld) [Entitic vol] 9.8 fL Normal 9.5-13.5 [facility] Comment on above: Performed By: #### C MP #### [facility] [address] [place], [place] [phone] Gokul Mccarthyen PLT 170 103/ul Normal 150-450 [facility] Comment on above: Performed By: #### C MP #### [facility] [address] [address] Gokul Mccarthyen RBC 4.30 106/ul Normal 4.20-5.40 [facility] Comment on above: Performed By: #### C MP #### [facility] [address] [phone] Gokul Rodriguez WBC 2.9 103/ul Critically low 4.0-11.0 [facility] Comment on above: Performed By: #### C MP #### [facility] [address] [place], [place] [phone] Gokul Rodriguez CULTURE URINEon 04-08-2021 CULTURE URINE [...] F Trimethoprim/Sulfamethoxa zole <=20 S F Normal [facility] Comment on above: Performed By: #### C MP #### [facility] [address] [place] [address] Gokulcarl Rodriguez POINT OF CARE GLUCOSEon 03-19 Glucose [Mass/Vol] 156 mg/dL Critically high 74-106 [facility] Comment on above: Performed By: #### P OCGLUC #### [facility] [address] [place] [address] Gokul Jennifer Glucose [Mass/Vol] 188 mg/dL Critically high 74-106 [facility] Comment on above: Performed By: #### C BC #### [facility] [address] [place], [place] [address] Gokul Jennifer Glucose [Mass/Vol] 118 mg/dL Critically high 74-106 [facility] Comment on above: Performed By: #### C BC #### [facility] [address] [place], [place] [phone] Gokulcarl Mccarthyen PROF 14(COMP METB)on 021 Albumin [Mass/Vol] 2.5 g/dL Critically low 3.5-5.0 [facility] Comment on above: Performed By: #### C MP #### [facility] [address] [place], [place] [address] Gokul Jennifer Albumin/Globulin [Mass ratio] 0.8 {ratio} Normal [facility] Comment on above: Performed By: #### C MP #### [facility] [address] [place], [place] [phone] Gokul Jennifer ALP [Catalytic activity/Vol] 42 U/L Normal 38-126 [facility] Comment on above: Performed By: #### C MP #### [facility] [address] [place], [place] [phone] Gokul Jennifer ALT [Catalytic activity/Vol] 58 U/L Critically high 9-52 [facility] Comment on above: Performed By: #### C MP #### [facility] [address] [place] [address] Gokul Jennifer Anion gap [Moles/Vol] 11.7 mmol/L Normal [facility] Comment on above: Performed By: #### C MP #### [facility] [address] [place] [address] Gokul Jennifer AST [Catalytic activity/Vol] 72 U/L Critically high 14-36 [facility] Comment on above: Performed By: #### C MP #### [facility] [address] [place] [address] Gokul Jennifer Bilirubin [Mass/Vol] 0.3 mg/dL Normal 0.2-1.3 [facility] Comment on above: Performed By: #### C MP #### [facility] [address] [place] [address] Gokul Jennifer Calcium [Mass/Vol] 8.3 mg/dL Critically low 8.4-10.2 [facility] Comment on above: Performed By: #### C MP #### [facility] [address] [place] [address] Gokul Jennifer Chloride [Moles/Vol] 108 mmol/L Critically high 98-107 [facility] Comment on above: Performed By: #### C MP #### [facility] [address] [place] [address] Gokul Jennifer CO2 [Moles/Vol] 27.4 mmol/L Normal 22.0-30.0 [facility] Comment on above: Performed By: #### C MP #### [facility] [address] [address] Gokul Jennifer Creatinine [Mass/Vol] 0.82 mg/dL Normal 0.52-1.04 [facility] Comment on above: Performed By: #### C MP #### [facility] [address] [place], [place] [phone] Gokul Jennifer EGFR-AF EGYPTIAN >60 Normal >=60 [facility] Comment on above: Performed By: #### C MP #### [facility] [address] [phone] Gokul Jennifer EGFR-NON AF EGYPTIAN >60 Normal >=60 [facility] Comment on above: Performed By: #### C MP #### [facility] [address] [place], [place] [address] Gokul Jennifer Globulin (S) [Mass/Vol] 3.3 g/dL Normal [facility] Comment on above: Performed By: #### C MP #### [facility] [address] [place], [place] [address] Gokul Jennifer Glucose [Mass/Vol] 128 mg/dL Critically high 74-106 [facility] Comment on above: Performed By: #### C MP #### [facility] [address] [place] [address] Gokul Jennifer Potassium [Moles/Vol] 4.1 mmol/L Normal 3.4-5.0 [facility] Comment on above: Performed By: #### C MP #### [facility] [address] [address] Gokul Jennifer Protein [Mass/Vol] 5.8 g/dL Critically low 6.1-8.2 [facility] Comment on above: Performed By: #### C MP #### [facility] [address] [place] [phone] Gokul Jennifer Sodium [Moles/Vol] 143 mmol/L Normal 137-145 [facility] Comment on above: Performed By: #### C MP #### [facility] [address] [place] [address] Gokul Jennifer Urea nitrogen [Mass/Vol] 27.0 mg/dL Critically high 7.0-17.0 [facility] Comment on above: Performed By: #### C MP #### [facility] [address] [place] [phone] Gokul Jennifer Urea nitrogen/Creatinine [Mass ratio] 32.9 mg/mg Normal [facility] Comment on above: Performed By: #### C MP #### [facility] [address] [phone] Gokul Jennifer CBC AUTO DIFFon 04-07-2021 BASO # 0.0 103/ul Normal 0.0-0.1 [facility] Comment on above: Performed By: #### C BC #### [facility] [address] [place], [place] [phone] Gokul Jennifer Basophils/100 WBC (Bld) 0.0 % Critically low 0.2-2.0 [facility] Comment on above: Performed By: #### C BC #### [facility] [address] [place], [place] [address] Gokul Jennifer EO # 0.0 103/ul Normal 0.0-0.7 [facility] Comment on above: Performed By: #### C BC #### [facility] [address] [place], [place] [address] Gokul Jennifer Eosinophils/100 WBC (Bld) 0.0 % Critically low 0.9-7.0 [facility] Comment on above: Performed By: #### C BC #### [facility] [address] [place] [address] Gokul Jennifer Erythrocyte distribution width (RBC) [Ratio] 14.2 % Normal 11.0-15.0 [facility] Comment on above: Performed By: #### C BC #### [facility] [address] [place], [place] [address] Gokul Jennifer Hematocrit (Bld) [Volume fraction] 36.6 % Normal 36.0-48.0 [facility] Comment on above: Performed By: #### C BC #### [facility] [address] [place], [place] [address] Gokul Jennifer Hemoglobin (Bld) [Mass/Vol] 12.0 g/dL Normal 12.0-16.0 [facility] Comment on above: Performed By: #### C BC #### [facility] [address] [place] [address] Gokul Jennifer IG # 0.02 10e3/ul Normal 0.00-0.03 [facility] Comment on above: Performed By: #### C BC #### [facility] [address] [place], [place] [address] Gokul Jennifer IG % 0.5 % Normal 0.0-0.5 [facility] Comment on above: Performed By: #### C BC #### [facility] [address] [phone] Gokul Jennifer LYMPH # 0.5 103/ul Critically low 1.2-3.8 [facility] Comment on above: Performed By: #### C BC #### [facility] [address] [phone] Gokul Jennifer Lymphocytes/100 WBC (Bld) 12.4 % Critically low 20.5-60.0 [facility] Comment on above: Performed By: #### C BC #### [facility] [address] [place], [place] [address] Gokul Jennifer MANUAL DIFF REQ NO Normal [facility] Comment on above: Performed By: #### C BC #### [facility] [address] [place], [place] [address] Gokul Jennifer MCH (RBC) [Entitic mass] 27.5 pg Normal 26.7-34.0 [facility] Comment on above: Performed By: #### C BC #### [facility] [address] [place], [place] [address] Gokul Jennifer MCHC (RBC) [Mass/Vol] 32.8 g/dL Normal 29.9-35.2 [facility] Comment on above: Performed By: #### C BC #### [facility] [address] [place], [place] [address] Gokul Jennifer MCV (RBC) [Entitic vol] 83.9 fL Normal 81.0-99.0 [facility] Comment on above: Performed By: #### C BC #### [facility] [address] [place], [place] [address] Gokul Jennifer MONO # 0.4 103/ul Normal 0.3-0.8 [facility] Comment on above: Performed By: #### C BC #### [facility] [address] [place], [place] [address] Gokul Jennifer Monocytes/100 WBC (Bld) 8.7 % Normal 1.7-12.0 [facility] Comment on above: Performed By: #### C BC #### [facility] [address] [place], [place] [address] Gokul Jennifer NEUT # 3.4 103/ul Normal 1.4-6.5 [facility] Comment on above: Performed By: #### C BC #### [facility] [address] [place], [place] [address] Gokul Rodriguez Neutrophils/100 WBC (Bld) 78.4 % Critically high 43.0-75.0 [facility] Comment on above: Performed By: #### C BC #### [facility] [address] [place] [address] Gokul Rodriguez Platelet mean volume (Bld) [Entitic vol] 9.7 fL Normal 9.5-13.5 [facility] Comment on above: Performed By: #### C BC #### [facility] [address] [place] [address] Gokul Rodriguez PLT 147 103/ul Critically low 150-450 [facility] Comment on above: Performed By: #### C BC #### [facility] [address] [place] [address] Gokul Rodriguez RBC 4.36 106/ul Normal 4.20-5.40 [facility] Comment on above: Performed By: #### C BC #### [facility] [address] [place], [place] [address] Gokul Rodriguez WBC 4.4 103/ul Normal 4.0-11.0 [facility] Comment on above: Performed By: #### C BC #### [facility] [address] [place] [address] oGkul Rodriguez POINT OF CARE GLUCOSEon 05-2 Glucose [Mass/Vol] 137 mg/dL Critically high 74-106 [facility] Comment on above: Performed By: #### C BC #### [facility] [address] [place] [address] Gokul Jennifer Glucose [Mass/Vol] 129 mg/dL Critically high 74-106 [facility] Comment on above: Performed By: #### C MP #### [facility] [address] [place] [address] Gokul Jennifer Glucose [Mass/Vol] 108 mg/dL Critically high 74-106 [facility] Comment on above: Performed By: #### C MP #### [facility] [address] [phone] Gokul Rodriguez PROF 14(COMP METB)on 021 Albumin [Mass/Vol] 2.7 g/dL Critically low 3.5-5.0 [facility] Comment on above: Performed By: #### C MP #### [facility] [address] [place], [place] [address] Gokul Jennifer Albumin/Globulin [Mass ratio] 0.8 {ratio} Normal [facility] Comment on above: Performed By: #### C MP #### [facility] [address] [place], [place] [address] Gokul Jennifer ALP [Catalytic activity/Vol] 47 U/L Normal 38-126 [facility] Comment on above: Performed By: #### C MP #### [facility] [address] [place], [place] [address] Gokul Jennifer ALT [Catalytic activity/Vol] 61 U/L Critically high 9-52 [facility] Comment on above: Performed By: #### C MP #### [facility] [address] [place], [place] [address] Gokul Jennifer Anion gap [Moles/Vol] 11.7 mmol/L Normal [facility] Comment on above: Performed By: #### C MP #### [facility] [address] [place], [place] [address] Gokul Jennifer AST [Catalytic activity/Vol] 96 U/L Critically high 14-36 [facility] Comment on above: Performed By: #### C MP #### [facility] [address] [place], [place] [address] Gokul Jennifer Bilirubin [Mass/Vol] 0.4 mg/dL Normal 0.2-1.3 [facility] Comment on above: Performed By: #### C MP #### [facility] [address] [place], [place] [address] Gokul Jennifer Calcium [Mass/Vol] 8.3 mg/dL Critically low 8.4-10.2 [facility] Comment on above: Performed By: #### C MP #### [facility] [address] [address] Gokul Jennifer Chloride [Moles/Vol] 104 mmol/L Normal 98-107 [facility] Comment on above: Performed By: #### C MP #### [facility] [address] [address] Gokul Jennifer CO2 [Moles/Vol] 27.7 mmol/L Normal 22.0-30.0 [facility] Comment on above: Performed By: #### C MP #### [facility] [address] [address] Gokul Jennifer Creatinine [Mass/Vol] 0.94 mg/dL Normal 0.52-1.04 [facility] Comment on above: Performed By: #### C MP #### [facility] [address] [place] [address] Gokul Jennifer EGFR-AF EGYPTIAN >60 Normal >=60 [facility] Comment on above: Performed By: #### C MP #### [facility] [address] [place] [address] Gokul Jennifer EGFR-NON AF EGYPTIAN 58 mL/min/1.73m2 Critically low >=60 [facility] Comment on above: Performed By: #### C MP #### [facility] [address] [place] [address] Gokul Jennifer Globulin (S) [Mass/Vol] 3.4 g/dL Normal [facility] Comment on above: Performed By: #### C MP #### [facility] [address] [place] [address] Gokul Jennifer Glucose [Mass/Vol] 99 mg/dL Normal 74-106 [facility] Comment on above: Performed By: #### C MP #### [facility] [address] [address] Gokul Jennifer Potassium [Moles/Vol] 3.4 mmol/L Normal 3.4-5.0 [facility] Comment on above: Performed By: #### C MP #### [facility] [address] [address] Gokul Jennifer Protein [Mass/Vol] 6.1 g/dL Normal 6.1-8.2 [facility] Comment on above: Performed By: #### C MP #### [facility] [address] [address] Gokul Jennifer Sodium [Moles/Vol] 140 mmol/L Normal 137-145 [facility] Comment on above: Performed By: #### C MP #### [facility] [address] [address] Gokul Jennifer Urea nitrogen [Mass/Vol] 28.0 mg/dL Critically high 7.0-17.0 [facility] Comment on above: Performed By: #### C MP #### [facility] [address] [place] [address] Gokul Jennifer Urea nitrogen/Creatinine [Mass ratio] 29.8 mg/mg Normal [facility] Comment on above: Performed By: #### C MP #### [facility] [address] [address] Gokul Jennifer CBC W MANUAL DIFFon 05-20-20 21 ATYPICAL LYMPH # Normal [facility] Comment on above: Performed By: #### C MP #### [facility] [address] [place] [address] Gokul Jennifer ATYPICAL LYMPH % Normal [facility] Comment on above: Performed By: #### C MP #### [facility] [address] [place] [address] Gokul Jennifer BAND # 0.2 103/ul Normal 0.0-0.3 [facility] Comment on above: Performed By: #### C MP #### [facility] [address] [place] [address] Gokul Jennifer BAND % 5 % Normal 0-5 [facility] Comment on above: Performed By: #### C MP #### [facility] [address] [place] [address] Gokul Jennifer BASOM # 0.00 103/ul Normal 0.00-0.10 [facility] Comment on above: Performed By: #### C MP #### [facility] [address] [address] Gokul Jennifer BASOM % 0.0 % Critically low 0.2-2.0 [facility] Comment on above: Performed By: #### C MP #### [facility] [address] [address] Gokul Jennifer BLAST # Normal [facility] Comment on above: Performed By: #### C MP #### [facility] [address] [address] Gokul Jennifer BLAST % Normal [facility] Comment on above: Performed By: #### C MP #### [facility] [address] [place] [address] Gokul Jennifer CORRECTED WBC Normal 4.0-11.[address] [facility] Comment on above: Performed By: #### C MP #### [facility] [address] [place] [address] Gokul Jennifer EOS # 0.00 103/ul Normal 0.00-0.70 [facility] Comment on above: Performed By: #### C MP #### [facility] [address] [place] [address] Gokul Jennifer EOS% 0.0 % Critically low 0.9-7.0 [facility] Comment on above: Performed By: #### C MP #### [facility] [address] [place] [address] Gokul Jennifer HCT 38.9 % Normal 36.0-48.0 [facility] Comment on above: Performed By: #### C MP #### [facility] [address] [place] [address] Gokul Jennifer HGB 12.8 g/dl Normal 12.0-16.0 [facility] Comment on above: Performed By: #### C MP #### [facility] [address] [place] [address] Gokul Jennifer LYMPHM # 0.51 103/ul Critically low 1.20-3.80 [facility] Comment on above: Performed By: #### C MP #### [facility] [address] [address] Gokul Jennifer LYMPHM% 15.0 % Critically low 20.5-60.0 [facility] Comment on above: Performed By: #### C MP #### [facility] [address] [place] [address] Gokul Jennifer MCH 27.9 pg Normal 26.7-34.0 [facility] Comment on above: Performed By: #### C MP #### [facility] [address] [address] Gokul Jennifer MCHC 32.9 g/dl Normal 29.9-35.2 [facility] Comment on above: Performed By: #### C MP #### [facility] [address] [place] [address] Gokul Jennifer MCV 84.7 fL Normal 81.0-99.0 [facility] Comment on above: Performed By: #### C MP #### [facility] [address] [place] [address] Gokul Jennifer METAMYELOCYTE # Normal [facility] Comment on above: Performed By: #### C MP #### [facility] [address] [place] [address] Gokul Jennifer METAMYELOCYTE % Normal [facility] Comment on above: Performed By: #### C MP #### [facility] [address] [place] [address] Gokul Jennifer MONOM# 0.24 103/ul Critically low 0.30-0.80 [facility] Comment on above: Performed By: #### C MP #### [facility] [address] [place] [address] Gokul Jennifer MONOM% 7.0 % Normal 1.7-12.0 [facility] Comment on above: Performed By: #### C MP #### [facility] [address] [place] [address] Gokul Jennifer MPV 9.8 fL Normal 9.5-13.5 [facility] Comment on above: Performed By: #### C MP #### [facility] [address] [place], [place] [address] Gokul Jennifer MYELOCYTE # Normal [facility] Comment on above: Performed By: #### C MP #### [facility] [address] [place], [place] [address] Gokul Jennifer MYELOCYTE % Normal [facility] Comment on above: Performed By: #### C MP #### [facility] [address] [place], [place] [address] Gokul Jennifer NRBC Normal [facility] Comment on above: Performed By: #### C MP #### [facility] [address] [address] [place], [place] [id number] Gokul Jennifer PLT 166 103/ul Normal 150-450 [facility] Comment on above: Performed By: #### C MP #### [facility] [address] [place] [address] Gokul Jennifer RBC 4.59 106/ul Normal 4.20-5.40 [facility] Comment on above: Performed By: #### C MP #### [facility] [address] [place] [address] Gokul Jennifer RDW 14.5 % Normal 11.0-15.0 [facility] Comment on above: Performed By: #### C MP #### [facility] [address] [place] [address] Gokul Jennifer SEG # 2.48 103/ul Normal 1.40-6.50 [facility] Comment on above: Performed By: #### C MP #### [facility] [address] [place] [address] Gokul Jennifer SEG % 73.0 % Normal 43.0-75.0 [facility] Comment on above: Performed By: #### C MP #### [facility] [address] [place], [place] [address] Gokul Jennifer WBC 3.4 103/ul Critically low 4.0-11.0 [facility] Comment on above: Performed By: #### C MP #### [facility] [address] [place] [address] Gokulcarl Mccarthyen CRPon 04-06-2021 CRP 5.4 mg/dL Critically high <=1.0 [facility] Comment on above: Performed By: #### C RP, CMP #### [facility] [address] [place], [place] [address] Gokulcarl Rodriguez POINT OF CARE GLUCOSEon 03-19 0 Glucose [Mass/Vol] 131 mg/dL Critically high 74-106 [facility] Comment on above: Performed By: #### C MP #### [facility] [address] [place], [place] [address] Gokul Jennifer Glucose [Mass/Vol] 133 mg/dL Critically high 74-106 [facility] Comment on above: Performed By: #### P OCGLUC #### [facility] [address] [place] [address] Gokul Jennifer Glucose [Mass/Vol] 105 mg/dL Normal 74-106 [facility] Comment on above: Performed By: #### C MP #### [facility] [address] [place] [address] Gokul Rodriguez PROF 14(COMP METB)on Albumin [Mass/Vol] 3.3 g/dL Critically low 3.5-5.0 [facility] Comment on above: Performed By: #### C RP, CMP #### [facility] [address] [place], [place] [address] Gokul Jennifer Albumin/Globulin [Mass ratio] 0.9 {ratio} Normal [facility] Comment on above: Performed By: #### C RP, CMP #### [facility] [address] [place], [place] [address] Gokul Jennifer ALP [Catalytic activity/Vol] 59 U/L Normal 38-126 [facility] Comment on above: Performed By: #### C RP, CMP #### [facility] [address] [place], [place] [address] Gokul Jennifer ALT [Catalytic activity/Vol] 51 U/L Normal 9-52 [facility] Comment on above: Performed By: #### C RP, CMP #### [facility] [address] [place], [place] [address] Gokul Jennifer Anion gap [Moles/Vol] 15.0 mmol/L Normal [facility] Comment on above: Performed By: #### C RP, CMP #### [facility] [address] [place] [address] Gokul Jennifer AST [Catalytic activity/Vol] 101 U/L Critically high 14-36 [facility] Comment on above: Performed By: #### C RP, CMP #### [facility] [address] [id number] Gokul Jennifer Bilirubin [Mass/Vol] 0.4 mg/dL Normal 0.2-1.3 [facility] Comment on above: Performed By: #### C RP, CMP #### [facility] [address] [place] [address] Gokul Jennifer Calcium [Mass/Vol] 8.7 mg/dL Normal 8.4-10.2 [facility] Comment on above: Performed By: #### C RP, CMP #### [facility] [address] [place] [address] Gokul Jennifer Chloride [Moles/Vol] 98 mmol/L Normal 98-107 [facility] Comment on above: Performed By: #### C RP, CMP #### [facility] [address] [place] [address] Gokul Jennifer CO2 [Moles/Vol] 25.3 mmol/L Normal 22.0-30.0 [facility] Comment on above: Performed By: #### C RP, CMP #### [facility] [address] [place] [address] Gokul Jennifer Creatinine [Mass/Vol] 1.11 mg/dL Critically high 0.52-1.04 [facility] Comment on above: Performed By: #### C RP, CMP #### [facility] [address] [place], [place] [address] Gokul Jennifer EGFR-AF EGYPTIAN 58 mL/min/1.73m2 Critically low >=60 [facility] Comment on above: Performed By: #### C RP, CMP #### [facility] [address] [place], [place] [address] Gokul Jennifer EGFR-NON AF EGYPTIAN 48 mL/min/1.73m2 Critically low >=60 [facility] Comment on above: Performed By: #### C RP, CMP #### [facility] [address] [place], [place] [address] Gokul Jennifer Globulin (S) [Mass/Vol] 3.7 g/dL Normal [facility] Comment on above: Performed By: #### C RP, CMP #### [facility] [address] [place] [address] Gokul Jennifer Glucose [Mass/Vol] 88 mg/dL Normal 74-106 [facility] Comment on above: Performed By: #### C RP, CMP #### [facility] [address] [place], [place] [address] Gokul Jennifer Potassium [Moles/Vol] 3.3 mmol/L Critically low 3.4-5.0 [facility] Comment on above: Performed By: #### C RP, CMP #### [facility] [address] [place] [address] Gokul Jennifer Protein [Mass/Vol] 7.0 g/dL Normal 6.1-8.2 [facility] Comment on above: Performed By: #### C RP, CMP #### [facility] [address] [place] [address] Gokul Jennifer Sodium [Moles/Vol] 135 mmol/L Critically low 137-145 [facility] Comment on above: Performed By: #### C RP, CMP #### [facility] [address] [place] [address] Gokul Jennifer Urea nitrogen [Mass/Vol] 27.0 mg/dL Critically high 7.0-17.0 [facility] Comment on above: Performed By: #### C RP, CMP #### [facility] [address] [place], [place] [address] Gokul Jennifer Urea nitrogen/Creatinine [Mass ratio] 24.3 mg/mg Normal [facility] Comment on above: Performed By: #### C RP, CMP #### [facility] [address] [place], [place] [address] Gokul Jennifer UA (CLEAN/CATCH) COOK VACUUM KETTLE/MICRO I F IND.on 04-06-2021 Bilirubin Ql (U) Negative Normal NEGATIVE [facility] Comment on above: Performed By: #### U ACSLEXUS UMICRO #### [facility] [address] [place] [address] Gokul Jennifer Clarity (U) CLEAR Normal CLEAR [facility] Comment on above: Performed By: #### U ACSLEXUS UMICRO #### [facility] [address] [address] Gokul Jennifer Color (U) LT. YELLOW Normal YELLOW [facility] Comment on above: Performed By: #### U ACSLEXUS UMICRO #### [facility] [address] [place] [address] Gokul Jennifer Glucose Ql (U) Negative Normal NEGATIVE The [facility] Comment on above: Performed By: #### U ACSLEXUS UMICRO #### [facility] [address] [place] [address] Gokul Jennifer Hemoglobin Ql (U) MODERATE Abnormal NEGATIVE The [facility] Comment on above: Performed By: #### U ACSLEXUS UMICRO #### [facility] [address] [place] [address] Gokul Jennifer Ketones Ql (U) TRACE Abnormal NEGATIVE The [facility] Comment on above: Performed By: #### U ACSLEXUS UMICRO #### [facility] [address] [place] [address] Gokul Jennifer LEUKOCYTES SMALL Abnormal NEGATIVE [facility] Comment on above: Performed By: #### U ACSLEXUS UMICRO #### [facility] [address] [place] [address] Gokul Jennifer Nitrite Ql (U) Negative Normal NEGATIVE The [facility] Comment on above: Performed By: #### U ACSLEXUS UMICRO #### [facility] [address] [place] [address] Gokul Jennifer pH (U) 5.5 [pH] Normal 5-9 [facility] Comment on above: Performed By: #### U ACSBECKIE ALBERTSICRO #### [facility] [address] [place] [address] Gokul Rodriguez SPEC GRAVITY 1.020 Normal 1.005-<=1.02 5 [facility] Comment on above: Performed By: #### U TATYANA JOSEPH #### [facility] [address] [place] [address] Gokul Rodriguez UA PROTEIN 30 mg/dl Abnormal NEGATIVE/ TRACE [facility] Comment on above: Performed By: #### U TATYANA JOSEPH #### [facility] [address] [place] [address] Gokul Rodriguez UR MICRO IND INDICATED Normal [facility] Comment on above: Performed By: #### U TATYANA JOSEPH #### [facility] [address] [place] [address] Gokul Rodriguez Urobilinogen Qn (U) 0.2 {Eloy'U}/dL Normal 0.2 - 1. 0 [facility] Comment on above: Performed By: #### U TATYANA JOSEPH #### [facility] [address] [place] [address] Gokul Rodriguez URINE MICROSCOPIC ONLYon BACTERIA SMALL Abnormal NONE SEEN [facility] Comment on above: Performed By: #### U TATYANA JOSEPH #### [facility] [address] [place] [address] Gokul Rodriguez Bacteria identified Cx Nom (U) INDICATED Normal [facility] Comment on above: Performed By: #### U MARY JOSEPHRO #### [facility] [address] [place] [address] Gokul Jennifer CAST NONE SEEN Normal NONE SEEN [facility] Comment on above: Performed By: #### U MARY JOSEPHRO #### [facility] [address] [place] [address] Gokul Jennifer Crystals LM Nom (Urine sed) NONE SEEN Normal NONE SEEN [facility] Comment on above: Performed By: #### U MARY JOSEPHRO #### [facility] [address] [place] [address] Gokul Jennifer Epithelial cells LM Ql (Urine sed) FEW Abnormal NONE SEEN /RARE [facility] Comment on above: Performed By: #### U ACSLEXUS, UMICRO #### [facility] [address] [place], [place] [address] Gokul Jennifer MUCOUS NONE SEEN Normal NONE SEEN [facility] Comment on above: Performed By: #### U ACSLEXUS, UMICRO #### [facility] [address] [place], [place] [address] Gokul Jennifer RBC 0-2 Normal 0-2 [facility] Comment on above: Performed By: #### U ACSLEXUS, UMICRO #### [facility] [address] [phone] Gokul Jennifer WBC 20-50 Abnormal NONE SEEN [facility] Comment on above: Performed By: #### U ACSLEXUS, UMICRO #### [facility] [address] [place], [place] [phone] Gokul Jennifer *URINE CULTUREon 02-11-2018 *URINE CULTURE [...] ([place]) 1 Susceptible Normal The [facility] Comment on above: Performed By: #### 8 5499 ####[facility] URINALYSIS REFLEXon 02-12-20 18 Bilirubin (total) Negative Normal NEGATIVE The [facility] Comment on above: Performed By: #### 8 5499 ####[facility] [place] [address], [facility] BLOOD MODERATE Abnormal NEGATIVE The [facility] Comment on above: Performed By: #### 8 5499 ####[facility] [place] [address], [facility] BUDDING YEAST MANY Abnormal NONE SEEN The [facility] Comment on above: Performed By: #### 8 5499 ####[facility] [place] [address], [facility] Erythrocytes (RBC) 5-10 Abnormal 0-[address] [facility] Comment on above: Performed By: #### 8 [id number] ####[facility] [place] [address], [facility] Glucose mass conc Negative Normal NEGATIVE The [facility] Comment on above: Performed By: #### 8 5499 ####[facility] [place] [address], [facility] KETONE Negative Normal NEGATIVE The [facility] Comment on above: Performed By: #### 8 5499 ####[facility] [facility] [place] [place] [address], [facility] LEUK TAYLOR LARGE Abnormal NEGATIVE The [facility] Comment on above: Performed By: #### 8 5499 ####[facility] [place] [address], [facility] MUCUS THREADS FEW Abnormal NONE SEEN The [facility] Comment on above: Performed By: #### 8 5499 ####[facility] pH of blood 5.0 [pH] Normal 5.0-8.[address] [facility] Comment on above: Performed By: #### 8 5499 ####[facility] [place] [address], [facility] Protein 30 mg/dL Abnormal NEGATIVE The [facility] Comment on above: Performed By: #### 8 5499 ####[facility] [facility].[address] SPEC GRAV 1.019 Normal 1.015-1.[address] [facility] Comment on above: Performed By: #### 8 5499 ####[facility] [facility].[address] Urine, appearance CLOUDY Abnormal CLEAR The [facility] Comment on above: Performed By: #### 8 5499 ####[facility] [facility].[address] Urine, color YELLOW Normal YELLOW The [facility] Comment on above: Performed By: #### 8 5499 ####[facility] [facility].[address] Urine, nitrite presence Negative Normal NEGATIVE The [facility] Comment on above: Performed By: #### 8 5499 ####[facility] [facility] [place] [place] [address], [facility] WBC UA >100 WITH CLUMPS Abnormal 0-[address] [facility] Comment on above: Performed By: #### 8 5499 ####[facility] [place] [address].[address] KNEE RIGHT 1 OR 2 VWSon 12-19 KNEE RIGHT 1 OR [address] [facility] [address] [facility] Hospital[facility] Cbkdhside[address] [place] [address] P atient Name: JUAN ALBERTOJENNIFER RANGEL Radames : 1945Sex: FAge: Race: WhiteMRN: [id number]. Location: 84Patient Status: Date: 01/06/2018 8:25:00 AMCompleted Date: 01/06/2018 08:42 AMRequesting Provider: MALGORZATA OLSEN Attending Provider: Report Copy To: Signs & Symptoms: M25.561 Pain in right knee [id number]: AthenaComments: , , Views (X-RAY, KNEE): AP, Lateral, , Weight Bearing?: Y, With Magnification Marker?: N , , , Ordering Provider - MALGORZATA OLSEN MD , Exam: KNEE RIGHT 1 OR 2 VWSAccession #: [id number] ======KNEE RIGHT 1 OR 2 VWS 01/06/2018 8:45 AM EST SIGNS AND SYMPTOMS: [...] healing Electronically signed by:Jose Davis. Transcribed by: [email or web address], User Resident: Electronically Signed by: JOSE DAVIS @ 01/06/2018 10:26 AM Normal [facility] Comment on above: Order Comment: , , V iews (X-RAY, KNEE): AP, Lateral, , Weight Bearing?: Y, With Magnification Marker?: N , , , Ordering Provider - MALGORZATA OLSEN MD , Discharge Summaryon 01-03-20 18 Discharge Summary MR#: [id number] [facility] Admitted: 12/23/2017 [...] be additional documentation fromme. Date Dict: 01/03/2018/08:56 A/KANDI Espinozaate Trans: 01/03/2018 10:14 A/Kandice_JN:[id number] cc: Maximino Spann M.D. [facility] [address] [facility] [address] Malgorzata Olsen MD [address] [place] [address] Normal [facility] PROTHROMBIN TIMEon 8 INR Coag RelTime (PPP) 1.80 {INR} High 0.91-1.16 [facility] Comment on above: Order Comment: Victor [...] OF ACTION, CLINICALEFFECTIVENESS, AND OPTIMAL THERAPEUTIC RANGE. [id number];108:231S-246S. Performed By: #### 6 2586 ####[facility] Prothrombin time (PT) Coag time (PPP) 21.2 s High 12.3-14.[address] [facility] Comment on above: Order Comment: Victor Manuel denis Result Comment: ALL RESULTS MUST BE INTERPRETED WITH RESPECT TO BLOOD DRAWING ARTIFACTOR DILUTION ERROR OF ANTICOAGULANT AT THE TIME OF SAMPLING. Performed By: #### 6 2586 ####[facility] Operative Reporton 8 Operative Report MR#: [id number] 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 Nish Sena.COMPLICATIONS: None.SPECIMENS: Tissue for culture [...] disrupt the implant-cement interface of the tibia. [place] tibialextractor and osteotome with mallet were used [...] 06:03 P Malgorzata Olsen MDDate Dict: 12/30/2017/08:56 A/Malgorzata Olsen, MDDate Trans: 12/30/2017 10:24 A/Kandice_JN:[id number] cc: Maximino Spann M.D. [facility] [address] [facility] [address] Malgorzata Olsen MD [address] [facility] [address] [place] [address] [facility] PROTHROMBIN TIMEon 8 INR Coag RelTime (PPP) 1.63 {INR} High 0.91-1.[address] [facility] Comment on above: Order Comment: Victor [...] OF ACTION, CLINICALEFFECTIVENESS, AND OPTIMAL THERAPEUTIC RANGE. [id number];108:231S-246S. Performed By: #### 1 0008 ####[facility] Prothrombin time (PT) Coag time (PPP) 19.6 s High 12.3-14.[address] [facility] Comment on above: Order Comment: Victor Manuel denis Result Comment: ALL RESULTS MUST BE INTERPRETED WITH RESPECT TO BLOOD DRAWING ARTIFACTOR DILUTION ERROR OF ANTICOAGULANT AT THE TIME OF SAMPLING. Performed By: #### 1 0008 ####[facility] [place] [address], [facility] URINALYSIS REFLEXon 12-30-19 18 Bilirubin (total) Negative Normal NEGATIVE The [facility] Comment on above: Order Comment: No: D o not add to previous draw Performed By: #### 6 2586 ####[facility] [place] [address], [facility] BLOOD SMALL Abnormal NEGATIVE The [facility] Comment on above: Order Comment: No: D o not add to previous draw Performed By: #### 6 2586 ####[facility] [place] [address], [facility] EPIS FEW Normal FEW The [facility] Comment on above: Order Comment: No: D o not add to previous draw Performed By: #### 6 2586 ####[facility] [place] [address], [facility] Erythrocytes (RBC) 11-20 Abnormal 0-[address] [facility] Comment on above: Order Comment: No: D o not add to previous draw Performed By: #### 6 2586 ####[facility] [place] [address], [facility] Glucose mass conc Negative Normal NEGATIVE The [facility] Comment on above: Order Comment: No: D o not add to previous draw Performed By: #### 6 2586 ####[facility] [place] [address], [place] KETONE Negative Normal NEGATIVE The [facility] Comment on above: Order Comment: No: D o not add to previous draw Performed By: #### 6 2586 ####[facility] [place] [address], [place] LEUK TAYLOR Negative Normal NEGATIVE The [facility] Comment on above: Order Comment: No: D o not add to previous draw Performed By: #### 6 2586 ####[facility] [place] [address], [place] MUCUS THREADS FEW Abnormal NONE SEEN The [facility] Comment on above: Order Comment: No: D o not add to previous draw Performed By: #### 6 2586 ####[facility] [place] [address], [place] pH of blood 5.0 [pH] Normal 5.0-8.[address] [facility] Comment on above: Order Comment: No: D o not add to previous draw Performed By: #### 6 2586 ####[facility] [place] [address], [facility] Protein Negative Normal NEGATIVE The [facility] Comment on above: Order Comment: No: D o not add to previous draw Performed By: #### 6 2586 ####[facility] [place] [address], [place] SPEC GRAV 1.019 Normal 1.015-1.[address] [facility] Comment on above: Order Comment: No: D o not add to previous draw Performed By: #### 6 2586 ####[facility] [place] [address], [place] Urine, appearance SL CLOUDY Abnormal CLEAR [facility] Comment on above: Order Comment: No: D o not add to previous draw Performed By: #### 6 2586 ####[facility] [place] [address], [place] Urine, color YELLOW Normal YELLOW [facility] Comment on above: Order Comment: No: D o not add to previous draw Performed By: #### 6 2586 ####[facility] [place] [address], [place] Urine, nitrite presence Negative Normal NEGATIVE The [facility] Comment on above: Order Comment: No: D o not add to previous draw Performed By: #### 6 2586 ####[facility] [place] [address], [facility] WBC UA 0-2 Abnormal 0-[address] [facility] Comment on above: Order Comment: No: D o not add to previous draw Performed By: #### 6 2586 ####[facility] Consultationon 12-29-2017 Consultation MR#: [id number] Date of Service: 12/29/2017 Room #: [id number] Birthdate: 1945 Referring Physician: NISHA FOR CONSULTATION: [...] SIGNS: Temperature 98.3 degrees Fahrenheit, pulse 58, [id number] per minute, blood pressure 136/76, oxygen saturation [...] the time of discharge if rehab or halfway facility unable to perform clean intermittent catheterization [...] personal documentation from me. Date Dict: 12/29/2017/08:39 A/Manas Palmer KANDIpoonam Trans: 12/29/2017 07:32 P/[id number] cc: Maximino Spann M.D. [facility] [address] [facility] [address] Malgorzata Olsen MD [address] [facility] [address] Normal [address] [facility] PROTHROMBIN TIMEon 8 INR Coag RelTime (PPP) 1.51 {INR} High 0.91-1.[address] [facility] Comment on above: Order Comment: Victor [...] OF ACTION, CLINICALEFFECTIVENESS, AND OPTIMAL THERAPEUTIC RANGE. [id number];108:231S-246S. Performed By: #### 1 0008 ####[facility] [facility].[address] Prothrombin time (PT) Coag time (PPP) 18.4 s High 12.3-14.[address] [facility] Comment on above: Order Comment: Unkno wn Result Comment: ALL RESULTS MUST BE INTERPRETED WITH RESPECT TO BLOOD DRAWING ARTIFACTOR DILUTION ERROR OF ANTICOAGULANT AT THE TIME OF SAMPLING. Performed By: #### 1 0008 ####[facility] [facility] [facility].[address] PROTHROMBIN TIMEon 8 INR Coag RelTime (PPP) 1.33 {INR} High 0.91-1.[address] [facility] Comment on above: Order Comment: Victor [...] OF ACTION, CLINICALEFFECTIVENESS, AND OPTIMAL THERAPEUTIC RANGE. [id number];108:231S-246S. Performed By: #### 1 0008 ####[facility] [facility].[address] Prothrombin time (PT) Coag time (PPP) 16.6 s High 12.3-14.[address] [facility] Comment on above: Order Comment: Victor Manuel denis Result Comment: ALL RESULTS MUST BE INTERPRETED WITH RESPECT TO BLOOD DRAWING ARTIFACTOR DILUTION ERROR OF ANTICOAGULANT AT THE TIME OF SAMPLING. Performed By: #### 1 0008 ####[place] [address] [facility].[address] BASIC METABOLIC PANELon 02- Calcium 8.5 mg/dL Low 8.6-10.[address] [facility] Comment on above: Order Comment: Yes: Add to Previous draw if able Performed By: #### 1 0008 ####[facility] [place] [address], [facility] Chloride 108 mmol/L High 98-[address] [facility] Comment on above: Order Comment: Yes: Add to Previous draw if able Performed By: #### 1 0008 ####[facility] [place] [address], [facility] CO2 25 mmol/L Normal 21-[address] [facility] Comment on above: Order Comment: Yes: Add to Previous draw if able Performed By: #### 1 0008 ####[facility] [place] [address], [facility] Creatinine 0.63 mg/dL Normal 0.60-1.[address] [facility] Comment on above: Order Comment: Yes: Add to Previous draw if able Performed By: #### 1 0008 ####[facility] [facility] [place] [address], [facility] eGFR (black) mL/min/{1.73_m2} Normal >[address] [facility] Comment on above: Order Comment: Yes: Add to Previous draw if able Result Comment: Calc ulation may not be valid for patients over 70 years Performed By: #### 1 0008 ####[facility] [place] [address], [facility] eGFR (non-black) mL/min/{1.73_m2} Normal >[address] [facility] Comment on above: Order Comment: Yes: Add to Previous draw if able Result Comment: Calc ulation may not be valid for patients over 70 years Performed By: #### 1 0008 ####[facility] [place] [address], [facility] Glucose mass conc 93 mg/dL Normal 70-[address] [facility] Comment on above: Order Comment: Yes: Add to Previous draw if able Performed By: #### 1 0008 ####[facility] [facility].[address] Potassium molar conc 4.1 mmol/L Normal 3.5-5.[address] [facility] Comment on above: Order Comment: Yes: Add to Previous draw if able Performed By: #### 1 0008 ####[facility] [facility].[address] Sodium 136 mmol/L Normal 136-[address] [facility] Comment on above: Order Comment: Yes: Add to Previous draw if able Performed By: #### 1 0008 ####[facility] [facility].[address] Urea nitrogen 10 mg/dL Normal 7-[address] [facility] Comment on above: Order Comment: Yes: Add to Previous draw if able Performed By: #### 1 0008 ####[facility] [facility].[address] PROTHROMBIN TIMEon 8 INR Coag RelTime (PPP) 1.27 {INR} High 0.91-1.[address] [facility] Comment on above: Order Comment: Unkno [...] OF ACTION, CLINICALEFFECTIVENESS, AND OPTIMAL THERAPEUTIC RANGE. [id number];108:231S-246S. Performed By: #### 1 0008 ####[facility] [facility].[address] Prothrombin time (PT) Coag time (PPP) 16.0 s High 12.3-14.[address] [facility] Comment on above: Order Comment: Victor Manuel wnDO AM INR PER RN Result Comment: ALL RESULTS MUST BE INTERPRETED WITH RESPECT TO BLOOD DRAWING ARTIFACTOR DILUTION ERROR OF ANTICOAGULANT AT THE TIME OF SAMPLING. Performed By: #### 1 0008 ####[facility] [facility].[address] VANCOMYCIN TROUGHon 12-27-19 18 VANCOMYCIN TROU 8.2 mcg/mL Normal 5.0-20.[address] [facility] Comment on above: Performed By: #### 1 0008 ####[facility] [facility].[address] VANCOMYCIN TROU 14.1 mcg/mL Normal 5.0-20.[address] [facility] Comment on above: Order Comment: This order is a replacement of the rejected order with accession [id number]. Performed By: #### 1 0008 ####[facility] [facility].[address] PROTHROMBIN TIMEon 8 INR Coag RelTime (PPP) 1.24 {INR} High 0.91-1.[address] [facility] Comment on above: Order Comment: Victor Manuel wn Result Comment: ACCC P RECOMMENDED INR FOR WARFARIN THERAPY CONDITION INRPROPHYLAXIS OF VENOUS THROMBOSIS 2-3(HIGH-RISK SURGERY)TREATMENT OF VENOUS THROMBOSIS 2-3TREATMENT OF PULMONARY EMBOLISM 2-3PREVENTION OF SYSTEMIC EMBOLISM: 2-3 ACUTE MYOCARDIAL INFARCTION TISSUE HEART VALVES VALVULAR HEART DISEASE ATRIAL FIBRILLATION RECURRENT SYSTEMIC EMBOLISMMECHANICAL HEART VALVE 2.5-3.5 FROM: ORAL ANTICOAGULANTS. MECHANISM OF ACTION, CLINICALEFFECTIVENESS, AND OPTIMAL THERAPEUTIC RANGE. [id number];108:231S-246S. Performed By: #### 1 0008 ####[facility] Prothrombin time (PT) Coag time (PPP) 15.7 s High 12.3-14.[address] [facility] Comment on above: Order Comment: Unkno wn Result Comment: ALL RESULTS MUST BE INTERPRETED WITH RESPECT TO BLOOD DRAWING ARTIFACTOR DILUTION ERROR OF ANTICOAGULANT AT THE TIME OF SAMPLING. Performed By: #### 1 0008 ####[place] [address] [address] BASIC METABOLIC PANELon 02-0 Calcium 8.0 mg/dL Low 8.6-10.[address] [facility] Comment on above: Order Comment: No: D o not add to previous draw Performed By: #### 5 7307, 73379 ####[facility] Chloride 110 mmol/L High 98-[address] [facility] Comment on above: Order Comment: No: D o not add to previous draw Performed By: #### 5 7307, 06154 ####[facility] CO2 22 mmol/L Normal 21-[address] [facility] Comment on above: Order Comment: No: D o not add to previous draw Performed By: #### 5 73, 02308 ####[facility] [place] [address], [facility] Creatinine 0.61 mg/dL Normal 0.60-1.[address] [facility] Comment on above: Order Comment: No: D o not add to previous draw Performed By: #### 5 73, 17332 ####[facility] [place] [address], [facility] eGFR (black) mL/min/{1.73_m2} Normal >[address] [facility] Comment on above: Order Comment: No: D o not add to previous draw Result Comment: Calc ulation may not be valid for patients over 70 years Performed By: #### 5 73, 33000 ####[facility] [place] [address], [facility] eGFR (non-black) mL/min/{1.73_m2} Normal >[address] [facility] Comment on above: Order Comment: No: D o not add to previous draw Result Comment: Calc ulation may not be valid for patients over 70 years Performed By: #### 5 7307, 90227 ####[facility] [place] [address], [facility] Glucose mass conc 144 mg/dL High 70-[address] [facility] Comment on above: Order Comment: No: D o not add to previous draw Performed By: #### 5 7307, 40829 ####[facility] [place] [address], [facility] Potassium molar conc 4.4 mmol/L Normal 3.5-5.[address] [facility] Comment on above: Order Comment: No: D o not add to previous draw Performed By: #### 5 7307, 93468 ####[place] [address] [place] [address], [facility] Sodium 137 mmol/L Normal 136-[address] [facility] Comment on above: Order Comment: No: D o not add to previous draw Performed By: #### 5 7307, 03262 ####[place] [address] [address] Urea nitrogen 14 mg/dL Normal 7-[address] [facility] Comment on above: Order Comment: No: D o not add to previous draw Performed By: #### 5 7307, 16646 ####[address] CBC W/DIFFon 12-25-2017 ABS BASOPHILS 0.0 10*3/uL Normal 0.0-0.[address] [facility] Comment on above: Order Comment: No: D o not add to previous draw Performed By: #### 5 7307, 78900 ####[address] ABS IMM GRANS 0.1 10*3/uL Normal 0.0-0.[address] [facility] Comment on above: Order Comment: No: D o not add to previous draw Performed By: #### 5 7307, 56011 ####[place] [address] [address] Basophils Auto #/vol (Bld) 0.1 % Normal 0.0-1.[address] [facility] Comment on above: Order Comment: No: D o not add to previous draw Performed By: #### 5 7307, 36458 ####[address] Eosinophils 0.0 10*3/uL Normal 0.0-0.[address] [facility] Comment on above: Order Comment: No: D o not add to previous draw Performed By: #### 5 7307, 43322 ####[address] Eosinophils/100 leukocytes 0.0 % Normal 0.0-6.[address] [facility] Comment on above: Order Comment: No: D o not add to previous draw Performed By: #### 5 7307, 74934 ####[facility] [facility].[address] Erythrocyte distribution width Auto Ratio (RBC) 15.8 % High 11.5-15.[address] [facility] Comment on above: Order Comment: No: D o not add to previous draw Performed By: #### 5 7307, 10876 ####[facility] [facility].[address] Erythrocytes (RBC) 3.09 10*6/uL Low 3.80-5.[address] [facility] Comment on above: Order Comment: No: D o not add to previous draw Performed By: #### 5 73, 62605 ####[facility] [facility].[address] Erythrocytes (RBC) 0 % Normal 0-[address] [facility] Comment on above: Order Comment: No: D o not add to previous draw Performed By: #### 5 7307, 24234 ####[place] [address] [facility].[address] Hematocrit (HCT) 26.5 % Low 36.0-45.[address] [facility] Comment on above: Order Comment: No: D o not add to previous draw Performed By: #### 5 7307, 62631 ####[facility] [facility].[address] Hemoglobin mass conc (Bld) 8.4 g/dL Low 12.0-15.[address] [facility] Comment on above: Order Comment: No: D o not add to previous draw Performed By: #### 5 7307, 40687 ####[facility] [facility].[address] IMMATURE GRANS 1.0 % Normal 0.0-1.[address] [facility] Comment on above: Order Comment: No: D o not add to previous draw Performed By: #### 5 7307, 50950 ####[facility] Lymphocytes 0.5 10*3/uL Low 1.2-4.[address] [facility] Comment on above: Order Comment: No: D o not add to previous draw Performed By: #### 5 7307, 39528 ####[facility] [facility].[address] Lymphocytes/100 leukocytes 6.9 % Low 20.0-45.[address] [facility] Comment on above: Order Comment: No: D o not add to previous draw Performed By: #### 5 7307, 47165 ####[facility] MCH 27.2 pg Normal 27.0-33.[address] [facility] Comment on above: Order Comment: No: D o not add to previous draw Performed By: #### 5 73, 10238 ####[facility] [facility].[address] MCHC mass conc (RBC) 31.7 g/dL Low 32.0-35.[address] [facility] Comment on above: Order Comment: No: D o not add to previous draw Performed By: #### 5 7307, 73669 ####[facility] [facility].[address] MCV 85.8 fL Normal 82.0-98.[address] [facility] Comment on above: Order Comment: No: D o not add to previous draw Performed By: #### 5 7307, 85649 ####[facility] Monocytes 0.3 10*3/uL Normal 0.1-1.[address] [facility] Comment on above: Order Comment: No: D o not add to previous draw Performed By: #### 5 7307, 72256 ####[facility] [place] [address], [facility] MONOS 4.7 % Low 5.0-12.[address] [facility] Comment on above: Order Comment: No: D o not add to previous draw Performed By: #### 5 7307, 16373 ####[facility] [place] [address], [facility] Neutrophils 6.1 10*3/uL Normal 1.6-7.[address] [facility] Comment on above: Order Comment: No: D o not add to previous draw Performed By: #### 5 7307, 83644 ####[facility] [facility] [place] [address], [facility] Neutrophils/100 leukocytes 87.3 % High 40.0-72.[address] [facility] Comment on above: Order Comment: No: D o not add to previous draw Performed By: #### 5 7307, 92269 ####[facility] [facility] [place] [address], [facility] PLAT CNT 329 10*3/uL Normal 150-[address] [facility] Comment on above: Order Comment: No: D o not add to previous draw Performed By: #### 5 7307, 65283 ####[facility] [facility] [place] [address], [facility] WBC (Leukocytes) 7.0 10*3/uL Normal 4.0-10.[address] [facility] Comment on above: Order Comment: No: D o not add to previous draw Performed By: #### 5 7307, 90681 ####[facility] PROTHROMBIN TIMEon 8 INR Coag RelTime (PPP) 1.26 {INR} High 0.91-1.[address] [facility] Comment on above: Order Comment: No: [...] OF ACTION, CLINICALEFFECTIVENESS, AND OPTIMAL THERAPEUTIC RANGE. [id number];108:231S-246S. Performed By: #### 5 7307, 90371 ####[facility] Prothrombin time (PT) Coag time (PPP) 15.9 s High 12.3-14.[address] [facility] Comment on above: Order Comment: No: D o not add to previous draw Result Comment: ALL RESULTS MUST BE INTERPRETED WITH RESPECT TO BLOOD DRAWING ARTIFACTOR DILUTION ERROR OF ANTICOAGULANT AT THE TIME OF SAMPLING. Performed By: #### 5 7307, 92655 ####[facility] *ANAEROBIC CULTUREon 018 *ANAEROBIC CULTURE Clinical Report: (D) Specimen/Source: TISSUE/INTRAOP SPEC Collected: 12/24/2017 15:48 Status: Final Last Updated: 12/29/2017 09:13 (1) 4. Right knee anterior femoral synovium, tissue. CULT RES (Final) No Anaerobes Isolated 5 Days Normal [facility] Comment on above: Order Comment: 4. Ri ght knee anterior femoral synovium, tissue. Performed By: #### 5 7307, 92419 ####[facility] *ANAEROBIC CULTURE Clinical Report: (D) Specimen/Source: TISSUE/INTRAOP SPEC Collected: 12/24/2017 15:48 Status: Final Last Updated: 12/29/2017 09:13 (1) 6. Right knee medial synovium, tissue. CULT RES (Final) No Anaerobes Isolated 5 Days Normal [facility] Comment on above: Order Comment: 6. Ri ght knee medial synovium, tissue. Performed By: #### 1 0008 ####[facility] *ANAEROBIC CULTURE Clinical Report: (D) Specimen/Source: TISSUE/INTRAOP SPEC Collected: 12/24/2017 15:48 Status: Final Last Updated: 12/29/2017 09:13 (1) 3. Right knee quad synovium, tissue. CULT RES (Final) No Anaerobes Isolated 5 Days Normal [facility] Comment on above: Order Comment: 3. Ri ght knee quad synovium, tissue. Performed By: #### 5 7307, 73441 ####[facility] *ANAEROBIC CULTURE Clinical Report: (D) Specimen/Source: TISSUE/INTRAOP SPEC Collected: 12/24/2017 15:47 Status: Final Last Updated: 12/29/2017 09:13 (1) 1. Right deep tissue. 1. Right knee deep tissue. CULT RES (Final) No Anaerobes Isolated 5 Days Normal [facility] Comment on above: Order Comment: 1. Ri ght deep tissue.1. Right knee deep tissue. Performed By: #### 1 0008 ####[facility] *ANAEROBIC CULTURE Clinical Report: (D) Specimen/Source: TISSUE/INTRAOP SPEC Collected: 12/24/2017 15:47 Status: Final Last Updated: 12/29/2017 09:13 (1) 2. Right knee fat pad, tissue. CULT RES (Final) No Anaerobes Isolated 5 Days Normal [facility] Comment on above: Order Comment: 2. Ri ght knee fat pad, tissue. Performed By: #### 5 7307, 57614 ####[facility] *TISSUE CULTUREon 12-24-2017 *TISSUE CULTURE Clinical Report: (D) Specimen/Source: TISSUE/INTRAOP SPEC Collected: 12/24/2017 15:48 Status: Final Last Updated: 12/29/2017 06:54 (1) 3. Right knee quad synovium, tissue. GRAM (Final) No Polys Seen No Bacteria Seen CULT RES (Final) No Growth Day [address] [facility] Comment on above: Order Comment: 3. Ri ght knee quad synovium, tissue. Performed By: #### 5 73, 75865 ####[facility] *TISSUE CULTURE Clinical Report: (D) Specimen/Source: TISSUE/INTRAOP SPEC Collected: 12/24/2017 15:48 Status: Final Last Updated: 12/29/2017 06:53 (1) 4. Right knee anterior femoral synovium, tissue. GRAM (Final) No Polys Seen No Bacteria Seen CULT RES (Final) No Growth Day [address] [facility] Comment on above: Order Comment: 4. Ri ght knee anterior femoral synovium, tissue. Performed By: #### 5 7307, 71851 ####[facility] *TISSUE CULTURE Clinical Report: (D) Specimen/Source: TISSUE/INTRAOP SPEC Collected: 12/24/2017 15:48 Status: Final Last Updated: 12/29/2017 06:53 (1) 6. Right knee medial synovium, tissue. GRAM (Final) No Polys Seen No Bacteria Seen CULT RES (Final) No Growth Day [address] [facility] Comment on above: Order Comment: 6. Ri ght knee medial synovium, tissue. Performed By: #### 5 7307, 06798 ####[facility] *TISSUE CULTURE Clinical Report: (D) Specimen/Source: TISSUE/INTRAOP SPEC Collected: 12/24/2017 15:47 Status: Final Last Updated: 12/29/2017 06:52 (1) 1. Right deep tissue. 1. Right knee deep tissue. GRAM (Final) No Polys Seen No Bacteria Seen CULT RES (Final) No Growth Day [address] [facility] Comment on above: Order Comment: 1. Ri ght deep tissue.1. Right knee deep tissue. Performed By: #### 5 7307, 54654 ####[facility] [place] [address] *TISSUE CULTURE Clinical Report: (D) Specimen/Source: TISSUE/INTRAOP SPEC Collected: 12/24/2017 15:47 Status: Final Last Updated: 12/29/2017 06:52 (1) 2. Right knee fat pad, tissue. GRAM (Final) No Polys Seen No Bacteria Seen CULT RES (Final) No Growth Day [address] [facility] Comment on above: Order Comment: 2. Ri ght knee fat pad, tissue. Performed By: #### 5 7307, 36990 ####[address] CBC W/DIFFon 12-24-2017 ABS BASOPHILS 0.0 10*3/uL Normal 0.0-0.[address] [facility] Comment on above: Order Comment: No: D o not add to previous draw Performed By: #### 5 7307, 75685 ####[facility] ABS IMM GRANS 0.1 10*3/uL Normal 0.0-0.[address] [facility] Comment on above: Order Comment: No: D o not add to previous draw Performed By: #### 5 7307, 84616 ####[address] Basophils Auto #/vol (Bld) 0.6 % Normal 0.0-1.[address] [facility] Comment on above: Order Comment: No: D o not add to previous draw Performed By: #### 5 7307, 81493 ####[facility] [place] [address], [facility] Eosinophils 0.2 10*3/uL Normal 0.0-0.[address] [facility] Comment on above: Order Comment: No: D o not add to previous draw Performed By: #### 5 7307, 23818 ####[facility] [place] [address], [facility] Eosinophils/100 leukocytes 4.2 % Normal 0.0-6.[address] [facility] Comment on above: Order Comment: No: D o not add to previous draw Performed By: #### 5 7307, 44277 ####[facility] Erythrocyte distribution width Auto Ratio (RBC) 15.9 % High 11.5-15.[address] [facility] Comment on above: Order Comment: No: D o not add to previous draw Performed By: #### 5 7307, 39878 ####[facility] Erythrocytes (RBC) 3.62 10*6/uL Low 3.80-5.[address] [facility] Comment on above: Order Comment: No: D o not add to previous draw Performed By: #### 5 7307, 97484 ####[facility] [place] [address], [facility] Erythrocytes (RBC) 0 % Normal 0-[address] [facility] Comment on above: Order Comment: No: D o not add to previous draw Performed By: #### 5 7307, 70203 ####[facility] [place] [address], [facility] Hematocrit (HCT) 30.6 % Low 36.0-45.[address] [facility] Comment on above: Order Comment: No: D o not add to previous draw Performed By: #### 5 7307, 91315 ####[facility] [facility].[address] Hemoglobin mass conc (Bld) 9.7 g/dL Low 12.0-15.[address] [facility] Comment on above: Order Comment: No: D o not add to previous draw Performed By: #### 5 7307, 70792 ####[facility] IMMATURE GRANS 1.4 % High 0.0-1.[address] [facility] Comment on above: Order Comment: No: D o not add to previous draw Performed By: #### 5 73, 93546 ####[address] Lymphocytes 1.1 10*3/uL Low 1.2-4.[address] [facility] Comment on above: Order Comment: No: D o not add to previous draw Performed By: #### 5 7307, 56276 ####[place] [address] [address] Lymphocytes/100 leukocytes 21.7 % Normal 20.0-45.[address] [facility] Comment on above: Order Comment: No: D o not add to previous draw Performed By: #### 5 7307, 51464 ####[facility] [facility].[address] MCH 26.8 pg Low 27.0-33.[address] [facility] Comment on above: Order Comment: No: D o not add to previous draw Performed By: #### 5 7307, 25653 ####[facility] MCHC mass conc (RBC) 31.7 g/dL Low 32.0-35.[address] [facility] Comment on above: Order Comment: No: D o not add to previous draw Performed By: #### 5 73, 55133 ####[facility] [place] [address], [facility] MCV 84.5 fL Normal 82.0-98.[address] [facility] Comment on above: Order Comment: No: D o not add to previous draw Performed By: #### 5 7306, 12225 ####[facility] [place] [address], [facility] Monocytes 0.4 10*3/uL Normal 0.1-1.[address] [facility] Comment on above: Order Comment: No: D o not add to previous draw Performed By: #### 5 7306, 70569 ####[facility] [place] [address], [facility] MONOS 8.0 % Normal 5.0-12.[address] [facility] Comment on above: Order Comment: No: D o not add to previous draw Performed By: #### 5 7306, 49302 ####[facility] [place] [address], [facility] Neutrophils 3.2 10*3/uL Normal 1.6-7.[address] [facility] Comment on above: Order Comment: No: D o not add to previous draw Performed By: #### 5 73, 54336 ####[facility] [place] [address], [facility] Neutrophils/100 leukocytes 64.1 % Normal 40.0-72.[address] [facility] Comment on above: Order Comment: No: D o not add to previous draw Performed By: #### 5 7307, 91005 ####[facility] [place] [address], [facility] PLAT CNT 362 10*3/uL Normal 150-[address] [facility] Comment on above: Order Comment: No: D o not add to previous draw Performed By: #### 5 73, 62452 ####[facility] [place] [address], [facility] WBC (Leukocytes) 5.0 10*3/uL Normal 4.0-10.[address] [facility] Comment on above: Order Comment: No: D o not add to previous draw Performed By: #### 5 7307, 26356 ####[facility] [facility] [place] [address], [facility] Consultationon 12-24-2017 Cholesterol MR#: [id number] Avendano Date of Service: 12/23/2017 Room #: 6AB [id number] Birthdate: 1945 Referring Physician: CONSULTATIONADDENDUM: Addendum to [...] 01/29/2018 10:09 A ___Rosenda Chavarria MDDate Dict: 12/24/2017/07:31 A/Rosenda Chavarria MDDate Trans: 12/24/2017 04:27 P/mmoDN_JN:[id number] cc: Maximino Spann M.D. [facility] Dept. [address] [facility] [address] Malgorzata Olsen MD [address] [address] Normal [address] [facility] Consultation MR#: [id number] Name: Jennifer Avendano Date of Service: 12/23/2017 Room #: 6AB [id number] Birthdate: 1945 Referring Physician: CONSULTATIONCONSULTING SERVICE DOCTOR: [...] for the exam. NOTBILLABLEDate Dict: 12/23/2017/03:50 P/Monisha Ross MDDate Trans: 12/24/2017 01:32 A/liamoDN_JN:[id number] cc: Maximino Spann M.D. [facility] [address] [facility] [address] Malgorzata Olsen MD [address] [facility] [address] Normal [address] [facility] POC GLUCOSE LABon 12-24-2017 Glucose mass conc 86 mg/dL Normal 70-[address] [facility] Comment on above: Performed By: #### 5 7307, 74308 ####[facility] [place] [address], [facility] PORTABLE KNEE RIGHT 2 [facility] 12-24-2017 PORTABLE KNEE RIGHT 2 [facility] [address] [place] [address] P atient Name: JENNIFER AVENDANO : 1945Sex: FAge: Race: WhiteMRN: [id number]. Location: [id number] Status: IVisit #: [id number] Date: 12/24/2017 7:20:00 PMCompleted Date: 12/24/2017 08:38 PMRequesting Provider: NISH SENA Attending Provider: MALGORZATA OLSEN Report Copy To: Signs & Symptoms: Post OPHistory: Patient history not availableComments: R/O Dislocation, postop from stage I TKA revisionExam: PORTABLE KNEE RIGHT 2 VWSAccession #: [id number] ======PORTABLE KNEE RIGHT 2 S 12/24/2017 8:38 PM EST SIGNS AND SYMPTOMS: [...] spacer Electronically signed by:Marian Mir. Transcribed by: [email or web address], User Resident: Electronically Signed by: MARIAN MIR @ 12/25/2017 07:29 AM Normal [facility] Comment on above: Order Comment: R/O D islocation, postop from stage I TKA revision PROTHROMBIN TIMEon 8 INR Coag RelTime (PPP) 1.55 {INR} High 0.91-1.[address] [facility] Comment on above: Order Comment: No: [...] OF ACTION, CLINICALEFFECTIVENESS, AND OPTIMAL THERAPEUTIC RANGE. [id number];108:231S-246S. Performed By: #### 5 7307, 58703 ####[facility] Prothrombin time (PT) Coag time (PPP) 18.8 s High 12.3-14.[address] [facility] Comment on above: Order Comment: No: D o not add to previous draw Result Comment: ALL RESULTS MUST BE INTERPRETED WITH RESPECT TO BLOOD DRAWING ARTIFACTOR DILUTION ERROR OF ANTICOAGULANT AT THE TIME OF SAMPLING. Performed By: #### 5 7307, 89589 ####[facility] [place] [address], [facility] URINALYSIS REFLEXon 12-24-19 18 Bilirubin (total) Negative Normal NEGATIVE [facility] Comment on above: Order Comment: No: D o not add to previous drawNo collection time noted on specimen or requisition. The collection timerecorded is the time of receipt in the lab. Performed By: #### 5 7306, 01872 ####[facility] [place] [address], [facility] BLOOD Negative Normal NEGATIVE [facility] Comment on above: Order Comment: No: D o not add to previous drawNo collection time noted on specimen or requisition. The collection timerecorded is the time of receipt in the lab. Performed By: #### 7306, 47558 ####[place] [address] [place] [address], [facility] Glucose mass conc Negative Normal NEGATIVE [facility] Comment on above: Order Comment: No: D o not add to previous drawNo collection time noted on specimen or requisition. The collection timerecorded is the time of receipt in the lab. Performed By: #### 5 7306, 56941 ####[facility] [place] [address], [facility] KETONE Negative Normal NEGATIVE [facility] Comment on above: Order Comment: No: D o not add to previous drawNo collection time noted on specimen or requisition. The collection timerecorded is the time of receipt in the lab. Performed By: #### 5 7306, 48145 ####[facility] [place] [address], [facility] LEUK TAYLOR Negative Normal NEGATIVE [facility] Comment on above: Order Comment: No: D o not add to previous drawNo collection time noted on specimen or requisition. The collection timerecorded is the time of receipt in the lab. Performed By: #### 5 7306, 36381 ####[facility] MICRO NOT DONE negative chemical reactions unless requested in original order Normal [facility] Comment on above: Order Comment: No: D o not add to previous drawNo collection time noted on specimen or requisition. The collection timerecorded is the time of receipt in the lab. Performed By: #### 5 73, 41549 ####[address] pH of blood 6.0 [pH] Normal 5.0-8.[address] [facility] Comment on above: Order Comment: No: D o not add to previous drawNo collection time noted on specimen or requisition. The collection timerecorded is the time of receipt in the lab. Performed By: #### 5 73, 07931 ####[address] Protein Negative Normal NEGATIVE [facility] Comment on above: Order Comment: No: D o not add to previous drawNo collection time noted on specimen or requisition. The collection timerecorded is the time of receipt in the lab. Performed By: #### 5 73, 63022 ####[address] SPEC GRAV 1.012 Low 1.015-1.[address] [facility] Comment on above: Order Comment: No: D o not add to previous drawNo collection time noted on specimen or requisition. The collection timerecorded is the time of receipt in the lab. Performed By: #### 5 73, 90787 ####[address] Urine, appearance CLEAR Normal CLEAR [facility] Comment on above: Order Comment: No: D o not add to previous drawNo collection time noted on specimen or requisition. The collection timerecorded is the time of receipt in the lab. Performed By: #### 5 73, 92697 ####[address] [place] [address], [place] Urine, color YELLOW Normal YELLOW [facility] Comment on above: Order Comment: No: D o not add to previous drawNo collection time noted on specimen or requisition. The collection timerecorded is the time of receipt in the lab. Performed By: #### 5 7307, 22947 ####[facility] Urine, nitrite presence Negative Normal NEGATIVE [facility] Comment on above: Order Comment: No: D o not add to previous drawNo collection time noted on specimen or requisition. The collection timerecorded is the time of receipt in the lab. Performed By: #### 5 7307, 93140 ####[address] *ANAEROBIC CULTUREon 018 *ANAEROBIC CULTURE Clinical Report: (D) Specimen: SWAB Collected: 12/23/2017 13:42 Status: Final Last Updated: 12/28/2017 08:32 CULT RES (Final) No Anaerobes Isolated 5 Days Normal [facility] Comment on above: Performed By: #### 5 7307, 41734 ####[address] *BODY FLUID CULTUREon 2017 *BODY FLUID CULTURE Clinical Report: (D) Specimen: FLUID Collected: 12/23/2017 13:42 Status: Final Last Updated: 12/28/2017 06:57 GRAM (Final) Polys Present No Bacteria Seen CYTOSPUN (Final) This Gram Stain was done on a cytocentrifuged specimen CULT RES (Final) No Growth Day [address] [facility] Comment on above: Performed By: #### 0 0071 ####[address] APTTon 12-23-2017 aPTT 41.1 s High 25.0-35.[address] [facility] Comment on above: Order Comment: No: [...] THIS PURPOSE. Performed By: #### 0 0071 ####[facility] BASIC METABOLIC PANELon Calcium 8.8 mg/dL Normal 8.6-10.[address] [facility] Comment on above: Order Comment: No: D o not add to previous draw Performed By: #### 0 0071 ####[place] [address] [place] [address], [facility] Chloride 103 mmol/L Normal 98-[address] [facility] Comment on above: Order Comment: No: D o not add to previous draw Performed By: #### 0 0071 ####[facility] [place] [address], [facility] CO2 25 mmol/L Normal 21-[address] [facility] Comment on above: Order Comment: No: D o not add to previous draw Performed By: #### 0 0071 ####[place] [address] [facility].[address] Creatinine 0.80 mg/dL Normal 0.60-1.[address] [facility] Comment on above: Order Comment: No: D o not add to previous draw Performed By: #### 0 0071 ####[place] [address] eGFR (black) mL/min/{1.73_m2} Normal >[address] [facility] Comment on above: Order Comment: No: D o not add to previous draw Result Comment: Calc ulation may not be valid for patients over 70 years Performed By: #### 0 0071 ####[facility] [place] [address], [facility] eGFR (non-black) mL/min/{1.73_m2} Normal >[address] [facility] Comment on above: Order Comment: No: D o not add to previous draw Result Comment: Calc ulation may not be valid for patients over 70 years Performed By: #### 0 0071 ####[facility] [place] [address], [facility] Glucose mass conc 98 mg/dL Normal 70-[address] [facility] Comment on above: Order Comment: No: D o not add to previous draw Performed By: #### 0 0071 ####[place] [address] [facility] [place] [address], [facility] Potassium molar conc 3.8 mmol/L Normal 3.5-5.[address] [facility] Comment on above: Order Comment: No: D o not add to previous draw Performed By: #### 0 0071 ####[facility] [place] [address], [facility] Sodium 135 mmol/L Low 136-[address] [facility] Comment on above: Order Comment: No: D o not add to previous draw Performed By: #### 0 0071 ####[place] [address] [facility] [place] [address], [facility] Urea nitrogen 17 mg/dL Normal 7-[address] [facility] Comment on above: Order Comment: No: D o not add to previous draw Performed By: #### 0 0071 ####[facility] [place] [address], [facility] C REACTIVE PROTEINon 0205-2 018 C reactive protein (CRP) 70.9 mg/L High 0.0-7.[address] [facility] Comment on above: Order Comment: No: D o not add to previous draw Performed By: #### 5 7307, 36718 ####[facility] CBC COMPLETE BLOOD COUNTon 0 12-23-2017 Erythrocyte distribution width Auto Ratio (RBC) 16.2 % High 11.5-15.[address] [facility] Comment on above: Order Comment: No: D o not add to previous draw Performed By: #### 5 7307, 65016 ####[facility] Erythrocytes (RBC) 4.03 10*6/uL Normal 3.80-5.[address] [facility] Comment on above: Order Comment: No: D o not add to previous draw Performed By: #### 5 73, 89067 ####[facility] [facility].[address] Erythrocytes (RBC) 0 % Normal 0-[address] [facility] Comment on above: Order Comment: No: D o not add to previous draw Performed By: #### 5 73, 94943 ####[facility] Hematocrit (HCT) 34.9 % Low 36.0-45.[address] [facility] Comment on above: Order Comment: No: D o not add to previous draw Performed By: #### 5 7307, 25720 ####[place] [address] [facility].[address] Hemoglobin mass conc (Bld) 10.8 g/dL Low 12.0-15.[address] [facility] Comment on above: Order Comment: No: D o not add to previous draw Performed By: #### 5 7307, 58496 ####[facility] [facility].[address] MCH 26.8 pg Low 27.0-33.[address] [facility] Comment on above: Order Comment: No: D o not add to previous draw Performed By: #### 5 7307, 38828 ####[facility] MCHC mass conc (RBC) 30.9 g/dL Low 32.0-35.[address] [facility] Comment on above: Order Comment: No: D o not add to previous draw Performed By: #### 5 7307, 39441 ####[facility] [facility].[address] MCV 86.6 fL Normal 82.0-98.[address] [facility] Comment on above: Order Comment: No: D o not add to previous draw Performed By: #### 5 7307, 22842 ####[facility] [facility].[address] PLAT CNT 461 10*3/uL High 150-[address] [facility] Comment on above: Order Comment: No: D o not add to previous draw Performed By: #### 5 7307, 31563 ####[facility] [facility].[address] WBC (Leukocytes) 7.7 10*3/uL Normal 4.0-10.[address] [facility] Comment on above: Order Comment: No: D o not add to previous draw Performed By: #### 5 7307, 88086 ####[facility] [facility].[address] Consultationon 12-23-2017 Consultation MR#: [id number] Name: Jennifer Avendano Date of Service: 12/23/2017 Room #: 6AB [id number] Birthdate: 1945 Referring Physician: CONSULTATIONREASON FOR CONSULT: Preop evaluation.HISTORY OF PRESENT ILLNESS: [...] diarrhea. The patient denies any history of [place] or any heartdisease. Denies any history of [...] by:Rosenda Chavarria MD 01/29/2018 10:09 A ___Rosenda Chavarria, MDDate Dict: 12/23/2017/07:41 P/KANDI Jamesate Trans: 12/23/2017 09:12 P/mmoDN_JN:[id number] cc: Maximino Spann M.D. [facility] [address] [facility] [address] Malgorzata Olsen MD [address] [address] Normal [address] [facility] FLUID CELL COUNTon 8 Eosinophils/100 leukocytes 1 % Normal [facility] Comment on above: Performed By: #### 0 0071 ####[facility] Erythrocytes (RBC) [address]606 mm3 High 0-[address] [facility] Comment on above: Performed By: #### 0 0071 ####[facility] Lymphocytes/100 leukocytes 8 % Normal [facility] Comment on above: Performed By: #### 0 0071 ####[facility] MACROPHAGE 31 % Normal [facility] Comment on above: Performed By: #### 0 0071 ####[facility] OTHER F1 COUNT NOT ACCURATE, SPECIMEN CONTAINS CLUMPS OF CELLS Normal [facility] Comment on above: Performed By: #### 0 0071 ####[facility] [facility] [place] [address], [facility] OTHER F2 DIFF DONE BY CYTOSPIN Normal [facility] Comment on above: Performed By: #### 0 0071 ####[facility] [facility] [place] [address], [facility] OTHER F3 CHECKED BY ALLEY PATRICK M.D. Normal [facility] Comment on above: Result Comment: Resu lt changed by CHRISTIAN on 12/24/2017 11:17. The previous value wasPRELIMINARY REPORT; VERIFIED REPORT TO FOLLOW. Performed By: #### 0 0071 ####[facility] [facility].[address] SEGS 60 % Normal [facility] Comment on above: Performed By: #### 0 0071 ####[facility] [facility] [place] [place] [address], [facility] SOURCE SYNOVIAL FLUID Normal [facility] Comment on above: Performed By: #### 0 0071 ####[facility] [facility].[address] TOTAL VOLUME 20mL Normal [facility] Comment on above: Performed By: #### 0 0071 ####[facility] [facility] [place] [place] [address], [facility] WBC (Leukocytes) 2838 mm3 High 0-[address] [facility] Comment on above: Performed By: #### 0 0071 ####[facility] [facility] [place] [place] [address], [facility] FLUID CRYSTALSon 12-23-2017 Urine, crystals in sediment NO CRYSTALS SEEN Normal NO CRYSTALS SEEN [facility] Comment on above: Order Comment: RT KN EE Performed By: #### 0 0071 ####[facility] [place], [place] [address] [place] [address] KNEE RIGHT 1 OR 2 [facility] KNEE RIGHT 1 OR 2 [facility] [address] [place] [address] P atient Name: JENNIFER AVENDANO : 1945Sex: FAge: Race: WhiteMRN: [id number]. Location: [id number] Status: IVisit #: [id number] Date: 12/23/2017 2:30:00 PMCompleted Date: 12/23/2017 02:49 PMRequesting Provider: NISH SENA Attending Provider: MALGORZATA OLSEN Report Copy To: Signs & Symptoms: Post ReductionHistory: Patient history not availableComments: Hardware EvaluationExam: KNEE RIGHT 1 OR 2 VWSAccession #: [id number] ======KNEE RIGHT 1 OR 2 S 12/23/2017 2:49 PM EST SIGNS AND SYMPTOMS: [...] unchanged Electronically signed by:Jose Davis. Transcribed by: [email or web address], User Resident: Electronically Signed by: JOSE DAVIS @ 12/23/2017 03:21 PM Normal [facility] Comment on above: Order Comment: Hardw are Evaluation KNEE RIGHT 1 OR [address] [facility] [address] [place] [address] P atient Name: JENNIFER AVENDANO : 1945Sex: FAge: Race: WhiteMRN: [id number]. Location: 84Patient Status: IVisit #: [id number] Date: 12/23/2017 10:35:00 AMCompleted Date: 12/23/2017 10:46 AMRequesting Provider: MALGORZATA OLSEN Attending Provider: Report Copy To: Signs & Symptoms: M25.561 Pain in right knee C89[place]: AthenaComments: , , Views (X-RAY, KNEE): AP, Lateral , With or Without Brace/Cast/Collar: With , , , Ordering Provider - MALGORZATA OLSEN MD , Exam: KNEE RIGHT 1 OR 2 VWSAccession #: [id number] ======KNEE RIGHT 1 OR 2 VWS 12/23/2017 [...] effusion Electronically signed by:Jose Davis. Transcribed by: [email or web address], User Resident: Electronically Signed by: JOSE DAVIS @ 12/23/2017 02:41 PM Normal [facility] Comment on above: Order Comment: , , V iews (X-RAY, KNEE): AP, Lateral , With or Without Brace/Cast/Collar: With , , , Ordering Provider - MALGORZATA OLSEN MD , PORTABLE CHEST 1 VIEWon PORTABLE CHEST [address] [facility] [address] [place] [address] P atient Name: JENNIFER AVENDANO : 1945Sex: FAge: Race: WhiteMRN: [id number]. Location: [id number] Status: IVisit #: [id number] Date: 12/23/2017 2:15:00 PMCompleted Date: 12/23/2017 02:49 PMRequesting Provider: NISH SENA Attending Provider: MALGORZATA OLSEN Report Copy To: Signs & Symptoms: OtherHistory: Patient history not availableComments: R/O InfiltratesExam: PORTABLE CHEST 1 VIEWAccession #: [id number] ======PORTABLE CHEST 1 VIEW 12/23/2017 2:49 PM [...] abnormality. Electronically signed by:Darinel Hartman. Transcribed by: [email or web address], User Resident: Electronically Signed by: DARINEL HARTMAN @ 12/23/2017 02:53 PM Normal [facility] Comment on above: Order Comment: R/O I nfiltrates PROTHROMBIN TIMEon 8 INR Coag RelTime (PPP) 1.78 {INR} High 0.91-1.[address] [facility] Comment on above: Order Comment: No: [...] OF ACTION, CLINICALEFFECTIVENESS, AND OPTIMAL THERAPEUTIC RANGE. [id number];108:231S-246S. Performed By: #### 0 0071 ####[facility] [facility].[address] Prothrombin time (PT) Coag time (PPP) 21.0 s High 12.3-14.[address] [facility] [facility] [address] [facility] Comment on above: Order Comment: No: D o not add to previous draw Result Comment: ALL RESULTS MUST BE INTERPRETED WITH RESPECT TO BLOOD DRAWING ARTIFACTOR DILUTION ERROR OF ANTICOAGULANT AT THE TIME OF SAMPLING. Performed By: #### 0 0071 ####[facility] [facility].[address] RBC'S 4 UNITSon 12-23-2017 CROSSMATCH INTERP 1 COMP Normal [facility] Comment on above: Performed By: #### 0 0071 ####[facility] [facility].[address] CROSSMATCH INTERP 2 COMP Normal [facility] Comment on above: Performed By: #### 0 0071 ####[facility] [facility].[address] CROSSMATCH INTERP 3 COMP Normal [facility] Comment on above: Performed By: #### 0 0071 ####[facility] [facility].[address] CROSSMATCH INTERP 4 COMP Normal [facility] Comment on above: Performed By: #### 0 0071 ####[place] [address] [facility].[address] PRODUCT CODE 1 E0336 Normal [facility] Comment on above: Performed By: #### 0 0071 ####[facility] [place] [address], [place] PRODUCT CODE 2 E0336 Normal [facility] Comment on above: Performed By: #### 0 0071 ####[facility] [place] [address], [place] PRODUCT CODE 3 E0336 Normal [facility] Comment on above: Performed By: #### 0 0071 ####[facility] [place] [address], [place] PRODUCT CODE 4 E0336 Normal [facility] Comment on above: Performed By: #### 0 0071 ####[facility] [place] [address], [place] PRODUCT STATUS 1 RE Normal [facility] Comment on above: Result Comment: Resu lt changed by IF on 12/24/2017 09:12. The previous value was XM.Result changed by IF on 12/24/2017 10:12. The previous value was XX. Performed By: #### 0 0071 ####[facility] [place] [address], [place] PRODUCT STATUS 2 RE Normal [facility] Comment on above: Result Comment: Resu lt changed by IF on 12/27/2017 06:58. The previous value was XM. Performed By: #### 0 0071 ####[facility] [place] [address], [place] PRODUCT STATUS 3 RE Normal [facility] Comment on above: Result Comment: Resu lt changed by IF on 12/27/2017 06:58. The previous value was XM. Performed By: #### 0 0071 ####[facility] [place] [address], [place] PRODUCT STATUS 4 RE Normal [facility] Comment on above: Result Comment: Resu lt changed by IF on 12/24/2017 07:32. The previous value was XM.Result changed by IF on 12/24/2017 08:15. The previous value was XX. Performed By: #### 0 0071 ####[facility] [place] [address], [facility] UNIT ABO 1 A Normal [facility] Comment on above: Performed By: #### 0 0071 ####[facility] [place] [address], [facility] UNIT ABO 2 AB Normal [facility] Comment on above: Performed By: #### 0 0071 ####[facility] [place] [address], [facility] UNIT ABO 3 A Normal [facility] Comment on above: Performed By: #### 0 0071 ####[facility] [place] [address], [facility] UNIT ABO 4 A Normal [facility] Comment on above: Performed By: #### 0 0071 ####[facility] [place] [address], [facility] UNIT ID 1 [id number] Normal [facility] Comment on above: Performed By: #### 0 0071 ####[facility] [place] [address], [facility] UNIT ID 2 [id number] Normal [facility] Comment on above: Performed By: #### 0 0071 ####[facility] [place] [address], [facility] UNIT ID 3 [id number] Normal [address] [facility] Comment on above: Performed By: #### 0 0071 ####[facility] [place] [address], [facility] UNIT ID 4 [id number] Normal [facility] Comment on above: Performed By: #### 0 0071 ####[facility] [place] [address], [place] UNIT RH 1 Positive Normal [facility] Comment on above: Performed By: #### 0 0071 ####[facility] [place] [address], [place] UNIT RH 2 Positive Normal [facility] Comment on above: Performed By: #### 0 0071 ####[facility] [place] [address], [place] UNIT RH 3 Positive Normal [facility] Comment on above: Performed By: #### 0 0071 ####[facility] [place] [address], [place] UNIT RH 4 Positive Normal [facility] Comment on above: Performed By: #### 0 0071 ####[facility] [place] [address], [place] SEDIMENTATION RATEon 018 SED RATE 86 mm/hr High 0-[address] [facility] Comment on above: Order Comment: No: D o not add to previous draw Performed By: #### 5 7307, 09966 ####[facility] [place] [address], [place] TYPE AND SCREENon 12-23-2017 ABO INTERPRETATION AB Normal [facility] Comment on above: Performed By: #### 0 0071 ####[facility] [place] [address], [place] ANTIBODY SCREEN Negative Normal [facility] Comment on above: Performed By: #### 0 0071 ####[facility] [place] [address], [place] RH INTERPRETATION Positive Normal [facility] Comment on above: Performed By: #### 0 0071 ####[facility] Operative Reporton 8 Operative Report MR#: [id number] 2[facility] Pt. Name: Jennifer Avendano Room #: 6AB [id number] Discharge 12/16/2017 Date: Birthdate: 1945 OPERATIVE REPORTDATE OF SURGERY: 12/16/2017SURGEON: MAGALIE BoREOPERATIVE DIAGNOSIS: Right total knee arthroplasty dislocation.POSTOPERATIVE DIAGNOSIS: Right total knee arthroplasty dislocation.PROCEDURE: Closed reduction of right total knee arthroplasty withincisional wound VAC application.PRIMARY SURGEON: Malgorzata Olsen M.D.TABLE GAMES MANAGER: Daisha Fields M.D.COMPLICATIONS: None.SPECIMENS: None.DRAINS: None.OPERATIVE INDICATION: [...] Signed by:Malgorzata Olsen MD 01/20/2018 01:52 P Malgorzata Olsen MDDate Dict: 12/20/2017/10:39 P/Madisonomero Pretty MDDate Trans: 12/21/2017 07:15 A/[id number] cc: Maximino Spann M.D. [facility] [address] [facility] [address] [address] [facility] APTTon 12-16-2017 aPTT 27.4 s Normal 25.0-35.[address] [facility] Comment on above: Result Comment: ALL [...] THIS PURPOSE. Performed By: #### 5 7307, [id number] ####[facility] [facility] [place] [address], [facility] BASIC METABOLIC PANELon - Calcium 8.6 mg/dL Normal 8.6-10.[address] [facility] Comment on above: Performed By: #### 0 0071 ####[facility] [facility] [place] [address], [facility] Chloride 102 mmol/L Normal 98-[address] [facility] Comment on above: Performed By: #### 0 0071 ####[facility] [facility] [place] [address], [facility] CO2 23 mmol/L Normal 21-[address] [facility] Comment on above: Performed By: #### 0 0071 ####[facility] [place] [address], [facility] Creatinine 0.80 mg/dL Normal 0.60-1.[address] [facility] Comment on above: Performed By: #### 0 0071 ####[facility] [place] [address], [facility] eGFR (black) mL/min/{1.73_m2} Normal >[address] [facility] Comment on above: Result Comment: Calc ulation may not be valid for patients over 70 years Performed By: #### 0 0071 ####[facility] [place] [address], [facility] eGFR (non-black) mL/min/{1.73_m2} Normal >[address] [facility] Comment on above: Result Comment: Calc ulation may not be valid for patients over 70 years Performed By: #### 0 0071 ####[facility] [facility] [place] [address], [facility] Glucose mass conc 96 mg/dL Normal 70-[address] [facility] Comment on above: Performed By: #### 0 0071 ####[facility] [facility].[address] Potassium molar conc 3.6 mmol/L Normal 3.5-5.[address] [facility] Comment on above: Performed By: #### 0 0071 ####[place] [address] [facility].[address] Sodium 133 mmol/L Low 136-[address] [facility] Comment on above: Performed By: #### 0 0071 ####[facility] [facility].[address] Urea nitrogen 16 mg/dL Normal 7-[address] [facility] Comment on above: Performed By: #### 0 0071 ####[facility] [facility].[address] CBC COMPLETE BLOOD COUNTon 0 12-16-2017 Erythrocyte distribution width Auto Ratio (RBC) 17.1 % High 11.5-16.[address] [facility] Comment on above: Performed By: #### 5 0608 ####[facility] [facility] [place] [place] [address], [facility] Erythrocytes (RBC) 4.21 mill/mm3 Normal 3.50-5.[address] [facility] Comment on above: Performed By: #### 5 0608 ####[facility] [facility].[address] Hematocrit (HCT) 34.0 % Low 36.0-48.[address] [facility] Comment on above: Performed By: #### 5 0608 ####[facility] [facility].[address] Hemoglobin mass conc (Bld) 11.2 g/dL Low 12.0-15.[address] [facility] Comment on above: Performed By: #### 5 0608 ####[facility] [facility].[address] MCH 26.6 pg Normal 24.0-32.[address] [facility] Comment on above: Performed By: #### 5 0608 ####[facility] [facility].[address] MCHC mass conc (RBC) 32.9 g/dL Normal 32.0-36.[address] [facility] Comment on above: Performed By: #### 5 0608 ####[facility] [facility].[address] MCV 80.9 fL Normal 80.0-100.[address] [facility] Comment on above: Performed By: #### 5 0608 ####[facility] [facility] [place] [place] [address], [facility] PLAT CNT 477 Thou/mm3 High 100-[address] [facility] Comment on above: Performed By: #### 5 0608 ####[facility] [facility].[address] WBC (Leukocytes) 7.5 Thou/mm3 Normal 4.0-10.[address] [facility] Comment on above: Performed By: #### 5 0608 ####[address] KNEE RIGHT 1 OR 2 VWSon 11-19 KNEE RIGHT 1 OR [address] [facility] [address] [place] [address] P atient Name: JENNIFER AVENDANO : 1945Sex: FAge: Race: WhiteMRN: [id number]. Location: EMERPatient Status: OVisit #: [id number] Date: 12/15/2017 11:45:00 PMCompleted Date: 12/16/2017 01:05 AMRequesting Provider: MALGORZATA OLSEN Attending Provider: MALGORZATA OLSEN Report Copy To: Signs & Symptoms: Right knee dislocationHistory: Comments: Right knee dislocationExam: KNEE RIGHT 1 OR 2 VWSAccession #: [id number] ======KNEE RIGHT 1 OR 2 VWS 12/16/2017 [...] only. Electronically signed by:Darinel Hartman. Transcribed by: [email or web address], User Resident: Electronically Signed by: DARINEL HARTMAN @ 12/16/2017 07:16 AM Normal [facility] Comment on above: Order Comment: Right knee dislocation POC GLUCOSE LABon 12-16-2017 Glucose mass conc 102 mg/dL High 70-[address] [facility] Comment on above: Performed By: #### 8 5499 ####[address] PORTABLE KNEE RIGHT 2 VWSon 12-16-2017 PORTABLE KNEE RIGHT [address] [facility] [address] [place] [address] P atient Name: JENNIFER AVENDANO : 1945Sex: FAge: Race: WhiteMRN: [id number]. Location: EMERPatient Status: OVisit #: [id number] Date: 12/15/2017 10:55:00 PMCompleted Date: 12/15/2017 11:22 PMRequesting Provider: TAYLOR IRELAND Attending Provider: TAYLOR IRELAND Report Copy To: Signs & Symptoms: Pain ( specify Location)History: Patient history not availableComments: R/O DislocationExam: PORTABLE KNEE RIGHT 2 VWSAccession #: [id number] ======PORTABLE KNEE RIGHT 2 VWS 12/15/2017 11:22 [...] replacement Electronically signed by:Marian Mir. Transcribed by: [email or web address], User Resident: Electronically Signed by: MARIAN MIR @ 12/16/2017 08:27 AM Normal [facility] Comment on above: Order Comment: R/O D islocation PROTHROMBIN TIMEon 8 INR Coag RelTime (PPP) 1.12 {INR} Normal 0.91-1.16 [facility] Comment on above: Result Comment: ACCC P RECOMMENDED INR FOR WARFARIN THERAPY CONDITION INRPROPHYLAXIS OF VENOUS THROMBOSIS 2-3(HIGH-RISK SURGERY)TREATMENT OF VENOUS THROMBOSIS 2-3TREATMENT OF PULMONARY EMBOLISM 2-3PREVENTION OF SYSTEMIC EMBOLISM: 2-3 ACUTE MYOCARDIAL INFARCTION TISSUE HEART VALVES VALVULAR HEART DISEASE ATRIAL FIBRILLATION RECURRENT SYSTEMIC EMBOLISMMECHANICAL HEART VALVE 2.5-3.5 FROM: ORAL ANTICOAGULANTS. MECHANISM OF ACTION, CLINICALEFFECTIVENESS, AND OPTIMAL THERAPEUTIC RANGE. [id number]. Performed By: #### 5 7307, 33221 ####[facility] Prothrombin time (PT) Coag time (PPP) 14.5 s Normal 12.3-14.[address] [facility] Comment on above: Result Comment: ALL RESULTS MUST BE INTERPRETED WITH RESPECT TO BLOOD DRAWING ARTIFACTOR DILUTION ERROR OF ANTICOAGULANT AT THE TIME OF SAMPLING. Performed By: #### 5 7307, 48452 ####[facility] [facility] [place] [place] [address], [facility] TYPE AND SCREENon 12-16-2017 ABO INTERPRETATION AB Normal [facility] Comment on above: Performed By: #### 6 2586 ####[facility] [facility] [place] [address], [facility] ANTIBODY SCREEN Negative Normal [facility] Comment on above: Performed By: #### 6 2586 ####[facility] [facility] [place] [address], [facility] RH INTERPRETATION Positive Normal [facility] Comment on above: Performed By: #### 6 2586 ####[facility] [facility] [place] [address], [facility] URINALYSISon 12-16-2017 Bilirubin (total) Negative Normal NEGATIVE [facility] Comment on above: Performed By: #### 1 0008 ####[facility] [facility] [place] [address], [facility] BLOOD Negative Normal NEGATIVE [facility] Comment on above: Performed By: #### 1 0008 ####[facility] [facility] [place] [address], [facility] Glucose mass conc Negative Normal NEGATIVE [facility] Comment on above: Performed By: #### 1 0008 ####[facility] [place] [address], [place] KETONE Negative Normal NEGATIVE [facility] Comment on above: Performed By: #### 1 0008 ####[facility] [place] [address], [place] LEUK TAYLOR Negative Normal NEGATIVE [facility] Comment on above: Performed By: #### 1 0008 ####[facility] [facility] [place] [place] [address], [facility] MICRO NOT DONE negative chemical reactions unless requested in original order Normal [facility] Comment on above: Performed By: #### 1 0008 ####[facility] [place] [address], [facility] pH of blood 5.0 [pH] Normal 5.0-8.[address] [facility] Comment on above: Performed By: #### 1 0008 ####[facility] [facility] [place] [address], [facility] Protein Negative Normal NEGATIVE [facility] Comment on above: Performed By: #### 1 0008 ####[facility] [facility] [place] [address], [facility] SPEC GRAV 1.014 Low 1.015-1.[address] [facility] Comment on above: Performed By: #### 1 0008 ####[facility] [facility] [place] [address], [facility] Urine, appearance SL CLOUDY Abnormal CLEAR [facility] Comment on above: Performed By: #### 1 0008 ####[facility] [facility] [place] [address], [place] Urine, color YELLOW Normal YELLOW [facility] Comment on above: Performed By: #### 1 0008 ####[facility] [facility] [place] [place] [address], [facility] Urine, nitrite presence Negative Normal NEGATIVE [facility] Comment on above: Performed By: #### 1 0008 ####[facility] [facility] [place] [place] [address], [facility] Vital Signs Date Time Vital Sign Value Performing Clinician Lila sheikh 11-27-2024 10:28-0500 Body height 172.7 cm Mira Stevens Jr., MD Work Phone: [facility] [place] [facility] 11-27-2024 10:28-0500 Body mass index (BMI) [Ratio] 35.73 kg/m2 Mira Stevens Jr., MD Work Phone: [facility] [place] [facility] 11-27-2024 10:28-0500 Body weight 106.59 kg Mira Stevens Jr., MD Work Phone: [facility] [place] [facility] 10-30-2024 12:26-0500 Body height 172.7 cm Mira Stevens Jr., MD Work Phone: [facility] [place] [facility] 10-30-2024 12:26-0500 Body mass index (BMI) [Ratio] 35.73 kg/m2 Mira Stevens Jr., MD Work Phone: [facility] [place] [facility] 10-30-2024 12:26-0500 Body weight 106.59 kg Mira Stevens Jr., MD Work Phone: [facility] [place] [facility] 10-30-2024 12:26-0500 Diastolic blood pressure 45 mm[Hg] Mira Stevens Jr., MD Work Phone: [facility] [place] [facility] 10-30-2024 12:26-0500 Heart rate 71 /min Mira Stevens Jr., MD Work Phone: [facility] [place] [facility] 10-30-2024 12:26-0500 Systolic blood pressure 104 mm[Hg] Mira Stevens Jr., MD Work Phone: [facility] [place] [facility] 10-09-2024 09:35-0500 Body height 172.7 cm Mira Stevens Jr., MD Work Phone: [facility] [place] [facility] 10-09-2024 09:35-0500 Body mass index (BMI) [Ratio] 35.73 kg/m2 Mira Stevens Jr., MD Work Phone: [facility] [place] [facility] 10-09-2024 09:35-0500 Body weight 106.59 kg Mira Stevens Jr., MD Work Phone: [facility] [place] [facility] 10-09-2024 09:35-0500 Diastolic blood pressure 66 mm[Hg] Mira Stevens Jr., MD Work Phone: [facility] [place] [facility] 10-09-2024 09:35-0500 Heart rate 60 /min Mira Stevens Jr., MD Work Phone: [facility] [place] [facility] 10-09-2024 09:35-0500 Systolic blood pressure 109 mm[Hg] Mira Stevens Jr., MD Work Phone: [facility] [place] [facility] 09-15-2024 12:49-0400 Body height 172.7 cm Rajani Choudhury MD Work Phone: [facility] 09-15-2024 12:49-0400 Body mass index (BMI) [Ratio] 35.73 kg/m2 Rajani Choudhury MD Work Phone: [facility] 09-15-2024 12:49-0400 Body weight 106.59 kg Rajani Choudhury MD Work Phone: [facility] 09-15-2024 12:49-0400 Diastolic blood pressure 70 mm[Hg] Rajani Choudhury MD Work Phone: [facility] 09-15-2024 12:49-0400 Systolic blood pressure 110 mm[Hg] Rajani Choudhury MD Work Phone: [facility] Healthcare Encounters Encounter Date Encounter Type Care Provider Facility Start: 12-31-2024 End: 12-31-2024 Bamboo flowsheet Rajani Choudhury MD Work Phone: [facility] Start: 12-31-2024 End: 12-31-2024 Bamboo flowsheet Rajani Choudhury MD Work Phone: [facility] Start: 12-31-2024 End: 12-31-2024 ambulatory RAJANI CHOUDHURY Not Available Start: 12-17-2024 End: 12-24-2024 Telephone encounter Yodit Ibarra LPN [facility] Comment on above: pre cert Start: 12-08-2024 End: 12-08-2024 Telephone encounter Nadeem Phan MD Work Phone: [facility] Start: 12-01-2024 End: 12-01-2024 Telephone encounter Abbie Spencer [facility] Start: 12-01-2024 End: 12-01-2024 Office outpatient visit 15 minutes Nadeem Phan MD Work Phone: [facility] Comment on above: Cervical stenosis of spinal canal (Primary Dx); Cervical spondylosis Start: 12-01-2024 End: 12-01-2024 ambulatory NADEEM PHAN [facility] Start: 11-27-2024 End: 11-27-2024 Office outpatient visit 25 minutes Mira Stevens MD Work Phone: [facility] Comment on above: Urologic disorders ( Primary Dx); Urge incontinence of urine; Urinary retention; Retention of urine; Neurogenic bladder Start: 11-27-2024 End: 11-27-2024 ambulatory [facility] Start: 11-26-2024 End: 11-26-2024 ambulatory [facility] Start: 11-23-2024 End: 12-08-2024 Telephone encounter Mira Stevens MD Work Phone: [facility] Start: 11-23-2024 End: 11-23-2024 ambulatory [facility] Comment on above: Urinary retention (P rimary Dx) Start: 11-20-2024 End: 11-20-2024 Telephone encounter Mira Stevens MD Work Phone: [facility] Start: 11-03-2024 End: 11-03-2024 ambulatory RAJANI [facility] Start: 10-30-2024 End: 10-30-2024 Office outpatient visit 25 minutes Mira Stevens MD Work Phone: [facility] Comment on above: Urinary retention (P rimary Dx); Urologic disorders Start: 10-30-2024 End: 10-30-2024 ambulatory MIRA STEVENS [facility] Start: 10-23-2024 End: 10-23-2024 ambulatory EDIS WADSWORTH [facility] Start: 10-20-2024 End: 10-20-2024 ambulatory MIRA STEVENS [facility] Start: 10-14-2024 End: 10-14-2024 Emergency department patient visit [facility] Start: 10-13-2024 End: 10-13-2024 Telephone encounter Gertrudis Montes [facility] Start: 10-09-2024 End: 10-09-2024 Office outpatient visit 25 minutes Mira Stevens MD Work Phone: [facility] Comment on above: Urologic disorders ( Primary Dx); Urinary retention; Neurogenic bladder Start: 10-09-2024 End: 10-09-2024 ambulatory MIRA STEVENS JR [facility] Start: 09-15-2024 End: 09-15-2024 ambulatory RAJANI CHOUDHURY Not Available Start: 09-15-2024 End: 09-15-2024 Office outpatient visit 25 minutes Rajani Choudhury MD Work Phone: [facility] Comment on above: Multiple sclerosis ( CMS/[facility]); Weakness; Cognitive changes Start: 07-16-2024 End: 07-16-2024 ambulatory NAMRATA PANG [facility] Start: 07-12-2024 End: 07-16-2024 Emergency department patient visit EASTON SCHUMACHER [facility] Start: 07-12-2024 End: 07-15-2024 ambulatory [facility] Start: 04-15-2024 End: 04-15-[address] [facility] Start: 04-15-2024 Encounter for genera l adult medical examination without abnormal findings [facility] Start: 04-14-2024 End: 04-14-2024 ambulatory PARKER OLGUIN [facility] Start: 03-26-2024 End: 03-26-2024 ambulatory RAJANI BERTRANDANU Not Available Start: 02-17-2024 End: 02-17-2024 ambulatory HERRICK CENTER [facility] Start: 01-07-2024 End: 01-07-2024 ambulatory [facility] Start: 12-13-2023 End: 12-13-2023 ambulatory TAYLOR PEDRAZA [facility] Start: 07-27-2022 End: 07-27-2022 ambulatory Maximino Ilo Facility:[facility] Start: 04-07-2021 End: 04-10-2021 Evaluation and management of inpatient DR VON ESQUEDA Facility: Start: 09-23-2020 End: 06-29-2021 Patient encounter status Mira Stevens Jr., MD Work Phone: [facility] [employer] Work Phone: Start: 06-15-2020 Preoperative state Mira booth Jr., MD Work Phone: [facility] [employer] Work Phone: Start: 09-24-2018 End: 12-25-2019 Patient encounter status Mira Stevens Jr., MD Work Phone: [facility] Start: 03-18-2018 End: 03-19-2018 Ambulatory REFERRED SELF Facility:[facility] Start: 03-03-2018 End: 03-04-2018 Ambulatory REFERRED SELF Facility:[facility] Start: 02-25-2018 End: 02-26-2018 Ambulatory JESSY VICK Facility:[facility] Start: 02-11-2018 End: 02-12-2018 Ambulatory MAXIMINO ILO Facility:[facility] Start: 01-06-2018 End: 01-07-2018 Ambulatory SUMMON PRETTY Facility:[facility] Start: 12-23-2017 End: 01-01-2018 Evaluation and management of inpatient SUMMON PRETTY Facility:[facility] Start: 12-15-2017 End: 12-17-2017 Ambulatory REFERRED SELF Facility:[facility] Procedures Date Procedure Procedure Detail Performing Clinician Start: 10-09-2024 Follow-up visit Follow-up MIRA STEVENS JR Start: 04-15-2024 Adult depression scr eening assessment Mira Stevens Jr., MD Work Phone: Start: 04-14-2024 Follow-up visit Follow-up PARKER OLGUIN Start: 12-24-2017 INSERTION OF SPACER INTO RIGHT KNEE JOINT, OPEN APPROACH SUMON PRETTY Start: 12-24-2017 REMOVAL OF SYNTH SUB FROM R KNEE JT, OPEN APPROACH SUMON PRETTY Start: 12-16-2017 ANESTH KNEE JOINT PROCEDURE SOORAJhon Castillo YERMAL Start: 12-16-2017 TREAT KNEE DISLOCATION SUMON PRETTY Start: 03-14-2017 Colonoscopy Mira amaya Jr., MD Work Phone: Plan of Treatment Date Care Activity Detail Author Start: 12-01-2025 Tobacco Screening Tobacco Screening [facility] Start: 11-27-2025 Tobacco Screening Tobacco Screening [facility] Start: 10-30-2025 Tobacco Screening Tobacco Screening [facility] Start: 10-09-2025 Tobacco Screening Tobacco Screening [facility] Start: 04-15-2025 Depression Screening Depression Screening [facility] Start: 04-15-2025 Fall Risk Screening Fall Risk Screening [facility] Start: 04-15-2025 Medicare Annual Wellness Visit Medicare Annual Wellness Visit [facility] Start: 03-12-2025 End: 03-12-2025 Patient encounter procedure 03/12/2025 9:45 AM EDT Office Visit [facility] [address] [place] [address] [facility] [place] [address] Mira Stevens Jr., MD [address] [place] [address] [facility] Start: 01-07-2025 End: 01-07-2025 Patient encounter procedure 01/07/2025 10:00 AM EST Office Visit [facility] [address] [place] [phone] Nadeem Phan MD [address] [place] [phone] [facility] Start: 12-30-2024 End: 12-30-2024 Patient encounter procedure 12/30/2024 12:00 PM EST Appointment [facility] [address] [place] [address] [facility] Start: 12-29-2024 End: 12-29-2024 Patient encounter procedure 12/29/2024 12:00 PM EST Appointment [facility] [address] [place] [address] [facility] Start: 12-28-2024 End: 12-28-2024 Patient encounter procedure 12/28/2024 12:00 PM EST Appointment [facility] [address] [place] [address] [facility] Start: 12-28-2024 Subsequent hospital visit by physician [facility] Start: 12-01-2024 End: 12-01-2024 Patient encounter procedure 12/01/2024 10:30 AM EST Office Visit [facility] [address] [place] [phone] Nadeem Phan MD [address] [place] [address] [phone] [facility] Start: 11-27-2024 End: 11-27-2024 Patient encounter procedure 11/27/2024 9:30 AM EST Office Visit [facility] [address] [place] [address] [facility] [place] [address] Mira Stevens Jr., MD [address] [place] [address] [facility] Start: 11-26-2024 End: 10-30-2025 Creatinine includes GFR, serum Creatinine includes GFR, serum Lab Routine Urinary retention Expected: 11/26/2024, Expires: 10/30/2025 [employer] Work Phone: Comment on above: Expected: 11/26/2024, Expires: Start: 11-26-2024 End: 10-30-2025 US Retroperitoneum Ultrasound retroperitoneal complete Imaging Routine Urinary retention Expected: 11/26/2024, Expires: 10/30/2025 [facility] Comment on above: Expected: 11/26/2024, Expires: Start: 11-26-2024 End: 11-26-2024 Patient encounter procedure [facility] - [facility] Start: 11-23-2024 End: 11-23-2025 Void Trial Void Trial Procedure Routine Urinary retention Expected: 11/23/2024 (Approximate), Expires: 11/23/2025 [employer] Work Phone: Comment on above: Expected: 11/23/2024 (Approximate), Expi res: 11/23/2025 Start: 11-23-2024 End: 11-23-2024 Clinical Support [facility] Start: 11-13-2024 End: 11-13-2024 Patient encounter procedure 11/13/2024 2:30 PM EST Office Visit [facility] [address] [place] [address] Taylor Pedraza MD [address] [facility] [place] [address] [facility] Start: 11-03-2024 End: 11-03-2024 Patient encounter procedure 11/03/2024 7:45 AM EST Appointment [facility] - MRI Imaging [address] [place] [phone] Rajani Choudhury MD [address] [place] [address] [place] [address] [facility] Start: 10-30-2024 End: 10-30-2024 Patient encounter procedure 10/30/2024 12:00 PM EST Office Visit [facility] [address] [place] [address] [facility] [place] [phone] Mira Stevens Jr., MD [address] [place] [address] [facility] Start: 10-27-2024 End: 10-09-2025 US Retroperitoneum Ultrasound retroperitoneal complete Imaging Routine Urinary retention Neurogenic bladder Expected: 10/27/2024, Expires: 10/09/2025 [facility] Comment on above: Expected: 10/27/2024, Expires: Start: 10-26-2024 End: 10-09-2025 Creatinine includes GFR, serum Creatinine includes GFR, serum Lab Routine Urinary retention Neurogenic bladder Expected: 10/26/2024, Expires: 10/09/2025 [facility] Work Phone: Comment on above: Expected: 10/26/2024, Expires: Start: 10-20-2024 End: 10-20-2024 Patient encounter procedure 10/20/2024 8:30 AM EST Appointment [facility] [address] [place] [phone] Mira Stevens Jr., MD [address] [place] [address] [facility] Start: 10-13-2024 End: 10-13-2024 ambulatory 10/13/2024 1:30 PM EST Support Visit [facility] [address] [place] [phone] [facility] Start: 09-15-2024 End: 09-15-2025 MR Brain WO and W contrast IV MR brain w and wo contrast routine Imaging Routine Multiple sclerosis (CMS/HCC) Expected: 09/15/2024 (Approximate), Expires: 09/15/2025 [facility] Work Phone: Comment on above: Expected: 09/15/2024 (Approximate), Expi res: 09/15/2025 Start: 07-19-2024 Influenza vaccination Influenza Vaccine [facility] Start: 03-14-2022 Screening for malignant neoplasm of colon Colonoscopy [facility] Immunizations Immunization Date Immunization Notes Care Provider Fa cility 09-25-2022 influenza, injectabl e, quadrivalent, preservative free Mira Stevens Jr., MD Work Phone: [facility] 09-25-2022 influenza virus vacc ine, unspecified formulation Mira Stevens Jr., MD Work Phone: [facility] 09-28-2020 influenza, high dose seasonal, preservative-free Mira Stevens Jr., MD Work Phone: [facility] 09-16-2020 pneumococcal conjuga te vaccine, 13 valfrancis Choudhury MD Work Phone: [facility] 09-29-2018 influenza, injectabl e, quadrivalent, preservative free Mira Stevens Jr., MD Work Phone: [facility] 2017 influenza, injectabl e, quadrivalent, preservative free Mira Stevens Jr., MD Work Phone: [facility] 07-02-2017 pneumococcal conjuga te vaccine, 13 valent Mira Stevens Jr., MD Work Phone: [facility] 07-02-2015 pneumococcal polysaccharide vaccine, 23 valfrancis Stevens Jr., MD Work Phone: [facility] 09-20-2014 pneumococcal polysaccharide vaccine, 23 valfrnacis Stevens Jr., MD Work Phone: [facility] 03-13-2011 pneumococcal polysaccharide vaccine, 23 valent Mira Stevens Jr., MD Work Phone: [facility] Payers Date Payer Category Payer Medicaid [id number] 2023 Medicaid [id number] 2022 Self-pay 2015 Medicare HMO [employer] ember [id number] 2015 Private Health Insurance [id number] 1959 Private Health Insurance [facility] [id number] 1945 Unknown [id number] 2..840.1.801901.3.579.2. 593 1945 Unknown [id number] 2..840.1.415030.3.579.2. 1285 1945 Unknown [id number] 2.840.1.069550.3.579.2. 1285 1945 Unknown [id number] 2.840.1.160900.3.579.2. 128 1945 Unknown [id number] 2.16.840.1.309545.3.579.2. 1285 1945 Unknown [id number] 2.16.840.1.463792.3.579.2. 128 1945 Unknown [id number] 2.16840.1.804551.3.579.2. 1285 1945 Unknown [id number] 2.16.840.1.429425.3.579.2. 1285 1945 Unknown [id number] 2.16.840.1.748128.3.579.2. 1285 1945 Unknown [id number] 2.16.840.1.179252.3.579.2. 1285 1945 Unknown [id number] 2.16.840.1.522691.3.579.2. 1285 1945 Unknown [id number] 2.16.840.1.768738.3.579.2. 1285 1945 Unknown [id number] 2.16.840.1.298981.3.579.2. 1285 1945 Unknown [id number] 2.16.840.1.922073.3.579.2. 1285 1945 Unknown [id number] 2.16.840.1.069106.3.579.2. 1285 1945 Unknown [id number] 2.16.840.1.425301.3.579.2. 1285 1945 Unknown [id number] 2.16.840.1.592740.3.579.2. 1285 1945 Unknown [id number] 2.16.840.1.515335.3.579.2. 1285 1945 Unknown [id number] 2.16.840.1.855752.3.579.2. 1285 1945 Unknown [id number] 2.16.840.1.500854.3.579.2. 1285 1945 Unknown [id number] 2.16.840.1.118763.3.579.2. 1285 1945 Unknown [id number] 2.16.840.1.495283.3.579.2. 1286 1945 Unknown [id number] 2.16.840.1.146025.3.579.2. 1286 1945 Unknown [id number] 2.16.840.1.327199.3.579.2. 1259 1945 Unknown [id number] 2.16.840.1.013900.3.579.2. 1259 1945 Unknown [id number] 2.16.840.1.469077.3.579.2. 1259 Unknown [id number] 2.16.840.1.232160.3.579.2. 531 Social History Date Type Detail Facility Start: 03-26-2024 End: 04-15-2024 Tobacco smoking status [facility] Ex-smoker [facility] Start: 11-18-1968 End: 11-18-1978 History of tobacco use Current smoker [facility] Start: 11-18-1968 End: 11-18-1978 History of tobacco use Cigarette Smoker [facility] Start: 03-26-2024 End: 04-15-2024 Tobacco use and exposure Smokeless tobacco non-user [facility] Start: 03-26-2024 Alcoholic beverage intake Lifetime non-drinker (finding) [facility] Start: 07-28-2022 End: 03-26-2024 History of Social function [facility] Start: 07-28-2022 End: 03-26-2024 Tobacco use panel [facility] Start: 1945 Sex assigned at Not on file [facility] Start: 10-09-2024 End: 12-01-2024 Alcoholic beverage intake Ex-drinker (finding) [facility] Has the [employer], or [employer] threatened to shut off services in your home in past 12Mo No [facility] Are you now , , , , never or living with a partner? [facility] How often to you hav e a drink containing alcohol? Never [facility] How many standard dr inks containing alcohol do you have on a typical day? Patient does not drink [facility] Do you feel stress - tense, restless, nervous, or anxious, or unable to sleep at night because your mind is troubled all the time - these days [OSQ] Only a little [facility] Start: 06-16-2019 Education 12 [facility] Start: 06-23-2015 [facility] Start: 10-30-2024 Sexual orientation Choose not to dis close [facility] Medical Equipment Procedure Code Equipment Code Equipment Origin al Text Equipment Identifier Dates Bearing Hum 36mm Cmprh +3mm Shldr Prlng Rvrs Rtn - [id number] Start: 09-18-2021 Bearing Tib 14mm Std Kn Oss Uhmwpe Strl - [id number] Start: 06-13-2022 Cement Bn Palaco s Radpq 40g Rpl [id number] - [id number] - [id number] Start: 12-09-2017 Cement Bn Bio 40 gm Rpl [id number] 9 - [id number] Start: 06-13-2022 Cement Bn Bio 40 gm Rpl [id number] 9 - [id number] Start: 06-13-2022 Plug Bn Cmnt 14-17mm Lg Im Cnl Strl - [id number] Start: 06-13-2022 Plug Bn Cmnt 18-21mm Xl Im Cnl Strl - [id number] Start: 06-13-2022 Mesh 71j94rf Macroporous Parietene Srg Rpl [id number] 7+Cmt - [id number] Start: 06-13-2022 Cmpt Ptlr Std 9m m 35mm Nxgn Rpl [id number] - [id number] - [id number] Start: 12-09-2017 Cmpt Fem D Kn Rt Lpsflx Gndr Rpl [id number] - [id number] - [id number] Start: 12-09-2017 Blck Aug Nxgn 4 Hlf 10mm Kn Rpl [id number] - [id number] - [id number] Start: 12-09-2017 Ins Artc 3-4 C-D 10mm Kn Fx - [id number] - [id number] Start: 12-09-2017 Xtn Stm 100mm 14 5mm 13mm Kn Rpl [id number] - [id number] - [id number] Start: 12-09-2017 Comment on above: Description: 13 mm d ia, x 100 length cpmbined length 145 mm stem extension Ins Artc 3-4 C-D 20mm Kn Fx - [id number] - [id number] Start: 12-10-2017 Comment on above: Description: removed implant articulating surface from 12-09-2017 IMPLANTED C,D 20 MM HEIGHT, USE WITH PLATE 3,4 lps ARTICULATING SURFACE POLY [place] Spnl 11mm Coalition Mis - [id number] Start: 06-05-2021 Stem Hum 83mm 11 mm Cmprh Por Mn Shldr Rvrs Sys - [id number] Start: 09-18-2021 Tray Hum Cmprh S td Shldr Rvrs - [id number] Start: 09-18-2021 Baseplate Inocencio Cmprh 25mm Mn Shldr Tpr Adpr Rvrs Sys - [id number] Start: 09-18-2021 Component Inocencio 3 6mm Std Glenosphere Clr Cd Cmprh Versa-Dial - [id number] Start: 09-18-2021 Yoke Tib Oss Kn Reinf - [id number] Start: 06-13-2022 Pin Fx Oss Pe Kn Lck Cmpr Mld Strl - [id number] Start: 06-13-2022 Bushing Tib Oss Kn Pe Lfric Intfc - [id number] Start: 06-13-2022 Bushing Fem Hip Pe Rdc - [id number] Start: 06-13-2022 Axle Fem Kn Rdc - [id number] Start: 06-13-2022 Plt Tib 68i54z2v m Nxgn Kn Cmnt Rpl [id number] + [id number] - [id number] - [id number] Start: 12-09-[address] g 63mm Kn Nmod Oss Strl - [id number] Start: 06-13-2022 Screw Bn 30mm 6. 5mm Cntr Hx Hd Ti Cmprh 3.5mm Strl Rvrs - [id number] Start: 09-18-2021 Screw Bn 25mm 4.75mm Va Hx Hd Ti Cmprh 3.5mm Strl Rvrs Shldr - [id number] Start: 09-18-2021 Screw Bn 15mm 4.75mm Lck Fx Ang Hx Hd Ti Cmprh 3.5mm Strl - [id number] Start: 09-18-2021 Coalition Mis Titanium Spacer [id number] [id number] Start: 06-05-2021 Elliptical Segmental Femoral [id number] Start: 06-13-2022 Bowed M Stem Wit h Screw [id number] Start: 06-13-2022 Goals Date Patient Goal Desired Activity /State Personal health goal Comment on above: Formatting of this n ote might be different from the original. Evaluation of progress towards goal: needs SNF, nell require insurance appoval Clinical Notes 09-15-2024 to 12-17-2024 Telephone Encounter - Yodit Ibarra LPN - 12/17/2024 4:50 PM ESTTelephone Encounter - Yodit Ibarra LPN - 12/17/2024 4:50 PM ESTTelephone Encounter - Ashanti De - 12/08/2024 9:12 AM EST Note Date & Type Note Facility 12-17-2024 Miscellaneous Notes Pre cert calls and leaves a messages stating that patient is scheduled for an IR injection lumbar/sacral on 12/28. Insurance is denying due to clinical notes are not adequate. P2P is available and must be done by 12/24/24 [phone] Tracking # [id number] Precert sending message-CAN YOU PLEASE ADD A REMINDER TO THE EXISTING TELEPHONE ENCOUNTER IN CHART FOR THIS PATIENT THAT TODAY IS THE LAST DAY FOR THE P2P FOR HER AUTH REQUEST. CASE# [id number] AND PH# [phone]. Per Adelaida Grajeda CNP this testing was ordered 01/07/24 New patient PLAN: 1. Cisternogram for NPH. 2. CT cervical spine without contrast. 3. MRI thoracic spine without contrast. 4. MRI lumbar spine without contrast. Follow-up after testing is completed. Patient did follow up on 12/01/[address] was reviewed with patient. Per provider Instructions- Will f/u PRN. P2P was not attempted as this was ordered a year ago with last clinical note stating for patient to follow up prn. Called patient and left a voicemail to return office call regarding ordered testing. documented in this encounter [facility]-17-2024 Telephone encounter Note Pre cert calls and leaves a messages stating that patient is scheduled for an IR injection lumbar/sacral on 12/28. Insurance is denying due to clinical notes are not adequate. P2P is available and must be done by 12/24/24 [phone] Tracking # [id number] [employer] 12-17-2024 Telephone encounter Note Precert sending message-CAN YOU PLEASE ADD A REMINDER TO THE EXISTING TELEPHONE ENCOUNTER IN CHART FOR THIS PATIENT THAT TODAY IS THE LAST DAY FOR THE P2P FOR HER AUTH REQUEST. CASE# [id number] AND PH# [phone]. [employer] 12-17-2024 Telephone encounter Note Per Adelaida Grajeda CNP this testing was ordered 01/07/24 New patient PLAN: 1. Cisternogram for NPH. 2. CT cervical spine without contrast. 3. MRI thoracic spine without contrast. 4. MRI lumbar spine without contrast. Follow-up after testing is completed. Patient did follow up on 12/01/[address] was reviewed with patient. Per provider Instructions- Will f/u PRN. P2P was not attempted as this was ordered a year ago with last clinical note stating for patient to follow up prn. Called patient and left a voicemail to return office call regarding ordered testing. [facility] 12-08-2024 Miscellaneous Notes Returned patient voice message regarding scheduling follow up appointment to review nm cisternogram. Left voice message for patient to call back and schedule. documented in this encounter [facility] 12-08-2024 Telephone encounter Note Returned patient voice message regarding scheduling follow up appointment to review nm cisternogram. Left voice message for patient to call back and schedule. [facility] 12-01-2024 Miscellaneous Notes Returned patient's call. No answer, left message on machine to call back. documented in this encounter [facility] 12-01-2024 Telephone encounter Note Returned patient's call. No answer, left message on machine to call back. [facility] 12-01-2024 History of Presen t illness Narrative Images from the original note were not included. [facility] [address] [place] [address] [address] [place] [address] * CHART NOTE ? 12/01/2024 Patient: Jennifer Avendano 1945 [id number] Nurse Practitioner: Adelaida Grajeda, PHOTO INTERN Physician: Nadeem Phan MD, FAANS IMPRESSION / PLAN 79 y.o. female has cervical MR imaging that demonstrated chronic senescent changes in the brain as well as age appropriate degeneration in the spine without signal abnormality. She does not require acute surgical intervention. She may follow up as needed. HISTORY OF PRESENT ILLNESS 79 y.o. female presents to the clinic as a follow up for unsteady gait with suspicions of cervical pathologies and NPH. She has updated imaging results for reevaluation. She feels that her condition has not worsened or improved at this time. She advises of a hx of MS but is not taking any medication for it. She is unsure why she keeps having studies ordered, but is following up as directed. 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 Patient is not diabetic and former smoker. Hx of anterior interbody fusion C4-5 on 06-05-2021. 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 Colon polyps Colonoscopy 2014/polyp benign COVID 02/2021 Deep vein thrombosis ([facility]) lower right leg -05/2021 Dental disease partial on upper and lower Depression WOLF (dyspnea on exertion) DVT (deep venous thrombosis) ([facility]) Eczema Factor V Leiden mutation ([facility]) ONE ALLELE POSITIVE/ HETEROZYGOUS Failure to thrive (child) Former tobacco use Stopped 1978 Heart murmur Heart murmur Hyperlipidemia Hypertension Hypoxemia Insomnia Mechanical loosening of other internal prosthetic joint, initial encounter ([facility]) 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 shoulder Osteoporosis T-1.8 to -2.0 dexi scan Pain in right knee Pulmonary embolism ([facility]) 05/2021 left lung- due to inactivity Rash [...] 06/05/2021 Performed by Nadeem Phan MD at [facility] APPENDECTOMY APPLICATION WOUND VAC LOWER EXTREMITY Right 06/13/2022 Performed by Parker Olguin MD at [facility] ARM SURGERY left shoulder replacement ARTHROPLASTY STEM AUGMENT TOTAL KNEE Right 12/09/2017 Performed by Tye Schwartz DO at [facility] SECTION x3 COLONOSCOPY 02/2017,08/2010 CYSTOSCOPY N/A 11/23/2022 Performed by Mira Stevens Jr., MD at [facility] CYSTOSCOPY INSERTION CATHETER ESTRELLA N/A 11/23/2022 Performed by Mira Stevens Jr., MD at [facility] JOINT REPLACEMENT bilateral knees KNEE SURGERY Right 12/24/[address] OLSEN [facility] non union patella Right 06/13/2022 Performed by Parker Olguin MD at [facility] REVERSE ARTHROPLASTY TOTAL SHOULDER Left 09/18/2021 Performed by Alvaro Orozco MD at [facility] REVISION TOTAL JOINT KNEE Right 06/13/2022 Performed by Parker Olguin MD at [facility] REVISION TOTAL JOINT KNEE Right 12/10/2017 Performed by Tye Schwartz DO at [facility] SPINE SURGERY fused c4&5 TONSILLECTOMY TOOTH EXTRACTION 10/22/2017 TWO TEETH WERE EXTRACTED TUBAL LIGATION SOCIAL HISTORY Social History Socioeconomic History Marital status: Spouse name: Not on file Number of children: 3 Years of education: 12 Highest education level: 12th grade Occupational History Occupation: Retired from school service Tobacco Use Smoking status: Former Current packs/day: 0.00 Types: Cigarettes Start date: 11/18/1968 Quit date: 11/18/1978 Years since quittin.0 Smokeless tobacco: Never Vaping Use Vaping status: Never Used Substance and Sexual Activity Alcohol use: Not Currently Drug use: Never Sexual activity: Defer Other Topics Concern Caffeine Use Yes Social History Narrative Household: Lives by herself but family near by to assist Social Drivers of Health Financial Resource Strain: Low Risk (07/28/2022) Overall Financial Resource Strain (CARDIA) Difficulty of Paying Living Expenses: Not hard at all Food Insecurity: No Food Insecurity (11/27/2024) Hunger Screening Food Insecurity - Worry: Never True Food Insecurity - Inability: Never True Transportation Needs: No Transportation Needs (07/12/2024) PRAPARE - Transportation Lack of Transportation (Medical): No Lack of Transportation (Non-Medical): No Physical Activity: Insufficiently Active (07/28/2022) Exercise Vital Sign Days of Exercise per Week: 5 days Minutes of Exercise per Session: 10 min Stress: No Stress Concern Present (07/28/2022) [place] [employer] - Occupational Stress Questionnaire Feeling of Stress : Only a little Social Connections: Moderately Isolated (07/28/2022) Social Connection and Isolation Panel [NHANES] Frequency of Communication with Friends and Family: More than three times a week Frequency of Social Gatherings with Friends and Family: More than three times a week Attends Orthodox Services: More than 4 times per year Active Member of Clubs or Organizations: No Attends Club or Organization Meetings: Never Marital Status: Interpersonal Safety: Not At Risk (07/12/2024) Humiliation, Afraid, Rape, and Kick questionnaire Fear of Current or Ex-Partner: No Emotionally Abused: No Physically Abused: No Sexually Abused: No Housing Instability: Low Risk (07/12/2024) Housing Instability Housing Instability: No REVIEW OF SYSTEMS ROS Positive Findings: Negative otherwise noted in the HPI PHYSICAL EXAMINATION She is in a wheelchair, accompanied by transport, awake, interact, CN's are intact, has no weakness in the arms, generalized weakness in the legs 4-/5 due to poor effort, no pathological reflexes elicited MRI / IMAGES MR Brain 11/03/2024 IMPRESSION: Overall similar severe burden of white matter disease. No new or actively demyelinating lesions are identified. Curvilinear enhancement within the right middle cerebellar peduncle has no correlate on additional sequences, this finding is favored to be artifactual (possibly pulsation). Attention on subsequent follow-ups is recommended CT Cervical 07/12/2024 IMPRESSION: * No evidence of acute fracture or traumatic malalignment. MRI is more sensitive to assess ligamentous injury if clinically warranted. CT Brain 07/12/2024 IMPRESSION: 1. No acute intracranial abnormality, by CT. MR Lumbar 02/17/2024 Impression: There is no obvious signal abnormality of the tip of the conus medullaris to suggest demyelinating disease. Overall, MR of the lumbar spine is stable since 01/02/2022. There is no vertebral fracture, high-grade spinal stenosis, or high-grade foraminal stenosis. MR Thoracic 02/17/2024 Impression: MR of the thoracic spine is stable since 01/02/2022. There is no new signal abnormality or area of pathologic contrast enhancement to suggest active or progressive healing disease. I personally interpreted the imaging studies independently and critical findings were anotated for the patient. MRI of the brain demonstrated significant white matter disease without evidence of hydrocephalus. MRI of the spine demonstrated age-appropriate degenerative changes without severe spinal cord compression or neural impingement to warrant surgical intervention acutely. Electronically Signed By: Nadeem Phan MD This note was created with the assistance of a speech recognition program with the goal of generating a timely record of the patient encounter. Inadvertent computerized infrastructure director errors related to syntax, spelling, homophones, and/or inaudibility may be present. Scribe Statement: Scribed for and in the presence of Nadeem Phan MD by Milton Nielsen. Provider Statement: I, Nadeem Phan MD personally performed the services described in the documentation, as scribed by Milton Nielsen in my presence, and it is both accurate and complete. Milton Nielsen 12/01/24 0958 documented in this encounter [facility] 12-01-2024 Instructions Melany Rouse CMA - 12/01/2024 10:30 AM EST Patient was seen by Dr. Phan today. Will f/u PRN. SS documented in this encounter [facility] History of Presen t illness Narrative Images from the original note were not included. [address] [place] [address] [facility] [id number] Patient: Jennifer Avendano Date of : 1945 Encounter Date: 11/27/2024 History of Present Illness: Chief Complaint: Retention. See below Urinalysis today: No results for input(s): EXTPOCURCO , EXTPOCURCH , EXTPOCAPP , EXTPOCURBS , EXTPOCURBIL , EXTPOCUKET , EXTPOCUSPG , EXTPOCUHGB , EXTPOCUPRO , EXTPOCUURO , EXTPOCULEU , EXTPOCUNIT , EXTPOCUWBC , EXTPOCUBLD , EXTPOCURBC , EXTPOCUCRY , EXTPOCUBAC , EXTPOCUTREP , EXTPOCUPH , EXTPOCULEE in the last 72 hours. Last BUN and creatinine: Lab Results Component Value Date BUN 38 (H) 10/14/2024 Lab Results Component Value Date CREATININE 1.09 (H) 11/26/2024 Last PSA: No results found for: PSA No results found for: PROSTATICSP Past Medical, Family, and Social History Update: The following portions of the patient's history were reviewed and updated as appropriate: allergies, current medications, past family history, past medical history, past social history, past surgical history and problem list. 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 Colon polyps Colonoscopy 2014/polyp benign COVID 02/2021 Deep vein thrombosis ([facility]) lower right leg -05/2021 Dental disease partial on upper and lower Depression WOLF (dyspnea on exertion) DVT (deep venous thrombosis) ([facility]) Eczema Factor V Leiden mutation ([facility]) ONE ALLELE POSITIVE/ HETEROZYGOUS Failure to thrive (child) Former tobacco use Stopped 1978 Heart murmur Heart murmur Hyperlipidemia Hypertension Hypoxemia Insomnia Mechanical loosening of other internal prosthetic joint, initial encounter ([facility]) 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 shoulder Osteoporosis T-1.8 to -2.0 dexi scan Pain in right knee Pulmonary embolism ([facility]) 05/2021 left lung- due to inactivity Rash [...] 06/05/2021 Performed by Nadeem Phan MD at [facility] APPENDECTOMY APPLICATION WOUND VAC LOWER EXTREMITY Right 06/13/2022 Performed by Parker Olguin MD at [facility] ARM SURGERY left shoulder replacement ARTHROPLASTY STEM AUGMENT TOTAL KNEE Right 12/09/2017 Performed by Tye Schwartz DO at [facility] SECTION x3 COLONOSCOPY 02/2017,08/2010 CYSTOSCOPY N/A 11/23/2022 Performed by Mira Stevens Jr., MD at [facility] CYSTOSCOPY INSERTION CATHETER ESTRELLA N/A 11/23/2022 Performed by Mira Stevens Jr., MD at [facility] JOINT REPLACEMENT bilateral knees KNEE SURGERY Right 12/24/[address] OLSEN [facility] non union patella Right 06/13/2022 Performed by Parker Olguin MD at [facility] REVERSE ARTHROPLASTY TOTAL SHOULDER Left 09/18/2021 Performed by Alvaro Orozco MD at [facility] REVISION TOTAL JOINT KNEE Right 06/13/2022 Performed by Parker Olguin MD at [facility] REVISION TOTAL JOINT KNEE Right 12/10/2017 Performed by Tye Schwartz DO at [facility] SPINE SURGERY fused c4&5 TONSILLECTOMY TOOTH EXTRACTION 10/22/2017 TWO TEETH WERE EXTRACTED TUBAL LIGATION Family History Problem Relation Age of Onset Heart attack Mother Cancer Mother Lung cancer Mother Heart attack Father Cancer Father Lung cancer Father Cancer Sister Lung cancer Sister Anesthesia problems Neg Hx Current Outpatient Medications Medication Sig Dispense Refill albuterol (PROVENTIL HFA;VENTOLIN HFA) 90 mcg/actuation inhaler Inhale 2 puffs every 6 (six) hours as needed for wheezing. amLODIPine (NORVASC) 5 mg tablet TAKE 1 [...] TAKE 1 TABLET NIGHTLY 90 tablet 3 traZODone (DESYREL) 100 mg tablet TAKE 1 TABLET NIGHTLY 90 tablet 3 No current facility-administered medications for this visit. (All medications reviewed and updated by provider since last office visit or hospitalization) Allergies: Adhesive Tobacco History: Social History Tobacco Use Smoking Status Former Current packs/day: 0.00 Types: Cigarettes Start date: 11/18/1968 Quit date: 11/18/1978 Years since quittin.0 Smokeless Tobacco Never (If patient a smoker, smoking cessation counseling offered) Social History: Social History Substance and Sexual Activity Alcohol Use Not Currently Review of Systems: General: Negative for chills and fever. Cardiovascular: Negative for chest pain and shortness of breath. Gastrointestinal: Negative for constipation, diarrhea, nausea, and vomitting. -per HPI Physical Exam: Ht 172.7 cm (5' 8 ) Wt 106.6 kg (235 lb) BMI 35.73 kg/m Alert, pleasant, without signs of acute illness, and in no distress. Respirations unlabored . Skin dry on examination now. Sitting in a wheelchair Assessment and Plan: Jennifer was seen today for follow-up. Diagnoses and all orders for this visit: Urologic disorders Urge incontinence of urine Urinary retention Retention of urine Neurogenic bladder Problem List Unprioritized Urologic disorders - Primary Overview 1. Aortic stenosis and multiple sclerosis with Recurrent postoperative urinary retention most recently May 2021 status post 05/31/2021 fall and cervical diskectomy C 4-5 fusion with nondisplaced C5 fracture [facility] 06/02/2021 350 mL with successful voiding trial at [facility] approximately 2 weeks after 06/07/2021 discharge; baseline creatinine 0.76 on 05/18/2021; prior retention following knee surgery 2017; 07/28/2022 E coli and Providencia polymicrobial UTI with gross hematuria with Eliquis use with greater than 2 L urinary retention following 06/13/2022 right total knee arthroplasty, then PVR 823 mL 09/14/2022 after patient's son removed her Estrella catheter 09/13/2022; failed voiding trial 11/23/2024 with residual 400 mL during need to defecate; son Galileo 2. Longstanding urge urinary incontinence treated by [facility] with oxybutynin XL 10 mg daily, complicated [...] true postvoid residual on 12/14/2022 was 220 mL; urinary retention with PVR greater than 400 mL voiding trial confirmed emergency department 10/14/2024 12. 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 We reviewed she failed voiding trial at our office 11/23/2024, with residual 400 mL but needing to have a bowel movement during the attempted voiding, which I reviewed certainly could have interfered with success with that. Serum creatinine stable 1.09. I provided independent interpretation of films and reports of retroperitoneal ultrasound demonstrating I agree normal kidneys and a decompressed bladder.. They note she does have upcoming neurosurgical appointment. We reviewed she had no mechanical obstruction at cystoscopy previously. I did suggest repeat voiding trial, we also mentioned possibility of referral for InterStim, which I mentioned briefly. They wished to consider all of those issues until the weather gets a little warmer. Accordingly at their request discontinue Flomax presently and continue indwelling Estrella catheter to be changed monthly at her facility. Return here 3 months. MIRA STEVENS JR, MD This note was created with the assistance of a speech recognition program. While intending to generate a timely document that accurately reflects the content of the visit, no guarantee can be provided that every grammatical or spelling mistake has been or will be identified or corrected. Thank you for your understanding. documented in this encounter [facility] 11-23-2024 Miscellaneous Notes Images from the original note were not included. Needs indwelling Estrella catheter for now. I will discuss next possible steps with patient/family at follow-up appointment. Thanks Patient Calls (Newest Message First) View All Conversations on this Encounter Taylor Bardales LPN routed conversation to You5 hours ago (11:56 AM) Taylor Bardales LPN5 hours ago (11:56 AM) HAYLEY Becerril MD Patient presents for fill and pull per Provider-Dr. Jerrica MD . Explained procedure to pt and he agrees to proceed. Instilled approx 350cc's of sterile water through estrella catheter. Pt felt strong urge to urinate. Balloon deflated and 16fr silicone estrella removed without difficulty. Pt was able to urinate 0cc's. Elvistent has strong urge to void. Had large BM while having void trial. Pt tolerated procedure well. Discussed with Yodit Schmid [employer] place estrella. The perineal area was cleansed with Betadine swabs. # 16fr estrella catheter placed without difficulty draining clear yellow urine. 10 cc's sterile water placed into placment balloon. Estrella draining 400cc pale clear urine. Attached to drainage bag. night bag given Please advise on further treatment. documented in this encounter [facility] 11-23-2024 Telephone encounter Note Images from the original note were not included. Needs indwelling Estrella catheter for now. I will discuss next possible steps with patient/family at follow-up appointment. Thanks Patient Calls (Newest Message First) View All Conversations on this Encounter Taylor Bardales LPN routed conversation to You5 hours ago (11:56 AM) LOTTIE Marcum hours ago (11:56 AM) HAYLEY Becerril MD Patient presents for fill and pull per Provider-Dr. Jerrica MD . Explained procedure to pt and he agrees to proceed. Instilled approx 350cc's of sterile water through estrella catheter. Pt felt strong urge to urinate. Balloon deflated and 16fr silicone estrella removed without difficulty. Pt was able to urinate 0cc's. Brenda has strong urge to void. Had large BM while having void trial. Pt tolerated procedure well. Discussed with Yodit Schmid [employer] place estrella. The perineal area was cleansed with Betadine swabs. # 16fr estrella catheter placed without difficulty draining clear yellow urine. 10 cc's sterile water placed into placment balloon. Estrella draining 400cc pale clear urine. Attached to drainage bag. night bag given Please advise on further treatment. [email or web address] Miscellaneous Notes Images from the original note were not included. Dr. Jerrica MD Patient presents for fill and pull per Provider-Dr. Jerrica MD . Explained procedure to pt and he agrees to proceed. Instilled approx 350cc's of sterile water through estrella catheter. Pt felt strong urge to urinate. Balloon deflated and 16fr silicone estrella removed without difficulty. Pt was able to urinate 0cc's. Sherint has strong urge to void. Had large BM while having void trial. Pt tolerated procedure well. Discussed with Yodit Schmid [employer] place estrella. The perineal area was cleansed with Betadine swabs. # 16fr estrella catheter placed without difficulty draining clear yellow urine. 10 cc's sterile water placed into placment balloon. Estrella draining 400cc pale clear urine. Attached to drainage bag. night bag given Please advise on further treatment. documented in this encounter [facility] 11-23-2024 Telephone encounter Note Images from the original note were not included. Dr. Jerrica MD Patient presents for fill and pull per Provider-Dr. Jerrica MD . Explained procedure to pt and he agrees to proceed. Instilled approx 350cc's of sterile water through estrella catheter. Pt felt strong urge to urinate. Balloon deflated and 16fr silicone estrella removed without difficulty. Pt was able to urinate 0cc's. Brenda has strong urge to void. Had large BM while having void trial. Pt tolerated procedure well. Discussed with Yodit Schmid [employer] place estrella. The perineal area was cleansed with Betadine swabs. # 16fr estrella catheter placed without difficulty draining clear yellow urine. 10 cc's sterile water placed into placment balloon. Estrella draining 400cc pale clear urine. Attached to drainage bag. night bag given Please advise on further treatment. [facility] 11-23-2024 History of Presen t illness Narrative Patient presents for fill and pull per Provider-Dr. Jerrica MD . Explained procedure to pt and he agrees to proceed. Instilled approx 350cc's of sterile water through estrella catheter. Pt felt strong urge to urinate. Balloon deflated and 16fr silicone estrella removed without difficulty. Pt was able to urinate 0cc's. Brenda has strong urge to void. Had large BM while having void trial. Gave pt instruction sheet and informed pt to call if any concerns. Pt tolerated procedure well. Discussed with Yodit Schmid NP place estrella. The perineal area was cleansed with Betadine swabs. # 16fr estrella catheter placed without difficulty draining clear yellow urine. 10 cc's sterile water placed into placment balloon. Estrella draining 400cc pale clear urine. Attached to drainage bag. night bag given. Ordering Doctor: Dr. Jerrica MD Supervising Doctor: Yodit Schmid NP documented in this encounter [facility] 11-23-2024 Miscellaneous Notes Images from the original note were not included. Please see my 10/30/2024 office note. Definitely a fill and pull voiding trial. Thank you Patient Calls (Newest Message First) View All Conversations on this Encounter Taylor Bardales LPN routed conversation to You13 minutes ago (7:27 AM) Taylor Bardales LPN13 minutes ago (7:27 AM) DP Dr. Jerrica MD Patient is on my schedule for a void trial. Do you want a void trial or just remove estrella. She is in a usp and a aryan lift. Please advise. documented in this encounter [facility] 11-23-2024 Telephone encounter Note Images from the original note were not included. Please see my 10/30/2024 office note. Definitely a fill and pull voiding trial. Thank you Patient Calls (Newest Message First) View All Conversations on this Encounter Taylor Bardales LPN routed conversation to You13 minutes ago (7:27 AM) Taylor Bardales LPN13 minutes ago (7:27 AM) HAYLEY Becerril MD Patient is on my schedule for a void trial. Do you want a void trial or just remove estrella. She is in a usp and a aryan lift. Please advise. [facility] 11-23-[address] Jerrica MD Patient is on my schedule for a void trial. Do you want a void trial or just remove estrella. She is in a usp and a aryan lift. Please advise. documented in this encounter [facility] 11-23-[address] Jerrica MD Patient is on my schedule for a void trial. Do you want a void trial or just remove estrella. She is in a usp and a aryan lift. Please advise. [facility] 11-20-2024 Miscellaneous Notes Called [facility] and spoke to nurse Mendez in regards to having labs and US done before upcoming appt on 11/27/24. Nurse said she already had labs done and will be faxing results to us at ([phone]). Nurse stated she will have her get her US done today and faxed results when it is complete. documented in this encounter [facility] 11-20-2024 Telephone encounter Note Called [facility] and spoke to nurse Mendez in regards to having labs and US done before upcoming appt on 11/27/24. Nurse said she already had labs done and will be faxing results to us at ([phone]). Nurse stated she will have her get her US done today and faxed results when it is complete. [email or web address] History of Presen t illness Narrative Images from the original note were not included. [address] [place] [address] [address] [facility] [address] Patient: Jennifer Avendano Date of : 1945 Encounter Date: 10/30/2024 History of Present Illness: Chief Complaint: Retention and neurogenic bladder. See below Urinalysis today: No results for input(s): EXTPOCURCO , EXTPOCURCH , EXTPOCAPP , EXTPOCURBS , EXTPOCURBIL , EXTPOCUKET , EXTPOCUSPG , EXTPOCUHGB , EXTPOCUPRO , EXTPOCUURO , EXTPOCULEU , EXTPOCUNIT , EXTPOCUWBC , EXTPOCUBLD , EXTPOCURBC , EXTPOCUCRY , EXTPOCUBAC , EXTPOCUTREP , EXTPOCUPH , EXTPOCULEE in the last 72 hours. Last BUN and creatinine: Lab Results Component Value Date BUN 38 (H) 10/14/2024 Lab Results Component Value Date CREATININE 1.17 (H) 10/14/2024 Last PSA: No results found for: PSA No results found for: PROSTATICSP Past Medical, Family, and Social History Update: The following portions of the patient's history were reviewed and updated as appropriate: allergies, current medications, past family history, past medical history, past social history, past surgical history and problem list. 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[facility]) ADHD (attention deficit hyperactivity disorder) Amnesia Anemia Anxiety Aortic stenosis due to bicuspid aortic valve [id number] mild degree Arthritis left shoulder here for workup for pending reverse left shoulder replacement Arthropathy of left shoulder Back pain due to my inactivity Chronic constipation Chronic pain Clotting disorder ([facility]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 Colon polyps Colonoscopy 2014/polyp benign COVID 02/2021 Deep vein thrombosis ([facility]) lower right leg -05/2021 Dental disease partial on upper and lower Depression WOLF (dyspnea on exertion) DVT (deep venous thrombosis) ([facility]) Eczema Factor V Leiden mutation ([facility]) ONE ALLELE POSITIVE/ HETEROZYGOUS Failure to thrive (child) Former tobacco use Stopped 1978 Heart murmur Heart murmur Hyperlipidemia Hypertension Hypoxemia Insomnia Mechanical loosening of other internal prosthetic joint, initial encounter ([facility]) 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 shoulder Osteoporosis T-1.8 to -2.0 dexi scan Pain in right knee Pulmonary embolism ([facility]) 05/2021 left lung- due to inactivity Rash [...] 06/05/2021 Performed by Nadeem Phan MD at [facility] APPENDECTOMY APPLICATION WOUND VAC LOWER EXTREMITY Right 06/13/2022 Performed by Parker Olguin MD at [facility] ARM SURGERY left shoulder replacement ARTHROPLASTY STEM AUGMENT TOTAL KNEE Right 12/09/2017 Performed by Tye Schwartz DO at [facility] SECTION x3 COLONOSCOPY 02/2017,08/2010 CYSTOSCOPY N/A 11/23/2022 Performed by Mira Stevens Jr., MD at [facility] CYSTOSCOPY INSERTION CATHETER ESTRELLA N/A 11/23/2022 Performed by Mira Stevens Jr., MD at [facility] JOINT REPLACEMENT bilateral knees KNEE SURGERY Right 12/24/[address] OLSEN [facility] non union patella Right 06/13/2022 Performed by Parker Olguin MD at [facility] REVERSE ARTHROPLASTY TOTAL SHOULDER Left 09/18/2021 Performed by Alvaro Orozco MD at [facility] REVISION TOTAL JOINT KNEE Right 06/13/2022 Performed by Parker Olguin MD at [facility] REVISION TOTAL JOINT KNEE Right 12/10/2017 Performed by Tye Schwartz DO at [facility] SPINE SURGERY fused c4&5 TONSILLECTOMY TOOTH EXTRACTION [...] the morning. (Patient not taking: Reported on 10/30/2024) 90 tablet 3 [START ON 11/23/2024] ciprofloxacin HCl (CIPRO) 250 mg tablet Take 1 tablet (250 mg total) by mouth in the morning and 1 tablet (250 mg total) before bedtime. Do all this for 3 days. 6 tablet 0 No current facility-administered medications for this [...] and vomitting. -per HPI Physical Exam: BP 104/45 Pulse 71 Ht 172.7 cm (5' 8 ) Wt 106.6 kg (235 lb) BMI 35.73 kg/m Alert, pleasant, without signs of acute illness, and in no distress. Respirations unlabored . Skin dry on examination now. Sitting in a wheelchair Assessment and Plan: Jennifer was seen today for follow-up. Diagnoses and all orders for this visit: Urinary retention - Creatinine includes GFR, serum; Future - Ultrasound retroperitoneal complete; Future Urologic disorders Other orders - ciprofloxacin HCl (CIPRO) 250 mg tablet; Take 1 tablet (250 mg total) by mouth in the morning and 1 tablet (250 mg total) before bedtime. Do all this for 3 days. Problem List Unprioritized Urologic disorders Overview 1. Aortic stenosis and multiple sclerosis with Recurrent postoperative urinary retention most recently May 2021 status post 05/31/2021 fall and cervical diskectomy C 4-5 fusion with nondisplaced C5 fracture [facility] 06/02/2021 350 mL with successful voiding trial at [facility] approximately 2 weeks after 06/07/2021 discharge; baseline [...] urge urinary incontinence treated by [facility] with oxybutynin XL 10 mg daily, complicated [...] true postvoid residual on 12/14/2022 was 220 mL; urinary retention with PVR greater than 400 mL voiding trial confirmed emergency department 10/14/2024 12. 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 Schedule fill and pull with treatment nurse with Aryan weiss and to staff available to lift at [place] office on exactly 11/23/2023 2. Follow-up appointment with me 11/27/2023 Patient returns, with her son, now with indwelling Esterlla catheter again. Recall we had planned voiding trial fill and pull with my treatment nurse, and I would actually prescribed Duricef for a week to help with that. However, there were scheduling issues, and the patient wound up getting her catheter removed at her care facility and by sons understanding around 30 or 40 mL residual on a couple occasions, so they bolus her with fluid instilled did not get much residual, so they sent her to the emergency department. She was then catheterized for a very large amount, son believing there was greater than a 1000, and returns today for visit. She had been on Duricef but was then changed to Cipro. I REVIEWED THE FOLLOWIN. Emergency department provider note 10/14/2024 with residual greater than 400 mL 2. Urine culture Pseudomonas 10/14/2024 elsewhere sensitive to Cipro 3. Urine dip moderate blood, nitrite positive, large leukocyte esterase on 10/30/2024. Serum creatinine 1.17 I provided independent interpretation of films and reports of retroperitoneal ultrasound with normal kidneys and not much fluid in the bladder, but there may have been a catheter in the bladder at the time, it is not certain to me. We discussed management.. It is now October 30 obviously. I have continuity of care concerns we discussed as I am working this next week and then away until November 23. Accordingly, leave Estrella catheter indwelling. She can take Pyridium as needed. Continue Flomax 0.8 mg nightly. Fill and pull voiding trial definitely at our [place] office with our staff on 11/23/2024. I have prescribed Cipro 250 mg p.o. twice daily for 3 days to start the day of the voiding trial. Returns specifically 11/27/2024 with repeat serum creatinine and retroperitoneal ultrasound. Remain off Uroxatral. Thank you very much. I appreciate being asked to help with this patient's care. Urology service is the sole provider for the patient's ongoing management of neurogenic bladder, which is a chronic condition requiring [...] for your understanding. documented in this encounter [facility] 10-13-2024 Miscellaneous Notes New order faxed to Samara dick at [facility] at [phone] regarding replacing Estrella if PVR this evening is greater than [address] Stevens's protocol. See all notes over the past couple days for clarification if questions. Yodit Schmid is aware and you can check with her for any further instructions or questions. documented in this encounter [facility] 10-13-2024 Telephone encounter Note New order faxed to Samara dick at [facility] at [phone] regarding replacing Estrella if PVR this evening is greater than [address] Stevens's protocol. See all notes over the past couple days for clarification if questions. Yodit Schmid is aware and you can check with her for any further instructions or questions. [facility] 10-13-2024 Miscellaneous Notes Spoke with Samara-nurse at [facility] in [place] 10/13/24 at 3:30 pm. She states that patient's catheter was removed at 3:00 pm and they will monitor and check Post Void Residual per order in 4-5 hours or if patient becomes uncomfortable. Nurse will call our office iWed am with results. Please check with Yodit Schmid for any further orders or instructions. Phone # for [facility] [phone]. Fax is [phone]. documented in this encounter [facility] 10-13-2024 Telephone encounter Note Spoke with Samara-nurse at [facility] in [place] 10/13/24 at 3:30 pm. She states that patient's catheter was removed at 3:00 pm and they will monitor and check Post Void Residual per order in 4-5 hours or if patient becomes uncomfortable. Nurse will call our office iWed am with results. Please check with Yodit Schmid for any further orders or instructions. Phone # for [facility] [phone]. Fax is [phone]. [facility] 10-13-2024 Miscellaneous Notes Patient was scheduled for Fill and pull voiding trial in [place] office on 10/13/[address] Stevens's order. Review of chart and complete review of Dr. Stevens's decision to have this done in [place] was noted. Patient was scheduled at a time and room that would not be feasible for this patient due to staffing and room availability. Dr. Stevens out of office. Spoke with RAI Becerra and decision was made to have this done at patient facility [facility] in [place] [phone] with strict orders and follow up of procedure being completed and PVR results called to our office in timely manner or we would contact them. I spoke with nurse Bjorn on 10/12/24 at 5 pm that this is something they can do. He assured me that it was and order was faxed to nursing and also to Jana (coordinator) with detailed instructions.fax number [phone] 2nd floor and to [phone]. I also spoke with son and explained. [...] perform testing. Patient apparently is incontinent to [facility] and is not transferred to [facility] on regular basis for voiding so it should provide comparable information here or at [place]. Transportation to bring patient to [place] today was cancelled and confirmed with Jana this am. Kristi Vang LPN documented in this encounter [facility] 10-13-2024 Telephone encounter Note Patient was scheduled for Fill and pull voiding trial in [place] office on 10/13/[address] Stevens's order. Review of chart and complete review of Dr. Stevens's decision to have this done in [place] was noted. Patient was scheduled at a time and room that would not be feasible for this patient due to staffing and room availability. Dr. Stevens out of office. Spoke with RAI Becerra and decision was made to have this done at patient facility [facility] [phone] with strict orders and follow up of procedure being completed and PVR results called to our office in timely manner or we would contact them. I spoke with Bjorn nurse on 10/12/24 at 5 pm that this is something they can do. He assured me that it was and order was faxed to nursing and also to Jana (coordinator) with detailed instructions.fax number [phone] 2nd floor and to [phone]. I also spoke with son and explained. [...] to brief and is not transferred to [facility] on regular basis for voiding so it should provide comparable information here or at [place]. Transportation to bring patient to [place] today was cancelled and confirmed with Jana this am. Kristi Vang LPN [facility] 10-09-2024 History of Presen t illness Narrative Images from the original note were not included. [address] [place] [address] A [facility] [id number] Patient: Jennifer Avendano Date of : 1945 [...] History: Diagnosis Date Activated protein C resistance ([facility]) ADHD (attention deficit hyperactivity disorder) Amnesia Anemia Anxiety Aortic stenosis due to bicuspid aortic valve [id number] mild degree Arthritis left shoulder here for workup for pending reverse left shoulder replacement Arthropathy of left shoulder Back pain due to my inactivity Chronic constipation Chronic pain Clotting disorder ([facility]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 Colon polyps Colonoscopy 2014/polyp benign COVID 02/2021 Deep vein thrombosis ([facility]) lower right leg -05/2021 Dental disease partial on upper and lower Depression WOLF (dyspnea on exertion) DVT (deep venous thrombosis) ([facility]) Eczema Factor V Leiden mutation ([facility]) ONE ALLELE POSITIVE/ HETEROZYGOUS Failure to thrive (child) Former tobacco use Stopped 1978 Heart murmur Heart murmur Hyperlipidemia Hypertension Hypoxemia Insomnia Mechanical loosening of other internal prosthetic joint, initial encounter ([facility]) 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 shoulder Osteoporosis T-1.8 to -2.0 dexi scan Pain in right knee Pulmonary embolism ([facility]) 05/2021 left lung- due to inactivity Rash [...] 06/05/2021 Performed by Nadeem Phan MD at [facility] APPENDECTOMY APPLICATION WOUND VAC LOWER EXTREMITY Right 06/13/2022 Performed by Parker Olguin MD at [facility] ARM SURGERY left shoulder replacement ARTHROPLASTY STEM AUGMENT TOTAL KNEE Right 12/09/2017 Performed by Tye Schwartz DO at [facility] SECTION x3 COLONOSCOPY 02/2017,08/2010 CYSTOSCOPY N/A 11/23/2022 Performed by Mira Stevens Jr., MD at [facility] CYSTOSCOPY INSERTION CATHETER ESTRELLA N/A 11/23/2022 Performed by Mira Stevens Jr., MD at [facility] JOINT REPLACEMENT bilateral knees KNEE SURGERY Right 12/24/[address] OLSEN [facility] non union patella Right 06/13/2022 Performed by Parekr Olguin MD at [facility] ARTHROPLASTY TOTAL SHOULDER Left 09/18/2021 Performed by Alvaro Orozco MD at [facility] REVISION TOTAL JOINT KNEE Right 06/13/2022 Performed by Parker Olguin MD at [facility] TOTAL JOINT KNEE Right 12/10/2017 Performed by Tye Schwartz DO at [facility] SPINE SURGERY fused c4&5 TONSILLECTOMY TOOTH EXTRACTION [...] C 4-5 fusion with nondisplaced C5 fracture [facility] 06/02/2021 350 mL with successful voiding trial at [facility] approximately 2 weeks after 06/07/2021 discharge; baseline [...] urge urinary incontinence treated by [facility] with oxybutynin XL 10 mg daily, complicated [...] requiring at least weekly catheterizations with 14 [place] catheter Urinary retention Relevant Orders Creatinine includes GFR, serum Ultrasound retroperitoneal complete Neurogenic bladder Relevant Orders Creatinine includes GFR, serum Ultrasound retroperitoneal complete Follow-up: 1. Fill and pull voiding trial at [facility] in 3 or 4 days 2. Follow-up appointment with [place] 10/30/2024 The visit included use of Patient's [...] not sure what antibiotic. She was at [facility] and is now at [facility]. She has had 85 days of [...] Return next Saturday or Saturday to our [place] office with appropriate lift equipment for fill [...] for your understanding. documented in this encounter [facility] 09-15-2024 History of Presen t illness Narrative Subjective Jennifer Avendano is a 78 y.o. year old female Chief Complaint Patient presents with Multiple Sclerosis Past Medical History: Diagnosis Date Depression ([facility]) 05/13/2008 Gait abnormality 06/05/2010 Insomnia, unspecified 05/13/2008 Multiple sclerosis ([facility]) 10/25/2017 Vitamin D deficiency 08/17/2014 Weakness 10/25/2017 [...] in hospital -she is currently in a [facility] doing PT -not improving -Taking Ampyra and [...] midline without atrophy or fasciculations. Coordination Right: [id number] normal. Rapid alternating movement normal. Gait Wheelchair bound. Motor Examination RUE Strength deltoid, biceps, triceps, wrist extensors, wrist extensors, wrist flexor, [employer] strength 5/5. 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 RLE Strength illopsoas, quadriceps, tibialis [...] and age. Last known possible exacerbation was 2016. MRI brain 11/2019 revealed stable changes as compared to 2018 with no new or active lesions. She has deconditioning which is confounded by her orthopedic issues. Updated brain MRI from [facility] (08/2021) reviewed with patient through patients portal, revealed possible new lesions. There was no note of active lesions. She has been in and out of usp due to falls/surgeries and may have had lapse in medications. Patient was seen at [facility] 01/04/2022 for MS flare and had imaging [...] were stable. She was recently in at [facility] 07/12/2024 after a fall while trying to transfer and was diagnosed with a UTI and dehydration. She went into a usp after for rehab which has not improved [...] to frequent falls. Continue PT at the usp for balance Continue Ampyra for gait I will update an MRI of the brain due to worsening symptoms Can consider EMG of the BLE pending course of symptoms. documented in this encounter [facility] note Diagnosis Multiple sclerosis (CMS/HCC) Multiple sclerosis Weakness Other malaise and fatigue Cognitive changes [facility] Diagnosis Urinary urgency- Primary Urgency of urination Urinary retention Unspecified retention of urine Urologic disorders- Primary Unspecified disorder of urethra and urinary tract Urinary retention Unspecified retention of urine Neurogenic bladder Neurogenic bladder, NOS [facility] Urinary urgency- Primary Urgency of urination Urinary retention Unspecified retention of urine Urinary retention- Primary Unspecified retention of urine Urologic disorders Unspecified disorder of urethra and urinary tract [facility] Diagnosis Urinary urgency- Primary Urgency of urination Urinary retention Unspecified retention of urine Urinary retention- Primary Unspecified retention of urine [facility] Diagnosis Urinary urgency- Primary Urgency of urination Urinary retention Unspecified retention of urine Urologic disorders- Primary Unspecified disorder of urethra and urinary tract Urge incontinence of urine Urge incontinence Urinary retention Unspecified retention of urine Retention of urine Unspecified retention of urine Neurogenic bladder Neurogenic bladder, NOS [facility] Diagnosis Urinary urgency- Primary Urgency of urination Urinary retention Unspecified retention of urine Cervical stenosis of spinal canal- Primary Spinal stenosis in cervical region Cervical spondylosis Cervical spondylosis without myelopathy [facility] filed[facility] in this [facility] filedocumented in this encounter [facility] filedocumented in this [facility] filedocumented in this encounter [facility] on filedocumented in this encounter [facility] filedocumented in this encounter [facility] filedocumented in this encounter [facility] Summary Purpose Family History No Family History Records FoundNo Family History Records FoundNo Family History Records FoundNo Family History Records FoundNo Family History Records FoundNo Family History Records FoundNo Family History Records Found Advance Directives No Advanced Directives Records FoundDocuments on File Type Date Recorded Patient Corner Block Cutter Expl anation Advance Directives and Livin g Will 07/07/2019 [facility]ives and Livin g Will 05/26/2018 2018[facility] on File Type Date Recorded Patient Corner Block Cutter Expl anation Durable Power of Strainer Tender 11/12/2023 2:37 PM ADDENED DURABLE POA 12/16/2014 Living Will 06/22/2022 4:08 PM Durable Power of Strainer Tender 06/22/2022 4:08 PM DNR Physician Order 01/11/2022 6:07 AM Date Activated Date Inactivated Comments 07/12/2024 9:39 [...] Lord Health Care Agent [id number] [id number] (Mobile) [email or web address] Larry Lord First Alternate Health Care Agent Healthcare Agents on File Name Relationship Healthcare Agent Relationship Communication Galileo Lord Health Care Agent [id number] [id number] (Mobile) Larry Lord [facility] Alternate Health Care Agent Documents on File Type Date Recorded Patient Corner Block Cutter Expl anation Durable Power of Strainer Tender 11/12/2023 2:37 PM ADDENED DURABLE POA 12/16/2014 Living Will 06/22/2022 4:08 PM Durable Power of Strainer Tender 06/22/2022 4:08 PM DNR Physician Order 01/11/2022 6:07 AM Date Activated Date Inactivated Comments 07/12/2024 9:39 [...] Lord Health Care Agent [id number] [id number] (Mobile) [email or web address] Larry Lord First Alternate Health Care Agent Documents on File Type Date Recorded Patient Corner Block Cutter Expl anation Durable Power of Strainer Tender 11/12/2023 2:37 PM Galileo Avendano ADDENED DURABLE POA 12/16/2014 Living Will 06/22/2022 4:08 PM Durable Power of Strainer Tender 06/22/2022 4:08 PM DNR Physician Order 01/11/2022 6:07 AM Healthcare Agents on File Name Relationship Healthcare Agent Relationship Communication Galileo Lord Health Care Agent [phone] (Mobile) [email or web address] Lord First Alternate Health Care Agent Healthcare Agents on File Name Relationship Healthcare Agent Relationship Communication Galileo Lord Health Care Agent [phone] (Mobile) [email or web address] Lord First Alternate Health Care Agent Healthcare Agents on File Name Relationship Healthcare Agent Relationship Communication Galileo Lord Health Care Agent [email or web address] Larry Solis Alternate Health Care Agent Documents on File Type Date Recorded Patient Corner Block Cutter Expl anation Advance Directives and Livin g Will 07/07/2019 2019-07-06 dnc Advance Directives and Livin g Will 05/26/2018 2018-05-26 DNC Additional Source Comments INFORMATION SOURCE (unrecogn ized section and content) DATE CREATED AUTHOR 05/08/[address] [facility] DATE CREATED AUTHOR AUTHOR'S ORGANIZ ATION 04/20/2021 [facility] DATE CREATED AUTHOR AUTHOR'S ORGANIZ ATION 08/20/2022 [facility] DATE CREATED AUTHOR AUTHOR'S ORGANIZ ATION 11/29/2024 [facility] DATE CREATED AUTHOR AUTHOR'S ORGANIZ ATION 12/01/2024 [facility] DATE CREATED AUTHOR AUTHOR'S ORGANIZ ATION 12/02/2024 [facility] DATE CREATED AUTHOR AUTHOR'S ORGANIZ ATION 01/02/2025 [facility] EPIC Reason for Visit (unrecogniz ed section and content) Reason Comments Multiple Sclerosis Reason Comments Follow-up Reason Comments Urinary Retention Reason Onset Date Comments pre cert 12/17/2024 Care Teams (unrecognized sec tion and content) Manager Food Relationship Specialty Start Date End Date Rajani Choudhury MD [address] [place] [address] Referring Physician Neurology 01/30/24 Manager Food Relationship Specialty Start Date End Date Taylor Pedraza MD [address] [facility] [facility] [place] [address] PCP - General Family Medicine 08/11/21 Manager Food Relationship Specialty Start Date End Date Taylor Pedraza MD [address] [place] [address] PCP - [facility] 08/11/21 Manager Food Relationship Specialty Start Date End Date Taylor Pedraza MD [address] [place] [address] PCP - [facility] 08/11/21 Manager Food Relationship Specialty Start Date End Date Taylor Pedraza MD [address] [place] [address] PCP - [facility] 08/11/21 Manager Food Relationship Specialty Start Date End Date Taylor Pedraza MD [address] [place] [address] PCP - [facility] 08/11/21 Manager Food Relationship Specialty Start Date End Date Taylor Pedraza MD [address] [place] [address] PCP - [facility] 08/11/21 Manager Food Relationship Specialty Start Date End Date Taylor Pedraza MD [address] [place] [address] PCP - [facility] 08/11/21 Manager Food Relationship Specialty Start Date End Date Rajani Choudhury MD [address] [place] [address] Referring Physician Neurology 01/30/24 FOR RECORDS PERTAINING TO PATIENTS WHO ARE [...] BE BASED ON THE PRIMARY CLINICAL RECORDS. [facility] [employer] [facility]. provides no warranty or guarantee of the accuracy or completeness of information in this document.
[2025-01-06 17:49] LABS: Alanine Aminotransferase 19 U/L (14-59); Albumin Globulin Ratio 0.8; Albumin Level 2.7 g/dL (3.4-5.0); Alkaline Phosphatase 64 U/L (46-116); Anion Gap 14.2; Aspartate Amino Transferase 12 U/L (15-37); BUN Creatinine Ratio 32.8; Bilirubin Total 0.2 mg/dL (0.2-1.0); Carbon Dioxide 26.4 mmol/L (21.0-32.0); Chloride 106 mmol/L (98-107); Estimated GFR (African America 51 (>=60 mL/min/1.73m^2); Estimated GFR (Non-African Ame 43 (>=60 mL/min/1.73m^2); Globulin 3.2 g/dL; Glucose 99 mg/dL (74-106); Potassium 4.6 mmol/L (3.5-5.1); Sodium 142 mmol/L (136-145); Total Protein 5.9 g/dL (6.4-8.2)
== END 2025-01-06 16:51 | disposition home or self-care (01) ==
LOC: LAB 16:50
PROVIDERS: PCP Family Medicine; Visit Provider Student in an Organized Health Care Education/Training Program
DX: G35 Multiple sclerosis (principal)
CPT/HCPCS: 36415; 80053

== ENCOUNTER 2025-09-14 08:11 | Outpatient (REF) | payer MEDICARE, MEDICAID, SELFPAY ==
--- OUTSIDE RECORDS SUMMARY | 2025-09-14 08:15 | XMS_ITS | Clinical Summary ---
Author Organization [facility] Address [address] [place] [address] Care Team Providers Care Deck Officer Name Role Phone Enrico Choudhury MD Unavailable [phone] Allergies Active AllergyReactionsCriticalityNoted DateCommentsWound Dressing Adhesive 03/26/2024 Medications MedicationSigDispense QuantityRefillsLast FilledStart DateEnd DateStatus lisinopril-hydroCHLOROthiazide 10-12.5 MG tablet Take 1 tablet by mouth DailyActive amLODIPine (Norvasc) 5 MG tablet Take 5 mg by mouth DailyActive sertraline (Zoloft) 100 MG tablet Take 100 mg by mouth DailyActive apixaban (Eliquis) 5 MG tablet Take 5 mg by mouth in the morning and 5 mg before bedtime.Active simvastatin (Zocor) 20 MG tablet Take 20 mg by mouth at bedtimeActive traZODone (Desyrel) 100 MG tablet Take 100 mg by mouth at bedtimeActive iron polysaccharides (Nu-Iron,Niferex) 150 MG capsule Take 150 mg by mouth DailyActive potassium chloride CR (Klor-Con M10) 10 MEQ ER tablet Take 10 mEq by mouth Daily Do not crush or chew.Active metoprolol succinate XL (Toprol-XL) 50 MG 24 hr tablet Take 50 mg by mouth Daily Do not crush or chew.Active alfuzosin ER (Uroxatral) 10 MG 24 hr tablet Take 10 mg by mouth Daily Do not crush, chew, or split.Active ibandronate (Boniva) 150 MG tablet Take 150 mg by mouth every 30 (thirty) days Take in morning with full glass of water on an empty stomach. No food, drink, meds, or lying down for 60 minutes after.Active ergocalciferol (Vitamin D-2) 1.25 MG (96044 UT) capsule Take 1.25 mg by mouth 1 (one) time per weekActive tamsulosin (Flomax) 0.4 MG 24 hr capsule 5Active traMADol (Ultram) 50 MG tablet 5Active Active Problems ProblemNoted DateDiagnosed DateUrinary apubotxtrvtp15/09/2024Hyperlipidemia 03/26/2024Hypertensive heart disease with heart vahhqhm5511/18/2022Weakness 10/25/2017Multiple /08/2017Vitamin D oirtbstlfr96/30/2014Gait efbqqapjyrb85/19/7476Mtrrtszxtt64/26/2008Insomnia, tagkchvqphk18/26/2008 Immunizations ImmunizationAdministration DatesNext DuePneumococcal Conjugate PCV 131 Family History Medical HistoryRelationNameCommentsHeart diseaseFatherHypertensionFatherHeart diseaseMotherHypertensionMotherRelationNameStatusCommentsFatherMother Social History Tobacco UseTypesPacks/DayYears UsedDateSmoking Tobacco: FormerCigarettes Smokeless Tobacco: Never Tobacco Cessation:Counseling Given: Not Answered Alcohol UseStandard Drinks/WeekCommentsNever0 (1 standard drink = 0.6 oz pure alcohol)CommentsUnknownSex and Gender InformationValueDate RecordedSex Assigned at BirthNot on fileLegal LycFirtza68/15/2023 6:37 PM EDTGender Identity Not on fileSexual OrientationNot on file Last Filed Vital Signs Vital SignReadingTime TakenCommentsBlood Aavjaihl622/6804 11:50 AM EDT Pulse--Temperature--Respiratory Rate--Oxygen Saturation--Inhaled Oxygen Concentration--Zoqnlg464 kg (235 lb)03/10/2025 11:50 AM VHFBjwnkm177.7 cm (5' 8 )03/10/2025 11:50 AM EDTBody Mass Index35.7304 11:50 AM EDT Plan of Treatment Not on file Insurance Advance Directives TypeDate RecordedPatient RepresentativeExplanationAdvance Directives and Living Will dnrccAdvance Directives and Living Will05/26/2018 2018-05-26 DNC NameRelationshipHealthcare Agent RelationshipCommunicationMike DebiHealth Care Agent* Larry Zhang Alternate Health Care Agent* Care Teams Team MemberRelationshipSpecialtyStart DateEnd Date Enrico Choudhury MD Referring PhysicianNeurology01/30/24
--- OUTSIDE RECORDS SUMMARY | 2025-09-14 08:15 | XMS_ITS | Continuity of Care Document ---
Author [facility] Address [address] [place] [address] Problems Unknown Problems Results Test Result Date/Time Value / Unit Interp. Refere nce Range SARS-CoV-2 (COVID-19), RT-PC R/TMA[[id number]] Collected: 09/15/2021 04:46 PM Specimen Received: 09/16/2021 05:44 PM Source: [facility] SARS-CoV-2 INTERPRETATION [[id number]] 09/17/2021 01:09 A M Negative See UrozRUZE-AdR-6 RNA NOT DETECTEDNegative results do not preclude SARS-CoV-2 infection and should notbe used as the sole basis for patient management decisions. Negativeresults must be combined with clinical observations, patient history,and epidemiological information. Optimum specimen types and timingfor peak viral levels during infections caused by SARS-CoV-2 have notbeen determined. Collection of multiple specimens or types ofspecimens may be necessary to detect virus. Improper specimencollectionand handling, sequence variability under primers/probes,or organism present below the limit of detec tion may lead to falsenegative results. Positive and negative predictive values oftesting are highly dependent on prevalence. False negative testresults are more likely when prevalence is high.SOURCE [[id number]]09/17/2021 01:09 AM NASOPHARYNGEALNote: Methodology is Elodia Nadine Real-Time RT-PCR. The expected result or reference range is NEGATIVE (Not Detected). For more information regarding COVID-19 testing to include clinicalinformation, methodology detail, intended use, FDA authorization andrecommended fact sheets for patients or healthcare providers, see [employer] Announcement: SARS-CoV-2 (COVID-19) by NAAT at URL below (note,fact sheets are provided by method given in report:[email or web address]/ Alternatively, see downloadable PDF fact sheet at:[email or web address] Allergies, adverse reactions, alerts No known allergies and adverse reactions Medications No administered medications reported Vital Signs No vital signs reported Social History No smoking Hx information available
[2025-09-14 09:47] LABS: Hematocrit 38.1 % (36.0-48.0); Hemoglobin 11.8 g/dL (12.0-16.0); Immature Granulocytes Abs Auto 0.03 10^3/uL (0.00-0.03); Immature Granulocytes Pct Auto 0.4 % (0.0-0.5); Lymphocytes Absolute Auto 0.9 10^3/uL (1.2-3.8); Mean Corpuscular HGB Conc 31.0 g/dL (29.9-35.2); Mean Corpuscular Hemoglobin 26.9 pg (26.7-34.0); Mean Corpuscular Volume 86.8 fL (81.0-99.0); Platelet Count 217 10^3/uL (150-450); Red Blood Count 4.39 10^6/uL (4.20-5.40); White Blood Count 7.9 10^3/uL (4.0-11.0)
[2025-09-14 12:56] LABS: Anion Gap 12.2; Blood Urea Nitrogen 29.0 mg/dL (7.0-18.0); Calcium 9.2 mg/dL (8.5-10.1); Carbon Dioxide 28.5 mmol/L (21.0-32.0); Chloride 108 mmol/L (98-107); Estimated GFR (African America >60 (>=60 mL/min/1.73m^2); Estimated GFR (Non-African Ame 59 (>=60 mL/min/1.73m^2); Glucose 83 mg/dL (74-106); Potassium 4.7 mmol/L (3.5-5.1); Sodium 144 mmol/L (136-145)
== END 2025-09-14 08:12 | disposition home or self-care (01) ==
LOC: LAB 08:11
PROVIDERS: PCP Family Medicine; Visit Provider Student in an Organized Health Care Education/Training Program
DX: R53.83 Other fatigue (principal)
CPT/HCPCS: 36415; 80048; 85025